=== PATIENT | male | born 1975 | race Caucasian/White ===

== ENCOUNTER 2022-01-03 17:21 | Emergency (ER) | payer OTHER ==
[2022-01-03 17:46] VITALS: BP 120/73; PULSE 96; RESP 20; TEMP 98.5
[2022-01-03 20:53] LABS: Partial Thromboplastin Time 22.1 sec (22.0-30.0); Prothrombin Time 11.3 sec (9.0-12.0)
[2022-01-03 20:56] LABS: Albumin 5.1 g/dL (3.5-5.0); Calcium 10.1 mg/dL (8.4-10.2); Potassium 4.5 mmol/L (3.5-5.1); Total Bilirubin 1.3 mg/dL (0.2-1.3); Total Protein 6.6 g/dL (6.3-8.2)
--- NOTE | 2022-01-03 21:31 | ED ---
General Adult HPI - General Chief complaint: Neuro Symptoms/Deficit Stated complaint: RAYSA,bilateral extremity issues Time Seen by Provider: 01/03/22 19:42 Source: patient Mode of arrival: ambulatory Limitations: no limitations - History of Present Illness Initial comments: Patient is a 46-year-old male presenting with chief complaint of increasing numbness and paralysis of the bilateral lower extremities. Patient states that about a week ago this started with intense bilateral lower back pain. He denies any trauma or injury. Patient states that numbness and paralysis has been progressively worsening throughout the week. On Sunday is when he lost the ability to walk. He has lost control of his bladder. He is still able control his bowels. He also admits to intermittent abdominal pain after eating. No fever or chills. No chest pain or difficulty breathing. No dizziness or syncope. No history of cancer. No palpitations. No nausea, vomiting, diarrhea, hematochezia, melena. - Related Data Allergies Allergy/AdvReac Type Severity Reaction Status Date / Time No Known Allergies Allergy Verified 01/03/22 17:45 Review of Systems ROS Statement: Those systems with pertinent positive or pertinent negative responses have been documented in the HPI. ROS Other: All systems not noted in ROS Statement are negative. Past Medical History Past Medical History: No Reported History History of Any Multi-Drug Resistant Organisms: None Reported Past Surgical History: No Surgical Hx Reported Past Psychological History: No Psychological Hx Reported Smoking Status: Never smoker Past Alcohol Use History: Heavy Past Drug Use History: None Reported General Exam Limitations: no limitations General appearance: alert, in no apparent distress Head exam: Present: atraumatic, normocephalic, normal inspection Eye exam: Present: normal appearance, PERRL, EOMI. Absent: scleral icterus, conjunctival injection, periorbital swelling Neck exam: Present: normal inspection, full ROM Respiratory exam: Present: normal lung sounds bilaterally. Absent: respiratory distress, wheezes, rales, rhonchi, stridor Cardiovascular Exam: Present: regular rate, normal rhythm, normal heart sounds. Absent: systolic murmur, diastolic murmur, rubs, gallop, clicks Rectal exam: Present: decreased rectal tone Extremities exam: Present: pedal edema, other (Minimal sensation to the bilateral lower extremities, patient is unable to move the bilateral lower extremities) Back exam: Present: tenderness Neurological exam: Present: alert, oriented X3, CN II-XII intact Psychiatric exam: Present: normal affect, normal mood Skin exam: Present: warm, dry, intact, normal color. Absent: rash Course Vital Signs 01/03/22 17:41 Temperature 98.5 F Pulse Rate 96 Respiratory 20 Rate Blood Pressure 120/73 O2 Sat by Pulse 99 Oximetry Medical Decision Making - Medical Decision Making Patient is a 38-year-old male presenting with chief complaint of progressive numbness and paralysis of the bilateral lower extremities. Patient states has been ongoing for the last week and began with bilateral lower back pain. No history of injury or trauma. Patient has lost control of his bladder. On physical examination there is diminished sensation bilateral lower extremities, bilateral swelling is noted. Rectal tone is diminished. I'm concerned for cauda equina. Patient needs stat MRI and neurosurgical evaluation. I spoke with [facility] who accepted transfer, accepting physician Dr. Maldonado. Covid test is pending. I discussed this plan with the patient and his parents at bedside, they were agreeable. I discussed this case with my attending Dr. Alvarez. - Lab Data Result diagrams: 01/03/22 20:36 01/03/22 20:36 Lab Results 01/03/22 01/03/22 01/03/22 Range/Units 20:36 20:36 20:36 WBC 7.4 (3.8-10.6) k/uL RBC 3.50 L (4.30-5.90) m/uL Hgb 12.9 L (13.0-17.5) gm/dL Hct 34.1 L (39.0-53.0) % MCV 97.4 (80.0-100.0) fL MCH 36.9 H (25.0-35.0) pg MCHC 37.9 H (31.0-37.0) g/dL RDW 11.9 (11.5-15.5) % Plt Count 154 (150-450) k/uL MPV 8.2 PT 11.3 (9.0-12.0) sec INR 1.0 (<1.2) APTT 22.1 (22.0-30.0) sec Sodium 131 L (137-145) mmol/L Potassium 4.5 (3.5-5.1) mmol/L Chloride 94 L (98-107) mmol/L Carbon Dioxide 21 L (22-30) mmol/L Anion Gap 16 mmol/L BUN 20 (9-20) mg/dL Creatinine 1.24 (0.66-1.25) mg/dL Est GFR (CKD-EPI)AfAm 80 (>60 ml/min/1.73 sqM) Est GFR (CKD-EPI)NonAf 69 (>60 ml/min/1.73 sqM) Glucose 96 (74-99) mg/dL Calcium 10.1 (8.4-10.2) mg/dL Total Bilirubin 1.3 (0.2-1.3) mg/dL AST 25 (17-59) U/L ALT 28 (4-49) U/L Alkaline Phosphatase 38 (38-126) U/L Total Protein 6.6 (6.3-8.2) g/dL Albumin 5.1 H (3.5-5.0) g/dL Disposition Clinical Impression: Progressive neurological deficit, Back pain, Loss of bladder control, Decreased rectal sphincter tone Disposition: OTHER INSTITUTION NOT DEFINED Condition: Serious Referrals: None,Stated [Primary Care Provider] - 1-2 days Time of Disposition: 21:31 - Out of Hospital Transfer - Req. Specs Out of Hospital Transfer - Requested Specifics: Other Emergency Center ([facility])
[2022-01-03 21:54] LABS: HCT 34.1 % (39.0-53.0); HGB 12.9 gm/dL (13.0-17.5); MCH 36.9 pg (25.0-35.0); MCHC 37.9 g/dL (31.0-37.0); MCV 97.4 fL (80.0-100.0); Mean Platelet Volume 8.2; Platelet Count 154 k/uL (150-450); RDW 11.9 % (11.5-15.5); WBC 7.4 k/uL (3.8-10.6)
[2022-01-03 22:16] LABS: Lymphocytes # (M) 0.52 k/uL (1.0-4.8); Monocytes # (M) 0.37 k/uL (0-1.0); Neutrophils # (M) 6.51 k/uL (1.3-7.7); Neutrophils % (M) 88 %; Nucleated Red Blood Cells 0 /100 WBC (0-0); Total Cells Counted 100
[2022-01-03 22:17] LABS: Ovalocytes Present; Poikilocytosis (M) Present
== END 2022-01-03 23:44 | disposition other institution (70) ==
LOC: EC 17:21
DX: R29.818 Other symptoms and signs involving the nervous system (principal); R39.81 Functional urinary incontinence; K62.89 Other specified diseases of anus and rectum; M54.9 Dorsalgia, unspecified; Z20.822 Contact with and (suspected) exposure to COVID-19
CPT/HCPCS: 36415; 80053; 85025; 85610; 85730; 87635; 93005; 99285

== ENCOUNTER → 2022-03-31 | Outpatient (CLI) | payer OTHER ==
--- NOTE | 2022-04-03 15:34 | MR ---
EXAMINATION TYPE: MR thoracic spine wo con DATE OF EXAM: 03/31/2022 10:26 AM COMPARISON: No priors. INDICATION: Patient age:Male; 46 years old; Reason for study: C79.51 SECONDARY MALIGNANT NEOPLASM OF BONE; TECHNIQUE: Limited exam secondary to patient early termination with Sagittal T1-weighted, T2-weighted and STIR of the thoracic spine. The patient was not given Gadolinium. No axial imaging was performed . IV Contrast: no gadolinium was given secondary to patient's claustrophobia. FINDINGS: Thoracic alignment is within normal limits. There is a T5 vertebral body high T1/high T2 signal verte bral body probable hemangioma. No evidence for bony edema on inversion recovery sequences. Soft tissue intermediate T1 signal lesions are felt to be present along the anterior sympathetic yasmeen ns bilaterally. This appreciated on coronal imaging. Motion limited evaluation sagittal demonstrates multiple soft tissue masses scattered throughout the spinal canal. Example includes at the level of T 12 measuring up to 3.2 cm in caudocranial dimension. IMPRESSION: 1. Limited/early termination limited exam secondary to patient's claustrophobia. 2. Soft tissue densities along the sympathetic chains bilaterally and soft tissue masses felt to be within the spinal canal are suboptimally evaluated without a complete exam. Consider repeat exam with sedation. Findings could relate to neurogenic tumors versus others etiologies.
== END | disposition home or self-care (01) ==
LOC: RADMRIMAIN 09:26
PROVIDERS: ATTEND Radiology Radiation Oncology
DX: C79.51 Secondary malignant neoplasm of bone (principal); J98.4 Other disorders of lung
CPT/HCPCS: 72146

== ENCOUNTER 2022-05-25 23:37 | Inpatient (IN) | payer OTHER ==
[2022-05-26] MEDS ORDERED: SODIUM CHLORIDE 0.9% 500 ML 500 ML IV STA (00:19)
[2022-05-26] MEDS ORDERED: fentaNYL (PF) 50 MCG/ML 2 ML AMP IVP STA (00:19)
[2022-05-26] MEDS ORDERED: LIDOCAINE 5% PATCH TOPICAL ONE (00:19)
[2022-05-26] MEDS ORDERED: NALOXONE 0.4 MG/ML 1 ML VIAL IV PRN (00:29)
[2022-05-26] MEDS ORDERED: ONDANSETRON ODT 4 MG TAB PO PRN (00:32)
--- NOTE | 2022-05-26 00:32 | ED ---
Back Pain HPI - General Chief Complaint: Back Pain/Injury Stated Complaint: Back pain, leg pain Time Seen by Provider: 05/25/22 23:43 Source: patient, RN notes reviewed, old records reviewed Limitations: no limitations - History of Present Illness Initial Comments: This is a nontoxic-appearing 46-year-old male that presents to the emergency room with complaints of bilateral lower extremity numbness. Was discharged from hospital with similar symptoms and back pain on 05/20 and is scheduled to see Dr. Judd on Sunday. States that symptoms have worsened over the past 3 days. He is also seeing Dr. Douglas with oncology and had a bone marrow biopsy 2 weeks ago. States has not been able to get up out of bed due to pain and leg numbness and has been urinating into a bucket at his bedside. Denies any fevers, nausea or vomiting. MD Complaint: back pain -: days(s) (3) Similar Symptoms Previously: Yes Place: home Severity scale (1-10): 7 Consistency: constant Improves With: none Associated Symptoms: numbness (BLLE), difficulty walking, other (urinary hesitation, b/l lower extremity paresthesia) - Related Data Home Medications Medication Instructions Recorded Confirmed traMADol HCL 100 mg PO TID PRN 05/12/22 05/12/22 Previous Rx's Medication Instructions Recorded Docusate [Colace] 100 mg PO DAILY #30 cap 05/18/22 Pantoprazole [Protonix] 40 mg PO DAILY #30 tab 05/18/22 Ondansetron Odt [Zofran Odt] 4 mg PO Q8HR PRN #10 tab 05/20/22 Allergies Allergy/AdvReac Type Severity Reaction Status Date / Time No Known Allergies Allergy Verified 05/12/22 11:12 Review of Systems ROS Statement: Those systems with pertinent positive or pertinent negative responses have been documented in the HPI. ROS Other: All systems not noted in ROS Statement are negative. Past Medical History Past Medical History: No Reported History, Cancer Additional Past Medical History / Comment(s): Back issues History of Any Multi-Drug Resistant Organisms: None Reported Past Surgical History: No Surgical Hx Reported Additional Past Surgical History / Comment(s): back surgery to remove tumor december of 2021. Bone biospy of right hip Past Anesthesia/Blood Transfusion Reactions: No Reported Reaction Past Psychological History: No Psychological Hx Reported Smoking Status: Never smoker Past Alcohol Use History: Heavy Past Drug Use History: None Reported General Exam Limitations: no limitations General appearance: alert, in no apparent distress Head exam: Present: atraumatic, normocephalic Eye exam: Present: normal appearance. Absent: scleral icterus, conjunctival injection, periorbital swelling Neck exam: Absent: meningismus Respiratory exam: Absent: respiratory distress, accessory muscle use Cardiovascular Exam: Present: regular rate Extremities exam: Present: normal capillary refill. Absent: pedal edema Back exam: Present: tenderness (left thoracic). Absent: CVA tenderness (R), CVA tenderness (L), muscle spasm, vertebral tenderness, rash noted Neurological exam: Present: alert, oriented X3 Psychiatric exam: Present: normal affect, normal mood Skin exam: Present: warm, dry, normal color. 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 Multiple myeloma with metastatic disease. Patient has been seen multiple times this month for this same pain states worsening over past few days. States unable to ambulate due to pain and numbness of lower extremities worsening since discharge. His last CT showed no evidence of cord compression. Patient was seen by Dr. Judd on May 14 recommended multimodal pain control to include the use of anti-inflammatories, Tylenol, narcotics and steroids. CT without contrast of the thoracic spine ordered for further evaluation. CT performed May 14 of this year shows multiple soft tissue masses along with sympathetic chain bilaterally which could represent extra medullary hematopoiesis versus neurogenic tumors or cysts other. No evidence for acute fracture or CT evidence for spinal canal or neural foraminal stenosis. Posttreatment procedural changes at T9-T10 and T11 posterior elements. Discharged May 20. He is currently taking tramadol 100 mg 3 times a day and morphine xr with no relief. Scheduled to see Dr. Judd next week but could not tolerate the pain. Patient requesting Dilaudid states normally he receives 1.5 mg for pain relief. Offered fentanyl and declined. Labs show no evidence of leukocytosis. Hemoglobin and hematocrit are stable. Patient was given multiple doses of pain medication in the emergency room. I did speak with Suzi with [facility] who was agreeable to admission with Dr. Judd and oncology on consult. Patient was agreeable to this plan of care. Case discussed with Dr. Alvarez. Was pt. sent in by a medical professional or institution (, PA, [employer], urgent care, hospital, or senior living...) When possible be specific @ -No Did you speak to anyone other than the patient for history (EMS, parent, family, police, friend...)? What history was obtained from this source @ -No Did you review nursing and triage notes (agree or disagree)? Why? @ -I reviewed and agree with nursing and triage notes Were old charts reviewed (outside hosp., previous admission, EMS record, old EKG, old radiological studies, urgent care reports/EKG's, senior living records)? Report findings @ -Yes as above Differential Diagnosis (chest pain, altered mental status, abdominal pain women, abdominal pain men, vaginal bleeding, weakness, fever, dyspnea, syncope, headache, dizziness, GI bleed, back pain, seizure, CVA, palpatations, mental health, musculoskeletal)? @ -Differential Back Pain: Strain, zoster, cauda equina syndrome, epidural abscess, vertebral osteomyelitis, discitis, fracture, subluxation, disc herniation, DJD, spinal stenosis, dissection, AAA, pancreatitis, peptic ulcer disease, pyelonephritis, kidney stone, this is not meant to be an all-inclusive list. EKG interpreted by me (3pts min.). @ -n/a X-rays interpreted by me (1pt min.). @ -None done CT interpreted by me (1pt min.). @ -None done U/S interpreted by me (1pt. min.). @ -None done What testing was considered but not performed or refused? (CT, X-rays, U/S, labs)? Why? @ -CT was considered however was performed on last admission What meds were considered but not given or refused? Why? @ -Patient was offered fentanyl and declined. Did you discuss the management of the patient with other professionals (professionals i.e. , PA, [employer]IVER, lab, RT, psych nurse, manager social services, general worker, teacher, vice squad police officer, manager research)? Give summary @ -Suzi with [facility], familiar with patient, consult to oncology and Dr Judd requested Was smoking cessation discussed for >3mins.? @ -No Was critical care preformed (if so, how long)? @ -No Were there social determinants of health that impacted care today? How? (Homelessness, low income, unemployed, alcoholism, drug addiction, transportation, low edu. Level, literacy, decrease access to med. care, [facility], rehab)? @ -No Was there de-escalation of care discussed even if they declined (Discuss DNR or withdrawal of care, Hospice)? DNR status @ -No What co-morbidities impacted this encounter? (DM, HTN, Smoking, COPD, CAD, Cancer, CVA, ARF, Chemo, Hep., AIDS, mental health diagnosis, sleep apnea, morbid obesity)? @ -Multiple myeloma. Was patient admitted / discharged? Hospital course, mention meds given and [place], prescriptions, significant lab abnormalities, going to OR and other pertinent info. @ -Admitted Undiagnosed new problem with uncertain prognosis? @ -No Drug Therapy requiring intensive monitoring for toxicity (Heparin, Nitro, Insulin, Cardizem)? @ -No Were any procedures done? @ -No Diagnosis/symptom? @ - intractable back pain, multiple myeloma Acute, or Chronic, or Acute on Chronic? @ -Acute on chronic Uncomplicated (without systemic symptoms) or Complicated (systemic symptoms)? @ -Complicated Side effects of treatment? @ -No Exacerbation, Progression, or Severe Exacerbation? @ -No Poses a threat to life or bodily function? How? (Chest pain, [place], [place], pneumonia, PE, COPD, DKA, ARF, appy, cholecystitis, CVA, Diverticulitis, Homicidal, Suicidal, threat to staff... and all critical care pts) @ -No - Lab Data Result diagrams: 05/26/22 00:44 05/26/22 00:44 Disposition Clinical Impression: Chronic back pain greater than 3 months duration, Intractable back pain, Paresthesia of bilateral legs Disposition: ADMITTED IP TO THIS HOSP Decision Date: 05/26/22 Decision Time: 00:29
[2022-05-26] MEDS: HYDROmorphone 1 MG/ML 1 ML SYRINGE IVP PRN ×7 (00:47→22:08)
[2022-05-26 01:15] LABS: Potassium 3.7 mmol/L (3.5-5.1)
[2022-05-26 01:16] LABS: ALT 20 U/L (4-49); AST 17 U/L (17-59); African American GFR (CKD) >90 (>60 ml/min/1.73 sqM); Albumin 3.6 g/dL (3.5-5.0); Alkaline Phosphatase 51 U/L (38-126); Anion Gap 7 mmol/L; Blood Urea Nitrogen 15 mg/dL (9-20); Calcium 8.6 mg/dL (8.4-10.2); Carbon Dioxide 24 mmol/L (22-30); Chloride 101 mmol/L (98-107); Glucose 106 mg/dL (74-99); Non-African American GFR(CKD) 81 (>60 ml/min/1.73 sqM); Sodium 132 mmol/L (137-145); Total Bilirubin 0.7 mg/dL (0.2-1.3); Total Protein 5.3 g/dL (6.3-8.2)
[2022-05-26 01:51] LABS: HGB 10.6 gm/dL (13.0-17.5); Hyperchromasia Moderate; MCH 36.4 pg (25.0-35.0); MCHC 36.6 g/dL (31.0-37.0); MCV 99.4 fL (80.0-100.0); Platelet Count 112 k/uL (150-450); RBC 2.91 m/uL (4.30-5.90); RDW 13.3 % (11.5-15.5); WBC 3.9 k/uL (3.8-10.6)
[2022-05-26] MEDS ORDERED: HYDROmorphone 0.5 MG/0.5 ML SYRINGE IVP STA (01:54)
[2022-05-26 02:37] LABS: Lymphocytes # (M) 0.62 k/uL (1.0-4.8); Monocytes # (M) 0.27 k/uL (0-1.0); Neutrophils % (M) 77 %; Nucleated Red Blood Cells 0 /100 WBC (0-0); Total Cells Counted 100
[2022-05-26] MEDS: traMADol 50 MG TAB PO PRN (03:30)
[2022-05-26] MEDS: DOCUSATE 100 MG CAP PO SCH (09:20)
[2022-05-26] MEDS: PANTOPRAZOLE 40 MG TABLET PO SCH (09:20)
--- NOTE | 2022-05-26 14:21 | P.CONS ---
History of Present Illness - Reason for Consult Consult date: 05/26/22 intractable back pain Requesting physician: Siva Rhodes - Chief Complaint back pain, BLE numbness - History of Present Illness Mr. 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 He was discharged 1 week ago with similar complaints. He was discharged home with oral pain medications that was controlling pain prior to his discharge. He presented to the ER for persisting mid/low back pain with with BLE numbness and tingling. Pt reports numbness and tingling has been getting worse but has been ongoing since diagnosis 5 months ago. He denies loss of bowel and bladder control, but reports he has urinary hesitancy and difficulty initiating urinary stream. He denies dysuria, and hematuria. Pt reports since discharge he hasn't been taking pain medications as prescribed, as they make him anxious. He also reports difficulties with ambulating. Oncology history: He initially presented at [facility] in December 2021 with increasing back pain and weakness of the lower extremities. MRI of the thoracic spine on 01/04/2022 noted soft epidural mass at T1-T3 with cord compression and central spinal stenosis at T2. Epidural mass from T9-T11 with compression at T10-T11. MRI of the lumbar spine revealed epidural masses at multiple levels from L5-S1. He underwent decompressive laminectomy on 01/06/2022 which revealed plasma cell neoplasm positive for CD138 and kappa light chains. Flow cytometry was positive for CD38 and kappa light chains and was negative for CD45 and CD56. He subsequently followed up with radiation oncology outpatient, but had noted refusal of postoperative radiation therapy to the spine and refused to meet with medical oncology. He was briefly lost to follow-up, but then reestablish care with radiation oncology. They had noted multiple times that they strongly recommended he follow-up with medical oncology, but insisted on trying "natural methods". He ultimately agreed to palliative radiation therapy to the lumbar spine, but was subsequently hospitalized for increased back and leg pain in April 2021. He was noted to have compression of the thecal sac at L5-S1. He was evaluated by ortho spine, who did not recommend operative management. He initially agreed to palliative radiation while he was inpatient, and only received 3/5 radiation treatments. We were consulted while he was first hospitalized to discuss systemic treatment. At that time, we had a prolonged discussion about what treatment could entail. In particular we discussed that treatment would consist of 2 oral medications and injection as an induction regimen with VRD followed by potential autoLog a stem cell transplant. While he acknowledged that he did have back pain, he insisted that he had periods where he had no pain at all and that he could ultimately feel better. SPEP obtained inpatient on 04/19/2021 revealed no M protein or immunofixation. He was noted to have a free kappa light chain of 210 with a lambda light chain of 0.16. Urine kappa light chain was 1475 with urine lambda light chain 0.66. IgG was 344, IgA 5.6, IgM 3.2. He did agree to have outpatient follow-up. On outpatient follow-up on 05/04/2022 he agreed to pursue PET/CT scan, but initially was unsure about bone marrow biopsy. PET scan has yet to be obtained due to insurance declining coverage. Awaiting prior auth. Bone survey on 05/13/22 showed no lytic lesion. He later agreed to bone marrow biopsy, which was scheduled for 05/18/2022. 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 Patient has f/u with Dr. Corie Douglas on 05/29 to discuss results and plans for treatment. Review of Systems 10 point ROS is negative except as stated in HPI Past Medical History Past Medical History: No Reported History, Cancer Additional Past Medical History / Comment(s): Back issues History of Any Multi-Drug Resistant Organisms: None Reported Past Surgical History: No Surgical Hx Reported Additional Past Surgical History / Comment(s): back surgery to remove tumor december of 2021. Bone biospy of right hip Past Anesthesia/Blood Transfusion Reactions: No Reported Reaction Past Psychological History: No Psychological Hx Reported Smoking Status: Never smoker Past Alcohol Use History: Heavy Past Drug Use History: None Reported Medications and Allergies Home Medications Medication Instructions Recorded Confirmed Type Docusate [Colace] 100 mg PO DAILY #30 cap 05/18/22 05/26/22 Rx Pantoprazole [Protonix] 40 mg PO DAILY #30 tab 05/18/22 05/26/22 Rx Ondansetron Odt [Zofran Odt] 4 mg PO Q8HR PRN #10 tab 05/20/22 05/26/22 Rx MORPHINE ORAL ROXANN 2mg/mL [Morphine 5 mg PO Q4H PRN 05/26/22 05/26/22 History Oral Soln 2 MG/ML] Morphine Sulfate ER [Ms Contin] 15 mg PO Q12H 05/26/22 05/26/22 History Allergies Allergy/AdvReac Type Severity Reaction Status Date / Time No Known Allergies Allergy Verified 05/12/22 11:12 Physical Exam Vitals: Vital Signs Temp Pulse Pulse Resp BP BP Pulse Ox 05/26/22 08:00 98.8 F 79 20 116/74 96 05/26/22 03:26 98.2 F 84 16 124/79 98 05/26/22 02:56 84 18 115/66 98 05/25/22 23:43 98.0 F 80 14 136/88 99 Intake and Output 05/25/22 05/26/22 05/26/22 22:59 06:59 14:59 Intake Total 360 Balance 360 Intake: Oral 360 Other: Voiding Method Urinal Urinal # Voids 1 Weight 79.379 kg - Constitutional General appearance: average body habitus, no acute distress - EENT Eyes: anicteric sclerae, EOMI ENT: hearing grossly normal - Respiratory breathing is even and unlabored - Cardiovascular skin warm and dry leg Peripheral Edema: bilateral: None - Integumentary Integumentary: normal - Neurologic strength 3/5 in BLE, decreased sensation to bilateral feet - Musculoskeletal pain in lower thoracic spine,midline Musculoskeletal: generalized weakness - Psychiatric Psychiatric: A&O x's 3, appropriate affect, intact judgment & insight Results CBC & Chem 7: 05/26/22 00:44 05/26/22 00:44 Labs: Abnormal Lab Results - Last 24 Hours (Table) 05/26/22 05/26/22 Range/Units 00:44 00:44 RBC 2.91 L (4.30-5.90) m/uL Hgb 10.6 L (13.0-17.5) gm/dL Hct 29.0 L (39.0-53.0) % MCH 36.4 H (25.0-35.0) pg Plt Count 112 L (150-450) k/uL Lymphocytes # (Manual) 0.62 L (1.0-4.8) k/uL Sodium 132 L (137-145) mmol/L Glucose 106 H (74-99) mg/dL Total Protein 5.3 L (6.3-8.2) g/dL Assessment and Plan (1) Intractable back pain Current Visit: Yes Status: Acute Priority: High Code(s): M54.9 - DORSALGIA, UNSPECIFIED SNOMED Code(s): 400380061 (2) Paresthesia of bilateral legs Current Visit: Yes Status: Acute Priority: High Code(s): R20.2 - PARESTHESIA OF SKIN SNOMED Code(s): 761258444 (3) Multiple myeloma Current Visit: Yes Status: Acute Priority: High Code(s): C90.00 - MULTIPLE MYELOMA NOT HAVING ACHIEVED REMISSION SNOMED Code(s): 934396202 Plan: Back pain/paresthesias: -Pt has not been taking home pain medications as prescribed, as he reports this is due to anxiety the medication causes him -He has been on norco and oxycodone prior to MS Contin and morphine, and reports similar side effects. Currently receiving IV dilaudid with adequate pain control. -Colace for prevention of opiate induced constipation -Decadron ordered -Explained to patient, that pain medications are only a temporary fix to help with the pain, and that leaving his cancer untreated will only cause progression and worsening of his symptoms. He verbalized understanding -Spoke with Dr. Bridges, who stated that patient is still a candidate for further palliative XRT. Will speak with patient to see if he wants to pursue further radiation treatment Plasma cell myeloma: -Discussed bone marrow results with patient, which confirmed plasma cell myeloma -Patient has been non-compliant with care, recommendations and with follow up. However, after speaking with him today he is agreeable with pursuing induction treatment. He has f/u in clinic on 05/29 to further discuss results and treatment plan. If he is still inpatient by Sunday, will reschedule appt. -Will obtain PET once cleared by insurance -Pt updated on plan of care and is agreeable
[2022-05-26] MEDS: DEXAMETHASONE SOD PHOSPHATE 10 MG/ML 1 ML VIAL IVP SCH ×2 (14:36→23:47)
--- NOTE | 2022-05-26 19:25 | P.CNOR ---
History of Present Illness - [facility] Consult date: 05/26/22 Consult reason: other (Back pain, difficulty with urination, lower extremity weakness) History of present illness: Patient is a 46-year-old male who is well known to our orthopedic servicedue to his previous hospital visits over the last few months. patient reported to Hospital with regards to worsening back pain, difficulty with ambulation and difficulty with urination. Patient was recently hospitalized for similar symptoms. At that time our orthopedic service was recommending no surgical intervention. We recommended follow-up with his oncologist to determine the best options for treatment. Patient did end up undergoing the bone marrow biopsy to help confirm current diagnosis. At his last hospital stay medications that were being utilized included pain medication and IV steroids which should help improve his symptoms. Currently the patient feels that his symptoms are worsening mainly with regards to the weakness in the extremities and difficulty with urination. According to other medical staff services coordinator notes, the patient has been noncompliant with regards to certain medications and following up with the oncology team. Patient continues to demonstrate and explain most the pain coming from his previous surgical site near the lower thoracic spine. He denies discomfort to the lower lumbar spine. Patient has undergone multiple imaging test, this to include a recent thoracic CT on 05/14/2022, a lumbar CT on 05/05/2022, MRI of the sacrum/coccyx and lumbar spine 04/20/2022, an MRI of the thoracic spine in 03/31/2022 and cervical, thoracic and lumbar MRI 01/04/2022. These images have demonstrated multiple areas in the spine of soft tissue masses. He underwent a laminectomy/decompression surgery at [facility] in January 2022 which helped alleviate his initial symptoms which were pain, difficulty urinating and weakness in the extremities. Discussion of surgical intervention has been discussed with Dr. Judd. Taking into consideration the patient's symptoms and how they have improved on occasion with current medical treatments. Also taking into consideration the patient's noncompliance with the oncology team for fdc treatment we have felt that surgery has not been best option for treatment. Review of Systems Constitutional: Reports as per [facility] Past Medical History Past Medical History: No Reported History, Cancer Additional Past Medical History / Comment(s): Back issues History of Any Multi-Drug Resistant Organisms: None Reported Past Surgical History: No Surgical Hx Reported Additional Past Surgical History / Comment(s): back surgery to remove tumor december of 2021. Bone biospy of right hip Past Anesthesia/Blood Transfusion Reactions: No Reported Reaction Past Psychological History: No Psychological Hx Reported Smoking Status: Never smoker Past Alcohol Use History: Heavy Past Drug Use History: None Reported Medications and Allergies Home Medications Medication Instructions Recorded Confirmed Type Docusate [Colace] 100 mg PO DAILY #30 cap 05/18/22 05/26/22 Rx Pantoprazole [Protonix] 40 mg PO DAILY #30 tab 05/18/22 05/26/22 Rx Ondansetron Odt [Zofran Odt] 4 mg PO Q8HR PRN #10 tab 05/20/22 05/26/22 Rx MORPHINE ORAL ROXANN 2mg/mL [Morphine 5 mg PO Q4H PRN 05/26/22 05/26/22 History Oral Soln 2 MG/ML] Morphine Sulfate ER [Ms Contin] 15 mg PO Q12H 05/26/22 05/26/22 History Allergies Allergy/AdvReac Type Severity Reaction Status Date / Time No Known Allergies Allergy Verified 05/12/22 11:12 Physical Examination Gen: AOx3, NAD VSS stable at this time Palpation: Mild tenderness with palpation noted near the lower thoracic and lumbar paraspinal region ROM: Logroll maneuver reproduces no discomfort in the bilateral lower extremities, there is no groin pain appreciated Full range of motion in all major muscle groups to bilateral upper and lower extremities, no focal deficits appreciated Sensory Exam: Senory exam to light touch is intact C5-T1 Senosry exam to light touch is intact L2-S1 Motor: 55 strength appreciated in bilateral upper extremities with shoulder elevation, shoulder abduction, elbow extension, elbow flexion, wrist extension, wrist flexion, clinical liaison 45 strength appreciated in the bilateral lower extremities with knee extension, knee flexion, plantar flexion, dorsiflexion, EHL, FHL 3+/5 strength in bilateral lower extremities with hip flexion Reflexes: 2/4 in all UE and LE Negative Emilio's bilaterally Negative Babinski bilaterally Positive clonus right lower extremity Results - Labs Labs: Abnormal Lab Results - Last 24 Hours (Table) 05/26/22 05/26/22 Range/Units 00:44 00:44 RBC 2.91 L (4.30-5.90) m/uL Hgb 10.6 L (13.0-17.5) gm/dL Hct 29.0 L (39.0-53.0) % MCH 36.4 H (25.0-35.0) pg Plt Count 112 L (150-450) k/uL Lymphocytes # (Manual) 0.62 L (1.0-4.8) k/uL Sodium 132 L (137-145) mmol/L Glucose 106 H (74-99) mg/dL Total Protein 5.3 L (6.3-8.2) g/dL H & H 05/26/22 Range/Units 00:44 Hgb 10.6 L (13.0-17.5) gm/dL Hct 29.0 L (39.0-53.0) % Result Diagrams: 05/26/22 00:44 05/26/22 00:44 Assessment and Plan Assessment: Acute on chronic low back pain Multiple myeloma with metastatic disease Difficulty with urination Bilateral lower extremity weakness Other medical comorbidities Plan: I had a long discussion again today with the patient on the need to follow-up with oncology recommendations for long-term treatment I explained to the patient that I will discuss possible surgical options with Dr. Judd Recommending continuation of the pain medication along with IV steroids Recommend weight-bear as tolerated with walker DVT prophylaxis per primary medical service Further recommendations to follow Time with Patient: Less than 30
[2022-05-27] MEDS ORDERED: ACETAMINOPHEN TAB 325 MG TAB PO PRN (01:54)
--- NOTE | 2022-05-27 01:54 | P.HPIM ---
History of Present Illness H&P Date: 05/26/22 Chief Complaint: Back pain Patient is a 46-year-old male with a known history of chronic back pain, history of back surgery tumor removal in December 2021 and recent bone marrow biopsy, plasma cell neoplasm presented to ER with the complaints of bilateral lower extremity weakness, numbness and also pain at the previous back surgical site. Patient was recently admitted to hospital due to complaints of back pain. Patient also states that he has been having urinary incontinence and bowel incontinence Which has worsened recently. Also complains of difficulty initiating urinary stream. Patient states that he is unable to get out of bed due to pain and Leg numbness. No cough or sputum production. No chest pain or shortness of breath. Denies any complaints of fever or chills. No dysuria or hematuria. Patient was recently discharged from the hospital on 05/19/2021. Patient had aspiration bone biopsy done on 05/18/2022. Patient recently had CT of the thoracic spine and bone survey which showed no lytic lesion identified. On admission laboratory data showed WBC 3.9 hemoglobin 10.6 and platelets 112 Sodium 132 potassium 3.7 chloride 101 bicarb is 24 BUN 15 and creatinine 1.08, total protein 5.3 and albumin 3.6. Liver enzymes are not elevated. Review of Systems Constitutional: Patient denies any fever or chills . Generalized weakness. Abdomen: Patient denied any nausea or vomiting or abd. pain Cardiovascular: Patient denies any chest pain or short of breath no palpitations. Respiratory: patient denied any cough . no sputum production. No shortness of breath Neurologic: Patient patient is complaining of numbness of the lower extremities and weakness.. Musculoskeletal: Patient denies any complaints of joint swelling or deformity. Back pain. Skin: Negative Psychiatric: Anxious. Endocrine: No heat or cold intolerance. No recent weight gain. Genitourinary: No dysuria or hematuria. All other 14 point ROS negative except the above Past Medical History Past Medical History: No Reported History, Cancer Additional Past Medical History / Comment(s): Back issues History of Any Multi-Drug Resistant Organisms: None Reported Past Surgical History: No Surgical Hx Reported Additional Past Surgical History / Comment(s): back surgery to remove tumor december of 2021. Bone biospy of right hip Past Anesthesia/Blood Transfusion Reactions: No Reported Reaction Past Psychological History: No Psychological Hx Reported Smoking Status: Never smoker Past Alcohol Use History: Heavy Past Drug Use History: None Reported Medications and Allergies Home Medications Medication Instructions Recorded Confirmed Type Docusate [Colace] 100 mg PO DAILY #30 cap 05/18/22 05/26/22 Rx Pantoprazole [Protonix] 40 mg PO DAILY #30 tab 05/18/22 05/26/22 Rx Ondansetron Odt [Zofran Odt] 4 mg PO Q8HR PRN #10 tab 05/20/22 05/26/22 Rx MORPHINE ORAL ROXANN 2mg/mL [Morphine 5 mg PO Q4H PRN 05/26/22 05/26/22 History Oral Soln 2 MG/ML] Morphine Sulfate ER [Ms Contin] 15 mg PO Q12H 05/26/22 05/26/22 History Allergies Allergy/AdvReac Type Severity Reaction Status Date / Time No Known Allergies Allergy Verified 05/12/22 11:12 Physical Exam Vitals: Vital Signs Temp Pulse Pulse Resp BP BP Pulse Ox 05/26/22 12:03 98.3 F 75 18 102/62 98 05/26/22 08:00 98.8 F 79 20 116/74 96 05/26/22 03:26 98.2 F 84 16 124/79 98 05/26/22 02:56 84 18 115/66 98 05/25/22 23:43 98.0 F 80 14 136/88 99 Intake and Output 05/25/22 05/26/22 05/26/22 22:59 06:59 14:59 Intake Total 360 Balance 360 Intake: Oral 360 Other: Voiding Method Urinal Urinal # Voids 1 Weight 79.379 kg PHYSICAL EXAMINATION: Patient is lying in the bed comfortably, no acute distress, awake alert and oriented.. HEENT: Normocephalic. Neck is supple. Pupils reactive. Nostrils clear. Oral cavity is moist. Neck reveals no JVD, carotid bruits, or thyromegaly. CHEST EXAMINATION: Trachea is central. Symmetrical expansion. Lung viramontes clear to auscultation and percussion. CARDIAC: Normal S1, S2 with no gallops. No murmurs ABDOMEN: Soft. Bowel sounds present. Nontender. No organomegaly. No abdominal bruits. Extremities: reveal no edema. No clubbing or cyanosis Neurologically awake, alert, oriented x3. Able to move extremities while in bed. Muscle strength 4 out of 5. Skin: No rash or skin lesions. Psychiatric: Coperative. Nonsuicidal, anxious. Musculoskeletal: No joint swelling or deformity. Results CBC & Chem 7: 05/26/22 00:44 05/27/22 05:34 Labs: Abnormal Lab Results - Last 24 Hours (Table) 05/26/22 05/26/22 Range/Units 00:44 00:44 RBC 2.91 L (4.30-5.90) m/uL Hgb 10.6 L (13.0-17.5) gm/dL Hct 29.0 L (39.0-53.0) % MCH 36.4 H (25.0-35.0) pg Plt Count 112 L (150-450) k/uL Lymphocytes # (Manual) 0.62 L (1.0-4.8) k/uL Sodium 132 L (137-145) mmol/L Glucose 106 H (74-99) mg/dL Total Protein 5.3 L (6.3-8.2) g/dL Thrombosis Risk Factor Assmnt - DVT/VTE Prophylaxis DVT/VTE Prophylaxis: Pharmacologic Prophylaxis ordered - Choose All That Apply Any of the Below Risk Factors Present?: Yes Each Factor Represents 1 point: Age 41-60 years Other Risk Factors: Yes Each Risk Factor Represents 2 Points: Malignancy Other congenital or acquired thrombophilia - If yes, enter type in comment: No Thrombosis Risk Factor Assessment Total Risk Factor Score: 3 Thrombosis Risk Factor Assessment Level: Moderate Risk Assessment and Plan Assessment: Acute on chronic intractable back pain With numbness and weakness of the bilateral lower extremities. Recent CT thoracic spine showed no acute fracture CT evidence of spinal canal or neural foraminal stenosis. Posttreatment procedural changes at T9-T10 and T11 posterior elements. Multiple myeloma. With recent bone marrow aspiration biopsy on 05/18/2022. Anxiety DVT prophylaxis heparin subcu Plan: Patient will be continued on IV Dilaudid. Patient states that he has been working better for him and requesting oral Dilaudid pills at discharge. Patient is also on [place] and oxycodone. Continue with Tylenol as needed also. Bowel regimen. Patient was started on dexamethasone. Oncology and orthopedic surgery was consulted. Radiation oncology was consulted for evaluation. Patient is agreeable to follow-up in the clinic on 05/29/2022 to further discuss about treatment plan. Outpatient PET scan. Time with Patient: Greater than 30
[2022-05-27] MEDS: HYDROmorphone 1 MG/ML 1 ML SYRINGE IVP PRN ×5 (03:24→20:40)
[2022-05-27] MEDS: DEXAMETHASONE SOD PHOSPHATE 10 MG/ML 1 ML VIAL IVP SCH ×3 (08:23→23:22)
[2022-05-27] MEDS: PANTOPRAZOLE 40 MG TABLET PO SCH (08:24)
[2022-05-27] MEDS: DOCUSATE 100 MG CAP PO SCH (08:24)
[2022-05-27 09:46] LABS: African American GFR (CKD) 81.6 (60.0-200.0); Anion Gap 10.9 mmol/L (10.00-18.00); BUN/Creat Ratio 13.47 Ratio (12.00-20.00); Blood Urea Nitrogen 16.3 mg/dL (9.0-27.0); Calcium 8.8 mg/dL (8.7-10.3); Carbon Dioxide 23.2 mmol/L (20.0-27.5); Non-African American GFR(CKD) 70.4 (60.0-200.0); Potassium 3.9 mmol/L (3.5-5.5)
--- NOTE | 2022-05-27 12:24 | P.PN ---
Progress Note - Text Progress Note Date: 05/27/22 Pt s/e this AM. Had a long discussion about his symptoms as well as current course and previous visits. He states that most of his issues at this time seem to be pain radiating from the previous surgical site into his b/l mid to low back and ribs. He states he has done 4x radiation to this area with some relief initially but that his has gone away. He states that his bowel and bladder issues initially resolved after surgery but seem to be some what returning although not as bad. He states some weakness in his LE but not progressive and not as bad as before first surgery. He denies any perineal numbness/tingling. He states he has trouble taking care of himself at home and his parents are older and so it is hard for them as well. He feels that he is also having trouble because of the pain it seems to be making him depressed and he stated a few times during our conversation that he would "rather not be around at all" than be in this pain. Although he states the pain is not constant but when it is there is severe. His story is somewhat conflicting. He has tried [place], Percocet, Dilauid, and is not on Morphine ER and IR for his sx. Of which he states does not help completely however he does not seem to be uncomfortable while we speak today or during the exam. On exam he has good senstaion in LE b/l. 4+/5 strengths in all major muscle groups w/o forcal deficits. No clonus, No pathological reflexes. He has perineal sensation intact and scrotal sensation. He has palpable distal pules. He does c/o of some TTP around previous incision site but other than that no pain can be illicit on exam. He seems to be speaking well and judgement is normal. Affect is somewhat depressed but overall he understands his situation. He has requested due to some increase in his Leg and bladder sx for a new MRI, if he can tolerate, as he has had claustrphobia the last few times he has tried to have MRI. This is reasonable given his sx and continued issues. I also think he would benefit from psyc eval and medical optimization as well as a chronic pain management consult. At this time, there is no emergent or urgent spine surgical needs that I can recommend. If new MRI shows any recurrence of disease in previous area of surgery then we can address. He has large tumor burden around L5-=S1 which has not changed based on current condition. We will continue to follow as necessary.
[2022-05-27] MEDS: traMADol 50 MG TAB PO PRN (18:41)
[2022-05-27] MEDS: HEPARIN SODIUM,PORCINE/PF 5,000 UNIT/0.5 ML SYRINGE SQ SCH (23:29)
[2022-05-28] MEDS: traMADol 50 MG TAB PO PRN (01:17)
[2022-05-28] MEDS: HYDROmorphone 1 MG/ML 1 ML SYRINGE IVP PRN ×5 (01:25→20:20)
[2022-05-28] MEDS: HEPARIN SODIUM,PORCINE/PF 5,000 UNIT/0.5 ML SYRINGE SQ SCH ×3 (08:04→23:04)
[2022-05-28] MEDS: DOCUSATE 100 MG CAP PO SCH (08:04)
[2022-05-28] MEDS: PANTOPRAZOLE 40 MG TABLET PO SCH (08:04)
[2022-05-28] MEDS: DEXAMETHASONE SOD PHOSPHATE 10 MG/ML 1 ML VIAL IVP SCH ×3 (08:04→23:32)
[2022-05-28 09:56] LABS: HCT 28.6 % (39.0-53.0); HGB 10.5 gm/dL (13.0-17.5); Hyperchromasia Slight; MCH 36.7 pg (25.0-35.0); MCHC 36.9 g/dL (31.0-37.0); MCV 99.7 fL (80.0-100.0); Mean Platelet Volume 7.6; Platelet Count 129 k/uL (150-450); RBC 2.87 m/uL (4.30-5.90); RDW 12.4 % (11.5-15.5); WBC 5.4 k/uL (3.8-10.6)
[2022-05-28 12:21] LABS: Lymphocytes # (M) 0.81 k/uL (1.0-4.8); Monocytes # (M) 0.32 k/uL (0-1.0); Neutrophils # (M) 4.27 k/uL (1.3-7.7); Neutrophils % (M) 79 %; Nucleated Red Blood Cells 0 /100 WBC (0-0); Total Cells Counted 100
--- NOTE | 2022-05-28 12:40 | P.PN ---
Subjective Progress Note Date: 05/28/22 Principal diagnosis: Multiple myeloma with spine metastasis, back pain, bilateral lower extremity weakness, difficulty with urination Patient was evaluated today at bedside today resting in his hospital bed. She states the pain is manageable at this time. Consent was yesterday to discuss patient's current condition and options for treatment. We are waiting MRI of both the thoracic and lumbar spine with and without contrast. Psych consult has been placed. Objective - Vital Signs Vital signs: Vital Signs Temp 97.8 F 05/28/22 06:39 Pulse 64 05/28/22 06:39 Resp 16 05/28/22 06:39 BP 114/72 05/28/22 06:39 Pulse Ox 99 05/28/22 06:39 FiO2 Intake & Output 05/27/22 05/28/22 05/28/22 18:59 06:59 18:59 Intake Total 400 Output Total 1750 Balance 400 -1750 Intake: Oral 400 Output: Urine 1750 Other: Voiding Method External Catheter External Catheter External Catheter # Bowel Movements 1 - Exam Gen: AOx3, NAD VSS stable at this time Palpation: Mild tenderness with palpation noted near the lower thoracic and lumbar paraspinal region ROM: Logroll maneuver reproduces no discomfort in the bilateral lower extremities, there is no groin pain appreciated Full range of motion in all major muscle groups to bilateral upper and lower extremities, no focal deficits appreciated Sensory Exam: Senory exam to light touch is intact C5-T1 Senosry exam to light touch is intact L2-S1 Motor: 55 strength appreciated in bilateral upper extremities with shoulder elevation, shoulder abduction, elbow extension, elbow flexion, wrist extension, wrist flexion, undercover operator 45 strength appreciated in the bilateral lower extremities with knee extension, knee flexion, plantar flexion, dorsiflexion, EHL, FHL 3+/5 strength in bilateral lower extremities with hip flexion Reflexes: 2/4 in all UE and LE Negative Emilio's bilaterally Negative Babinski bilaterally Negative clonus bilaterally - Labs CBC & Chem 7: 05/28/22 08:56 05/27/22 05:34 Labs: Abnormal Lab Results - Last 24 Hours (Table) 05/28/22 Range/Units 08:56 RBC 2.87 L (4.30-5.90) m/uL Hgb 10.5 L (13.0-17.5) gm/dL Hct 28.6 L (39.0-53.0) % MCH 36.7 H (25.0-35.0) pg Plt Count 129 L (150-450) k/uL Lymphocytes # (Manual) 0.81 L (1.0-4.8) k/uL Assessment and Plan Assessment: Acute on chronic low back pain Multiple myeloma with metastatic disease Difficulty with urination Bilateral lower extremity weakness Other medical comorbidities Plan: Await results of thoracic/lumbar MRI with and without contrast. Discussed with nursing I would be ok with utilizing valium or ativan prior to procedure to help with claustrophobia Recommending continuation of the pain medication along with IV steroids Recommend weight-bear as tolerated with walker DVT prophylaxis per primary medical service Further recommendations to follow Time with Patient: Less than 30
--- NOTE | 2022-05-28 16:20 | P.CN ---
Psychiatric Consult - . Consult date: 05/28/22 Consult:: 05/28/22 15:53 IDENTIFYING DATA: This patient is a 46-year-old single male REASON FOR REFERRAL: Psychiatry was consulted for depression HISTORY OF PRESENT ILLNESS: The patient presented to the hospital for multiple myeloma with metastasis and acute low back pain. Of note, patient was reported to be feeling depressed at times and saying he would "rather not be around at all " than be in pain per chart review. Patient was seen bedside this afternoon. Patient appeared to have understand the medical diagnosis and current treatment. He admits to having trouble with keeping up with doctor appointments because "it's a control thing and I like my freedom." He describes he is trying to improve with this. However, he is fixated on pain management because he reports having overwhelming pain at times. He reports having been an independent person who has been leading a carefree life. He states that recent medical issues have "been a lot "in terms of mood. He endorses being overwhelmed at times due to his medical condition. However, he states that he is a very optimistic person and is hopeful for his future. He denies feeling depressed for many days in a row but admits to intermittent thou ghts of concern over his current health. He reports generally sleeping well at baseline, having good appetite, and having good energy. He says he really enjoys outdoor activities in [place] including spending time on the beach. Patient denies anhedonia. At this time patient denies any suicidal or homicidal ideations, intent or plan. He is future oriented. He says his pain can be so bad at times that he experiences occasional fleeting passive suicidal ideation, but denies active suicidal ideation, intent, or plan. Patient denies any auditory, visual hallucinations and denies any paranoia or delusions. Patients denies a history of manic symptoms. PAST PSYCHIATRIC HISTORY: Patient has a a history of depression in high school. He states that he was on medication at the time but cannot recall the name. He states that since then, he had been doing very well and has not had any depression. He denies having been to psychiatric hospital. PAST MEDICAL HISTORY: Past Medical History: No Reported History, Cancer Additional Past Medical History / Comment(s): Back issues History of Any Multi-Drug Resistant Organisms: None Reported Past Surgical History: No Surgical Hx Reported Additional Past Surgical History / Comment(s): back surgery to remove tumor december of 2021. Bone biospy of right hip Past Anesthesia/Blood Transfusion Reactions: No Reported Reaction Past Psychological History: No Psychological Hx Reported Smoking Status: Never smoker Past Alcohol Use History: Heavy Past Drug Use History: None Reported ALLERGIES: as per EMR. CHEMICAL DEPENDENCY HISTORY: Patient reports drinking heavily but not often. He states that "I can have 10 beers and have a conversation". However he states that over the past 6 months, he has not been drinking much at all. He denies smoking except occasional cigar use. FAMILY PSYCHIATRIC/SUBSTANCE USE HISTORY: He says his mother might have had a history of depression and he believes his aunt might of been diagnosed with bipolar. SOCIAL HISTORY: Patient reports being born and raised in [place] but moving to [place] for the past 11 years. He states that he currently lives in a motor home. He denies having been or having any children. 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 He says he has many friends whom he hangs out with in [place]. MENTAL STATUS EXAM: General Appearance: Patient appears to be stated age is alert, pleasant, and cooperative. Patient appears to have fair hygiene and grooming wearing hospital gown with good eye contact. Behavior: Patient is calmly lying in bed without any agitated behavior. Speech: Patient's speech is fluent and nonpressured. Mood/Affect: Patient reports their mood is "fine even though it's been a lot", affect is congruent, smiling appropriately Suicidality/Homicidality: Patient denies having any suicidal or homicidal ideation intent or plan. Perceptions: Patient denies any visual hallucinations and denies any auditory hallucinations Though content/process: There is no evidence of any delusional thought content and thought process is linear and goal-directed. Memory and concentration: AOX3, grossly intact for the purposes of this session. Judgment and insight: Fair but poor regarding alcohol use IMPRESSIONS: Mood disorder due to general medical condition Alcohol use disorder, abuse, in early remission PLAN: -At this time patient DOES NOT meet criteria for inpatient psychiatric admission. -Patient DOES have decision making capacity at this time and is able to reason through and communicate/appreciate the risks, benefits and alternatives to treatment. -Would recommend the following medication changes/additions: - Start Cymbalta 30 mg BID for mood. May increase as tolerated, with higher doses being more therapeutic for neuropathic pain -Continue pain management per primary team/ pain consult -Patient educated on substance use via motivational interviewing -Communicated plan to patient's nurse -Psychiatry will sign off at this time. Please call with any questions. -Please contact with any questions. 05/28/22 16:06 05/28/22 16:16
[2022-05-28] MEDS: DULoxetine HCL 30 MG CAPSULE.DR PO SCH (20:22)
--- NOTE | 2022-05-29 02:18 | P.PN ---
Subjective Progress Note Date: 05/27/22 Patient is a 46-year-old male with a known history of chronic back pain, history of back surgery tumor removal in December 2021 and recent bone marrow biopsy, plasma cell neoplasm presented to ER with the complaints of bilateral lower extremity weakness, numbness and also pain at the previous back surgical site. Patient was recently admitted to hospital due to complaints of back pain. Patient also states that he has been having urinary incontinence and bowel incontinence Which has worsened recently. Also complains of difficulty initiating urinary stream. Patient states that he is unable to get out of bed due to pain and Leg numbness. No cough or sputum production. No chest pain or shortness of breath. Denies any complaints of fever or chills. No dysuria or hematuria. Patient was recently discharged from the hospital on 05/19/2021. Patient had aspiration bone biopsy done on 05/18/2022. Patient recently had CT of the thoracic spine and bone survey which showed no lytic lesion identified. On admission laboratory data showed WBC 3.9 hemoglobin 10.6 and platelets 112 Sodium 132 potassium 3.7 chloride 101 bicarb is 24 BUN 15 and creatinine 1.08, total protein 5.3 and albumin 3.6. Liver enzymes are not elevated. 05/27/2022 Patient is resting in the bed. Still complains of back pain and lower extremity numbness and weakness. Denies any perianal anesthesia. Muscle strength 4 out of 5 in all 4 extremities. Patient has been afebrile. He is also very anxious and states that he is difficult to take care of himself at home. No other complaints of abdominal pain. No nausea vomiting or diarrhea. No cough or sputum production. No chest pain or shortness of breath. Laboratory data showed sodium 138 potassium 3.9 chloride 104 bicarb is 23.2 BUN 16.3 and creatinine 1.2. Blood sugar is 191 and calcium 8.8. Orthopedic surgery and oncology is on board. Objective - Vital Signs Vital signs: Vital Signs Temp 98.6 F 05/27/22 13:47 Pulse 81 05/27/22 13:47 Resp 18 05/27/22 13:47 BP 110/71 05/27/22 13:47 Pulse Ox 99 05/27/22 13:47 FiO2 Intake & Output 05/26/22 05/27/22 05/27/22 18:59 06:59 18:59 Output Total 1000 1400 Balance -1000 -1400 Output: Urine 1000 1400 Other: Voiding Method Urinal External Catheter External Catheter - Exam PHYSICAL EXAMINATION: Patient is lying in the bed comfortably, no acute distress, awake alert and oriented.. HEENT: Normocephalic. Neck is supple. Pupils reactive. Nostrils clear. Oral cavity is moist. Neck reveals no JVD, carotid bruits, or thyromegaly. CHEST EXAMINATION: Trachea is central. Symmetrical expansion. Lung viramontes clear to auscultation and percussion. CARDIAC: Normal S1, S2 with no gallops. No murmurs ABDOMEN: Soft. Bowel sounds present. Nontender. No organomegaly. No abdominal bruits. Extremities: reveal no edema. No clubbing or cyanosis Neurologically awake, alert, oriented x3. Able to move extremities while in bed. Muscle strength 4 out of 5. Skin: No rash or skin lesions. Psychiatric: Coperative. Nonsuicidal, anxious. Musculoskeletal: No joint swelling or deformity. - Labs CBC & Chem 7: 05/28/22 08:56 05/27/22 05:34 Labs: Abnormal Lab Results - Last 24 Hours (Table) 05/27/22 Range/Units 05:34 Glucose 191 H (70-110) mg/dL Assessment and Plan Assessment: Acute on chronic intractable back pain With numbness and weakness of the bilateral lower extremities. Recent CT thoracic spine showed no acute fracture CT evidence of spinal canal or neural foraminal stenosis. Posttreatment procedural changes at T9-T10 and T11 posterior elements. Multiple myeloma. With recent bone marrow aspiration biopsy on 05/18/2022. Anxiety DVT prophylaxis heparin subcu Plan: Patient will be continued on IV Dilaudid. Patient states that he has been working better for him and requesting oral Dilaudid pills at discharge. Patient is also on [place] and oxycodone. Continue with Tylenol as needed also. Bowel regimen. Patient was started on dexamethasone. Oncology and orthopedic surgery was consulted. Radiation oncology was consulted for evaluation. Patient is agreeable to follow-up in the clinic on 05/29/2022 to further discuss about treatment plan. Outpatient PET scan. Time with Patient: Greater than 30
--- NOTE | 2022-05-29 02:21 | P.PN ---
Subjective Progress Note Date: 05/28/22 Patient is a 46-year-old male with a known history of chronic back pain, history of back surgery tumor removal in December 2021 and recent bone marrow biopsy, plasma cell neoplasm presented to ER with the complaints of bilateral lower extremity weakness, numbness and also pain at the previous back surgical site. Patient was recently admitted to hospital due to complaints of back pain. Patient also states that he has been having urinary incontinence and bowel incontinence Which has worsened recently. Also complains of difficulty initiating urinary stream. Patient states that he is unable to get out of bed due to pain and Leg numbness. No cough or sputum production. No chest pain or shortness of breath. Denies any complaints of fever or chills. No dysuria or hematuria. Patient was recently discharged from the hospital on 05/19/2021. Patient had aspiration bone biopsy done on 05/18/2022. Patient recently had CT of the thoracic spine and bone survey which showed no lytic lesion identified. On admission laboratory data showed WBC 3.9 hemoglobin 10.6 and platelets 112 Sodium 132 potassium 3.7 chloride 101 bicarb is 24 BUN 15 and creatinine 1.08, total protein 5.3 and albumin 3.6. Liver enzymes are not elevated. 05/27/2022 Patient is resting in the bed. Still complains of back pain and lower extremity numbness and weakness. Denies any perianal anesthesia. Muscle strength 4 out of 5 in all 4 extremities. Patient has been afebrile. He is also very anxious and states that he is difficult to take care of himself at home. No other complaints of abdominal pain. No nausea vomiting or diarrhea. No cough or sputum production. No chest pain or shortness of breath. Laboratory data showed sodium 138 potassium 3.9 chloride 104 bicarb is 23.2 BUN 16.3 and creatinine 1.2. Blood sugar is 191 and calcium 8.8. Orthopedic surgery and oncology is on board. 05/28/2022 Patient is currently lying in the bed. Awake alert and oriented x3. Pain is fairly controlled. Possible surgery is on board. Awaiting MRI of the thoracic and lumbar spine with and without contrast. Patient was seen by psychiatry. Started on Cymbalta 30 mg twice daily. Patient is also on dexamethasone 6 mg IV every 8 hourly. Laboratory data showed WBC 5.4 hemoglobin 10.5 and platelets 129 Current medications reviewed. Objective - Vital Signs Vital signs: Vital Signs Temp 98.3 F 05/28/22 12:47 Pulse 66 05/28/22 12:47 Resp 18 05/28/22 12:47 BP 106/72 05/28/22 12:47 Pulse Ox 99 05/28/22 12:47 FiO2 Intake & Output 05/27/22 05/28/22 05/28/22 18:59 06:59 18:59 Intake Total 400 Output Total 1750 950 Balance 400 -1750 -950 Intake: Oral 400 Output: Urine 1750 950 Other: Voiding Method External Catheter External Catheter External Catheter # Bowel Movements 1 - Exam PHYSICAL EXAMINATION: Patient is lying in the bed comfortably, no acute distress, awake alert and oriented.. HEENT: Normocephalic. Neck is supple. Pupils reactive. Nostrils clear. Oral cavity is moist. Neck reveals no JVD, carotid bruits, or thyromegaly. CHEST EXAMINATION: Trachea is central. Symmetrical expansion. Lung viramontes clear to auscultation and percussion. CARDIAC: Normal S1, S2 with no gallops. No murmurs ABDOMEN: Soft. Bowel sounds present. Nontender. No organomegaly. No abdominal bruits. Extremities: reveal no edema. No clubbing or cyanosis Neurologically awake, alert, oriented x3. Able to move extremities while in bed. Muscle strength 4 out of 5. Skin: No rash or skin lesions. Psychiatric: Coperative. Nonsuicidal, anxious. Musculoskeletal: No joint swelling or deformity. - Labs CBC & Chem 7: 05/28/22 08:56 05/27/22 05:34 Labs: Abnormal Lab Results - Last 24 Hours (Table) 05/28/22 Range/Units 08:56 RBC 2.87 L (4.30-5.90) m/uL Hgb 10.5 L (13.0-17.5) gm/dL Hct 28.6 L (39.0-53.0) % MCH 36.7 H (25.0-35.0) pg Plt Count 129 L (150-450) k/uL Lymphocytes # (Manual) 0.81 L (1.0-4.8) k/uL Assessment and Plan Assessment: Acute on chronic intractable back pain With numbness and weakness of the bilateral lower extremities. Recent CT thoracic spine showed no acute fracture CT evidence of spinal canal or neural foraminal stenosis. Posttreatment procedural changes at T9-T10 and T11 posterior elements. Multiple myeloma. With recent bone marrow aspiration biopsy on 05/18/2022. Anxiety/ depression DVT prophylaxis heparin subcu Plan: Patient will be continued on IV Dilaudid. Patient states that he has been working better for him and requesting oral Dilaudid pills at discharge. Patient is also on [place] and oxycodone. Continue with Tylenol as needed also. Bowel regimen. Patient was started on dexamethasone. Oncology and orthopedic surgery was consulted. MRI of the lumbar and thoracic spine was ordered. Radiation oncology was consulted for evaluation. Patient is agreeable to follow-up in the clinic on 05/29/2022 to further discuss about treatment plan. Outpatient PET scan. Time with Patient: Greater than 30
[2022-05-29] MEDS: HYDROmorphone 1 MG/ML 1 ML SYRINGE IVP PRN ×6 (02:41→22:38)
[2022-05-29] MEDS: HEPARIN SODIUM,PORCINE/PF 5,000 UNIT/0.5 ML SYRINGE SQ SCH ×3 (08:04→23:55)
[2022-05-29] MEDS: DULoxetine HCL 30 MG CAPSULE.DR PO SCH ×3 (08:26→19:48)
[2022-05-29] MEDS: DEXAMETHASONE SOD PHOSPHATE 10 MG/ML 1 ML VIAL IVP SCH ×3 (08:26→23:55)
[2022-05-29] MEDS: PANTOPRAZOLE 40 MG TABLET PO SCH (08:26)
[2022-05-29] MEDS: DOCUSATE 100 MG CAP PO SCH (08:26)
[2022-05-29] MEDS ORDERED: ALPRAZolam 0.25 MG TAB PO PRN (11:24)
[2022-05-29] MEDS ORDERED: LORazepam 2 MG/ML INJ IV PRN (11:24)
--- NOTE | 2022-05-29 11:43 | P.CONS ---
History of Present Illness - Reason for Consult Consult date: 05/29/22 back pain Requesting physician: Zia Schuster - Chief Complaint back pain, unable to ambulate - History of Present Illness The patient is a 46-year-old male with a history of multiple myeloma, initially diagnosed in December 2021 when he presented with spinal cord compression. The after undergoing decompressive surgery, the patient has been medically noncompliant and has not started any systemic therapies. He has had repeated hospitalizations secondary to progression of his disease. The patient was treated with a palliative course of radiotherapy to the lower lumbar/sacrum in April, but he did not complete this treatment course finishing only 3 of 5 treatments. We are consult today secondary to the patient's increasing pain and difficulty with ambulation. The patient presented to the ER on May 25 with increasing lower extremity weakness. He was stating he could not get out of bed, having more difficulty with urination and pain in the mid back. The patient was hospitalized, started on 6 mg of Decadron every 8 hours with Dilaudid added for pain. He states that at this time most of his back pain correlates with the original surgical location in the mid back. He states that he does still have some numbness and heavy sensation in his legs. He is urinating slightly better since his admission. He states that the Dilaudid is helping his pain. He reports that he had paranoid thoughts when taking [place] or morphine as an outpatient. The patient did undergo a bone marrow biopsy on May 18, which confirms significant involvement with plasma cell myeloma. The patient was ordered to undergo an MRI of the spine (thoracic/lumbar) at noon today, but he is unsure if he will be able to tolerate this. Review of Systems Constitutional: Denies chills, Denies fever Eyes: denies blurred vision Ears: deny: decreased hearing Cardiovascular: Denies chest pain, Denies leg edema Respiratory: Denies cough Gastrointestinal: Denies abdominal pain, Denies change in bowel habits Genitourinary: Reports as per HPI Musculoskeletal: Reports as per HPI Neurological: Reports weakness, Denies aphasia, Denies ataxia, Denies change in mentation, Denies confusion Psychiatric: Denies confusion Past Medical History Past Medical History: No Reported History, Cancer Additional Past Medical History / Comment(s): Back issues History of Any Multi-Drug Resistant Organisms: None Reported Past Surgical History: No Surgical Hx Reported Additional Past Surgical History / Comment(s): back surgery to remove tumor december of 2021. Bone biospy of right hip Past Anesthesia/Blood Transfusion Reactions: No Reported Reaction Past Psychological History: No Psychological Hx Reported Smoking Status: Never smoker Past Alcohol Use History: Heavy Past Drug Use History: None Reported Medications and Allergies Home Medications Medication Instructions Recorded Confirmed Type Docusate [Colace] 100 mg PO DAILY #30 cap 05/18/22 05/26/22 Rx Pantoprazole [Protonix] 40 mg PO DAILY #30 tab 05/18/22 05/26/22 Rx Ondansetron Odt [Zofran Odt] 4 mg PO Q8HR PRN #10 tab 05/20/22 05/26/22 Rx Allergies Allergy/AdvReac Type Severity Reaction Status Date / Time No Known Allergies Allergy Verified 05/12/22 11:12 Physical Exam Vitals: Vital Signs Temp Pulse Resp BP Pulse Ox 05/29/22 07:21 97.8 F 64 20 107/66 99 05/29/22 02:23 97.7 F 69 18 110/70 96 05/28/22 19:46 98.6 F 68 18 115/76 98 05/28/22 12:47 98.3 F 66 18 106/72 99 Intake and Output 05/28/22 05/29/22 05/29/22 22:59 06:59 14:59 Intake Total 500 Output Total 1000 Balance -500 Intake: Oral 500 Output: Urine 1000 Other: Voiding Method Urinal Urinal # Voids 1 1 - Constitutional General appearance: no acute distress - EENT Eyes: EOMI, PERRLA ENT: hearing grossly normal - Neck Neck: no lymphadenopathy - Respiratory Respiratory: bilateral: CTA - Cardiovascular Rhythm: regular - Gastrointestinal General gastrointestinal: no distended, no tenderness - Integumentary Integumentary: no pale - Neurologic Neurologic: CNII-XII intact - Musculoskeletal Musculoskeletal: no strength equal bilaterally (4/5 strength bilateral LE, 3/5 left hip flexion vs 4/5 right. 5/5 strength bilateral UE) - Psychiatric Psychiatric: A&O x's 3, appropriate affect Results CBC & Chem 7: 05/28/22 08:56 05/27/22 05:34 Labs: Abnormal Lab Results - Last 24 Hours (Table) 05/28/22 Range/Units 08:56 RBC 2.87 L (4.30-5.90) m/uL Hgb 10.5 L (13.0-17.5) gm/dL Hct 28.6 L (39.0-53.0) % MCH 36.7 H (25.0-35.0) pg Plt Count 129 L (150-450) k/uL Lymphocytes # (Manual) 0.81 L (1.0-4.8) k/uL Assessment and Plan Assessment: The patient is a 46-year-old male with a history of multiple myeloma, initially diagnosed in December 2021 when he presented with spinal cord compression. The after undergoing decompressive surgery, the patient has been medically noncompliant and has not started any systemic therapies. He has had repeated hospitalizations secondary to progression of his disease. The patient was josefina ated with a palliative course of radiotherapy to the lower lumbar/sacrum in April, but he did not complete this treatment course finishing only 3 of 5 treatments. We are consult today secondary to the patient's increasing pain and difficulty with ambulation. Plan: 1. Back pain: This is due to the progression of the patient's myeloma. Despite significant counseling and education on his condition, the patient has still not initiated therapy. The patient states he is now willing to start systemic treatments, but has been unable to secondary to repeated hospitali zations from his back pain and inability to ambulate. The patient has an MRI of the spine pending today, and I strongly encouraged him to try and go forward with this. I explained this would likely help us to see if the patient spinal cord is again being compressed. I explained to the patient that a palliative course of radiotherapy may help with his pain, and potentially even help with his lower extremity weakness. However, I explained that the patient very much needs to start systemic therapy or he will continue to have new areas become symptomatic. I will discuss his case with oncology, and may potentially try to treat the patient during his hospital stay as he previously has become noncompliant following discharge. 2. Myeloma: As noted above, the patient has been untreated for some time. He now does appear more willing to proceed with systemic therapy, but it has been difficult to initiate this secondary to his repeated hospitalizations. Time: I spent 45 minutes with this patient, of which greater than 50% of that time was spent counseling, coordinating care, and reviewing the risks, benefits, and all potential complications of radiation. I appreciate the opportunity to participate in the care of this patient. Time with Patient: Greater than 30
--- NOTE | 2022-05-29 12:38 | CDI ---
Documentation Clarification Form Date: 05/29/2022 11:52:09 AM From: Ivette Ewing RN, CCDS Email: [email or web address] Admit Date: 05/26/2022 12:32:00 AM Patient Name: Jevon Harper Visit Number: [id number] Discharge Date: ATTENTION: The Clinical Documentation Specialists (CDI) and [facility] Coding Staff appreciate your assistance in clarifying documentation. Please respond to the clarification below the line at the bottom and electronically sign. The CDI & [facility] Coding staff will review the response and follow-up if needed. Please note: Queries are made part of the Legal Health Record. If you have any questions, please contact the author of this message via ITS. Dr. Holden Green Your patient had a low sodium level of 132 on 05/26. Please clarify if there is an additional diagnosis and/or clinical significance related to this lab value. History/Risk Factors: Multiple myeloma involving the spine. Difficulty with urination. Admitted with BL lower extremity weakness and numbness. Clinical indicators: 05/26 Na: 132 05/27 Na: 138 Treatment: 0.9 NS 500mL IV bolus x1 on 05/26 Is there an additional diagnosis and/or clinical significance related to the above lab result/information? [ ] Hyponatremia [ x ] Abnormal Lab Value, not clinically significant [ ] Other condition, please specify [ ] Unable to determine MTDD
--- NOTE | 2022-05-29 14:17 | MR ---
EXAMINATION TYPE: MR lumbar spine wo/w con DATE OF EXAM: 05/29/2022 COMPARISON: CT lumbar spine May 05, 2022 HISTORY: MULTIPLE MYELOMA WITH METS, PT IN EXTREME BACK PAIN TECHNIQUE: Multiplanar, multisequence images of the lumbar spine is performed without and with IV contrast, util izing 7.5 mL intravenous Gadavist FINDINGS: Sagittal images of the lumbar spine show vertebral body heights and alignment to appear sat isfactory. Tiny Schmorl node superior L2 endplate sagittal image 8. Disc desiccation L4-L5 level. Mil d to moderate disc space narrowing L5-S1 level is there a sacralized left L5 segment seen better on C T noted. The conus medullaris is normal in position and signal ending inferior T12 levels. The bone marrow signal intensity is within normal limits. No abnormal postcontrast enhancement is seen. Axial images show abnormal curvilinear enhancing tissue extradural location. For reference bilateral involvement at posterior L2-L3 level causes complete obliteration of the left L2 neural foramina on s agittal images and moderate anterior narrowing on the right. There is obliteration on the right at L1 -L2 level axial image 39. There is abnormal soft tissue anteriorly at L3 level corresponding to CT ax ial images 26 measuring approximately 2.1 x 1.9 cm causing anterior IVC displacement. Abnormal soft t issue bilaterally at L3-L4 level causes severe right-sided neural foraminal obliteration and enhancin g tissue surrounding the exiting left L3 nerve. Abnormal enhancing soft tissue bilateral neural foramina at the lumbosacral junction is present surro unding the exiting nerves. Some facet arthropathy lower lumbar spine. IMPRESSION: Abnormal enhancing soft tissue without bony destruction or involvement is causing mass ef fect and multilevel bilateral neural foraminal obliteration could reflect soft tissue myeloma deposit s or other infiltrative etiology. No definitive bony lesions or bony destruction.
--- NOTE | 2022-05-29 16:58 | P.PAINPG ---
Objective - Vital Signs Vital signs: Vital Signs Temp 97.8 F 05/29/22 07:21 Pulse 64 05/29/22 07:21 Resp 20 05/29/22 07:21 BP 107/66 05/29/22 07:21 Pulse Ox 99 05/29/22 07:21 FiO2 Intake & Output 05/28/22 05/29/22 05/29/22 18:59 06:59 18:59 Intake Total 500 Output Total 950 1000 Balance -950 -500 Intake: Oral 500 Output: Urine 950 1000 Other: Voiding Method External Catheter Urinal Urinal # Voids 1 1 - Labs CBC & Chem 7: 05/28/22 08:56 05/27/22 05:34 PQRS Measure Charge Sheet Comment: HISTORY OF PRESENT ILLNESS: 46 yr old inpatient male as a referral from Internal Medicine presents today w severe and chronic LBP secondary to Tumor resectin s/p Multiple Myeloma w Metastasis for evaluation. Pt is resting comfortably on bed in room laying on L side, states pain level is provoked at 8 /10 in intensity, constant, localized in the mid to lower lumbar spine, achy, stabbing in character w shooting pain up and down the spine. Pain is provoked by movement. Pain is alleviated by medications as he states that Ibuprofen & Ultram reduce mild to moderate pain, and IV Dilaudid reduce severe pain. He states Farwell is not effective in reducing moderate pain. I discussed a 3 day supply of Dilaudid PO, though it will be difficult to find in stock at many pharmacies, and following up in the pain clinic post discharge. PMH: Multiple Myeloma w Metastasis PSH: R Hip Biopsy, Lumbar Tumor Resection (Dec 2021) SH: Never smoker, Heavy ETOH use, No illicit drug use FH: Non contributory All: NKDA Meds: See list REVIEW OF ORGAN SYSTEMS: CONSTITUTIONAL: No fevers or chills. No recent weight loss. NEUROLOGICAL: + numbness and tingling along the distal extremities. No seizure disorders or headaches. MUSCULOSKELETAL: + pain PSYCHIATRIC: Denies current depression or suicidal thoughts. Physical Examinations : Constitutional : Cooperative , not in acute distress . Neurologic : Cranial nerve II to XII intact. No focal neurological deficits. Psychiatric : alert & oriented x 3. Matching mood & appropriate affect. Judgment & insight intact. Musculoskeletal : Cervical Spine Motor strength in the deltoid and biceps: Normal right side. Normal Left side Motor strength biceps and the wrist extensors: Normal right side . Normal left side Motor strength in the triceps muscle: N ormal right side. Normal left side Deep tendon reflexes: Normal at the biceps. Normal at Brachioradialis. Normal at triceps Vertebral body tenderness to deep palpation over T8, T9, T10, T11, T12 Cervical facet loading test: positive bilaterally Spurling test: positive bilaterally Neck distraction test: positive bilaterally Emilio sign: positive bilaterally Lumbar spine Motor strength lower extremities ,thigh and legs 5/5 Right side , 5/5 Left side Deep tendon reflexes : Normal Knee Jerk. Normal Ankle Jerk Vertebral body tenderness over L2, L3, L4, L5 Lumbar facet Loading Test: positive Right / positive Left Range of motion of the lumbar spine Flexion 30 degrees, extension 10 degrees Straight Leg Raise test: Left/ Right positive at degree James test: positive right / positive left. Severe tenderness over the Sacroiliac joint on the Right / Left sides Gaenslen test: positive bilaterally Seated flexion test: positive bilaterally. Sacral spine : Severe tenderness over the Sacroiliac joint: right side / left side Range of motion: Flexion of the lumbar spine <60 degrees Range of motion: Extension of the lumbar spine <20 degrees Gaenslen's Test positive Richardson's Test positive James test: positive right side / left side Thigh Thrust Test Sacral Thrust Test Imaging: CT Thoracic spine from 05/14/[address] Lumbar spine from 05/05/2022 reviewed MRI Sacrum/Coccyx and Lumbar spine from 04/20/2022 reviewed MRI Thoracic spine from 03/31/2022 reviewed MRI Cervical, Thoracic and Lumbar spine from 01/04/2022 reviewed Assessment/ Plan : Chronic Pain Syndrome, Multiple Myeloma w Lumbosacral Tumor Resection, Metastasis Recommendation of medication management. Dilaudid 2mg PO #6 NR. Has Morphine Sulfate ordered upon discharge. This should be around 50MME. Upon follow up in Pain Clinic, will manage pain with lower MME, more frequent oral meds. Awaiting updated MRI results. All questions answered. I have spent greater than 30 minutes on patient care today. Dr Barfield was available by phone for the evaluation of this patient. The time was used to review the medical records including relevant urine studies and Prescription history (MAPs), review of the available imaging, evaluation and examination of the patient, coordination of care with the medical staff and if applicable referring physicians, as well as creation of the medical record - Pain Location Back Non-Pharmacological Interventions: Darkened Room, Position/Reposition, Relaxation Technique Pharmacological Interventions: Discuss Pain Med Options, PRN Medication Pain Comment: See LOVE PQRS Narrative: Blood Pressure [Right Arm] 107/66 Blood Pressure 115/66 Pain Intensity [Back] 7 Pain Intensity 6 Pain Scale Used Numeric (1 - 10) Scale Used Numeric (1 - 10) Home Medications: Ambulatory Orders Docusate [Colace] 100 mg PO DAILY #30 cap 05/18/22 Pantoprazole [Protonix] 40 mg PO DAILY #30 tab 05/18/22 Ondansetron Odt [Zofran Odt] 4 mg PO Q8HR PRN #10 tab 05/20/22 HYDROmorphone [Dilaudid] 2 mg PO Q12H PRN 3 Days #6 tab 05/29/22 Controlled Substance Measures - Controlled Substance Measures Is patient prescribed a controlled substance at discharge?: Yes When asked, does pt state using other controlled substances?: Yes If prescribed controlled substance>3 days was MAPS reviewed?: Prescribed <3 Days If opioid is for acute pain is fill amount 7 days or less?: Yes Was information provided regarding opioid addiction?: Yes
[2022-05-30] MEDS: traMADol 50 MG TAB PO PRN (00:21)
--- NOTE | 2022-05-30 01:02 | PN ---
PROGRESS NOTE DATE OF SERVICE: 05/29/2022 SUBJECTIVE: This is a 46-year-old gentleman, who was admitted with acute on chronic back pain and numbness, had a lumbar MRI today, which I reviewed personally, which showed multiple bilateral neuroforaminal lesions. There is no history of any fever, rigors, or chills. OBJECTIVE: VITAL SIGNS: Pulse is 59, blood pressure 130/69, respirations 16. CHEST: Clear to auscultation. CARDIOVASCULAR: S1, S2. ABDOMEN: Soft. NERVOUS SYSTEM: Nonfocal. LABORATORY DATA: Hemoglobin 10.5, platelets are noted. ASSESSMENT: 1. Acute on chronic intractable back pain with abnormal MRI. 2. Bilateral leg numbness. 3. History of spinal stenosis. 4. History of multiple myeloma. 5. Anxiety and depression. RECOMMENDATIONS: Recommend to continue current medications, symptomatic treatment. Otherwise, at this time, I would recommend follow closely with Orthopedic Surgery, Hematology, Oncology. Repeat labs. Symptomatic treatment. Overall prognosis guarded because of multiple complex medical issues. Further recommendations to follow. MMODL / IJN: [id number] /
[2022-05-30] MEDS: HYDROmorphone 1 MG/ML 1 ML SYRINGE IVP PRN ×5 (01:58→16:39)
[2022-05-30] MEDS: DEXAMETHASONE SOD PHOSPHATE 10 MG/ML 1 ML VIAL IVP SCH ×2 (08:23→16:39)
[2022-05-30] MEDS: DOCUSATE 100 MG CAP PO SCH (08:23)
[2022-05-30] MEDS: PANTOPRAZOLE 40 MG TABLET PO SCH (08:23)
[2022-05-30] MEDS: DULoxetine HCL 30 MG CAPSULE.DR PO SCH ×2 (08:27→21:15)
[2022-05-30] MEDS: HEPARIN SODIUM,PORCINE/PF 5,000 UNIT/0.5 ML SYRINGE SQ SCH ×2 (08:27→16:36)
--- NOTE | 2022-05-30 08:42 | P.PN ---
Subjective Progress Note Date: 05/30/22 Principal diagnosis: Multiple myeloma with spine metastasis Back pain Bilateral lower extremity weakness Difficulty with urination Objective - Vital Signs Vital signs: Vital Signs Temp 98.3 F 05/30/22 07:39 Pulse 66 05/30/22 07:39 Resp 18 05/30/22 07:39 BP 104/62 05/30/22 07:39 Pulse Ox 97 05/30/22 07:39 FiO2 Intake & Output 05/29/22 05/30/22 05/30/22 18:59 06:59 18:59 Intake Total 425 Output Total 500 Balance -500 425 Intake: Oral 425 Output: Urine 500 Other: Voiding Method Urinal Urinal # Voids 1 3 # Bowel Movements 1 - Exam Gen: AOx3, NAD VSS stable at this time Palpation: Mild tenderness with palpation noted near the lower thoracic and lumbar para- spinal region ROM: Logroll maneuver reproduces no discomfort in the bilateral lower extremities, there is no groin pain appreciated Full range of motion in all major muscle groups to bilateral upper and lower extremities, no focal deficits appreciated Sensory Exam: Sensory exam to light touch is intact C5-T1 Sensory exam to light touch is intact L2-S1 Motor: 55 strength appreciated in bilateral upper extremities with shoulder elevation, shoulder abduction, elbow extension, elbow flexion, wrist extension, wrist flexion, ems director 45 strength appreciated in the bilateral lower extremities with knee extension, knee flexion, plantar flexion, dorsiflexion, EHL, FHL 3+/5 strength in bilateral lower extremities with hip flexion Reflexes: 2/4 in all UE and LE Negative Emilio's bilaterally Negative Babinski bilaterally Negative clonus bilaterally - Labs CBC & Chem 7: 05/28/22 08:56 05/27/22 05:34 Assessment and Plan Assessment: Acute on chronic low back pain Multiple myeloma with metastatic disease Difficulty with urination Bilateral lower extremity weakness Other medical comorbidities Plan: At this time we are awaiting MRI of the Thoracic spine. We currently do not r ecommend any emergent/urgent orthopedic surgical intervention. 2. Appreciate medical management 3. Pain management - Pain services are on consult 4. GI prophylaxis - Protonix and Colace 5. DVT prophylaxis - Heparin 6. PT/OT - weightbearing as tolerated with a walker as needed. 7. Appreciate consult I reviewed and discussed this case with my attending Dr. Judd, whom has reviewed this chart and films and is in agreement with assessment and plan of care as outlined above. I have personally seen and examined the patient, performed the documentation and the assessment and plan as written. Number of minutes spent on the visit: 15m.
[2022-05-30] MEDS ORDERED: LORazepam 2 MG/ML INJ IV PRN (09:38)
[2022-05-30 10:50] LABS: HCT 28.5 % (39.6-50.0); HGB 10.6 g/dL (13.0-17.0); MCH 36.9 pg (27.0-32.0); MCHC 37.2 g/dL (32.0-37.0); MCV 99.3 fL (80.0-97.0); Mean Platelet Volume 10.3 fL (9.5-12.2); NRBC Per 100 WBC 0 /100 WBCS (0.0-0.0); Platelet Count 174 X 10*3/uL (140-440); RBC 2.87 X 10*6/uL (4.40-5.60); RDW 12.3 % (11.5-14.5); WBC 7.65 X 10*3/uL (4.50-10.00)
--- NOTE | 2022-05-30 11:28 | P.PN ---
Subjective Progress Note Date: 05/30/22 Principal diagnosis: myelopathy, back pain Patient states he had a bad night last night due to pain. Pain is in the typical location (lower thoracic region). Doing better this AM. Still feels the Dilaudid is the best medication for him; pain management following. He was able to complete the Lumbar MRI yesterday, and is scheduled for the thoracic today. Objective - Vital Signs Vital signs: Vital Signs Temp 98.3 F 05/30/22 07:39 Pulse 66 05/30/22 07:39 Resp 18 05/30/22 07:39 BP 104/62 05/30/22 07:39 Pulse Ox 97 05/30/22 07:39 FiO2 Intake & Output 05/29/22 05/30/22 05/30/22 18:59 06:59 18:59 Intake Total 425 Output Total 500 Balance -500 425 Intake: Oral 425 Output: Urine 500 Other: Voiding Method Urinal Urinal Urinal # Voids 1 3 # Bowel Movements 1 - Constitutional General appearance: Present: no acute distress - EENT Eyes: Present: edentulous, PERRLA ENT: Present: hearing grossly normal - Neck Neck: Absent: lymphadenopathy - Respiratory Respiratory: bilateral: CTA - Cardiovascular Rhythm: regular - Gastrointestinal General gastrointestinal: Absent: distended, tenderness - Labs CBC & Chem 7: 05/30/22 05:44 05/27/22 05:34 Labs: Abnormal Lab Results - Last 24 Hours (Table) 05/30/22 Range/Units 05:44 RBC 2.87 L (4.40-5.60) X 10*6/uL Hgb 10.6 L (13.0-17.0) g/dL Hct 28.5 L (39.6-50.0) % MCV 99.3 H (80.0-97.0) fL MCH 36.9 H (27.0-32.0) pg MCHC 37.2 H (32.0-37.0) g/dL Assessment and Plan Assessment: The patient is a 46 year old male with a history of multiple myeloma initially d iagnosed in December. He has had surgical decompression of the thoracic spine and completed a partial course of palliative RT to the lumbar/sacrum in 04/2022. He has been non-complaint and has not started actual systemic therapy. 1. Thoracic spine pain: Awaiting T-spine MRI. I discussed with the patient undergoing a course of palliative RT during his hospital stay (consideration of 1 fraction due to his difficulty coming to appointments previously). The patient wanted to wait until tomorrow for his CT simulation as he is having an MRI of the T-spine in the next couple hours. MRI of the L-spine reviewed - no evidence of cord/cauda compression. 2. Multiple myeloma: As noted above, the patient has had no systemic therapy despite having this diagnosis for months now. He is on board with treatment, but feels that he needs his pain control optimized first so that he does not end up with repeat hospitalization. Time with Patient: Less than 30
--- NOTE | 2022-05-30 11:34 | P.PN ---
Subjective Progress Note Date: 05/30/22 Principal diagnosis: Plasma cell myeloma, back pain upon visit today patient is resting comfortably in bed. He is still reporting mid back pain. but reports pain is in been improved on IV Dilaudid and decadron. Denies loss of bowel or bladder control. Denies any new symptoms. Objective - Vital Signs Vital signs: Vital Signs Temp 98.3 F 05/30/22 07:39 Pulse 66 05/30/22 07:39 Resp 18 05/30/22 07:39 BP 104/62 05/30/22 07:39 Pulse Ox 97 05/30/22 07:39 FiO2 Intake & Output 05/29/22 05/30/22 05/30/22 18:59 06:59 18:59 Intake Total 425 Output Total 500 Balance -500 425 Intake: Oral 425 Output: Urine 500 Other: Voiding Method Urinal Urinal Urinal # Voids 1 3 # Bowel Movements 1 - Constitutional General appearance: Present: average body habitus, no acute distress - EENT Eyes: Present: anicteric sclerae, EOMI ENT: Present: hearing grossly normal - Respiratory Details: breathing even and unlabored - Cardiovascular Details: skin warm and dry - Integumentary Integumentary: Present: normal - Neurologic Neurologic Comment(s): weakness in lower extremities - Psychiatric Psychiatric: Present: A&O x's 3, appropriate affect, intact judgment & insight - Labs CBC & Chem 7: 05/30/22 05:44 05/27/22 05:34 Labs: Abnormal Lab Results - Last 24 Hours (Table) 05/30/22 Range/Units 05:44 RBC 2.87 L (4.40-5.60) X 10*6/uL Hgb 10.6 L (13.0-17.0) g/dL Hct 28.5 L (39.6-50.0) % MCV 99.3 H (80.0-97.0) fL MCH 36.9 H (27.0-32.0) pg MCHC 37.2 H (32.0-37.0) g/dL - Imaging and Cardiology reviewed MRI lumbar spine Assessment and Plan (1) Intractable back pain Current Visit: Yes Status: Acute Priority: High Code(s): M54.9 - DORSALGIA, UNSPECIFIED SNOMED Code(s): 951920331 (2) Paresthesia of bilateral legs Current Visit: Yes Status: Acute Priority: High Code(s): R20.2 - PARESTHESIA OF SKIN SNOMED Code(s): 241194395 (3) Multiple myeloma Current Visit: Yes Status: Acute Priority: High Code(s): C90.00 - MULTIPLE MYELOMA NOT HAVING ACHIEVED REMISSION SNOMED Code(s): 297121106 Plan: Back pain/paresthesias: -Pt has not been taking home pain medications as prescribed, as he reports this is due to anxiety the medication causes him -He has been on norco and oxycodone prior to MS Contin and morphine, and reports similar side effects. Currently receiving IV dilaudid with adequate pain control. Pain management has been consulted -Colace for prevention of opiate induced constipation -Decadron ordered -Explained to patient, that pain medications are only a temporary fix to help w ith the pain, and that leaving his cancer untreated will only cause progression and worsening of his symptoms. He verbalized understanding -MRI lumbar spine revealed obliteration on the right side at L1-L2. Abnormal enhancing soft tissue anteriorly at L3 level, measuring 2.11.9 cm, causing anterior IVC displacement. Abnormal soft tissue bilaterally at L3/L4 causing severe right-sided neural foraminal obliteration and enhancing tissue surrounding the exiting left L3 nerve. MRI thoracic spine scheduled for today Plasma cell myeloma: -Bone marrow results ave been discussed with patient, which confirmed plasma cell myeloma -Patient has been non-compliant with care, recommendations and with follow up. However, after speaking with him today he is agreeable with pursuing induction treatment. Will place f/u in discharge plan -Will obtain PET once cleared by insurance -Spoke with Dr. Bridges today, plan for simulation tomorrow. -Pt updated on plan of care and is agreeable
[2022-05-30 11:55] LABS: African American GFR (CKD) 82.4 (60.0-200.0); Albumin 4.1 g/dL (3.8-4.9); Albumin/Globulin Ratio 3.47 (1.60-3.17); Anion Gap 9.8 mmol/L (10.00-18.00); BUN/Creat Ratio 25.17 Ratio (12.00-20.00); Blood Urea Nitrogen 30.2 mg/dL (9.0-27.0); Calcium 8.8 mg/dL (8.7-10.3); Carbon Dioxide 25.8 mmol/L (20.0-27.5); Globulin 1.2 g/dL (1.6-3.3); Non-African American GFR(CKD) 71.1 (60.0-200.0); Potassium 3.8 mmol/L (3.5-5.5); Total Bilirubin 0.5 mg/dL (0.30-1.20); Total Protein 5.3 g/dL (6.2-8.2)
[2022-05-30 12:21] LABS: Basophils # (A) 0.01 X 10*3/uL (0.00-0.10); Basophils % (A) 0.1 %; Eosinophils # (A) 0 X 10*3/uL (0.04-0.35); Eosinophils % (A) 0 %; Immature Grans, Automated 0.9 %; Lymphocytes # (A) 0.67 X 10*3/uL (0.90-5.00); Lymphocytes % (A) 8.8 %; Monocytes # (A) 1.06 X 10*3/uL (0.20-1.00); Monocytes % (A) 13.9 %; Neutrophils # (A) 5.84 X 10*3/uL (1.80-7.70); Neutrophils % (A) 76.3 %
[2022-05-30 12:22] LABS: RBC Morphology NORMAL
--- NOTE | 2022-05-30 12:23 | PN ---
PROGRESS NOTE DATE OF SERVICE: 05/30/2022 SUBJECTIVE: This is a 46-year-old gentleman admitted with severe back pain, had multiple myeloma as well. The patient was previously refused treatment and further evaluation, but currently the patient seems to be amenable for treatment. Dr. Schuster's team is planning induction and Dr. Bridges is planning possible radiation. Orthopedics is following the patient closely. Lumbar MRA reviewed. OBJECTIVE: VITAL SIGNS: On exam, pulse is 69, blood pressure 106/63, respirations 18. CHEST: Clear to auscultation. CARDIOVASCULAR: S1, S2 muffled. ABDOMEN: Soft. NERVOUS SYSTEM: Minimal weakness in lower limbs. LABORATORY DATA: Labs are reviewed. ASSESSMENT: 1. Acute on chronic intractable back pain with abnormal MRI, possibly secondary to multiple myeloma and compression. 2. Bilateral leg numbness. 3. Multiple myeloma. 4. History of spinal stenosis. 5. Anxiety, depression. RECOMMENDATIONS: Recommend to continue current medications. Continue symptomatic treatment. Otherwise, I would recommend closely follow up with Hematology, Oncology team as well as Radiation Oncology. Prognosis extremely guarded because of multiple complex medical issues. Further recommendations to follow. MMODL / IJN: [id number] /
--- NOTE | 2022-05-30 15:43 | MR ---
EXAMINATION TYPE: MR thoracic spine wo/w con DATE OF EXAM: 05/30/2022 2:29 PM COMPARISON: CT 05/14/2022, MRI T-spine 04/03/2022 INDICATION: Patient age:Male; 46 years old; Reason for study: multiple myeloma with mets. back pain TECHNIQUE: Multi planar, multi sequence imaging was performed utilizing: T1-weighted, short-tau inver ema recovery and T2-weighted of the thoracic spine. The patient was not given Gadolinium. IV Contrast: 7.5 cc Gadavist FINDINGS: Multiple sympathetic chain soft tissue which are relatively confluent on postcontrast imaging. These findings were present on prior limited exam on 03/31/2022. Examples include: * At the level T2 on the left measuring 2.8 x 1.7 cm * Within the neural foramen at multiple levels which completely fills the neural foramen at multiple levels. * Right sympathetic chain at T4 measuring 2.4 x 1.8 cm. * T5 sympathetic chain on the right measuring 3.5 x 1.5 * The spinal canal at T5 measuring 1.8 x 0.8 cm which displaces the spinal cord laterally to the rig ht with moderate spinal canal stenosis. * T6 neural foramen bilaterally with mild effacement of thecal sac. * T7 to T8 vertebral body levels with a width severe spinal canal stenosis measuring 4.8 x 1.0 x 1.5 cm. * T9 vertebral body level with mild spinal canal stenosis which displaces the spinal cord to the lef t. * T11 measuring 3.5 x 1.0 x 1.0 cm with moderate to severe spinal canal stenosis. These masses are all extradural. Postcontrast imaging demonstrates diffuse homogenous enhancement. There is a 1.6 cm sheath for vertebral body height T2 low T1 lesion similar in size from prior given differences in technique/limited nature prior exam. 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 These are along the sympathetic chains and within the extradural spinal canal. Findings are worst at T7-T8 level with severe spinal canal stenosis. No evidence for spinal cord signal changes at this time.
[2022-05-30] MEDS ORDERED: dexAMETHasone 4 MG TAB PO SCH (19:00)
[2022-05-31] MEDS: HEPARIN SODIUM,PORCINE/PF 5,000 UNIT/0.5 ML SYRINGE SQ SCH ×3 (00:07→15:57)
[2022-05-31] MEDS: HYDROmorphone 1 MG/ML 1 ML SYRINGE IVP PRN ×6 (00:10→19:54)
[2022-05-31] MEDS: dexAMETHasone 4 MG TAB PO SCH (08:47)
[2022-05-31] MEDS: DULoxetine HCL 30 MG CAPSULE.DR PO SCH ×2 (08:47→19:53)
[2022-05-31] MEDS: DOCUSATE 100 MG CAP PO SCH (08:47)
[2022-05-31] MEDS: PANTOPRAZOLE 40 MG TABLET PO SCH (08:47)
[2022-05-31 10:56] LABS: African American GFR (CKD) 93.6 (60.0-200.0); Anion Gap 10.7 mmol/L (10.00-18.00); BUN/Creat Ratio 23.52 Ratio (12.00-20.00); Blood Urea Nitrogen 25.4 mg/dL (9.0-27.0); Calcium 9.3 mg/dL (8.7-10.3); Non-African American GFR(CKD) 80.7 (60.0-200.0); Potassium 3.5 mmol/L (3.5-5.5)
--- NOTE | 2022-05-31 11:05 | P.PN ---
Progress Note - Text Progress Note Date: 05/31/22 Patient seen and examined today. I also spoke directly with radiation oncology as well as oncology surrounding at the time. I discussed with the patient his MRI findings. Thoracic MRI demonstrates a large lesion posterior to T7 through T9 which is likely myeloma tumor which has regrown in this area. His previous laminectomy was done at T10-T11 which remains open. He also has a large lesion on the anterior surface of the dura and posterior aspect of the vertebral bodies of T5 through T6 which is causing compression well of the thoracic cord that is severe. This was relayed to the patient as well as a picture of his tumor and thoracic cord MRI was used to illustrate this to the patient. On exam he has sustained clonus in his right lower extremity as well as left lower extremity he has weakness in hip flexion 3 out of 5 as well as dorsiflexion plantar flexion knee flexion and extension of bilateral lower extremities. He has sensation in his perineal region and good tone however his sensation is decreased across the scrotal perineal region. He finds it difficult to ambulate and get around which would be expected given the degree of compression and his thoracic cord. 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 I discussed with the patient at length with radiation oncology at bedside as well the severity of his compression the need for decompression of the nerves in order to preserve them and their function in a more urgent manner. This would require us decompressing and likely stabilizing from T4 down to T10. I explained the nature of the surgery as well as risks benefits and potential outcomes to the patient thoroughly. He understood this. At this point however he is electing to forego surgery and get radiation treatment to this area as well as multiple other areas where he has myelomatous disease. I reiterated to him the gravity of the situation as well as the severity of his compression and the potential for neurologic compromise that is permanent in the form of paraplegia at the level of T6. I discussed with him what this would entail including bowel bladder dysfunction lower extremity paraplegia decreased or absent sensation below this level as well as the comorbid conditions that come with being paraplegic. He understands this and still is electing for nonsurgical treatment at this time. This was discussed again at length with the tumor team and oncology team with radiation oncology and oncology. We will respect the patient's wishes. We will treat him aggressively with medications and radiation. We will continue to follow this patient's case.
--- NOTE | 2022-05-31 13:02 | PN ---
PROGRESS NOTE SUBJECTIVE: This is a 46-year-old gentleman admitted with severe back pain and multiple myeloma, is planned to have induction therapy by Hematology/Oncology in the near future and local radiation by Radiation Oncology. 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 OBJECTIVE: VITAL SIGNS: Pulse is 63, blood pressure 119/70, respirations 18. HEENT: Conjunctivae normal. CARDIOVASCULAR: S1, S2. CHEST: Clear to auscultation. ABDOMEN: Soft. NERVOUS SYSTEM: No focal deficits. LABORATORY DATA: Hemoglobin 10.6. Rest of the labs are noted. ASSESSMENT: 1. Acute on chronic intractable back pain with abnormal MRI, possibly secondary to multiple myeloma and compression. 2. Bilateral leg numbness. 3. Multiple myeloma. 4. History of spinal stenosis. 5. Anxiety, depression. 6. History of noncompliance. RECOMMENDATIONS: Recommend to continue current medications. Continue symptomatic treatment. Otherwise, follow closely with Hematology/Oncology and Radiation Oncology. Prognosis guarded. Further recommendations to follow. MMODL / IJN: [id number] /
--- NOTE | 2022-05-31 13:34 | P.PN ---
Subjective Progress Note Date: 05/31/22 Principal diagnosis: Plasma cell myeloma, back pain Upon visit today patient is resting comfortably in bed. He is still reporting mid back pain, but states pain is better controlled with Dilaudid and decadron. Denies loss of bowel or bladder control. Pt has been seen today by rad/onc and orthopedic surgery. He is scheduled for simulation today with Dr. Bridges. Pt is declining surgical intervention at this time with orthopedic surgery. Denies any new symptoms. Objective - Vital Signs Vital signs: Vital Signs Temp 97.9 F 05/31/22 07:58 Pulse 100 05/31/22 11:48 Resp 17 05/31/22 11:48 BP 119/75 05/31/22 07:58 Pulse Ox 100 05/31/22 07:58 FiO2 Intake & Output 05/30/22 05/31/22 05/31/22 18:59 06:59 18:59 Output Total 350 400 Balance -350 -400 Output: Urine 350 Post Void Residual 400 Other: Voiding Method Urinal Urinal Bedside Commode # Voids 1 - Constitutional General appearance: Present: average body habitus, no acute distress - EENT Eyes: Present: anicteric sclerae, EOMI ENT: Present: hearing grossly normal - Respiratory Details: breathing is even and unlabored - Cardiovascular Details: skin warm and dry - Integumentary Integumentary: Present: normal - Neurologic Neurologic Comment(s): lower extremity weakness - Psychiatric Psychiatric: Present: A&O x's 3 - Labs CBC & Chem 7: 05/30/22 05:44 05/31/22 08:18 Labs: Abnormal Lab Results - Last 24 Hours (Table) 05/31/22 Range/Units 08:18 BUN/Creatinine Ratio 23.52 H (12.00-20.00) Ratio - Imaging and Cardiology MRI thoracic spine reviewed Assessment and Plan (1) Intractable back pain Current Visit: Yes Status: Acute Priority: High Code(s): M54.9 - DORSALGIA, UNSPECIFIED SNOMED Code(s): 759960877 (2) Paresthesia of bilateral legs Current Visit: Yes Status: Acute Priority: High Code(s): R20.2 - PARESTHESIA OF SKIN SNOMED Code(s): 747611504 (3) Multiple myeloma Current Visit: Yes Status: Acute Priority: High Code(s): C90.00 - MULTIPLE MYELOMA NOT HAVING ACHIEVED REMISSION SNOMED Code(s): 411309579 Plan: Back pain/paresthesias: -Pt has not been taking home pain medications as prescribed, as he reports this is due to anxiety the medication causes him -He has been on norco and oxycodone prior to MS Contin and morphine, and reports similar side effects. Currently receiving IV dilaudid with adequate pain control. Pain management has been consulted with plans for PO dilaudid upon discharge. Will defer further pain medication management to pain management team -Erick for prevention of opiate induced constipation -Pulse dose dexamethasone started today. -Explained to patient, that pain medications are only a temporary fix to help with the pain, and that leaving his cancer untreated will only cause progression and worsening of his symptoms. He verbalized understanding -MRI lumbar spine revealed obliteration on the right side at L1-L2. Abnormal enhancing soft tissue anteriorly at L3 level, measuring 2.11.9 cm, causing anterior IVC displacement. Abnormal soft tissue bilaterally at L3/L4 causing severe right-sided neural foraminal obliteration and enhancing tissue surrounding the exiting left L3 nerve. MRI thoracic spine revealed multiple masses seen throughout field of view most compatible with extra medullary plasmacytoma. These are along the sympathetic chains and within the extradural spinal canal. Findings are worst at T7-T8 level with severe spinal canal stenosis. He was seen by rad/onc and orthopedic surgery today. Pt has declined surgical intervention at this time, but wants to proceed with XRT and pulse dose dexamethasone treatment, and to begin induction treatment in the outpatient setting. Plasma cell myeloma: -Bone marrow results have been discussed with patient, which confirmed plasma cell myeloma. -Patient has been non-compliant with care, recommendations and with follow up. However, patient is now agreeable with pursuing induction treatment and for further XRT. F/u with Dr. Corie Douglas scheduled for next week -Spoke with Dr. Bridges today, plan for simulation today -PET scan scheduled for 06/16/22, office staff has called pt with appt time -Pt updated on plan of care and is agreeable
[2022-06-01] MEDS: HEPARIN SODIUM,PORCINE/PF 5,000 UNIT/0.5 ML SYRINGE SQ SCH ×4 (00:17→22:26)
[2022-06-01] MEDS: HYDROmorphone 1 MG/ML 1 ML SYRINGE IVP PRN ×7 (00:18→23:17)
--- NOTE | 2022-06-01 07:25 | P.PN ---
Subjective Progress Note Date: 05/31/22 Principal diagnosis: back pain, myeloma I met with the patient on the morning of 05/31. We discussed the results of his thoracic spine MRI, which showed progression of his disease with cord compression at the level of T7/8. The patient states that he has continued to have significant pain in the middle of his back. He states that Dilaudid is helpful, but he is still having breakthrough pain at times. The patient was seen alongside orthopedic surgery as well as medical oncology. Objective - Vital Signs Vital signs: Vital Signs Temp 97.7 F 06/01/22 02:00 Pulse 66 06/01/22 02:00 Resp 16 06/01/22 02:00 BP 116/73 06/01/22 02:00 Pulse Ox 98 06/01/22 02:00 FiO2 Intake & Output 05/31/22 06/01/22 06/01/22 18:59 06:59 18:59 Intake Total 1000 Output Total 400 Balance -400 1000 Intake: Oral 1000 Output: Post Void Residual 400 Other: Voiding Method Urinal Urinal # Voids 2 4 - Constitutional General appearance: Present: no acute distress - EENT Eyes: Present: EOMI, PERRLA ENT: Present: hearing grossly normal - Neck Neck: Absent: lymphadenopathy - Respiratory Respiratory: bilateral: CTA - Cardiovascular Rhythm: regular - Integumentary Integumentary: Absent: calor, cellulitis - Neurologic Neurologic: Present: CNII-XII intact - Musculoskeletal Musculoskeletal: Absent: strength equal bilaterally (As noted previously - weakness in bilateral similar to prior exam) - Psychiatric Psychiatric: Present: A&O x's 3 - Labs CBC & Chem 7: 05/30/22 05:44 05/31/22 08:18 Labs: Abnormal Lab Results - Last 24 Hours (Table) 05/31/22 Range/Units 08:18 BUN/Creatinine Ratio 23.52 H (12.00-20.00) Ratio Assessment and Plan Assessment: The patient is a 46-year-old male who was previously diagnosed with myeloma secondary to spinal cord impingement nearly 6 months ago. The patient initially declined any therapy after undergoing surgical decompression. He has pursued alternative treatments, and unfortunately has had continued progression of his disease. He has not initiated any systemic therapy to date. He completed a partial course of palliative radiotherapy to the lumbar spine in early April, but again discontinued early secondary to noncompliance. He now presents with progressive disease with spinal cord compression in the thoracic spine. Plan: 1. Thoracic spinal cord compression: As detailed previously, the patient is symptomatic and unable to ambulate. He is still able to move the bilateral lower extremities. The patient was offered surgical decompression, and he was warned that without this he may experience further neurologic decline. The patient expressed understanding of this, and requested to move forward with radiotherapy. I explained to the patient that myeloma is typically radiosensitive, and that we would initiate urgent treatment today. I discussed that I would recommend approximately 6 fractions of radiation. I explained that we would be targeting the areas with significant spinal canal invasion. I stressed to the patient that radiation would only take care of the areas we specifically targeted, and that he would need to move forward with systemic therapy or else this would continue to happen in different locations in the spine or other areas of the skeleton. He expressed understanding that starting radiotherapy was not a guarantee he would have improvement in his neurologic status or ability to ambulate. The patient does seem to express some understanding of the myeloma condition at this time, which is an improvement from previous encounters. He still does seem motivated for naturopathic therapies, despite that these therapies have completely failed him and are the reason for is present condition. He has expressed to the medical oncology team he will be willing to initiate systemic therapy, which he has been unwilling to do in the past. We will continue to follow with this patient during his hospital stay. Time with Patient: Greater than 30
[2022-06-01] MEDS: dexAMETHasone 4 MG TAB PO SCH (08:18)
[2022-06-01] MEDS: PANTOPRAZOLE 40 MG TABLET PO SCH (08:19)
[2022-06-01] MEDS: DOCUSATE 100 MG CAP PO SCH (08:19)
[2022-06-01] MEDS: DULoxetine HCL 30 MG CAPSULE.DR PO SCH ×2 (08:19→21:01)
[2022-06-01 08:22] VITALS: BMI 23.7
[2022-06-01] MEDS ORDERED: HYDROcodone/APAP 5-325MG 1 EACH TAB PO PRN (13:39)
--- NOTE | 2022-06-01 13:47 | P.PN ---
Subjective Progress Note Date: 06/01/22 This is a 46-year-old male who was recently admitted with severe back pain and known to have multiple myeloma and awaiting to initiate induction therapy with hematology/oncology and being followed by oncology along with radiation oncology and pain management. Patient underwent radiation therapy yesterday and plans for today and will follow-up with Dr. Bridges about duration of treatment. Orthopedics evaluated the patient with no plans of surgical intervention at this time and working towards radiation therapy initially. Patient is currently afebrile denies chest pain or shortness of breath. Would recommend and encourage PT/OT therapy daily and increased activity as tolerated. No reports of nausea vomiting noted and patient is tolerating diet. Patient is continued on oral steroids along with pain medications and will continue current regimen. Review of systems: Constitutional: No reports of fatigue, fever, or chills Cardiovascular: No reports of chest pain or palpitations Respiratory: No reports of shortness of breath or cough GI: reports of nausea, no reports of of vomiting, : No reports of dysuria or retention Neurovascular: reports of generalized weakness, with continued back pain All medications have been reviewed Active Medications Acetaminophen (Acetaminophen Tab 325 Mg Tab) 650 mg PO Q6HR PRN PRN Reason: Fever and/ or Pain Alprazolam (Alprazolam 0.25 Mg Tab) 0.25 mg PO TID PRN PRN Reason: Anxiety Last Admin: 06/01/22 02:00 Dose: 0.25 mg Dexamethasone (Dexamethasone 4 Mg Tab) 40 mg PO DAILY [facility] Stop: 06/03/22 09:01 Last Admin: 06/01/22 08:18 Dose: 40 mg Docusate Sodium (Docusate 100 Mg Cap) 100 mg PO DAILY [facility] Last Admin: 06/01/22 08:19 Dose: 100 mg Duloxetine HCl (Duloxetine Hcl 30 Mg Capsule.Dr) 30 mg PO BID [facility] Last Admin: 06/01/22 08:19 Dose: Not Given Heparin Sodium (Porcine) (Heparin Sodium,Porcine/Pf 5,000 Unit/0.5 Ml Syringe) 5,000 unit SQ Q8HR [facility] Last Admin: 06/01/22 08:19 Dose: Not Given Hydromorphone HCl (Hydromorphone 1 Mg/Ml 1 Ml Syringe) 1 mg IVP Q3HR PRN PRN Reason: Severe Pain (Scale 7 to 10) Last Admin: 06/01/22 12:42 Dose: 1 mg Lorazepam (Lorazepam 2 Mg/Ml Inj) 1 mg IV ONCE PRN PRN Reason: Anxiety Last Admin: 05/30/22 12:56 Dose: 1 mg Naloxone HCl (Naloxone 0.4 Mg/Ml 1 Ml Vial) 0.2 mg IV Q2M PRN PRN Reason: Opioid Reversal Ondansetron HCl (Ondansetron Odt 4 Mg Tab) 4 mg PO Q8HR PRN PRN Reason: Nausea Pantoprazole Sodium (Pantoprazole 40 Mg Tablet) 40 mg PO DAILY [facility] Last Admin: 06/01/22 08:19 Dose: 40 mg Tramadol HCl (Tramadol 50 Mg Tab) 50 mg PO Q6H PRN PRN Reason: Moderate Pain (Scale 4 to 6) Last Admin: 05/30/22 00:21 Dose: 50 mg PHYSICAL EXAMINATION: GENERAL: The patient is alert and oriented x4, Well developed, well nourished. HEENT: Pupils are round and equally reacting to light. EOMI. no scleral icterus. No conjunctival pallor. Normocephalic, atraumatic. No pharyngeal erythema. No thyromegaly. CARDIOVASCULAR: S1 and S2 muffled PULMONARY: diminished breath sounds bilaterally with no wheezing or rhonchi noted. ABDOMEN: soft. Nontender on exam. non-distended, normoactive bowel sounds. No palpable organomegaly. MUSCULOSKELETAL: No joint swelling or deformity. EXTREMITIES: No cyanosis, clubbing, or pedal edema. NEUROLOGICAL: Gross neurological examination did not reveal any focal deficits. Diffuse weakness SKIN: No rashes. Assessment: Acute on chronic intractable back pain with abnormal MRI, possibly secondary to multiple myeloma and compression Bilateral leg numbness Multiple myeloma history History of spinal stenosis Anxiety/depression history of noncompliance GI prophylaxis DVT prophylaxis Full code Plan: Recommend to continue with current medications and management with multiple medical consultations following including oncology, radiation oncology, and pain management Patient is receiving radiation therapy with Dr. Bridges and will discuss further with him as he will receiving 6 sessions and will need to arrange for outpatient follow-up as well as oncology follow-up in the outpatient setting Pain managed to follow and will continue current regimen and would also add [place] as patient is only receiving IV Dilaudid and continues to report pain. Patient does have Ultram ordered as well and not using. Patient does have Cymbalta but has been refusing and this is twice daily. Will follow-up with pain management in the outpatient setting Patient is on oral Decadron as well Due to multiple complex medical issues, prognosis is guarded Will discuss possible discharge in 24 hours The impression and plan of care has been dictated by Tia Lopez, nurse practitioner as directed. Dr. Corky MD I have performed a history and examination and MDM of this patient, discussed the same with the dictator, and agree with the dictator's assessment and plan as written ,documented as a scribe. Based on total visit time, I have performed more than 50% of the visit. Any additional findings or plans will be noted. Objective - Vital Signs Vital signs: Vital Signs Temp 97.8 F 06/01/22 11:46 Pulse 75 06/01/22 11:46 Resp 16 06/01/22 11:46 BP 143/89 06/01/22 11:46 Pulse Ox 100 06/01/22 11:46 FiO2 Intake & Output 05/31/22 06/01/22 06/01/22 18:59 06:59 18:59 Intake Total 1000 Output Total 400 Balance -400 1000 Weight 79.379 kg Intake: Oral 1000 Output: Post Void Residual 400 Other: Voiding Method Urinal Urinal Urinal # Voids 2 4 - Labs CBC & Chem 7: 05/30/22 05:44 05/31/22 08:18
[2022-06-01 15:23] LABS: Protein, Total 5.7 g/dL (6.2-8.2)
--- NOTE | 2022-06-01 17:03 | P.PN ---
Subjective Progress Note Date: 06/01/22 Principal diagnosis: Plasma cell myeloma, back pain Upon visit today patient is resting comfortably in bed. He is still reporting mid back pain, but states pain is better controlled with Dilaudid and decadron. Denies loss of bowel or bladder control. He is scheduled for XRT today with Dr. Bridges. Denies any new symptoms. Objective - Vital Signs Vital signs: Vital Signs Temp 97.8 F 06/01/22 11:46 Pulse 75 06/01/22 11:46 Resp 16 06/01/22 11:46 BP 143/89 06/01/22 11:46 Pulse Ox 100 06/01/22 11:46 FiO2 Intake & Output 05/31/22 06/01/22 06/01/22 18:59 06:59 18:59 Intake Total 1000 Output Total 400 Balance -400 1000 Weight 79.379 kg Intake: Oral 1000 Output: Post Void Residual 400 Other: Voiding Method Urinal Urinal Urinal # Voids 2 4 - Constitutional General appearance: Present: average body habitus, no acute distress - EENT Eyes: Present: anicteric sclerae, EOMI ENT: Present: hearing grossly normal - Respiratory Details: breathing is even and unlabored - Cardiovascular Details: skin warm and dry - Integumentary Integumentary: Present: normal - Psychiatric Psychiatric: Present: A&O x's 3, appropriate affect, intact judgment & insight - Labs CBC & Chem 7: 05/30/22 05:44 05/31/22 08:18 Labs: Abnormal Lab Results - Last 24 Hours (Table) 05/31/22 Range/Units 08:18 Total Protein (PEP) 5.7 L (6.2-8.2) g/dL Assessment and Plan (1) Intractable back pain Current Visit: Yes Status: Acute Priority: High Code(s): M54.9 - DORSALGIA, UNSPECIFIED SNOMED Code(s): 245549807 (2) Paresthesia of bilateral legs Current Visit: Yes Status: Acute Priority: High Code(s): R20.2 - PARESTHESIA OF SKIN SNOMED Code(s): 347703481 (3) Multiple myeloma Current Visit: Yes Status: Acute Priority: High Code(s): C90.00 - MULTIPLE MYELOMA NOT HAVING ACHIEVED REMISSION SNOMED Code(s): 109629581 Plan: Back pain/paresthesias: -Pt has not been taking home pain medications as prescribed, as he reports this is due to anxiety the medication causes him -He has been on norco and oxycodone prior to MS Contin and morphine, and reports similar side effects. Currently receiving IV dilaudid with adequate pain control. Pain management has been consulted with plans for PO dilaudid upon discharge. Will defer further pain medication management to pain management team -Colace for prevention of opiate induced constipation -Pulse dose dexamethasone started. -Explained to patient, that pain medications are only a temporary fix to help with the pain, and that leaving his cancer untreated will only cause progression and worsening of his symptoms. He verbalized understanding -MRI lumbar spine revealed obliteration on the right side at L1-L2. Abnormal enhancing soft tissue anteriorly at L3 level, measuring 2.11.9 cm, causing anterior IVC displacement. Abnormal soft tissue bilaterally at L3/L4 causing severe right-sided neural foraminal obliteration and enhancing tissue surroun ding the exiting left L3 nerve. MRI thoracic spine revealed multiple masses seen throughout field of view most compatible with extra medullary plasmacytoma. These are along the sympathetic chains and within the extradural spinal canal. Findings are worst at T7-T8 level with severe spinal canal stenosis. He was seen by rad/onc and orthopedic surgery today. Pt has declined surgical intervention at this time, but wants to proceed with XRT and pulse dose dexamethasone treatment, and to begin induction treatment in the outpatient setting. Plasma cell myeloma: -Bone marrow results have been discussed with patient, which confirmed plasma cell myeloma. -Patient has been non-compliant with care, recommendations and with follow up. However, patient is now agreeable with pursuing induction treatment and for further XRT. F/u with Dr. Corie Douglas scheduled for 06/09 -XRT is planned for today -PET scan scheduled for 06/16/22, office staff has called pt with appt time -Pt updated on plan of care and is agreeable
[2022-06-01 18:04] VITALS: RESP 18
[2022-06-02] MEDS: traMADol 50 MG TAB PO PRN (00:47)
[2022-06-02] MEDS: HYDROmorphone 1 MG/ML 1 ML SYRINGE IVP PRN ×4 (02:17→11:50)
[2022-06-02] MEDS: HEPARIN SODIUM,PORCINE/PF 5,000 UNIT/0.5 ML SYRINGE SQ SCH (07:27)
[2022-06-02] MEDS: dexAMETHasone 4 MG TAB PO SCH (09:30)
[2022-06-02] MEDS: PANTOPRAZOLE 40 MG TABLET PO SCH (09:30)
[2022-06-02] MEDS: DOCUSATE 100 MG CAP PO SCH (09:31)
[2022-06-02] MEDS: DULoxetine HCL 30 MG CAPSULE.DR PO SCH (09:31)
[2022-06-02 12:15] VITALS: BP 110/64; PULSE 75; TEMP 97.5
[2022-06-02 12:48] LABS: Albumin 4.09 g/dL (3.80-4.90); Gamma Globulin 0.29 g/dL (0.70-1.50)
--- NOTE | 2022-06-02 16:13 | P.PN ---
Subjective Progress Note Date: 06/02/22 Principal diagnosis: back pain, spinal cord compression Patient doing a bit better today - feels his back pain may be slightly improved. He is moving his legs better. Still seems to think his pain flares up when he "eats more sugar which causes inflammation." He said he had trouble sleeping last night. He is anxious to go home. Has finished 3/6 planned RT fractions. Objective - Vital Signs Vital signs: Vital Signs Temp 97.5 F L 06/02/22 11:09 Pulse 75 06/02/22 11:09 Resp 18 06/02/22 11:09 BP 110/64 06/02/22 11:09 Pulse Ox 99 06/02/22 11:09 FiO2 Intake & Output 06/01/22 06/02/22 06/02/22 18:59 06:59 18:59 Intake Total 600 600 250 Output Total 400 Balance 600 600 -150 Weight 79.379 kg Intake: Oral 600 600 250 Output: Urine 400 Other: Voiding Method Urinal Toilet Urinal Urinal # Voids 3 - Constitutional General appearance: Present: no acute distress - EENT Eyes: Present: EOMI, PERRLA ENT: Present: hearing grossly normal - Neck Neck: Absent: lymphadenopathy - Integumentary Integumentary: Absent: pale - Neurologic Neurologic: Present: CNII-XII intact - Musculoskeletal Musculoskeletal: Absent: strength equal bilaterally (Improving LE strength - 4/5 bilaterally, a bit slow on left hip flexion but improved) - Psychiatric Psychiatric: Present: A&O x's 3, appropriate affect - Labs CBC & Chem 7: 05/30/22 05:44 05/31/22 08:18 Labs: Abnormal Lab Results - Last 24 Hours (Table) 05/31/22 Range/Units 08:18 Zyjjd-4-Yoorrrfry 0.52 L (0.60-1.00) g/dL Beta Globulins 0.52 L (0.60-1.30) g/dL Gamma Globulins 0.29 L (0.70-1.50) g/dL Assessment and Plan Assessment: 46 year old male with history of myeloma diagnosed several months prior, but has not started systemic therapy due to non-compliance. Presented with worsening back pain and was found to have a spinal cord compression in the thoracic spine. Initiated palliative RT / high dose Dex. Plan: 1. Back pain: Somewhat improved today per patient - has finished 3/6 RT treatments. Patient given schedule for Sunday - reinforced importance of finishing radiation course. Patient previously had difficulty with follow-up and compliance during prior RT course. He is also scheduled to follow-up with Dr. Corie Douglas in medical oncology on Sunday the . Time with Patient: Less than 30
[2022-06-05 13:49] LABS: Free Kappa Lt Chain Qnt, Serum 103.75 mg/dL (0.33-1.94); Free Lambda Lt Chain Qnt, Seru 0.18 mg/dL (0.57-2.63)
--- NOTE | 2022-06-07 06:11 | P.DS ---
Providers Date of admission: 05/26/22 00:32 Expected date of discharge: 06/02/22 Attending physician: Arleth Fried Consults: 05/26/22 00:29 Consult Physician Routine Consulting Provider: Corie Douglas Consult Reason/Comments: intractable back pain with paresthesia BLLE Do you want consulting provider notified?: Yes, Notify in am Consult Physician Routine Consulting Provider: Jose Manuel Judd Consult Reason/Comments: Intractable back pain, bilateral lower extremity paresthesia Do you want consulting provider notified?: Yes, Notify in am 05/27/22 09:20 Consult Physician Routine Consulting Provider: Cirilo Bridges Consult Reason/Comments: palliative XRT Do you want consulting provider notified?: Already Contacted 05/27/22 16:53 Consult Physician Routine Consulting Provider: Oneil Shine Consult Reason/Comments: Depression Do you want consulting provider notified?: Yes 05/29/22 13:03 Consult Physician Urgent Consulting Provider: Christian Barfield Consult Reason/Comments: pain management Do you want consulting provider notified?: Yes Primary care physician: Vikas Bell DO Hospital Course: Final diagnosis Acute on chronic intractable back pain with abnormal MRI, possibly secondary to multiple myeloma and compression Bilateral leg numbness Multiple myeloma history History of spinal stenosis Anxiety/depression history of noncompliance GI prophylaxis DVT prophylaxis Full code Discharge disposition Patient is being discharged in a stable condition with guarded prognosis to home . Patient will follow-up with Dr. Bell in the outpatient setting upon discharge. Patient is to continue with radiation oncology on Sunday as scheduled. Patient to follow-up with oncology along with pain management in the outpatient setting as well. Total time taken is greater than 35 minutes. Hospital course This is a 46-year-old male who was recently admitted with intractable back pain with multiple medical consultations following. Patient was evaluated by radiation oncology underwent radiation therapy and will be following up with oncology in the outpatient setting. Patient was evaluated by orthopedics recommending conservative management at this time. Highly recommend pain management in the outpatient setting with follow-up as patient has uncontrolled pain. Patient has been cleared by consultations for discharge today. Please refer to consultation notes for further HPI. Currently no reports of chest pain, shortness of breath, or palpitations. Patient is afebrile. No reports of nausea or vomiting and patient is tolerating diet. Patient will be discharged home today. Guarded prognosis. Physical exam: Gen: This is a 46-year-old male who is awake, alert and oriented 3, thin built, well-developed, well-nourished HEENT: Head is atraumatic, normocephalic. Pupils equal, round. Sclerae is anicteric. NECK: Supple. No JVD. No lymphadenopathy. No thyromegaly. LUNGS: Clear to auscultation. No wheezes or rhonchi. No intercostal retractions. HEART: Regular rate and rhythm. No murmur. ABDOMEN: Soft. Bowel sounds are present. No masses. No tenderness. EXTREMITIES: No pedal edema. No calf tenderness. NEUROLOGICAL: Patient is awake, alert and oriented x3. Cranial nerves 2 through 12 are grossly intact. Please refer to medication reconciliation sheet for a list of medications. The impression and plan of care has been dictated by Tia Lopez, Nurse Practitioner as directed. Dr. Corky MD I have performed a history and examination and MDM of this patient, discussed the same with the dictator, and agree with the dictator's assessment and plan as written ,documented as a scribe. Based on total visit time, I have performed more than 50% of the visit. Patient Condition at Discharge: Fair Plan - Discharge Summary Discharge Rx Participant: No New Discharge Prescriptions: New HYDROmorphone [Dilaudid] 2 mg PO Q12H PRN 3 Days #6 tab PRN Reason: Pain dexAMETHasone [Decadron] 4 mg PO Q8HR #42 tablet traMADol HCl [Ultram] 50 mg PO Q6H PRN #6 tab PRN Reason: Moderate Pain (Scale 4 To 6) Continue Docusate [Colace] 100 mg PO DAILY #30 cap Pantoprazole [Protonix] 40 mg PO DAILY #30 tab Ondansetron Odt [Zofran ODT] 4 mg PO Q8HR PRN #10 tab PRN Reason: Nausea Discontinued Morphine Sulfate ER [Ms Contin] 15 mg PO Q12H MORPHINE ORAL ROXANN 2mg/mL [Morphine Oral Soln 2 MG/ML] 5 mg PO Q4H PRN PRN Reason: Pain Discharge Medication List Docusate [Colace] 100 mg PO DAILY #30 cap 05/18/22 [Rx] Pantoprazole [Protonix] 40 mg PO DAILY #30 tab 05/18/22 [Rx] Ondansetron Odt [Zofran ODT] 4 mg PO Q8HR PRN #10 tab 05/20/22 [Rx] HYDROmorphone [Dilaudid] 2 mg PO Q12H PRN 3 Days #6 tab 05/29/22 [Rx] dexAMETHasone [Decadron] 4 mg PO Q8HR #42 tablet 05/30/22 [Rx] traMADol HCl [Ultram] 50 mg PO Q6H PRN #6 tab 06/02/22 [Rx] Follow up Appointment(s)/Referral(s): Corie Douglas MD [STAFF PHYSICIAN] - 06/09/22 9:15 am Christian Barfield MD [STAFF PHYSICIAN] - 1 Week (call for appt) [facility], [NON-STAFF] - 1 Week Vikas Bell DO [Primary Care Provider] - 1-2 days Patient Instructions/Handouts: Hydromorphone (By mouth), Tramadol (By mouth), Dexamethasone (By mouth) Activity/Diet/Wound Care/Special Instructions: Activity Limited until follow-up follow-up with primary care provider on discharge Follow-up with oncology and radiation oncology Keep your scheduled radiation therapy appointment on Sunday at 1245 Follow-up with pain management outpatient Discharge Disposition: HOME WITH HOME HEALTH SERVICES
== END 2022-06-02 16:32 | disposition home health service (06) | DRG 841 ==
LOC: EC 23:37 → 5NMEDONC 05-26 00:32
PROVIDERS: ADMIT Hospitalist; ATTEND Hospitalist
PROC: DP0C1ZZ Beam Radiation of Other Bone using Photons 1 - 10 MeV (ICD-10-PCS; principal; 2022-05-31)
DX: C90.00 Multiple myeloma not having achieved remission (principal); G99.2 Myelopathy in diseases classified elsewhere; G89.3 Neoplasm related pain (acute) (chronic); M79.606 Pain in leg, unspecified; M54.89 Other dorsalgia; F32.A Depression, unspecified; F41.9 Anxiety disorder, unspecified; Z51.5 Encounter for palliative care; F10.11 Alcohol abuse, in remission; M48.04 Spinal stenosis, thoracic region; R15.9 Full incontinence of feces; N39.498 Other specified urinary incontinence; Z92.3 Personal history of irradiation; R26.2 Difficulty in walking, not elsewhere classified; Z79.891 Long term (current) use of opiate analgesic; Z79.899 Other long term (current) drug therapy; F39 Unspecified mood [affective] disorder; Z91.199 Patient's noncompliance with other medical treatment and regimen due to unspecified reason
CPT/HCPCS: 36415; 72157; 72158; 77280; 77290; 77307; 77334; 77387; 77412; 80048; 80053; 83735; 83883; 84165; 85025; 96361; 96374; 96376; 99285

== ENCOUNTER 2022-06-17 09:06 | Emergency (ER) | payer OTHER ==
[2022-06-17 09:11] VITALS: RESP 18
[2022-06-17] MEDS ORDERED: SODIUM CHLORIDE 0.9% 1,000 ML IV ONE (09:43)
[2022-06-17] MEDS ORDERED: HYDROmorphone 0.5 MG/0.5 ML SYRINGE IVP STA (09:43)
--- NOTE | 2022-06-17 09:59 | ED ---
Back Pain HPI - General Chief Complaint: Back Pain/Injury Stated Complaint: back pain Time Seen by Provider: 06/17/22 09:19 Source: patient, RN notes reviewed, old records reviewed Limitations: physical limitation - History of Present Illness Initial Comments: 38-year-old male presents emergency Department chief complaint of back pain. Patient has underlying multiple myeloma with masses in his thoracic spine region. Patient has had recent admissions for this complaint he is under chemotherapy orally, radiation therapy. Patient states the pain does wax and wane he is on current pain contract but states that this pain is not alleviated today. Patient has had some issues with paresthesias of his lower extremity which shows are improving but states he still has some so she weakness this is closely being followed. He denies any bowel, bladder incontinence or retention. - Related Data Previous Rx's Medication Instructions Recorded Docusate [Colace] 100 mg PO DAILY #30 cap 05/18/22 Pantoprazole [Protonix] 40 mg PO DAILY #30 tab 05/18/22 Ondansetron Odt [Zofran ODT] 4 mg PO Q8HR PRN #10 tab 05/20/22 HYDROmorphone [Dilaudid] 2 mg PO Q12H PRN 3 Days #6 tab 05/29/22 dexAMETHasone [Decadron] 4 mg PO Q8HR #42 tablet 05/30/22 traMADol HCl [Ultram] 50 mg PO Q6H PRN #6 tab 06/02/22 Allergies Allergy/AdvReac Type Severity Reaction Status Date / Time No Known Allergies Allergy Verified 06/17/22 09:10 Review of Systems ROS Statement: Those systems with pertinent positive or pertinent negative responses have been documented in the HPI. ROS Other: All systems not noted in ROS Statement are negative. Past Medical History Past Medical History: No Reported History, Cancer Additional Past Medical History / Comment(s): Back issues History of Any Multi-Drug Resistant Organisms: None Reported Past Surgical History: No Surgical Hx Reported Additional Past Surgical History / Comment(s): back surgery to remove tumor december of 2021. Bone biospy of right hip Past Anesthesia/Blood Transfusion Reactions: No Reported Reaction Past Psychological History: No Psychological Hx Reported Smoking Status: Never smoker Past Alcohol Use History: Heavy Past Drug Use History: None Reported General Exam Limitations: physical limitation General appearance: alert, in no apparent distress Head exam: Present: atraumatic, normocephalic, normal inspection Eye exam: Present: normal appearance, PERRL, EOMI. Absent: scleral icterus, conjunctival injection, periorbital swelling ENT exam: Present: normal exam, normal oropharynx, mucous membranes moist Neck exam: Present: normal inspection, full ROM. Absent: tenderness, meningismus, lymphadenopathy Respiratory exam: Present: normal lung sounds bilaterally. Absent: respiratory distress, wheezes, rales, rhonchi, stridor Cardiovascular Exam: Present: regular rate, normal rhythm, normal heart sounds. Absent: systolic murmur, diastolic murmur, rubs, gallop, clicks GI/Abdominal exam: Present: soft, normal bowel sounds. Absent: distended, tenderness, guarding, rebound, rigid Extremities exam: Present: normal inspection, full ROM, normal capillary refill. Absent: tenderness, pedal edema, joint swelling, calf tenderness Back exam: Present: tenderness, paraspinal tenderness, vertebral tenderness. Absent: full ROM Neurological exam: Present: reflexes normal. Absent: motor sensory deficit Course Vital Signs 06/17/22 06/17/22 06/17/22 09:06 09:59 11:47 Temperature 97.7 F Pulse Rate 79 75 76 Respiratory 18 18 18 Rate Blood Pressure 99/63 107/61 99/50 O2 Sat by Pulse 100 99 100 Oximetry 06/17/22 06/17/22 12:20 12:52 Temperature 98.1 F Pulse Rate 72 78 Respiratory 18 18 Rate Blood Pressure 102/61 102/63 O2 Sat by Pulse 97 97 Oximetry Medical Decision Making - Medical Decision Making Was pt. sent in by a medical professional or institution (, PA, SAL[employer]ERSON [employer], urgent care, hospital, or shelter...) When possible be specific @ -No Did you speak to anyone other than the patient for history (EMS, parent, family, police, friend...)? What history was obtained from this source @ -No Did you review nursing and triage notes (agree or disagree)? Why? @ -I reviewed and agree with nursing and triage notes Were old charts reviewed (outside hosp., previous admission, EMS record, old EKG, old radiological studies, urgent care reports/EKG's, shelter records)? Report findings @ -Review prior laboratory studies, oncology and orthopedic consults including MRIs Differential Diagnosis (chest pain, altered mental status, abdominal pain women, abdominal pain men, vaginal bleeding, weakness, fever, dyspnea, syncope, headache, dizziness, GI bleed, back pain, seizure, CVA, palpatations, mental health, musculoskeletal)? @ -[Differential Back Pain: Strain, zoster, cauda equina syndrome, epidural abscess, vertebral osteomyelitis, discitis, fracture, subluxation, disc herniation, DJD, spinal stenosis, dissection, AAA, pancreatitis, peptic ulcer disease, pyelonephritis, kidney stone, this is not meant to be an all-inclusive list. EKG interpreted by me (3pts min.). @ -None X-rays interpreted by me (1pt min.). @ -None done CT interpreted by me (1pt min.). @ -None done U/S interpreted by me (1pt. min.). @ -None done What testing was considered but not performed or refused? (CT, X-rays, U/S, labs)? Why? @ -None What meds were considered but not given or refused? Why? @ -None Did you discuss the management of the patient with other professionals (professionals i.e. , PA, [employer], lab, RT, psych nurse, family welfare social work professor, cable tool operator, teacher, airfield services officer, case preparer and liner)? Give summary @ -No Was smoking cessation discussed for >3mins.? @ -No Was critical care preformed (if so, how long)? @ -No Were there social determinants of health that impacted care today? How? (Homelessness, low income, unemployed, alcoholism, drug addiction, transportation, low edu. Level, literacy, decrease access to med. care, half-way, rehab)? @ -No Was there de-escalation of care discussed even if they declined (Discuss DNR or withdrawal of care, Hospice)? DNR status @ -No What co-morbidities impacted this encounter? (DM, HTN, Smoking, COPD, CAD, Cancer, CVA, ARF, Chemo, Hep., AIDS, mental health diagnosis, sleep apnea, morbid obesity)? @ -None Was patient admitted / discharged? Hospital course, mention meds given and route, prescriptions, significant lab abnormalities, going to OR and other pe rtinent info. @ -Discharge patient's pain is improved after pain control emergency from laboratory studies returned remarkable. Patient discharged as he has pain meds at home and agrees this plan. Undiagnosed new problem with uncertain prognosis? @ -No Drug Therapy requiring intensive monitoring for toxicity (Heparin, Nitro, Insulin, Cardizem)? @ -No Were any procedures done? @ -No Diagnosis/symptom? @ -Back pain, multiple myeloma Acute, or Chronic, or Acute on Chronic? @ -Acute on chronic Uncomplicated (without systemic symptoms) or Complicated (systemic symptoms)? @ -Uncomplicated Side effects of treatment? @ -No Exacerbation, Progression, or Severe Exacerbation? @ -No Poses a threat to life or bodily function? How? (Chest pain, [place], [place], pneumonia, PE, COPD, DKA, ARF, appy, cholecystitis, CVA, Diverticulitis, Homicidal, Suicidal, threat to staff... and all critical care pts) @ -No - Lab Data Result diagrams: 06/17/22 09:51 06/17/22 09:51 Lab Results 06/17/22 06/17/22 Range/Units 09:51 09:51 WBC 1.7 L (3.8-10.6) k/uL RBC 3.13 L (4.30-5.90) m/uL Hgb 11.6 L (13.0-17.5) gm/dL Hct 31.6 L (39.0-53.0) % MCV 100.9 H (80.0-100.0) fL MCH 37.0 H (25.0-35.0) pg MCHC 36.6 (31.0-37.0) g/dL RDW 12.7 (11.5-15.5) % Plt Count 77 L (150-450) k/uL MPV 7.7 Neutrophils % (Manual) 78 % Band Neuts % (Manual) 2 % Lymphocytes % (Manual) 15 % Monocytes % (Manual) 3 % Eosinophils % (Manual) 2 % Neutrophils # (Manual) 1.30 (1.3-7.7) k/uL Lymphocytes # (Manual) 0.26 L (1.0-4.8) k/uL Monocytes # (Manual) 0.05 (0-1.0) k/uL Eosinophils # (Manual) 0.03 (0-0.7) k/uL Nucleated RBCs 0 (0-0) /100 WBC Manual Slide Review Performed RBC Morphology Normal Hyperchromasia Slight Sodium 133 L (137-145) mmol/L Potassium 3.8 (3.5-5.1) mmol/L Chloride 103 (98-107) mmol/L Carbon Dioxide 26 (22-30) mmol/L Anion Gap 4 mmol/L BUN 16 (9-20) mg/dL Creatinine 0.74 (0.66-1.25) mg/dL Est GFR (CKD-EPI)AfAm >90 (>60 ml/min/1.73 sqM) Est GFR (CKD-EPI)NonAf >90 (>60 ml/min/1.73 sqM) Glucose 86 (74-99) mg/dL Calcium 8.5 (8.4-10.2) mg/dL Total Bilirubin 1.0 (0.2-1.3) mg/dL AST 18 (17-59) U/L ALT 21 (4-49) U/L Alkaline Phosphatase 40 (38-126) U/L Total Protein 5.2 L (6.3-8.2) g/dL Albumin 3.4 L (3.5-5.0) g/dL Disposition Clinical Impression: Back pain, Multiple myeloma Disposition: HOME SELF-CARE Condition: Stable Instructions (If sedation given, give patient instructions): Back Pain (ED) Additional Instructions: Please return to the Emergency Department if symptoms worsen or any other concerns. Is patient prescribed a controlled substance at d/c from ED?: No Referrals: Vikas Bell DO [Primary Care Provider] - 1-2 days Time of Disposition: 12:48
[2022-06-17 10:35] LABS: ALT 21 U/L (4-49); AST 18 U/L (17-59); African American GFR (CKD) >90 (>60 ml/min/1.73 sqM); Albumin 3.4 g/dL (3.5-5.0); Alkaline Phosphatase 40 U/L (38-126); Anion Gap 4 mmol/L; Blood Urea Nitrogen 16 mg/dL (9-20); Calcium 8.5 mg/dL (8.4-10.2); Carbon Dioxide 26 mmol/L (22-30); Chloride 103 mmol/L (98-107); Glucose 86 mg/dL (74-99); Non-African American GFR(CKD) >90 (>60 ml/min/1.73 sqM); Potassium 3.8 mmol/L (3.5-5.1); Sodium 133 mmol/L (137-145); Total Protein 5.2 g/dL (6.3-8.2)
[2022-06-17 10:56] LABS: HCT 31.6 % (39.0-53.0); HGB 11.6 gm/dL (13.0-17.5); Hyperchromasia Slight; MCHC 36.6 g/dL (31.0-37.0); MCV 100.9 fL (80.0-100.0); Mean Platelet Volume 7.7; RBC 3.13 m/uL (4.30-5.90); RDW 12.7 % (11.5-15.5); WBC 1.7 k/uL (3.8-10.6)
[2022-06-17 11:53] LABS: Band Neutrophils % 2 %; Eosinophils # (M) 0.03 k/uL (0-0.7); Lymphocytes # (M) 0.26 k/uL (1.0-4.8); Monocytes # (M) 0.05 k/uL (0-1.0); Neutrophils % (M) 78 %; Nucleated Red Blood Cells 0 /100 WBC (0-0); Total Cells Counted 100
[2022-06-17 11:56] LABS: RBC Morphology Normal
[2022-06-17 11:57] LABS: Platelet Count 77 k/uL (150-450)
[2022-06-17] MEDS ORDERED: HYDROmorphone 1 MG/ML 1 ML SYRINGE IVP STA (12:10)
[2022-06-17 12:58] VITALS: BP 102/63; PULSE 78; TEMP 98.1
== END 2022-06-17 14:56 | disposition home or self-care (01) ==
LOC: EC 09:06 → SUPCPDRO 09:06 → EC 14:56
DX: C90.00 Multiple myeloma not having achieved remission (principal); M54.9 Dorsalgia, unspecified
CPT/HCPCS: 36415; 80053; 85025; 99284; 96374; 96376; 96361; J1170 ×2

== ENCOUNTER → 2022-07-01 | Outpatient (CLI) | payer OTHER ==
--- NOTE | 2022-07-02 10:55 | PE ---
EXAMINATION TYPE: PET CT fusion whole body DATE OF EXAM: 07/01/2022 CLINICAL INDICATION:Male, 46 years old with history of C90.00; TECHNIQUE: Following the intravenous administration of 12.7 mCi of F-18 FDG, whole body images are performed from the skull base to the midthigh and legs. Images are reviewed on the computer in the c oronal, axial, and sagittal planes. Reconstructed rotating images are created on independent worksta tion and reviewed on the computer. A non-contrast CT is performed in conjunction with the PET scan. Glucose level 98 mg/dL COMPARISON: CT 05/14/2022, 05/05/2022, MRI 05/30/2022, 05/29/2022 04/20/2022, PET/CT None, FINDINGS: Mediastinal SUV mean is 1.2. Hepatic parenchyma SUV mean is 1.9. SKULL BASE AND NECK: No suspicious radiotracer activity. * Left neck uptake near the base of the neck max SUV 3.9. No definitive finding on CT. CHEST, MEDIASTINUM, AND HILAR REGION: No suspicious radiotracer activity. ABDOMEN AND PELVIS: No suspicious radiotracer activity. OSSEOUS STRUCTURES: Somewhat diffuse mild uptake of the osseous structures. More focal areas of uptake include: * Right posterior rib 4 max SUV 4.4 with more lucent area of the cortex comparisons other side. * Right posterior iliac bone max SUV 4.2. This is near the sacroiliac joint. No corresponding CT fin ding definitively visualized. * L3 more anteriorly max SUV 4.6. No corresponding CT finding definitively visualized. * Proximal right humeral head max SUV 4.2 with corresponding lucent area on CT. Legs: No abnormal FDG activity in the visualized legs. OTHER CT: Multiple soft tissue masses along the sympathetic chain as seen on multiple prior studies. These extend to the retroperitoneum and down into the pelvis. Soft tissue masses are seen along the c hest wall that indents upon the lung. IMPRESSION: 1. Somewhat diffuse osseous low levels FDG activity with scattered areas of more focal activity some of which correspond with lucency on CT including the right humerus and right posterior rib 4 lesions . 2. Scattered soft tissue masses predominantly along the spine along the sympathetic chain and the re troperitoneum. Findings most compatible with extramedullary hematopoiesis which can be seen in settin g of multiple myeloma. 3. Left neck focal FDG activity could be contamination spell. Correlate with screening examination.
== END | disposition home or self-care (01) ==
LOC: RADPETMAIN 12:05
PROVIDERS: ATTEND Internal Medicine
DX: C90.00 Multiple myeloma not having achieved remission (principal)
CPT/HCPCS: 78816; A9552

== ENCOUNTER 2023-09-04 00:36 | Inpatient (IN) | payer OTHER ==
--- NOTE | 2023-09-04 01:10 | ED ---
Back Pain HPI - General Source: EMS, RN notes reviewed Limitations: no limitations <Chavo Lopez - Last Filed: 09/04/23 01:10> - General Source: EMS, RN notes reviewed, old records reviewed Limitations: no limitations - History of Present Illness MD Complaint: back pain -: hour(s) Similar Symptoms Previously: Yes Place: home Radiation: buttocks, left leg, right leg Severity: severe Quality: sharp, stabbing, tingling Consistency: constant Improves With: none Worsens With: none Associated Symptoms: denies other symptoms Treatments Prior to Arrival: other (0) <Sedrick Swann - Last Filed: 09/14/23 22:39> - General Chief Complaint: Back Pain/Injury Stated Complaint: Pain Time Seen by Provider: 09/04/23 00:57 - History of Present Illness Initial Comments: Quick note 48-year-old male presents to the ED with a chief complaint of back pain. Reports history of multiple myeloma. States receives chemo for this. Received chemo here earlier today. States following had a reaction were muscles of his lower legs kind up and became shaky for about 20 minutes. Since then has had pain of his lower back upper legs. Patient notes that he has history of this however is normally able to take pain medications at home to help with this. States tonight seems worse than usual. States he took tramadol and Dilaudid at home which did not provide him relief. Denies saddle anesthesia. Denies incontinence. (Chavo Lopez) This is a 48-year-old male with severe back pain history of multiple myeloma recent chemotherapy. (Sedrick Swann) - Related Data Home Medications Medication Instructions Recorded Confirmed HYDROmorphone [Dilaudid] 4 mg PO Q4H PRN 09/04/23 09/04/23 Lenalidomide [Revlimid] 20 mg PO DIRECTED 09/04/23 09/04/23 Previous Rx's Medication Instructions Recorded traMADol HCl [Ultram] 50 mg PO Q6H PRN #6 tab 06/02/22 DULoxetine HCL [Cymbalta] 30 mg PO DAILY #30 cap 09/07/23 polyethylene glycoL 3350 [Miralax] 17 gm PO DAILY PRN packet 09/07/23 Allergies Allergy/AdvReac Type Severity Reaction Status Date / Time No Known Allergies Allergy Verified 09/04/23 07:33 Review of Systems ROS Other: All systems not noted in ROS Statement are negative. <Chavo Lopez - Last Filed: 09/04/23 01:10> ROS Other: All systems not noted in ROS Statement are negative. <Sedrick Swann - Last Filed: 09/14/23 22:39> ROS Statement: Those systems with pertinent positive or pertinent negative responses have been documented in the HPI. Past Medical History Past Medical History: No Reported History, Cancer Additional Past Medical History / Comment(s): Back issues History of Any Multi-Drug Resistant Organisms: None Reported Past Surgical History: No Surgical Hx Reported Additional Past Surgical History / Comment(s): back surgery to remove tumor december of 2021. Bone biospy of right hip Past Anesthesia/Blood Transfusion Reactions: No Reported Reaction Past Psychological History: No Psychological Hx Reported Smoking Status: Never smoker Past Alcohol Use History: None Reported Past Drug Use History: None Reported <ElainacharissaKeesha bullockChavo - Last Filed: 09/04/23 01:10> General Exam Limitations: no limitations <Chavo Lopez - Last Filed: 09/04/23 01:10> General appearance: alert, in no apparent distress Head exam: Present: atraumatic, normocephalic, normal inspection Eye exam: Present: normal appearance, PERRL, EOMI. Absent: scleral icterus, conjunctival injection, periorbital swelling ENT exam: Present: normal exam, mucous membranes moist Neck exam: Present: normal inspection. Absent: tenderness, meningismus, lymphadenopathy Respiratory exam: Present: normal lung sounds bilaterally. Absent: respiratory distress, wheezes, rales, rhonchi, stridor Cardiovascular Exam: Present: regular rate, normal rhythm, normal heart sounds. Absent: systolic murmur, diastolic murmur, rubs, gallop, clicks GI/Abdominal exam: Present: soft, normal bowel sounds. Absent: distended, tenderness, guarding, rebound, rigid Extremities exam: Present: normal inspection, full ROM, normal capillary refill. Absent: tenderness, pedal edema, joint swelling, calf tenderness Back exam: Present: normal inspection Neurological exam: Present: alert, oriented X3, CN II-XII intact Psychiatric exam: Present: normal affect, normal mood Skin exam: Present: warm, dry, intact, normal color. Absent: rash <Sedrick Swann - Last Filed: 09/14/23 22:39> - General Exam Comments Initial Comments: Visual Physical Exam Vital signs reviewed General: Well-appearing, nontoxic, no acute distress. Head: Normocephalic, atraumatic Eyes: PERRLA, EOMI ENT: Airway patent Chest: Nonlabored breathing Skin: No visual rash, normal skin tone Neuro: Alert and oriented 3 Musculoskeletal: No gross abnormalities (Chavo Lopez) Course <Sedrick Swann - Last Filed: 09/14/23 22:39> Vital Signs 09/04/23 09/04/23 00:37 04:42 Temperature 98.9 F 98.1 F Pulse Rate 116 H 98 Respiratory 20 16 Rate Blood Pressure 122/69 106/69 O2 Sat by Pulse 98 96 Oximetry - Reevaluation(s) Reevaluation #1: 09/04/23 05:05 Medical records reviewed (Sedrick Swann) Reevaluation #2: 09/04/23 05:05 Patient's pain is improved (Sedrick Swann) Reevaluation #3: 09/04/23 05:05 Patient informed of results and questions answered (Sedrick Swann) Reevaluation #4: Was pt. sent in by a medical professional or institution (, PA, MARKET SPECIALIST, urgent care, hospital, or snf...) When possible be specific @ -no Did you speak to anyone other than the patient for history (EMS, parent, family, police, friend...)? What history was obtained from this source @ -no Did you review nursing and triage notes (agree or disagree)? Why? @ -agree Are old charts reviewed (outside hosp., previous admission, EMS record, old EKG, old radiological studies, urgent care reports/EKG's, snf records)? Report findings @ -yes Differential Diagnosis (chest pain, altered mental status, abdominal pain women, abdominal pain men, vaginal bleeding, weakness, fever, dyspnea, syncope, headache, dizziness, GI bleed, back pain, seizure, CVA, palpatations, mental health, musculoskeletal)? @ -prior EKG interpreted by me (3pts min.). @ -no X-rays interpreted by me (1pt min.). @ -yes negative for acute disease CT interpreted by me (1pt min.). @ -no U/S interpreted by me (1pt. min.). @ -no What testing was considered but not performed or refused? (CT, X-rays, U/S, labs)? Why? @ -none What meds were considered but not given or refused? Why? @ -none Did you discuss the management of the patient with other professionals (professionals i.e. , PA, MARKET SPECIALIST, lab, RT, psych nurse, delinquency prevention social worker, records manager, teacher, founder chairman and chief creative officer, case worker)? Give summary @ -no Was smoking cessation discussed for >3mins.? @ -no Was critical care preformed (if so, how long)? @ -no Were there social determinants of health that impacted care today? How? (Homelessness, low income, unemployed, alcoholism, drug addiction, transportation, low edu. Level, literacy, decrease access to med. care, long term, rehab)? @ -none Was there de-escalation of care discussed even if they declined (Discuss DNR or withdrawal of care, Hospice)? DNR status @ -no What co-morbidities impacted this encounter? (DM, HTN, Smoking, COPD, CAD, Cancer, CVA, ARF, Chemo, Hep., AIDS, mental health diagnosis, sleep apnea, morbid obesity)? @ -none Was patient admitted / discharged? Hospital course, mention meds given and route, prescriptions, significant lab abnormalities, going to OR and other pertinent info. @ - 53 male will be admitted for IV antibiotics reevaluation by both infectious disease and vascular surgery for failure of outpatient treatment of right lower extremity significant cellulitis and osteomyelitis Admitted Undiagnosed new problem with uncertain prognosis? @ -no Drug Therapy requiring intensive monitoring for toxicity (Heparin, Nitro, Insulin, Cardizem)? @ -no Were any procedures done? @ -no Diagnosis/symptom? @ -L3 back fracture Acute, or Chronic, or Acute on Chronic? @ -Acute Uncomplicated (without systemic symptoms) or Complicated (systemic symptoms)? @ -Complicated Side effects of treatment? @ -no Exacerbation, Progression, or Severe Exacerbation? @ -exacerbation Poses a threat to life or bodily function? How? (Chest pain, [place], [place], pneumonia, PE, COPD, DKA, ARF, appy, cholecystitis, CVA, Diverticulitis, Homicidal, Suicidal, threat to staff... and all critical care pts) @ -yes with significant back pain (Sedrick Swann) Reevaluation #5: Differential Back Pain: Strain, zoster, cauda equina syndrome, epidural abscess, vertebral osteomyelitis, discitis, fracture, subluxation, disc herniation, DJD, spinal s tenosis, dissection, AAA, pancreatitis, peptic ulcer disease, pyelonephritis, kidney stone, this is not meant to be an all-inclusive list. (Sedrick Swann) - Consultations Consultation #1: Spoke with [facility] to admit this patient (Sedrick Swann) Medical Decision Making <Chavo Lopez - Last Filed: 09/04/23 01:10> - Lab Data Result diagrams: 09/07/23 05:00 09/07/23 05:00 - Radiology Data Radiology results: report reviewed (Spine positive for L3 fracture), image reviewed <Sedrick Swann - Last Filed: 09/14/23 22:39> - Medical Decision Making Quicknote portion performed. Signed Chavo Lopez PA-C (Chavo Lopez) 48 male to ER for severe back pain with L3 fracture, patient went for MRI of ba ck in regards to severe back pain and fracture pain. Pain down both legs (Sedrick Swann) - Lab Data Lab Results 09/04/23 09/04/23 Range/Units 01:37 01:37 WBC 15.0 H (3.8-10.6) k/uL RBC 3.90 L (4.30-5.90) m/uL Hgb 13.4 (13.0-17.5) gm/dL Hct 38.1 L (39.0-53.0) % MCV 97.7 (80.0-100.0) fL MCH 34.3 (25.0-35.0) pg MCHC 35.1 (31.0-37.0) g/dL RDW 14.4 (11.5-15.5) % Plt Count 48 L (150-450) k/uL MPV 10.2 Neutrophils % (Manual) 93 % Band Neuts % (Manual) 2 % Lymphocytes % (Manual) 4 % Monocytes % (Manual) 2 % Neutrophils # (Manual) 14.20 H (1.3-7.7) k/uL Lymphocytes # (Manual) 0.60 L (1.0-4.8) k/uL Monocytes # (Manual) 0.30 (0-1.0) k/uL Nucleated RBCs 1 H (0-0) /100 WBC Manual Slide Review Performed Polychromasia Present Hyperchromasia Slight Poikilocytosis Slight Sodium 136 L (137-145) mmol/L Potassium 4.7 (3.5-5.1) mmol/L Chloride 105 (98-107) mmol/L Carbon Dioxide 19 L (22-30) mmol/L Anion Gap 12 mmol/L BUN 21 H (9-20) mg/dL Creatinine 1.00 (0.66-1.25) mg/dL Est GFR (CKD-EPI)AfAm >90 (>60 ml/min/1.73 sqM) Est GFR (CKD-EPI)NonAf 87 (>60 ml/min/1.73 sqM) Glucose 127 H (74-99) mg/dL Calcium 9.6 (8.4-10.2) mg/dL Total Bilirubin 0.8 (0.2-1.3) mg/dL AST 113 H (17-59) U/L ALT 52 H (4-49) U/L Alkaline Phosphatase 64 (38-126) U/L Total Protein 5.8 L (6.3-8.2) g/dL Albumin 4.5 (3.5-5.0) g/dL Disposition <Chavo Lopez - Last Filed: 09/04/23 01:10> Is patient prescribed a controlled substance at d/c from ED?: No Time of Disposition: 05:00 <Sedrick Swann - Last Filed: 09/14/23 22:39> Clinical Impression: Intractable back pain, Multiple myeloma, Mid back pain, Lumbar radiculopathy, L3 vertebral fracture, Low back pain potentially associated with radiculopathy, Paresthesia of bilateral legs, Difficulty in walking Disposition: ADMITTED IP TO THIS [facility] Condition: Fair
[2023-09-04 02:08] LABS: ALT 52 U/L (4-49); AST 113 U/L (17-59); African American GFR (CKD) >90 (>60 ml/min/1.73 sqM); Albumin 4.5 g/dL (3.5-5.0); Alkaline Phosphatase 64 U/L (38-126); Blood Urea Nitrogen 21 mg/dL (9-20); Calcium 9.6 mg/dL (8.4-10.2); Carbon Dioxide 19 mmol/L (22-30); Chloride 105 mmol/L (98-107); Glucose 127 mg/dL (74-99); Non-African American GFR(CKD) 87 (>60 ml/min/1.73 sqM); Total Bilirubin 0.8 mg/dL (0.2-1.3); Total Protein 5.8 g/dL (6.3-8.2)
[2023-09-04 02:30] LABS: Anion Gap 12 mmol/L; Potassium 4.7 mmol/L (3.5-5.1); Sodium 136 mmol/L (137-145)
[2023-09-04 02:46] LABS: HCT 38.1 % (39.0-53.0); HGB 13.4 gm/dL (13.0-17.5); Hyperchromasia Slight; MCH 34.3 pg (25.0-35.0); MCHC 35.1 g/dL (31.0-37.0); MCV 97.7 fL (80.0-100.0); Mean Platelet Volume 10.2; Poikilocytosis Slight; RDW 14.4 % (11.5-15.5)
[2023-09-04] MEDS: KETOROLAC 15 MG/ML 1 ML VIAL IVP STA (03:27)
[2023-09-04] MEDS: SODIUM CHLORIDE 0.9% 1,000 ML IV STA (03:29)
[2023-09-04] MEDS: HYDROmorphone 1 MG/ML 1 ML SYRINGE IVP STA ×2 (03:29→08:22)
--- NOTE | 2023-09-04 03:49 | XR ---
EXAM: XR Lumbosacral Spine, 2 or 3 Views CLINICAL HISTORY: ITS.REASON XR Reason: hx MM, possible mass. back pain TECHNIQUE: Frontal and lateral views of the lumbar spine and sacrum. COMPARISON: Comparison made to prior MRI of the lumbar spine from May 29, 2022. FINDINGS: Vertebrae: There is a new fracture deformity at the superior endplate of L3. Normal alignment. Sacrum/coccyx: Unremarkable as visualized. No acute fracture. Disc spaces: No acute findings. No significant narrowing. Soft tissues: Unremarkable. IMPRESSION: There is a new fracture deformity at the superior endplate of L3. Recommend MRI of the lumbar spine with and without contrast for further evaluation. <MYCVCSECTION> Communications: 09/04/23 04:02 Verify Receipt Verified receipt with [employer] frame [employer] on 09/03 04:02 (-04:00)
[2023-09-04 04:15] LABS: Band Neutrophils % 2 %; Neutrophils % (M) 93 %; Nucleated Red Blood Cells 1 /100 WBC (0-0); Total Cells Counted 200
[2023-09-04 04:16] LABS: Polychromasia Present
[2023-09-04] MEDS: HYDROmorphone 0.5 MG/0.5 ML SYRINGE IVP STA (04:18)
[2023-09-04 04:19] LABS: Platelet Count 48 k/uL (150-450)
[2023-09-04] MEDS ORDERED: ONDANSETRON 4 MG/2 ML VIAL IVP PRN (05:00)
[2023-09-04] MEDS ORDERED: NALOXONE 0.4 MG/ML 1 ML VIAL IV PRN (05:00)
[2023-09-04] MEDS: SODIUM CHLORIDE 0.9% 1,000 ML IV SCH (07:28)
[2023-09-04] MEDS: HYDROmorphone 1 MG/ML 1 ML SYRINGE IVP PRN ×2 (09:58→18:18)
[2023-09-04] MEDS: PANTOPRAZOLE 40 MG/10 ML VIAL IV SCH (09:59)
[2023-09-04] MEDS ORDERED: traMADol 50 MG TAB PO PRN (12:41)
[2023-09-04] MEDS ORDERED: TEMAZEPAM 15 MG CAP PO PRN (12:52)
--- NOTE | 2023-09-04 13:24 | HP ---
HISTORY AND PHYSICAL HISTORY OF PRESENT ILLNESS: This is a 48-year-old gentleman with a past medical history of multiple myeloma, on chemotherapy, had some reaction. The patient is shaky for some time and then the patient had severe low back pain in the lower part and the patient is on multiple pain medications at home. The patient apparently gets relief from a combination of Dilaudid and Ultram according to him, but because of the non relief, the patient came to [facility] and admitted for further evaluation and treatment. The lumbosacral spine x-ray showed evidence of a new fracture deformity in the superior endplate of L3 with possible radiculopathy. MRI has been recommended. The patient was admitted for further evaluation and treatment. Orthopedic and Hematology/Oncology evaluation is in progress. There is no history of any fever, rigors, of chills. PAST MEDICAL HISTORY: Reviewed including multiple myeloma, rest of the history is also reviewed. HOME MEDICATIONS: Reviewed include Ultram, doses and rest of medications reviewed. ALLERGIES: None. FAMILY HISTORY: No history of heart disease or strokes in the family. SOCIAL HISTORY: No history of smoking or alcohol. REVIEW OF SYSTEMS: Fourteen-point review is negative except as mentioned earlier. PHYSICAL EXAMINATION: VITAL SIGNS: Pulse is 98, blood pressure 106/69, respirations 16. HEENT: Conjunctivae normal. NECK: No JVD. CARDIOVASCULAR: S1, S2. RESPIRATIONS: Breath sounds diminished at the bases. No rhonchi. No crackles. ABDOMEN: Soft, nontender. LEGS: No edema. NERVOUS SYSTEM: No focal deficits. LABORATORY DATA: WBC 15, rest of the labs are noted. ASSESSMENT: 1. Multiple myeloma with intractable back pain and failure of outpatient treatment with a new fracture deformity of the superior endplate of L3. 2. Elevated WBC. 3. Thrombocytopenia. 4. Hyponatremia. 5. Elevated AST, ALT. RECOMMENDATIONS AND DISCUSSION: This is a 48-year-old gentleman, who presented with multiple complex medical issues, we will monitor the patient closely. We will increase the Dilaudid to 1.5 mg and I would recommend DVT prophylaxis and Orthopedic and as well as Hematology/Oncology consultations. Prognosis guarded because of multiple complex medical issues. Further recommendations to follow. See orders for further details. MMODL / IJN: [id number] /
--- NOTE | 2023-09-04 13:39 | XR ---
EXAMINATION TYPE: XR chest 1V portable DATE OF EXAM: 09/04/2023 Comparison: PET CT 07/01/2022 Clinical History: 48-year-old male shortness of breath, CHF Findings: Heart upper limits of normal in size. Pulmonary vasculature within normal limits. Lobulated mild pleu ral thickening along the periphery of both lungs. Possible trace left pleural effusion. No zak air space opacity. Impression: Lobulated mild pleural thickening on both sides as noted on patient's 07/01/2022 PET/CT. Extra medulla ry hematopoiesis or multiple myeloma involvement are considerations. No pulmonary edema or zak pulm onary vascular congestion appreciated. A trace left effusion is difficult to exclude.
[2023-09-04] MEDS: polyethylene glycoL 3350 17 GM POWD.PACK PO SCH (14:55)
[2023-09-04] MEDS: LACTULOSE 20 GM/30 ML CUP PO SCH (14:55)
--- NOTE | 2023-09-04 18:14 | P.CONS ---
History of Present Illness - Reason for Consult Consult date: 09/04/23 Multiple myeloma Requesting physician: Sedrick Swann - Chief Complaint back pain - History of Present Illness Mr. 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 He is a patient of Dr. Corie Douglas. He initially presented at [facility] in December 2021 with increasing back pain and weakness of the lower extremities. MRI of the thoracic spine on 01/04/2022 noted soft epidural mass at T1-T3 with cord compression and central spinal stenosis at T2. Epidural mass from T9-T11 with compression at T10-T11. MRI of the lumbar spine revealed epidural masses at multiple levels from L5-S1. He underwent decompressive laminectomy on 01/06/2022 which revealed plasma cell neoplasm positive for CD138 and kappa light chains. Flow cytometry was positive for CD38 and kappa light chains and was negative for CD45 and CD56. He subsequently followed up with radiation oncology outpatient, but had noted refusal of postoperative radiation therapy to the spine and refused to meet with medical oncology. He was briefly lost to follow-up, but then reestablish care with radiation oncology. They had noted multiple times that they strongly recommended he follow-up with medical oncology, but insisted on trying "natural methods". He ultimately agreed to palliative radiation therapy to the lumbar spine, but was subsequently hospitalized for increased back and leg pain in April 2021. He was noted to have compression of the thecal sac at L5-S1. He was evaluated by ortho spine, who did not recommend operative management. He initially agreed to palliative radiation while he was inpatient, and only received 3/5 radiation treatments. We were consulted while he was first hospitalized to discuss systemic treatment. At that time, we had a prolonged discussion about what treatment could entail. In particular we discussed that treatment would consist of 2 oral medications and injection as an induction regimen with VRD followed by potential autoLog a stem cell transplant. While he acknowledged that he did have back pain, he insisted that he had periods where he had no pain at all and that he could ultimately feel better. SPEP obtained inpatient on 04/19/2021 revealed no M protein or immunofixation. He was noted to have a free kappa light chain of 210 with a lambda light chain of 0.16. Urine kappa light chain was 1475 with urine lambda light chain 0.66. IgG was 344, IgA 5.6, IgM 3.2. On outpatient follow-up on 05/04/2022 he agreed to pursue PET/CT scan, but initially was unsure about bone marrow biopsy. Bone survey on 05/13/22 showed no lytic lesion. He later agreed to bone marrow biopsy, which was scheduled for 05/18/2022. 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 FISH confirmed presence of deletion 13q.14, t(14;16), and gain 1 q.21/CKS1B gain consistent with high risk disease. There was concern for cord compression at the end of May 2022. He was found not to be an ideal candidate for additional surgery given his prior surgery in December 2021 and received 6 fractions of rad iation therapy. He initiated cycle 1 of RVD on 06/13/2022 and completed cycle 1 on 07/04/2022. PET/CT noting areas of FDG avid lytic bone disease. He had reduction in his kappa to lambda light chain ratio from 509 to 261, consistent with partial response following cycle 1. He proceeded with daratumumab added to cycle 2 given his high risk disease. Day 1, cycle 4 of treatment was initiated on 09/05/2022 before moving to [place]. He was lost to follow-up initially at [facility] and was hospitalized in April 2023 with spinal cord compression, where he received XRT. He was rehospitalized in May 2023 and received 1 cycle of CyBorD inpatient. He then received 1 cycle of D-KRd outpatient at [facility] with day 1, cycle 1 on 07/03/2023. Subsequently, he moved to [place] due to lack of social support. Labs following last visit revealed kappa light chain of 80.85 with suppressed lambda light chain of less than 0.2 with kappa/lambda ratio of at least 400. He was recommend restarting treatment with Kyprolis, Revlimid, dexamethasone that was initiated at [facility]. He received his first treatment since reestablishing care on 09/03/23. After receiving chemo yesterday patient reports approximately 4 hours after his treatment he began to experience significant lower back and BLE muscle spasms. His mother called the on-call service at our clinic and stated patient's symptoms were severe and was also experiencing significant shortness of breath and he was directed to go to the ER for further evaluation. We then spoke to patient again after initial call, and he had not went to the ER as directed becuase he had resoltuion of reported pain. Patient states his pain then returned and took 8 mg of p.o. Dilaudid and dexamethasone, but pain persisted at a 8 out of 10, at which time he presented to the emergency room for further evaluation. On admission x-ray of lumbar spine revealed fracture deformity at the superior endplate of L3. CBC showed WBC 15.0, hemoglobin 13.4, platelets 48,000. Creatinine 1.0, GFR > 90. Patient is reporting improvement in symptoms since admission. Denies loss of bowel and bladder control. He is able to urinate without difficulties. Upon further discussion of symptoms prior to arrival, patient states he wasn't having any significant SOB as reported, and his mother, "was exaggerating my symptoms." Discussed lumbar x-ray results with patient. He states he had a lumbar MRI approximately 3 months ago while he still lived in [place] but is not aware of any fractures at that time. He denies any recent injury. MRI lumbar spine ordered and orthopedics have been consulted. Review of Systems 10 point ROS is negative except as stated in the HPI Past Medical History Past Medical History: No Reported History, Cancer Additional Past Medical History / Comment(s): Back issues History of Any Multi-Drug Resistant Organisms: None Reported Past Surgical History: No Surgical Hx Reported Additional Past Surgical History / Comment(s): back surgery to remove tumor december of 2021. Bone biospy of right hip Past Anesthesia/Blood Transfusion Reactions: No Reported Reaction Past Psychological History: No Psychological Hx Reported Smoking Status: Never smoker Past Alcohol Use History: None Reported Past Drug Use History: None Reported Medications and Allergies Home Medications Medication Instructions Recorded Confirmed Type traMADol HCl [Ultram] 50 mg PO Q6H PRN #6 tab 06/02/22 09/04/23 Rx HYDROmorphone [Dilaudid] 4 mg PO Q4H PRN 09/04/23 09/04/23 History Lenalidomide [Revlimid] 20 mg PO DIRECTED 09/04/23 09/04/23 History Allergies Allergy/AdvReac Type Severity Reaction Status Date / Time No Known Allergies Allergy Verified 09/04/23 07:33 Physical Exam Vitals: Vital Signs Temp Pulse Resp BP Pulse Ox 09/04/23 04:42 98.1 F 98 16 106/69 96 09/04/23 00:37 98.9 F 116 H 20 122/69 98 Intake and Output 09/03/23 09/04/23 09/04/23 22:59 06:59 14:59 Other: Weight 81.647 kg - Constitutional General appearance: average body habitus, no acute distress - EENT Eyes: anicteric sclerae, EOMI ENT: hearing grossly normal - Respiratory Respiratory: bilateral: CTA - Cardiovascular Rhythm: regular Heart sounds: normal: S1, S2 - Gastrointestinal General gastrointestinal: soft, no tenderness - Integumentary Integumentary: no cyanotic, no jaundiced - Neurologic sensation intact, no unilateral weakness noted - Psychiatric Psychiatric: A&O x's 3 Results CBC & Chem 7: 09/04/23 01:37 09/04/23 01:37 Labs: Abnormal Lab Results - Last 24 Hours (Table) 09/04/23 09/04/23 Range/Units 01:37 01:37 WBC 15.0 H (3.8-10.6) k/uL RBC 3.90 L (4.30-5.90) m/uL Hct 38.1 L (39.0-53.0) % Plt Count 48 L (150-450) k/uL Neutrophils # (Manual) 14.20 H (1.3-7.7) k/uL Lymphocytes # (Manual) 0.60 L (1.0-4.8) k/uL Nucleated RBCs 1 H (0-0) /100 WBC Sodium 136 L (137-145) mmol/L Carbon Dioxide 19 L (22-30) mmol/L BUN 21 H (9-20) mg/dL Glucose 127 H (74-99) mg/dL AST 113 H (17-59) U/L ALT 52 H (4-49) U/L Total Protein 5.8 L (6.3-8.2) g/dL Comments: Lumbar xray reviewed Assessment and Plan (1) Intractable back pain Current Visit: Yes Status: Acute Priority: High Code(s): M54.9 - DORSALGIA, UNSPECIFIED SNOMED Code(s): 514274976 (2) L3 vertebral fracture Current Visit: Yes Status: Acute Priority: High Code(s): S32.039A - UNSP FRACTURE OF THIRD LUMBAR VERTEBRA, INIT FOR CLOS FX SNOMED Code(s): 935205354 (3) Multiple myeloma Current Visit: Yes Status: Acute Priority: High Code(s): C90.00 - MULTIPLE MYELOMA NOT HAVING ACHIEVED REMISSION SNOMED Code(s): 826902450 Plan: Intractable back pain: -Known metastatic disease to thoracic and lumbar spine, with hx of cord compression having received XRT with rad onc locally and in [place] -Reporting significant muscle spasms of lower back and BLE after receiving chemo yesterday. No loss of bowel or bladder control -On admission x-ray of lumbar spine revealed fracture deformity at the superior endplate of L3 -MRI lumbar spine ordered -Patient reports having a lumbar MRI approximately 3 months ago while he still lived in [place] but is not aware of any acute fractures at that time. Will request imaging records -Orthopedic surgery consulted -Continue on pain and bowel regimen Plasma cell myeloma: -Full oncological history in [facility] -Most recently completed cycle 1 of Kyprolis, Revlimid, dexamethasone on 09/03/23 -Unsure if symptoms are a reaction from treatment vs exacerbation of back pain from lumbar metastasis and noted L3 fracture -Will request MRI imaging from oncologist in [place] -Spoke with primary oncologist, Dr. Corie Douglas, will add dexamethasone in pre-meds for subsequent cycles, as pt states he received decadron with his treatment while in [place] and did not experience these symptoms -Next treatment scheduled for 09/09, with clinic f/u on 09/16 Dr Attests: I have performed H&P and developed impression and plan of care for patient, discussed with dictator. I agree with dictated note, documented as a scribe
[2023-09-04] MEDS: SENNOSIDES 8.6 MG TAB PO SCH (21:23)
[2023-09-04 23:59] LABS: Appearance,Urine Clear (Clear); Bilirubin,Urine Negative (Negative); Blood,Urine Negative (Negative); Color,Urine Colorless; Glucose,Urine (UA) Negative (Negative); Ketones,Urine Negative (Negative); Leukocyte Esterase,Urine Negative (Negative); Nitrite,Urine Negative (Negative); Protein,Urine 1+ (Negative); RBC,Urine <1 /hpf (0-5); Specific Gravity,Urine 1.007 (1.001-1.035); Urobilinogen,Urine <2.0 mg/dL (<2.0); WBC,Urine <1 /hpf (0-5)
[2023-09-05 07:38] LABS: Basophils % (A) 0 %; Eosinophils # (A) 0.1 k/uL (0-0.7); Eosinophils % (A) 3 %; HGB 10.7 gm/dL (13.0-17.5); Lymphocytes # (A) 0.2 k/uL (1.0-4.8); Lymphocytes % (A) 5 %; MCH 33.8 pg (25.0-35.0); MCHC 33.4 g/dL (31.0-37.0); MCV 101.1 fL (80.0-100.0); Macrocytosis Slight; Mean Platelet Volume 11.8; Monocytes # (A) 0.1 k/uL (0-1.0); Monocytes % (A) 3 %; Neutrophils # (A) 3.1 k/uL (1.3-7.7); Neutrophils % (A) 88 %; RBC 3.17 m/uL (4.30-5.90); RDW 13.8 % (11.5-15.5); WBC 3.6 k/uL (3.8-10.6)
[2023-09-05 07:54] LABS: African American GFR (CKD) 73 (>60 ml/min/1.73 sqM); Anion Gap 6 mmol/L; Carbon Dioxide 24 mmol/L (22-30); Chloride 107 mmol/L (98-107); Glucose 97 mg/dL (74-99); Non-African American GFR(CKD) 63 (>60 ml/min/1.73 sqM); Potassium 3.6 mmol/L (3.5-5.1); Sodium 137 mmol/L (137-145)
[2023-09-05 08:26] LABS: Platelet Count 22 k/uL (150-450)
[2023-09-05] MEDS: ALPRAZolam 0.25 MG TAB PO PRN (10:24)
[2023-09-05 12:07] LABS: Blood Urea Nitrogen 22 mg/dL (9-20); Calcium 9.1 mg/dL (8.4-10.2)
--- NOTE | 2023-09-05 14:07 | PN ---
PROGRESS NOTE DATE OF SERVICE: 09/05/2023 SUBJECTIVE: This is a 48-year-old gentleman with a past medical history of multiple myeloma, is admitted with significant back pain and also some . The patient does: Bilateral leg pain also. Pain management is being adjusted at this time. The patient also had new fracture deformity of superior endplate and felt multiple consultants are following the patient closely. PAST MEDICAL HISTORY: Reviewed. REVIEW OF SYSTEMS: A 14-point review is negative except as mentioned earlier. CURRENT MEDICATIONS: Reviewed include lactulose and Dilaudid, rest of medications noted, doses reviewed. OBJECTIVE: VITAL SIGNS: Pulse 88, blood pressure 115/72, respirations 17. HEENT: Conjunctivae normal. CARDIOVASCULAR: S1, S2. RESPIRATIONS: Diminished at the bases. ABDOMEN: Soft. LEGS: Some movements are painful. SLR is slightly positive some pain in extended legs noted. LABORATORY DATA: WBC 3.2, hemoglobin 10.7, and creatinine is 1.32. ASSESSMENT: 1. Multiple myeloma with intractable back pain and failure of outpatient treatment with new fracture deformity of the superior endplate of L3. 2. Possible lumbar radiculopathy, bilateral. 3. Elevated creatinine. 4. Elevated WBC. 5. Thrombocytopenia. 6. Hyponatremia. 7. Elevated AST ALT. RECOMMENDATIONS: Recommended to continue current medications, continue symptomatic treatment. Continue the repeat labs as mentioned earlier. Continue with IV hydration. Avoid NSAIDs. I would recommend MRI of the lumbar spine with and without contrast. Guarded prognosis. Further recommendations to follow. See orders for details. MMODL / IJN: [id number] / MTDKenan
--- NOTE | 2023-09-05 16:46 | P.CNOR ---
History of Present Illness - [facility] Consult date: 09/05/23 Consult reason: low back pain History of present illness: Patient is a pleasant 48-year-old male with known history of multiple myeloma. He presented to the emergency room yesterday after having significant increase in his low back pain. He did not have any injury or trauma but had significant pain in his lower back. We are asked to see him in this regard. The patient says that he had prior diagnosis of multiple myeloma and underwent surgical laminectomy decompression with Dr. Dowd at [facility]. This was in January 2022. He says at that point he was having weakness in his lower extremities and has continued have weakness at his lower extremity since then. He says the surgery did seem to help for short period of time but his compliance with follow-up was not reliable. He started having increased symptoms again in the beginning of 2022. He had further workup and evaluation at that point. He was found to have multiple areas of soft tissue tumor around his spine and his thoracic and lumbar and sacral spine. He was seen with Dr. Judd service at that point. He was also seen with oncology. He was instructed to continue further treatment and workup with oncology. He restarted a number of different treatments with radiation and chemotherapy. He was having improvement in his symptoms and was feeling more comfortable with less pain. He continued treatment for a few months but then apparently was somewhat unreliable with his follow-up and he decided to move back to [place] where he had been living. He says that he did not continue active treatment in [place] until earlier this year around April. He started to have symptoms at his back and his lower extremities again with weakness and pain. He sought treatment and was eventually able to have chemotherapy for 1 visit at the cancer center in [place]. However he says that he had significant troubles with insurance and management and self-care without any significant support and decided moved back to [place] a couple of months ago. He has continued to have significant symptoms and 2 days ago his pain became very severe at his lower back. He continues to have weakness his bilateral lower extremities particularly at his proximal thighs. He denies any specific trauma or falls. He has not had specific treatment for his myeloma here in [place] recently. He is able to ambulate with a walker but is shaky with a walker. He denies any change in bowel bladder function. He has not had any loss of control of bowel bladder function. Review of Systems As stated per HPI. Denies any change in bowel bladder function. He ambulates but has weakness of bilateral lower extremities. He says that he has had weakness over the past 2 years and this does not feel different for him but he also says that he was able to ambulate better several months ago before 2023. Past Medical History Past Medical History: No Reported History, Cancer Additional Past Medical History / Comment(s): multiple myloma on chemo. History of prior laminectomy decompression at lower thoracic with Dr. Dominguez in January 2022. History of multiple soft tissue masses throughout his thoracic lumbar and sacral spine. history lower extremity weakness History of Any Multi-Drug Resistant Organisms: None Reported Past Surgical History: No Surgical Hx Reported Additional Past Surgical History / Comment(s): back surgery to remove tumor december of 2021. Bone biospy of right hip Past Anesthesia/Blood Transfusion Reactions: No Reported Reaction Past Psychological History: No Psychological Hx Reported Smoking Status: Never smoker Past Alcohol Use History: None Reported Past Drug Use History: None Reported Medications and Allergies Home Medications Medication Instructions Recorded Confirmed Type traMADol HCl [Ultram] 50 mg PO Q6H PRN #6 tab 06/02/22 09/04/23 Rx HYDROmorphone [Dilaudid] 4 mg PO Q4H PRN 09/04/23 09/04/23 History Lenalidomide [Revlimid] 20 mg PO DIRECTED 09/04/23 09/04/23 History Allergies Allergy/AdvReac Type Severity Reaction Status Date / Time No Known Allergies Allergy Verified 09/04/23 07:33 Physical Examination Osteopathic Statement: *. No significant issues noted on an osteopathic structural exam other than those noted in the History and Physical/Consult. - L Spine: dermatomal strength & reflexes bilateral Strength: hip flexion: 3/5 (Right-sided hip flexion has 3+ strength, left-sided hip flexion is 3 out of 5. Dorsiflexion 5-5 bilaterally plantarflexion 5 of 5 bilaterally abdomen is soft nontender no saddle paresthesia) Results - Labs Labs: Abnormal Lab Results - Last 24 Hours (Table) 09/04/23 09/05/23 09/05/23 Range/Units 23:44 07:02 07:02 WBC 3.6 L (3.8-10.6) k/uL RBC 3.17 L (4.30-5.90) m/uL Hgb 10.7 L (13.0-17.5) gm/dL Hct 32.0 L (39.0-53.0) % MCV 101.1 H (80.0-100.0) fL Plt Count 22 L D (150-450) k/uL Lymphocytes # 0.2 L (1.0-4.8) k/uL BUN 22 H (9-20) mg/dL Creatinine 1.32 H (0.66-1.25) mg/dL Urine Protein 1+ H (Negative) H & H 09/04/23 09/05/23 Range/Units 01:37 07:02 Hgb 13.4 10.7 L (13.0-17.5) gm/dL Hct 38.1 L 32.0 L (39.0-53.0) % Result Diagrams: 09/05/23 07:02 09/05/23 07:02 - Diagnostic results Lumbar AP/lateral x-ray: report reviewed, image reviewed (X-ray lumbar spine does not show any obvious compression. It is read as possible superior endplate compression fracture at L3) Lumbar MRI with contrast: report reviewed (Prior imaging of his thoracic lumbar spine reviewed from May 2022 which showed multiple areas of soft tissue tumor throughout his thoracic and lumbar spine), image reviewed Assessment and Plan Assessment: History of multiple myeloma with multiple soft tissue masses in thoracic lumbar and sacral spine Lower extremity weakness, chronic History of thoracic decompression in January 2022 for soft tissue mass done by Dr. Dominguez in [place] Low back pain Superior endplate irregularity at L3 Depression with chronic disease Plan: History of multiple myeloma with multiple soft tissue masses in thoracic lumbar and sacral spine Lower extremity weakness, chronic History of thoracic decompression in January 2022 for soft tissue mass done by Dr. Dominguez in [place] Low back pain Superior endplate irregularity at L3 Depression with chronic disease The patient has a extended history with his myeloma and his spine. Currently he has a flareup of his low back pain which seems to be slightly improving. He does not have any specific trauma but his x-ray was read as possible compression fracture at L3. Will order him an LSO brace for this to help stabilize the spine and likely to give him some support as he ambulates with his low back pain. An MRI has been ordered for his lumbar spine which will help delineate if there is a new fracture at L3 would also help delineate if there is any recurrence or worsening of the multiple soft tissue tumor enhancement areas throughout his lumbar spine. The patient has had long history with his myeloma over the past year and a half however his compliance has been unreliable. It seems that when he starts to do well he somewhat discontinues his active treatment and this has backfired on him. Currently he is having significant worsening and does seem to have significant weakness in his bilateral lower extremities. It is difficult to tell how old this is but he feels that it has been chronic for him. The patient needs to have further evaluation and continued workup with oncology and will Possibly need further radiation and chemotherapy. If he does have significant compression with tumor involvement I would recommend evaluation with neurosurgery possibly the alternate facility or close follow-up as an outpatient. I tried to discuss the severity of these issues with the patient and his parents in the patient's room. His compliance is absolutely necessary to help manage this and this has been unreliable over the past year and a half. Will place him in a LSO brace. He should continue with his oncology management. He should have some access to counseling as he has significant issues with dealing with his chronic illness at a young age. Will order some counseling for him. Will have further recommendations to follow once we see imaging on the MRI. Time with Patient: Greater than 30
[2023-09-05] MEDS: HYDROmorphone 1 MG/ML 1 ML SYRINGE IVP PRN (17:33)
--- NOTE | 2023-09-05 18:32 | P.PN ---
Subjective Progress Note Date: 09/05/23 No acute events. Patient reporting persisting bilateral lower extremity pain and weakness. Patient is scheduled for MRI lumbar spine tomorrow. CBC showed WBC 3.6, hemoglobin 10.7, platelets 22,000. Patient denies any episodes of acute bleeding. Objective - Vital Signs Vital signs: Vital Signs Temp 98.5 F 09/05/23 08:00 Pulse 88 09/05/23 08:00 Resp 17 09/05/23 08:00 BP 115/72 09/05/23 08:00 Pulse Ox 97 09/05/23 08:00 FiO2 Intake & Output 09/04/23 09/05/23 09/05/23 18:59 06:59 18:59 Output Total 600 400 Balance -600 -400 Weight 81.647 kg Output: Urine 600 400 Other: Voiding Method Toilet Urinal - Constitutional General appearance: Present: average body habitus, no acute distress - EENT Eyes: Present: anicteric sclerae, EOMI ENT: Present: hearing grossly normal - Respiratory Details: breathing is even and unlabored - Cardiovascular Details: skin warm and dry - Integumentary Integumentary: Absent: cyanotic - Musculoskeletal Musculoskeletal Comment(s): BLE weakness - Psychiatric Psychiatric: Present: A&O x's 3 - Labs CBC & Chem 7: 09/05/23 07:02 09/05/23 07:02 Labs: Abnormal Lab Results - Last 24 Hours (Table) 09/04/23 09/05/23 09/05/23 Range/Units 23:44 07:02 07:02 WBC 3.6 L (3.8-10.6) k/uL RBC 3.17 L (4.30-5.90) m/uL Hgb 10.7 L (13.0-17.5) gm/dL Hct 32.0 L (39.0-53.0) % MCV 101.1 H (80.0-100.0) fL Plt Count 22 L D (150-450) k/uL Lymphocytes # 0.2 L (1.0-4.8) k/uL Creatinine 1.32 H (0.66-1.25) mg/dL Urine Protein 1+ H (Negative) Assessment and Plan (1) Intractable back pain Current Visit: Yes Status: Acute Priority: High Code(s): M54.9 - DORSA LGIA, UNSPECIFIED SNOMED Code(s): 046033728 (2) L3 vertebral fracture Current Visit: Yes Status: Acute Priority: High Code(s): S32.039A - UNSP FRACTURE OF THIRD LUMBAR VERTEBRA, INIT FOR CLOS FX SNOMED Code(s): 101107200 (3) Multiple myeloma Current Visit: Yes Status: Acute Priority: High Code(s): C90.00 - MULTIPLE MYELOMA NOT HAVING ACHIEVED REMISSION SNOMED Code(s): 724961361 Plan: Intractable back pain: -Known metastatic disease to thoracic and lumbar spine, with hx of cord compression having received XRT with rad onc locally and in [place] -Reporting significant muscle spasms of lower back and BLE after receiving chemo yesterday. No loss of bowel or bladder control -On admission x-ray of lumbar spine revealed fracture deformity at the superior endplate of L3 -MRI lumbar spine ordered -Patient reports having MRIs of spine 3 months ago while he still lived in [place] but is not aware of any acute fractures at that time. Will request imaging records -Orthopedic surgery consulted, will await their recommendations -MRIs obtained at [facility] on 05/26/2023 were reviewed. Thoracic spine MRI revealed extensive marrow replacement process consistent with diagnosis of multiple myeloma. No complexion compression fractures identified. Extensive epidural soft tissue in the upper and lower thoracic spine. There is mostly T1-T4 severe narrowing of the thecal sac. At the T1 level there does appear to be mild increased T2 signal within the thoracic cord similar to previous examination. T12-L1 level also demonstrated extensive soft tissue material in the epidural space with severe thecal sac narrowing in the region of the conus. With multiple paravertebral enhancing soft tissue nodules. Overall the findings are similar to previous MRI on 04/09/2023. Lumbar spine MRI showed overall findings are similar to previous MRI on 04/09/2023 with mild improvement in the epidural tumor burden. With significant amount of enhancing soft tissue material in the epidural space at the T12 and L1 level with severe narrowing of the thecal sac, mostly on the right side. Poor visualization of the conus. Mild compression deformity of L3 appears similar. Will have MRI reports scanned into chart -Continue on pain and bowel regimen Plasma cell myeloma: -Full oncological history in consult HPI -Most recently completed cycle 1 of Kyprolis, Revlimid, dexamethasone on 09/03/23 -Unsure if symptoms are a reaction from treatment vs exacerbation of back pain from thoracic/lumbar metastases and L3 fracture -Thoracic and lumbar MRI obtained on 05/26/23 as discussed above. A mild compression deformity of L3 was noted at that time, and on previous MRI in 2023, which appeared stable. Will await repeat lumbar MRI -Spoke with primary oncologist, Dr. Corie Douglas, will add dexamethasone in pre-meds for subsequent cycles, as pt states he received decadron with his treatment while in [place] and did not experience these symptoms -Next treatment tentatively scheduled for 09/09, with clinic f/u on 09/16 Dr. Jesus Manuel dowling. -Today, patient states he is apprehensive about his next cycle of treatment, stating he would like to meet with Dr. Douglas prior to receiving additional treatment. Will further discuss with Dr. Douglas Chemo induced pancytopenia: -WBC 3.6, hgb 10.7, plts 22,000 -Continue to monitor CBC daily -No NSAIDs or anticoagulants -Please transfuse for plt < 10,000 or if symptomatic
[2023-09-06] MEDS: LORazepam 2 MG/ML INJ IV STA (09:22)
[2023-09-06 10:44] LABS: ALT 29 U/L (10-49); AST 30 U/L (14-35); Albumin 4.1 g/dL (3.8-4.9); Albumin/Globulin Ratio 3.73 Ratio (1.60-3.17); Alkaline Phosphatase 50 U/L (41-126); Blood Urea Nitrogen 14.4 mg/dL (9.0-27.0); Calcium 9.2 mg/dL (8.7-10.3); Carbon Dioxide 23.9 mmol/L (21.6-31.8); Chloride 104 mmol/L (96-109); Globulin 1.1 g/dL (1.6-3.3); Glucose 88 mg/dL (70-110); Potassium 3.8 mmol/L (3.5-5.5); Sodium 141 mmol/L (135-145); Total Bilirubin 0.7 mg/dL (0.3-1.2); Total Protein 5.2 g/dL (6.2-8.2)
[2023-09-06 11:09] LABS: Basophils # (A) 0.01 X 10*3/uL (0.00-0.10); Basophils % (A) 0.4 %; Eosinophils # (A) 0.06 X 10*3/uL (0.04-0.35); Eosinophils % (A) 2.2 %; HCT 31.5 % (39.6-50.0); HGB 10.9 g/dL (13.0-17.0); Immature Platelet Fraction 14.9 % (1.1-6.1); Lymphocytes # (A) 0.24 X 10*3/uL (0.90-5.00); Lymphocytes % (A) 8.8 %; MCH 34.3 pg (27.0-32.0); MCHC 34.6 g/dL (32.0-37.0); MCV 99.1 FL (80.0-97.0); Monocytes # (A) 0.16 X 10*3/uL (0.20-1.00); Monocytes % (A) 5.9 %; NRBC Per 100 WBC 0 X 10*3/uL (0.00-0.01); Neutrophils # (A) 2.23 X 10*3/uL (1.80-7.70); Platelet Count 21 X 10*3/uL (140-440); RBC 3.18 X 10*6/uL (4.40-5.60); RBC Morphology Normal (Normal); RDW 13.1 % (11.5-14.5); WBC 2.72 X 10*3/uL (4.50-10.00)
--- NOTE | 2023-09-06 11:12 | MR ---
EXAMINATION TYPE: MR lumbar spine wo/w con DATE OF EXAM: 09/06/2023 10:31 AM CLINICAL INDICATION:Male, 48 years old with history of backFx; COMPARISON: 05/30/2023, PET/CT 07/01/2022. TECHNIQUE: Multi planar, multi sequence imaging was performed utilizing: T1-weighted, T2-weighted, a nd turbo inversion recovery imaging of the lumbar spine. IV Contrast: 8 cc Gadavist. (None if empty) FINDINGS: Alignment: The lumbar vertebral bodies have preserved alignment. Mild 25% height loss of the L3 vert ebra on the left. No retropulsion. Cord: The conus medullaris and the distal spinal cord appear unremarkable with regards to their signa l intensity and morphology. Bones/Discs: There is mild endplate deformity of the L3 vertebrae which is new from prior with 25% he ight loss. No abnormal bony edema within this vertebrae. Mild increased signal within the L4 and L5 v ertebral bodies without focal mass identified or fracture. Irregular appearance of the S1-S2 vertebra e with peripherally enhancing central nonenhancement/low signal areas possibly posttreatment change a nd/or bone infarct. T12-L1: No evidence of significant spinal canal stenosis or neural foraminal stenosis. L1-L2: No evidence of significant spinal canal stenosis or neural foraminal stenosis. L2-L3: No evidence of significant spinal canal stenosis or neural foraminal stenosis. L3-L4: No evidence of significant spinal canal stenosis or neural foraminal stenosis. L4-L5: Disc bulge and facet joint arthropathy result in mild spinal canal and mild bilateral neural f oraminal stenosis. L5-S1: The disc has a rounded posterior morphology without significant spinal canal stenosis. Facet j oint arthropathy with mild bilateral neural foraminal stenosis. No significant spinal canal or neural foraminal stenosis in the remainder of the visualized levels. Other findings: Soft tissue mass anterior to the L3 vertebrae is smaller in size and some irregular tissue in place now measuring 21 x 8 mm previously 43 x 22 mm. Soft tissue posterior to the S1 verteb rahat has decreased in size.. Now measures approximately 6 mm previously 27 x 6 mm. There is increased soft tissue mass partially visualized and anterior aspect of S3 vertebral body measuring up to 15 x 9 mm and in the thecal sac spinal canal of the sacrum extending from S2 to S3 measuring 37 x 5 mm. IMPRESSION: 1. Compression deformity of the L3 vertebrae new from prior MRI without bony edema suggesting more r emote fracture. 2. Soft tissue masses around the spine are redemonstrated with most of them are smaller. There may b e an increase size of a anterior S3/posterior S2-S3 soft tissue mass. Decreased in size from prior MR I 05/29/2022. 3. Irregular appearance to the sacrum on postcontrast imaging with central areas of nonenhancement. Involving S1 and S3 underlying bone infarct or posttreatment change. Consider CT imaging of the pelvi s. 4. No definitive evidence of disc herniation or significant spinal canal stenosis. 5. Mild disc degeneration with associated osteoarthritic changes.
--- NOTE | 2023-09-06 12:42 | P.PN ---
Progress Note - Text Progress Note Date: 09/06/23 Patient is seen and examined today at bedside. He is quite tired this morning as he has had both Ativan and Dilaudid. He was able to manage through his MRI with the Ativan. Pain is being controlled with medication. Physical Exam Afebrile with stable vital signs Abdomen is soft nontender. Chest has good excursion deep and space expiration His back has some soreness with mobilization but he is able to get in and out of bed Extremities have not had neurologic change Calves and thighs were soft nontender without evidence of DVT. MRI imaging is completed today. The L3 vertebrae does show some signal change. This was mentioned on prior MRIs from 3 months ago as well. There is no collapse of the vertebrae and appears to be in further stages of healing and appears to be healing appropriately. The soft tissue burden with mass at the paraspinals and the neuroforamina seem to be decreased in size as per the report. There does not seem to be significant stenosis at his lumbar spine. He does not have any new disc herniation or stenosis at his lumbar spine. Assessment/Plan Acute on chronic low back pain with L3 healing pathologic fracture, healing appropriately Multiple myeloma with significant spinal history and history of thoracic decompression with Dr. Birch Bilateral lower extremity weakness, chronic No new apparent neurologic deficit Patient is making some progress in terms of his pain and mobility. We have ordered an LSO brace for him that he should use whenever he gets out of bed to try to help with his mobility and pain symptoms. We do not have any plans for surgical intervention at this point. We will continue to increase the patient's mobilization with therapy. It seems that the soft tissue pathologic burden around his spinal canal and his lumbar spine may have improved or somewhat stable at this point. He does not have any new stenosis of his lumbar spine. He has a long history of thoracic issues with myeloma pathology. I think he needs continued workup management and treatment for this as per oncology and radiation oncology to continue his management and likely chemotherapy. He has had surgery in the past for his thoracic spine for decompression of his neurologic structures and I think he should continue his follow-up with Dr. Birch in this regard for further intervention as needed. I discussed this with him. From an orthopedic spine standpoint is okay for him to be his discharge when he is stable with medicine service and able to be mobile. He should arrange for follow-up with neurosurgery on outpatient basis after discharge. We will continue pain control with oral or IV medications.
--- NOTE | 2023-09-06 13:47 | P.CN ---
Psychiatric Consult - . Consult date: 09/06/23 Consult:: 09/06/23 13:22 IDENTIFYING DATA: This patient is a 48-year-old male, currently single, has no kids, he currently lives with his parents in a house. 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 Patient apparently has a history of multiple myeloma for the past couple of years. Patient was coming in for chemotherapy earlier the day of admission. Apparently patient was having problems with the chemotherapy therapy was brought to the ER for evaluation, was claiming to have intractable pain admitted medically. Patient also has been having a decrease in his mobility, has been receiving Ativan and Dilaudid. Patient had an MRI, recently received Ativan was somewhat lethargic. He was agreeable to speak to typewriter ribbon winder today at the bedside. He appeared to be fairly directable and appropriate, answered all questions. States that he was starting chemotherapy again, has been dealing with multiple myeloma for about 2 years now. States that his pain has been "up-and-down" and states that he had a "reaction" to the chemotherapy. States that his mood is "a bit frustrated" and does endorse mild depression chronically. Claims that he does also have times where he has anxiety. States that he is not having any significant stressors at home. Denies any problems with sleep or appetite. At this time patient denies any suicidal or homical ideations, intent or plan. Patient denies any auditory, visual hallucinations and denies any paranoia or delusions. Patients admits to using no recreational drugs or cigarettes PAST PSYCHIATRIC HISTORY: Patient has a a history of mild depression and anxiety. Patient denies being on any psychiatric medications. Patient denies any previous psychiatric hospitalizations. Patient denies any psychiatric outpatient follow-up. Patient denies any history of suicide attempts in the p ast. He states that he previously had a therapist when he was younger however not seeing them any longer. PAST MEDICAL HISTORY:Past Medical History: No Reported History, Cancer Additional Past Medical History / Comment(s): Back issues History of Any Multi-Drug Resistant Organisms: None Reported Past Surgical History: No Surgical Hx Reported Additional Past Surgical History / Comment(s): back surgery to remove tumor december of 2021. Bone biospy of right hip Past Anesthesia/Blood Transfusion Reactions: No Reported Reaction Past Psychological History: No Psychological Hx Reported Smoking Status: Never smoker Past Alcohol Use History: None Reported Past Drug Use History: None Reported ALLERGIES: as per EMR. CHEMICAL DEPENDENCY HISTORY: as per HPI. FAMILY PSYCHIATRIC/SUBSTANCE USE HISTORY: Claims that there is some form of mental illness in his family however does not know what SOCIAL HISTORY: Patient was born and raised in [facility]. Claims that he completed high school and did some college classes. 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 He denies any legal history. MENTAL STATUS EXAM: General Appearance: Patient appears to be in moderate to severe pain at times, laying in bed, stated age is alert, pleasant, and times to be cooperative. Patient appears to have fair hygiene and grooming wearing hospital gown with poor eye contact. Behavior: Patient is calmly lying in bed without any agitated behavior. Attempts to cooperate Speech: Patient's speech is fluent and nonpressured. [place] Mood/Affect: Patient reports their mood is "depressed sometimes and anxious", affect is congruent Suicidality/Homicidality: Patient denies having any suicidal or homicidal ideation intent or plan. Perceptions: Patient denies any visual hallucinations and denies any auditory hallucinations Though content/process: There is no evidence of any delusional thought content and thought process is linear and goal-directed. [place] Memory and concentration: AOX3, grossly intact for the purposes of this session. Can spell "WORLD" backwards Judgment and insight: Fair IMPRESSIONS: Depressive disorder unspecified Pain disorder with related psychological factors PLAN: -At this time patient DOES NOT meet criteria for inpatient psychiatric admission. -Would recommend the following medication changes/additions: Patient was agreeable to try Cymbalta 30 mg daily for pain/mood/anxiety. -deli worker to provide patient with outpatient mental health/psychiatry resources for appropriate follow up upon discharge -Communicated plan to patient's nurse aids as typewriter ribbon winder was not able to locate or get in contact with nurse -Psychiatry will sign off at this time -Please contact with any questions. 09/06/23 13:40
[2023-09-06] MEDS: DULoxetine HCL 30 MG CAPSULE.DR PO SCH (14:56)
[2023-09-06] MEDS: HEPARIN SODIUM,PORCINE 5,000 UNIT/ML 1 ML VIAL SQ SCH (14:56)
[2023-09-06] MEDS ORDERED: polyethylene glycoL 3350 17 GM POWD.PACK PO PRN (15:00)
--- NOTE | 2023-09-06 15:16 | PN ---
PROGRESS NOTE DATE OF SERVICE: 09/06/2023 SUBJECTIVE: This 48-year-old gentleman was admitted with history of multiple myeloma, history of back pain, had MRI done. Dr. Dudley is following the patient closely. The MRI showed compression deformity of the L3 and soft tissue mass on the spine, irregular appearance of the sacrum. No chest pain, no palpitations, no fever. OBJECTIVE: VITAL SIGNS: Pulse is 78, blood pressure 94/59, respirations 17. CHEST: Few scattered rhonchi and crackles. ABDOMEN: Soft. LEGS: No swelling. NERVOUS SYSTEM: Diffusely weak. Straight leg raising test was painful. LABORATORY DATA: WBC 2.272, platelets are 21, rest of the labs are noted. ASSESSMENT: 1. Multiple myeloma with intractable back pain and failure of outpatient treatment with new fracture deformity of L3 with superior endplate. 2. Possible lumbar radiculopathy, bilateral. 3. Elevated creatinine. 4. Elevated WBC. 5. Thrombocytopenia. 6. Hyponatremia. 7. Gait dysfunction. 8. Elevated AST, ALT. 9. Pancytopenia secondary to chemotherapy. RECOMMENDATIONS: Recommended to continue current management, continue symptomatic treatment, repeat labs. Closely follow with Orthopedic Surgery. Guarded prognosis. Further recommendations to follow. MMODL / IJN: [id number] /
[2023-09-07 08:40] LABS: BUN/Creat Ratio 10.14 Ratio (12.00-20.00); Blood Urea Nitrogen 14.2 mg/dL (9.0-27.0); Carbon Dioxide 22.9 mmol/L (21.6-31.8); Chloride 101 mmol/L (96-109); Glucose 91 mg/dL (70-110); Potassium 3.8 mmol/L (3.5-5.5); Sodium 138 mmol/L (135-145)
[2023-09-07 08:41] LABS: Calcium 8.6 mg/dL (8.7-10.3)
[2023-09-07 09:04] LABS: Basophils # (A) 0.01 X 10*3/uL (0.00-0.10); Basophils % (A) 0.5 %; Eosinophils # (A) 0.07 X 10*3/uL (0.04-0.35); Eosinophils % (A) 3.6 %; HCT 30.1 % (39.6-50.0); HGB 10.2 g/dL (13.0-17.0); Immature Platelet Fraction 15.4 % (1.1-6.1); Lymphocytes # (A) 0.24 X 10*3/uL (0.90-5.00); Lymphocytes % (A) 12.2 %; MCH 33.3 pg (27.0-32.0); MCHC 33.9 g/dL (32.0-37.0); MCV 98.4 FL (80.0-97.0); Monocytes # (A) 0.14 X 10*3/uL (0.20-1.00); Monocytes % (A) 7.1 %; NRBC Per 100 WBC 0 X 10*3/uL (0.00-0.01); Neutrophils # (A) 1.48 X 10*3/uL (1.80-7.70); Neutrophils % (A) 75.1 %; Platelet Count 28 X 10*3/uL (140-440); RBC 3.06 X 10*6/uL (4.40-5.60); RDW 12.9 % (11.5-14.5); WBC 1.97 X 10*3/uL (4.50-10.00)
[2023-09-07 13:49] VITALS: BP 118/75; PULSE 73; RESP 17; TEMP 97.8
--- NOTE | 2023-09-08 02:01 | PN ---
PROGRESS NOTE DATE OF SERVICE: 09/07/2023 SUBJECTIVE: This is a 48-year-old gentleman, who was admitted with multiple myeloma and severe back pain. He is being closely monitored. No chest pain, no palpitations, no fever. Pain management consultation has been sought. The patient is on IV Dilaudid as well. OBJECTIVE: VITAL SIGNS: Pulse is 73, blood pressure 118/72, respirations 17. CHEST: Clear to auscultation. CARDIOVASCULAR: S1, S2. ABDOMEN: Soft. NERVOUS SYSTEM: Nonfocal. LABORATORY DATA: WBC 1.97, rest of the labs are noted. Platelets are 28. ASSESSMENT: 1. Multiple myeloma with intractable back pain with failure of outpatient treatment with new fracture deformity of L3 with superior endplate. 2. Possible lumbar radiculopathy, bilateral. 3. Elevated creatinine. 4. Elevated WBC. 5. Thrombocytopenia. 6. Hyponatremia. 7. Gait dysfunction. 8. Elevated AST, ALT. 9. Pancytopenia secondary to chemotherapy. RECOMMENDATIONS: Recommended to continue current management, continue symptomatic treatment, otherwise repeat labs. Pain management consultation continue with pain management. Increase ambulation. Brace per Orthopedic surgery. Further recommendations to follow. MMODL / IJN: [id number] /
--- NOTE | 2023-09-08 18:58 | P.DS ---
Providers Date of admission: 09/04/23 05:04 Expected date of discharge: 09/07/23 Attending physician: Arleth Fried Consults: 09/04/23 05:00 Consult Physician Routine Consulting Provider: Corie Douglas Consult Reason/Comments: known Do you want consulting provider notified?: Yes Consult Physician Routine Consulting Provider: Narcisa Crawford Consult Reason/Comments: back pain Do you want consulting provider notified?: Yes 09/05/23 16:46 Consult Physician Routine Consulting Provider: Oneil Shine Consult Reason/Comments: Depression with chronic disease Do you want consulting provider notified?: Yes 09/06/23 15:16 Consult Physician Urgent Consulting Provider: Christian Barfield Consult Reason/Comments: chronic pain, hx of mult myeloma Do you want consulting provider notified?: Yes Primary care physician: Stated None Hospital Course: Final diagnosis Multiple myeloma with intractable back pain with failure of outpatient treatment New fracture deformity of L3 with superior endplate Probable lumbar radiculopathy, bilateral Elevated creatinine Elevated white blood count Thrombocytopenia Hyponatremia Gait dysfunction Elevated AST, ALT Pancytopenia secondary to chemotherapy Noncompliance with medications GI prophylaxis DVT prophylaxis Full code Discharge disposition\ Patient is being discharged in a stable condition with guarded prognosis to home. Patient will follow-up with Dr. Douglas in the outpatient setting upon discharge. Patient is to continue with current medications and outpatient follow-up with orthopedics as well as pain management as scheduled. Total time taken is greater than 35 minutes. Hospital course This is a 48-year-old male who was recently admitted with increasing intractable back pain with concerns of new fracture deformity of the L3. Patient with significant history of multiple myeloma follows with oncology outpatient. Patient having progressive lower extremity weakness continued activity being evaluated by orthopedics as well as oncology. Recommend pain management and close outpatient follow-up with oncology. Patient has been cleared for discharge. Oncology discussed medication regimen as patient has been noncompliant and will follow-up with his primary oncologist. Currently no reports of chest pain, shortness of breath, or palpitations. Patient is afebrile. No reports of nausea or vomiting and patient is tolerating diet. Patient will be discharged home today. High risk for readmissions Physical exam: Gen: This is a 48-year-old male who is awake, alert and oriented x 3, well- developed HEENT: Head is atraumatic, normocephalic. Pupils equal, round. Sclerae is anicteric. NECK: Supple. No JVD. No lymphadenopathy. No thyromegaly. LUNGS: Clear to auscultation. No wheezes or rhonchi. No intercostal retractions. HEART: Regular rate and rhythm. No murmur. ABDOMEN: Soft. Bowel sounds are present. No masses. No tenderness. EXTREMITIES: No pedal edema. No calf tenderness. Bilateral lower extremity weakness and frequent cramping with movement NEUROLOGICAL: Patient is awake, alert and oriented x3. Cranial nerves 2 through 12 are grossly intact. Diffusely weak Please refer to medication reconciliation sheet for a list of medications. The impression and plan of care has been dictated by Tia Lopez, Nurse Practitioner as directed. Dr. Corky MD I have performed a history and examination and MDM of this patient, discussed the same with the dictator, and agree with the dictator's assessment and plan as written ,documented as a scribe. Based on total visit time, I have performed more than 50% of the visit. Patient Condition at Discharge: Fair Plan - Discharge Summary New Discharge Prescriptions: New DULoxetine HCL [Cymbalta] 30 mg PO DAILY #30 cap polyethylene glycoL 3350 [Miralax] 17 gm PO DAILY PRN packet PRN Reason: Constipation Continue HYDROmorphone [Dilaudid] 4 mg PO Q4H PRN PRN Reason: Pain Lenalidomide [Revlimid] 20 mg PO DIRECTED traMADol HCl [Ultram] 50 mg PO Q6H PRN #6 tab PRN Reason: Moderate Pain (Scale 4 To 6) Discharge Medication List traMADol HCl [Ultram] 50 mg PO Q6H PRN #6 tab 06/02/22 [Rx] HYDROmorphone [Dilaudid] 4 mg PO Q4H PRN 09/04/23 [History] Lenalidomide [Revlimid] 20 mg PO DIRECTED 09/04/23 [History] DULoxetine HCL [Cymbalta] 30 mg PO DAILY #30 cap 09/07/23 [Rx] polyethylene glycoL 3350 [Miralax] 17 gm PO DAILY PRN packet 09/07/23 [Rx] Follow up Appointment(s)/Referral(s): Corie Douglas MD [STAFF PHYSICIAN] - 09/17/23 2:45 pm Christian Barfield MD [STAFF PHYSICIAN] - 1 Week (please have your primary care physician send a referral to pain clinic at [facility] Lew Birch MD [REFERRING] - 11/19/23 9:30 am (if earlier appointment opens up the office will call you. appointment at the [place] ([address] [place] [facility] the [facility].)) Damon Ventura [NON-STAFF] - As Needed (LSO BRACE) Patient Instructions/Handouts: Duloxetine (By mouth) Activity/Diet/Wound Care/Special Instructions: LSO brace to be worn during activities. May remove brace when seated with support behind his back, while bathing, and when in bed. Avoid heavy or rigorous activity. No repetitive bending twisting or lifting. May ambulate to tolerance with LSO brace intact for the next 4 weeks and then may discontinue the brace Discharge/Stand Alone Forms: Who Do I Call?, Outpatient Counseling, Area PCPs Discharge Disposition: HOME WITH HOME HEALTH SERVICES
== END 2023-09-07 17:50 | disposition home or self-care (01) | DRG 542 ==
LOC: EC 00:36 → 5NMEDONC 05:04 → 1SOBS 12:47 → 5NMEDONC 09-05 15:10
PROVIDERS: ADMIT Hospitalist; ATTEND Hospitalist
DX: M84.58XA Pathological fracture in neoplastic disease, other specified site, initial encounter for fracture (principal); D61.810 Antineoplastic chemotherapy induced pancytopenia; C90.00 Multiple myeloma not having achieved remission; E87.1 Hypo-osmolality and hyponatremia; G95.29 Other cord compression; M48.04 Spinal stenosis, thoracic region; F32.A Depression, unspecified; Z28.310 Unvaccinated for COVID-19; M54.16 Radiculopathy, lumbar region; G89.3 Neoplasm related pain (acute) (chronic); T45.1X5A Adverse effect of antineoplastic and immunosuppressive drugs, initial encounter; F45.42 Pain disorder with related psychological factors; F41.9 Anxiety disorder, unspecified; R26.9 Unspecified abnormalities of gait and mobility; R74.01 Elevation of levels of liver transaminase levels; Z91.148 Patient's other noncompliance with medication regimen for other reason; Z91.199 Patient's noncompliance with other medical treatment and regimen due to unspecified reason; Z79.61 Long term (current) use of immunomodulator
CPT/HCPCS: 36415; 71045; 72100; 72158; 80048; 80053; 81001; 85025; 96361; 96374; 96375; 96376; 99285

== ENCOUNTER 2023-10-09 15:06 | Inpatient (IN) | payer OTHER ==
--- NOTE | 2023-10-09 16:10 | ED ---
General Adult HPI - General Chief complaint: Neuro Symptoms/Deficit Stated complaint: Back Stiffness and leg weakness-Sent by Time Seen by Provider: 10/09/23 16:08 Source: patient Mode of arrival: wheelchair Limitations: no limitations - History of Present Illness Initial comments: Patient presents to the ED (patient states that he was sent by his oncologist) for evaluation of bilateral lower extremity weakness. Patient states for the past 5 days or so, he has been having difficulty ambulating and has been more reliant on his wheelchair. Patient states that he has a history of multiple myeloma, for which he received chemotherapy treatment earlier today. Patient states that he reported these symptoms to his oncologist, and he was advised to come to the ED for further evaluation. Patient admits to having mild lumbar back pain, which she states is chronic and unchanged. Patient denies leg numbness or tingling. Patient denies incontinence or urinary retention. Patient denies known trauma or injury, fall, fever or chills, chest pain, d yspnea, dizziness, abdominal pain, nausea or vomiting, or any other symptoms or complaints. Patient states that he did have spinal decompression surgery secondary to his multiple myeloma about a year and a half ago. - Related Data Home Medications Medication Instructions Recorded Confirmed HYDROmorphone [Dilaudid] 4 mg PO Q4H PRN 09/04/23 10/09/23 Lenalidomide [Revlimid] 20 mg PO DIRECTED 09/04/23 10/09/23 Baclofen 5 mg PO BID PRN 10/09/23 10/09/23 dexAMETHasone [Decadron] 20 mg PO TU 10/09/23 10/09/23 Previous Rx's Medication Instructions Recorded traMADol HCl [Ultram] 50 mg PO Q6H PRN #6 tab 06/02/22 Allergies Allergy/AdvReac Type Severity Reaction Status Date / Time No Known Allergies Allergy Verified 10/09/23 17:55 Review of Systems ROS Statement: Those systems with pertinent positive or pertinent negative responses have been documented in the HPI. ROS Other: All systems not noted in ROS Statement are negative. 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 History of prior laminectomy decompression at lower thoracic with Dr. Dominguez in January 2022. History of multiple soft tissue masses throughout his thoracic lumbar and sacral spine. history lower extremity weakness History of Any Multi-Drug Resistant Organisms: None Reported Past Surgical History: No Surgical Hx Reported Additional Past Surgical History / Comment(s): back surgery to remove tumor december of 2021. Bone biospy of right hip, spinal decompression Past Anesthesia/Blood Transfusion Reactions: No Reported Reaction Past Psychological History: No Psychological Hx Reported Smoking Status: Never smoker Past Alcohol Use History: None Reported Past Drug Use History: None Reported General Exam Limitations: no limitations General appearance: alert, in no apparent distress Head exam: Present: atraumatic, normocephalic Eye exam: Present: normal appearance ENT exam: Present: mucous membranes moist Respiratory exam: Present: normal lung sounds bilaterally. Absent: respiratory distress, wheezes, rales, rhonchi, stridor Cardiovascular Exam: Present: regular rate, normal rhythm, normal heart sounds, other (Normal radial and dorsalis pedis pulses bilaterally) GI/Abdominal exam: Present: soft. Absent: distended, tenderness, guarding Extremities exam: Present: full ROM. Absent: tenderness, pedal edema, calf tenderness Back exam: Absent: tenderness Neurological exam: Present: alert, oriented X3, CN II-XII intact, other (4/5 strength in bilateral lower extremities; patient is noted to having difficulty ambulating on gait evaluation; no lower extremity neurological deficit or saddle anesthesia is noted on exam) Psychiatric exam: Present: normal affect Skin exam: Present: warm, dry, normal color Course Vital Signs 10/09/23 15:28 Temperature 99.1 F Pulse Rate 81 Respiratory 16 Rate Blood Pressure 104/65 O2 Sat by Pulse 97 Oximetry - Reevaluation(s) Reevaluation #1: 10/09/23 16:45 Case and H&P were discussed with Dr. Douglas (the patient's oncologist). He states that he knows the patient well, and the patient has had issues with cord compression in the past. He agrees with plan to admit the patient to the hospital for MRI tomorrow and further evaluation/management as necessary. He has no further recommendations at this time. 10/09/23 16:49 Case, H&P and my discussion with Dr. Douglas as above were discussed with Dr. Schultz. He asks to consult the on-call spinal orthopedic surgeon to confirm that he is willing to see the patient in consultation. He states that unless the on-call spinal orthopedic surgeon refuses and recommends transferring the patient, he will accept the patient. He has no further recommendations at this time. 10/09/23 17:25 Case, H&P and my discussions as above were discussed with Dr. Judd (spinal orthopedic surgery). He agrees with plan to admit the patient to the hospital under care of his medical service and to obtain an MRI tomorrow. He agrees to see the patient in consultation. He has no further recommendations at this time. 10/09/23 17:31 Patient denies development of any new symptoms while in the ED. Patient is aware of his test results and my discussions as above. Patient agrees with hospital admission at this time. Medical Decision Making - Medical Decision Making Was pt. sent in by a medical professional or institution (, PA, DIVE SUPERVISOR, urgent care, hospital, or retirement...) When possible be specific @ -No Did you speak to anyone other than the patient for history (EMS, parent, family, police, friend...)? What history was obtained from this source @ -No Did you review nursing and triage notes (agree or disagree)? Why? @ -I reviewed and agree with nursing and triage notes Were old charts reviewed (outside hosp., previous admission, EMS record, old EKG, old radiological studies, urgent care reports/EKG's, retirement records)? Report findings @ -No old charts were reviewed Differential Diagnosis (chest pain, altered mental status, abdominal pain women, abdominal pain men, vaginal bleeding, weakness, fever, dyspnea, syncope, headache, dizziness, GI bleed, back pain, seizure, CVA, palpatations, mental health, musculoskeletal)? @ -Lower extremity weakness, cord compression, herniated disc disease, spinal canal stenosis, cauda equina syndrome, spinal neoplasm, multiple myeloma, transverse myelitis, neuropathy, radiculopathy EKG interpreted by me (3pts min.). @ -None done X-rays interpreted by me (1pt min.). @ -None done CT interpreted by me (1pt min.). @ -None done U/S interpreted by me (1pt. min.). @ -None done What testing was considered but not performed or refused? (CT, X-rays, U/S, labs)? Why? @ -None What meds were considered but not given or refused? Why? @ -None Did you discuss the management of the patient with other professionals (professionals i.e. DrArielle, PA, DIVE SUPERVISOR, lab, RT, psych nurse, social media director, medical and health services manager, teacher, jail officer, pillowcase turner)? Give summary @ -As above Was smoking cessation discussed for >3mins.? @ -No Was critical care preformed (if so, how long)? @ -No Were there social determinants of health that impacted care today? How? (Homelessness, low income, unemployed, alcoholism, drug addiction, transportation, low edu. Level, literacy, decrease access to med. care, fpc, rehab)? @ -No Was there de-escalation of care discussed even if they declined (Discuss DNR or withdrawal of care, Hospice)? DNR status @ -No What co-morbidities impacted this encounter? (DM, HTN, Smoking, COPD, CAD, Cancer, CVA, ARF, Chemo, Hep., AIDS, mental health diagnosis, sleep apnea, morbid obesity)? @ -None Was patient admitted / discharged? Hospital course, mention meds given and route, prescriptions, significant lab abnormalities, going to OR and other pertinent info. @ -Given the patient's symptoms and history of cord compression, will admit the patient to the hospital for MRI tomorrow (there is no MRI availability today). Case has been discussed with the on-call orthopedic spine surgeon, as well as the patient's oncologist. Dr. Schultz has accepted hospital admission. Patient agrees with this plan. Undiagnosed new problem with uncertain prognosis? @ -No Drug Therapy requiring intensive monitoring for toxicity (Heparin, Nitro, Insulin, Cardizem)? @ -No Were any procedures done? @ -No Diagnosis/symptom? @ -Bilateral lower extremity weakness Acute, or Chronic, or Acute on Chronic? @ -Acute Uncomplicated (without systemic symptoms) or Complicated (systemic symptoms)? @ -Uncomplicated Side effects of treatment? @ -No Exacerbation, Progression, or Severe Exacerbation? @ -No Poses a threat to life or bodily function? How? (Chest pain, [place], [place], pneumonia, PE, COPD, DKA, ARF, appy, cholecystitis, CVA, Diverticulitis, Homicidal, Suicidal, threat to staff... and all critical care pts) @ -No - Lab Data Result diagrams: 10/09/23 17:01 10/09/23 17:01 Lab Results 10/09/23 10/09/23 Range/Units 17:01 17:01 WBC 2.3 L (3.8-10.6) k/uL RBC 3.51 L (4.30-5.90) m/uL Hgb 11.7 L (13.0-17.5) gm/dL Hct 33.8 L (39.0-53.0) % MCV 96.2 (80.0-100.0) fL MCH 33.2 (25.0-35.0) pg MCHC 34.5 (31.0-37.0) g/dL RDW 13.7 (11.5-15.5) % Plt Count 102 L D (150-450) k/uL MPV 10.5 Neutrophils % 90 % Lymphocytes % 6 % Monocytes % 2 % Eosinophils % 0 % Basophils % 0 % Neutrophils # 2.0 (1.3-7.7) k/uL Lymphocytes # 0.1 L (1.0-4.8) k/uL Monocytes # 0.1 (0-1.0) k/uL Eosinophils # 0.0 (0-0.7) k/uL Basophils # 0.0 (0-0.2) k/uL Poikilocytosis Slight Sodium 133 L (137-145) mmol/L Potassium 4.4 (3.5-5.1) mmol/L Chloride 104 (98-107) mmol/L Carbon Dioxide 21 L (22-30) mmol/L Anion Gap 8 mmol/L BUN 14 (9-20) mg/dL Creatinine 0.96 (0.66-1.25) mg/dL Est GFR (CKD-EPI)AfAm >90 (>60 ml/min/1.73 sqM) Est GFR (CKD-EPI)NonAf >90 (>60 ml/min/1.73 sqM) Glucose 102 H (74-99) mg/dL Calcium 8.4 (8.4-10.2) mg/dL Disposition Clinical Impression: Bilateral leg weakness Disposition: ADMITTED IP TO THIS [facility] Condition: Stable Is patient prescribed a controlled substance at d/c from ED?: No Time of Disposition: 17:26
[2023-10-09] MEDS ORDERED: NALOXONE 0.4 MG/ML 1 ML VIAL IV PRN (17:26)
[2023-10-09 17:33] LABS: Basophils % (A) 0 %; Eosinophils % (A) 0 %; HCT 33.8 % (39.0-53.0); HGB 11.7 gm/dL (13.0-17.5); Lymphocytes # (A) 0.1 k/uL (1.0-4.8); Lymphocytes % (A) 6 %; MCH 33.2 pg (25.0-35.0); MCHC 34.5 g/dL (31.0-37.0); MCV 96.2 fL (80.0-100.0); Mean Platelet Volume 10.5; Monocytes # (A) 0.1 k/uL (0-1.0); Monocytes % (A) 2 %; Neutrophils % (A) 90 %; Poikilocytosis Slight; RBC 3.51 m/uL (4.30-5.90); RDW 13.7 % (11.5-15.5); WBC 2.3 k/uL (3.8-10.6)
[2023-10-09 17:38] LABS: African American GFR (CKD) >90 (>60 ml/min/1.73 sqM); Anion Gap 8 mmol/L; Blood Urea Nitrogen 14 mg/dL (9-20); Calcium 8.4 mg/dL (8.4-10.2); Carbon Dioxide 21 mmol/L (22-30); Chloride 104 mmol/L (98-107); Glucose 102 mg/dL (74-99); Non-African American GFR(CKD) >90 (>60 ml/min/1.73 sqM); Potassium 4.4 mmol/L (3.5-5.1); Sodium 133 mmol/L (137-145)
[2023-10-09 17:39] LABS: Platelet Count 102 k/uL (150-450)
[2023-10-09] MEDS: MORPHINE SULFATE 4 MG/ML SYRINGE IVP STA (18:50)
[2023-10-09] MEDS: HYDROmorphone 0.5 MG/0.5 ML SYRINGE IVP STA (18:55)
[2023-10-09] MEDS ORDERED: traMADol 50 MG TAB PO PRN (22:05)
[2023-10-09] MEDS ORDERED: BACLOFEN 10 MG TAB PO PRN (22:05)
[2023-10-09] MEDS ORDERED: HYDROmorphone 2 MG TAB PO PRN (22:05)
[2023-10-09] MEDS: ENOXAPARIN 40 MG/0.4 ML SYRINGE SQ SCH (22:48)
--- NOTE | 2023-10-09 23:01 | P.HPIM ---
History of Present Illness H&P Date: 10/09/23 Chief Complaint: Weakness in the legs This is a 48-year-old patient, follows with Dr. José Miguel Douglas. Diagnosis of multiple myeloma. Patient on Revlimid. Dexamethasone. Patient back in 2021 underwent laminectomy decompression of the lower thoracic spine with Dr Breen. Patient at the baseline has some trouble walking. And some back pain. Last 5 days has been increasing weakness stiffness lower extremity. Normally has a bowel movement every 5 to 6 days. Presented to the ER with trouble walking. Patient got 20 mg of scheduled dexamethasone today. By today evening some improvement in lower extremity weakness. No change in bowel pattern. Patient has some chronic hesitancy with urination. Review of systems: GEN.: Tired EYES: None HEENT: None NECK: None RESPIRATORY: None CARDIOVASCULAR: None GASTROINTESTINAL: As above of GENITOURINARY: As above MUSCULOSKELETAL: [As above LYMPHATICS: None HEMATOLOGICAL: None PSYCHIATRY: None NEUROLOGICAL: As above Social history: Lives with his parents. Used to previously working construction. Alcohol occasionally. No smoking. Physical examination: VITAL SIGNS: 98, 78, 16, 112/70, 98% room air GENERAL: [BMI 23.1, reclining bed awake, comfortable. EYES: Pupils equal. Conjunctiva robbie l. HEENT: External appearance of nose and ears normal, oral cavity grossly normal. NECK: JVD not raised; masses not palpable. HEART: First and second heart sounds are normal; no edema. LUNGS: Respiratory rate normal; clear to auscultation. ABDOMEN: Soft, nontender, liver spleen not palpable, no masses palpable. PSYCH: Alert and oriented x3; mood and affect robbie l. MUSCULOSKELETAL:No Clubbing/cyanosis;muscles-grossly intact NEUROLOGICAL: [Cranial nerves grossly intact; no facial asymmetry, able to raise his right leg about 50 degrees left leg about 30 degrees. Some hyperreflexia both knees LYMPHATICS: No lymph nodes palpable in the axilla and neck INVESTIGATIONS, reviewed in the clinical context: October 08: White count 2.3 hemoglobin 9.7 platelets 102 sodium 133 potassium 4.4 creatinine 0.96 Assessment plan: -Bilateral increasing lower extremity paraparesis with some pain. Likely secondary to involvement of multiple myeloma. With a prior history of laminectomy with Dr. Dominguez in January 2022. Patient did get his scheduled dose of dexamethasone 20 mg. This evening some improvement in lower extremity power. MRI of the thoracolumbar spine. Dr. Judd was contacted from the ER. -Chronic gait dysfunction at her baseline -Multiple myeloma Patient on Revlimid and dexamethasone. Consult Dr. José Miguel Douglas -Pancytopenia secondary to multiple myeloma -Chronic back pain for which patient is on oral Dilaudid Care was discussed with the patient. Questions answered. 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 History of prior laminectomy decompression at lower thoracic with Dr. Dominguez in January 2022. History of multiple soft tissue masses throughout his thoracic lumbar and sacral spine. history lower extremity weakness History of Any Multi-Drug Resistant Organisms: None Reported Past Surgical History: No Surgical Hx Reported Additional Past Surgical History / Comment(s): back surgery to remove tumor december of 2021. Bone biospy of right hip, spinal decompression Past Anesthesia/Blood Transfusion Reactions: No Reported Reaction Past Psychological History: No Psychological Hx Reported Smoking Status: Never smoker Past Alcohol Use History: None Reported Past Drug Use History: None Reported Medications and Allergies Home Medications Medication Instructions Recorded Confirmed Type traMADol HCl [Ultram] 50 mg PO Q6H PRN #6 tab 06/02/22 10/09/23 Rx HYDROmorphone [Dilaudid] 4 mg PO Q4H PRN 09/04/23 10/09/23 History Lenalidomide [Revlimid] 20 mg PO DIRECTED 09/04/23 10/09/23 History Baclofen 5 mg PO BID PRN 10/09/23 10/09/23 History dexAMETHasone [Decadron] 20 mg PO TU 10/09/23 10/09/23 History Allergies Allergy/AdvReac Type Severity Reaction Status Date / Time No Known Allergies Allergy Verified 10/09/23 17:55 Physical Exam Vitals: Vital Signs Temp Pulse Pulse Resp BP BP Pulse Ox 10/09/23 20:49 98.0 F 78 16 112/70 98 10/09/23 20:43 98.0 F 77 16 99/68 98 10/09/23 19:33 98.7 F 83 16 110/77 96 10/09/23 18:45 80 18 102/72 98 10/09/23 18:09 98.9 F 72 16 114/72 98 10/09/23 15:28 99.1 F 81 16 104/65 97 Intake and Output 10/09/23 10/09/23 10/09/23 06:59 14:59 22:59 Output Total 375 Balance -375 Output: Urine 375 Other: Weight 77.111 kg Results CBC & Chem 7: 10/09/23 17:01 10/09/23 17:01 Labs: Abnormal Lab Results - Last 24 Hours (Table) 10/09/23 10/09/23 Range/Units 17:01 17:01 WBC 2.3 L (3.8-10.6) k/uL RBC 3.51 L (4.30-5.90) m/uL Hgb 11.7 L (13.0-17.5) gm/dL Hct 33.8 L (39.0-53.0) % Plt Count 102 L D (150-450) k/uL Lymphocytes # 0.1 L (1.0-4.8) k/uL Sodium 133 L (137-145) mmol/L Carbon Dioxide 21 L (22-30) mmol/L Glucose 102 H (74-99) mg/dL
[2023-10-10] MEDS: HYDROmorphone 1 MG/ML 1 ML SYRINGE IVP PRN (00:54)
--- NOTE | 2023-10-10 07:45 | P.PN ---
Progress Note - Text Progress Note Date: 10/10/23 Pt with extensive onc hx admitted due to LE weakness that is progressive. ED contacted, agreed with MRI T and L spine stat w/wo. Will assess and await imaging.
[2023-10-10] MEDS: PSYLLIUM HUSK 100% 6 GM PACKET PO SCH (10:12)
[2023-10-10 12:33] VITALS: BMI 23.0
[2023-10-10] MEDS: LACTULOSE 20 GM/30 ML CUP PO ONE (17:22)
--- NOTE | 2023-10-10 18:31 | P.PN ---
Progress Note - Text Progress Note Date: 10/10/23 Chief Complaint: Weakness in the legs This is a 48-year-old patient, follows with Dr. José Miguel Douglas. Diagnosis of multiple myeloma. Patient on Revlimid. Dexamethasone. Patient back in 2021 underwent laminectomy decompression of the lower thoracic spine with Dr Karan tubbs. Patient at the baseline has some trouble walking. And some back pain. Last 5 days has been increasing weakness stiffness lower extremity. Normally has a bowel movement every 5 to 6 days. Presented to the ER with trouble walking. Patient got 20 mg of scheduled dexamethasone today. By today evening some improvement in lower extremity weakness. No change in bowel pattern. Patient has some chronic hesitancy with urination. October 09: Saw the patient this morning. Weakness in legs a bit better. Pending MRI of thoracic lumbar spine. Later nurse called. Patient not had a bowel movement for about a week. He wanted GoLytely. Will try mag citrate 1 bottle. Molasses enema. No abdominal pain. No nausea vomiting. Abdomen soft. Active Medications Baclofen (Baclofen 10 Mg Tab) 5 mg PO BID PRN PRN Reason: Muscle Spasm Enoxaparin Sodium (Enoxaparin 40 Mg/0.4 Ml Syringe) 40 mg SQ DAILY [facility] Last Admin: 10/10/23 08:32 Dose: Not Given Hydromorphone HCl (Hydromorphone 0.5 Mg/0.5 Ml Syringe) 0.5 mg IVP Q3HR PRN PRN Reason: Pain Hydromorphone HCl (Hydromorphone 1 Mg/Ml 1 Ml Syringe) 1 mg IVP Q3HR PRN PRN Reason: Pain Last Admin: 10/10/23 17:06 Dose: 1 mg Naloxone HCl (Naloxone 0.4 Mg/Ml 1 Ml Vial) 0.2 mg IV Q2M PRN PRN Reason: Opioid Reversal Psyllium Hydrophilic Mucilloid (Psyllium Husk 100% 6 Gm Packet) 6 gm PO DAILY [facility] Last Admin: 10/10/23 10:12 Dose: 6 gm Tramadol HCl (Tramadol 50 Mg Tab) 50 mg PO Q6H PRN PRN Reason: Moderate Pain (Scale 4 to 6) Social history: Lives with his parents. Used to previously working construction. Alcohol occasionally. No smoking. Physical examination: VITAL SIGNS: 97.9, 68, 18, 112/62, 97% room air GENERAL: Resting in bed comfortable EYES: Pupils equal. Conjunctiva robbie l. HEENT: External appearance of nose and ears normal, oral cavity grossly normal. NECK: JVD not raised; masses not palpable. HEART: First and second heart sounds are normal; no edema. LUNGS: Respiratory rate normal; clear to auscultation. ABDOMEN: Soft, nontender, liver spleen not palpable, no masses palpable. PSYCH: Alert and oriented x3; mood and affect robbie l. MUSCULOSKELETAL:No Clubbing/cyanosis;muscles-grossly intact NEUROLOGICAL: [Cranial nerves grossly intact; no facial asymmetry, able to raise his right leg about 50 degrees left leg about 30 degrees. Some hyperreflexia both knees INVESTIGATIONS, reviewed in the clinical context: October 08: White count 2.3 hemoglobin 9.7 platelets 102 sodium 133 potassium 4.4 creatinine 0.96 Assessment plan: -Bilateral increasing lower extremity paraparesis with some pain. Likely secondary to involvement of multiple myeloma. With a prior history of laminectomy with Dr. Dominguez in January 2022. Patient did get his scheduled dose of dexamethasone 20 mg. This evening some improvement in lower extremity power. MRI of the thoracolumbar spine pending. Dr. Binta maxwell is following -Chronic gait dysfunction at her baseline -Constipation from decreased activity and narcotics Laxatives -Multiple myeloma Patient on Revlimid and dexamethasone. Consult Dr. José Miguel Douglas -Pancytopenia secondary to multiple myeloma -Chronic back pain for which patient is on oral Dilaudid MRI pending. Laxatives. 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 History of prior laminectomy decompression at lower thoracic with Dr. Dominguez in January 2022. History of multiple soft tissue masses throughout his thoracic lumbar and sacral spine. history lower extremity weakness History of Any Multi-Drug Resistant Organisms: None Reported Past Surgical History: No Surgical Hx Reported Additional Past Surgical History / Comment(s): back surgery to remove tumor december of 2021. Bone biospy of right hip, spinal decompression Past Anesthesia/Blood Transfusion Reactions: No Reported Reaction Past Psychological History: No Psychological Hx Reported Smoking Status: Never smoker Past Alcohol Use History: None Reported Past Drug Use History: None Reported
[2023-10-10] MEDS: MAGNESIUM CITRATE 296 ML BOTTLE PO ONE (19:21)
[2023-10-11 09:22] VITALS: PULSE 68
--- NOTE | 2023-10-11 10:19 | P.CNOR ---
History of Present Illness - [facility] Consult date: 10/11/23 Consult reason: other History of present illness: Patient is seen and examined at bedside. He is known to our service as I consult on him last month. Patient has history of metastatic cancer and has history of lower extremity weakness. When he was seen in August he felt he was starting to make progress while on his steroid medications. He had similar issues of weakness at his bilateral lower extremities at that point which was making some progress with medical management. He was found to have some bony abnormality at L3 without any significant stenosis at his lumbar spine. He says that he has continued with his chemotherapy with Dr. Douglas. He says when he gets his steroid and chemotherapy starts to feel good but then he crashes at the end the week and starts to feel weak and painful all over. He says that this issue continues to happen almost each week and at this point he came in due to the weakness in his lower extremities. He says it feels similar to how it did in the past. He is describes the weakness as bilateral lower extremities diffusely throughout. He denies any changes in bowel bladder function. He feels constipated and he is still able to void on his own. He did not have any new injury. Review of Systems As per HPI. History of metastatic cancer. History of low back pain lower extremity weakness bilaterally. 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 History of prior laminectomy decompression at lower thoracic with Dr. Dominguez in January 2022. History of multiple soft tissue masses throughout his thoracic lumbar and sacral spine. history lower extremity weakness History of Any Multi-Drug Resistant Organisms: None Reported Past Surgical History: No Surgical Hx Reported Additional Past Surgical History / Comment(s): back surgery to remove tumor december of 2021. Bone biospy of right hip, spinal decompression Past Anesthesia/Blood Transfusion Reactions: No Reported Reaction Past Psychological History: No Psychological Hx Reported Smoking Status: Never smoker Past Alcohol Use History: None Reported Past Drug Use History: None Reported Medications and Allergies Home Medications Medication Instructions Recorded Confirmed Type traMADol HCl [Ultram] 50 mg PO Q6H PRN #6 tab 06/02/22 10/09/23 Rx HYDROmorphone [Dilaudid] 4 mg PO Q4H PRN 09/04/23 10/09/23 History Lenalidomide [Revlimid] 20 mg PO DIRECTED 09/04/23 10/09/23 History Baclofen 5 mg PO BID PRN 10/09/23 10/09/23 History dexAMETHasone [Decadron] 20 mg PO TU 10/09/23 10/09/23 History Allergies Allergy/AdvReac Type Severity Reaction Status Date / Time No Known Allergies Allergy Verified 10/09/23 17:55 Physical Examination Osteopathic Statement: *. No significant issues noted on an osteopathic structural exam other than those noted in the History and Physical/Consult. - L Spine: dermatomal strength & reflexes bilateral Strength: hip flexion: 5/5 (In his lower extremities he is able lift his legs up off the bed independently. He is able to exhibit 5 out of 5 strength dorsiflexion plantarflexion EHL hip flexion and knee extension bilaterally.) Strength: hip extension: 5/5 (No pain with internal ex rotation of his hips. Calves and thighs soft nontender. Abdomen soft nontender. Back has some diffuse spasm but is no point tenderness) Results - Labs Labs: H & H 10/09/23 Range/Units 17:01 Hgb 11.7 L (13.0-17.5) gm/dL Hct 33.8 L (39.0-53.0) % Result Diagrams: 10/09/23 17:01 10/09/23 17:01 Assessment and Plan Assessment: Recurrent bilateral lower extremity weakness and difficulty ambulating which seems to be slightly resolving History of multiple myeloma on chemotherapy History of lumbar laminectomy with Dr. Birch Plan: Recurrent bilateral lower extremity weakness and difficulty ambulating which seems to be slightly resolving History of multiple myeloma on chemotherapy History of lumbar laminectomy with Dr. Birch The patient's lower extremities seem to be slightly improving on his exam. He exhibits 5 out of 5 strength dorsiflexion plantarflexion EHL hip flexion knee extension but he says it is very difficult for him to mobilize and when he ambulates he does so with difficulty. He already has an MRI of his thoracic and lumbar spine ordered and I think that is okay to pursue given his new issues. His prior image from August had his low back showed some bony change and there may be some changes associated with that on the new MRI. Is also worthwhile to see him prior through his thoracic spine to fully evaluate given his complaints from his abdomen down. The MRI is scheduled for early this afternoon. I think he should continue with conservative management. He is being treated with Dr. Douglas and may do well with more long-term oral steroid on regular basis but I would defer his medical management to medicine or hematology oncology service. I do not have any acute surgical plans at this point but will evaluate further once the MRIs are complete. When he was last seen we also recommended to him to continue his follow-up with his prior neurosurgeon Dr. Birch. He says he has been in contact with them and we will plan further management with Dr. Birch.
[2023-10-11] MEDS: LORazepam 1 MG TAB PO STA ×2 (13:06→13:08)
[2023-10-11] MEDS: HYDROmorphone 0.5 MG/0.5 ML SYRINGE IVP PRN (13:08)
[2023-10-11 13:32] VITALS: BP 104/67; RESP 20; TEMP 98.8
--- NOTE | 2023-10-11 20:32 | P.DS ---
Providers Date of admission: 10/11/23 14:46 Expected date of discharge: 10/11/23 Attending physician: Ghassan Schultz Consults: 10/10/23 08:33 Consult Physician Routine Consulting Provider: Narcisa Crawford Consult Reason/Comments: back pain Do you want consulting provider notified?: Yes 10/11/23 11:01 Consult Physician Routine Consulting Provider: Corie Douglas Consult Reason/Comments: multiple myeloma Do you want consulting provider notified?: Yes Primary care physician: [facility] Course: Chief Complaint: Weakness in the legs This is a 48-year-old patient, follows with Dr. José Miguel Douglas. Diagnosis of multiple myeloma. Patient on Revlimid. Dexamethasone. Patient back in 2021 underwent laminectomy decompression of the lower thoracic spine with Dr Breen. Patient at the baseline has some trouble walking. And some back pain. Last 5 days has been increasing weakness stiffness lower extremity. Normally has a bowel movement every 5 to 6 days. Presented to the ER with trouble walking. Patient got 20 mg of scheduled dexamethasone today. By today evening some improvement in lower extremity weakness. No change in bowel pattern. Patient has some chronic hesitancy with urination. October 09: Saw the patient this morning. Weakness in legs a bit better. Pending MRI of thoracic lumbar spine. Later nurse called. Patient not had a bowel movement for about a week. He wanted GoLytely. Will try mag citrate 1 bottle. Molasses enema. No abdominal pain. No nausea vomiting. Abdomen soft. October 10: Patient unable to complete the MRI of the spine today. Walking better. I had Dr. Eason see the patient. Cleared by him. Also Dr. Crawford was made aware of the MRI not being completed. As patient is walking better he communicated to me via text message, that patient can be discharged and follow- up with his own surgeon Dr. Harry. Earlier spoke at length with the patient. Questions answered also discussed wi th the patient to try to cut back on his Dilaudid pain medications. Discussion and discharge planning more than 35 minutes Social history: Lives with his parents. Used to previously working construction. Alcohol occasionally. No smoking. Physical examination: VITAL SIGNS: 98.8, 68, 20, 104/67, 97% room air GENERAL: Resting in bed comfortable EYES: Pupils equal. Conjunctiva robbie l. HEENT: External appearance of nose and ears normal, oral cavity grossly normal. NECK: JVD not raised; masses not palpable. HEART: First and second heart sounds are normal; no edema. LUNGS: Respiratory rate normal; clear to auscultation. ABDOMEN: Soft, nontender, liver spleen not palpable, no masses palpable. PSYCH: Alert and oriented x3; mood and affect robbie l. MUSCULOSKELETAL:No Clubbing/cyanosis;muscles-grossly intact NEUROLOGICAL: [Cranial nerves grossly intact; no facial asymmetry, patient walking better INVESTIGATIONS, reviewed in the clinical context: Patient unable to complete the MRI because of anxiety October 08: White count 2.3 hemoglobin 9.7 platelets 102 sodium 133 potassium 4.4 creatinine 0.96 Assessment plan: -Bilateral increasing lower extremity paraparesis with some pain.: Better MRI of the thoracolumbar spine unable to be completed because of anxiety. Seen by Dr. Crawford from orthopedic spine. Okay for discharge. Patient to follow-up with Dr. Birch -Chronic gait dysfunction at her baseline -Constipation from decreased activity and narcotics Laxatives -Multiple myeloma Patient on Revlimid and weekly dexamethasone. Seen by Dr. Jesus Manuel Douglas. Cleared for discharge -Pancytopenia secondary to multiple myeloma -Chronic back pain for which patient is on oral Dilaudid Disposition: Home Past Medical History Past Medical History: Cancer Additional Past Medical History / Comment(s): multiple myloma on chemo. History of prior laminectomy decompression at lower thoracic with Dr. Dominguez in January 2022. History of multiple soft tissue masses throughout his thoracic lumbar and sacral spine. history lower extremity weakness History of Any Multi-Drug Resistant Organisms: None Reported Past Surgical History: No Surgical Hx Reported Additional Past Surgical History / Comment(s): back surgery to remove tumor december of 2021. Bone biospy of right hip, spinal decompression Past Anesthesia/Blood Transfusion Reactions: No Reported Reaction Past Psychological History: No Psychological Hx Reported Smoking Status: Never smoker Past Alcohol Use History: None Reported Past Drug Use History: None Reported Plan - Discharge Summary Discharge Rx Participant: Yes New Discharge Prescriptions: New Psyllium Husk 100% [Metamucil Packet] 6 gm PO BID #60 packet Continue HYDROmorphone [Dilaudid] 4 mg PO Q4H PRN PRN Reason: Pain Lenalidomide [Revlimid] 20 mg PO DIRECTED dexAMETHasone [Decadron] 20 mg PO TU traMADol HCl [Ultram] 50 mg PO Q6H PRN #6 tab PRN Reason: Moderate Pain (Scale 4 To 6) Baclofen 5 mg PO BID PRN PRN Reason: Muscle Spasm Discharge Medication List traMADol HCl [Ultram] 50 mg PO Q6H PRN #6 tab 06/02/22 [Rx] HYDROmorphone [Dilaudid] 4 mg PO Q4H PRN 09/04/23 [History] Lenalidomide [Revlimid] 20 mg PO DIRECTED 09/04/23 [History] Baclofen 5 mg PO BID PRN 10/09/23 [History] dexAMETHasone [Decadron] 20 mg PO TU 10/09/23 [History] Psyllium Husk 100% [Metamucil Packet] 6 gm PO BID #60 packet 10/11/23 [Rx] Follow up Appointment(s)/Referral(s): Corie Douglas MD [STAFF PHYSICIAN] - 10/19/23 11:30 am Kehinde Gama DO [Primary Care Provider] - 10/17/23 2:30 pm Lew Birch MD [REFERRING] - 1 Week (Please follow up with Dr. Birch for any further work-up on spine. Patient to make own follow-up appt. ) [facility] Visiting Nurse, [NON-STAFF] - 1 Week Patient Instructions/Handouts: Laxative, Stool Softeners (By mouth), Back Pain (GEN), Fall Prevention (DC) Discharge/Stand Alone Forms: Who Do I Call?, Community Resources Discharge Disposition: HOME SELF-CARE
[2023-10-11] MEDS ORDERED: PSYLLIUM HUSK 100% 6 GM PACKET PO SCH (21:00)
--- NOTE | 2023-10-12 13:51 | P.CONS ---
History of Present Illness - Reason for Consult Consult date: 10/11/23 Multiple myeloma - Chief Complaint Weakness - History of Present Illness Mr. 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 He noted having difficulty moving from wheelchair to the scale to obtain weight. There was no saddle anesthesia or urinary/bowel incontinence. Given his prior history of cord compression, he was sent to the ED for additional evaluation. In the ED, hemodynamically stable and afebrile. Labs revealed stable cell counts for measurements in clinic with WBC 2.3 (ANC 2), hemoglobin 11.7 (MCV 96.2), platelets 102. BMP revealed no acute metabolic abnormalities. He was started on Dilaudid 1 mg IV every 3 hours as needed and admitted for additional medical management. He notes that since he received IV steroids as part of his premedication for treatment, he is noted significant improvement in movement of his lower extremities. He otherwise denies any new signs or symptoms. He feels energetic and is able to move better while on steroids. Review of Systems 14 point review of systems was conducted with pertinent positives and negatives as noted per HPI Past Medical History Past Medical History: Cancer Additional Past Medical History / Comment(s): multiple myloma on chemo. History of prior laminectomy decompression at lower thoracic with Dr. Dominguez in January 2022. History of multiple soft tissue masses throughout his thoracic lumbar and sacral spine. history lower extremity weakness History of Any Multi-Drug Resistant Organisms: None Reported Past Surgical History: No Surgical Hx Reported Additional Past Surgical History / Comment(s): back surgery to remove tumor oc tober 2021. Bone biospy of right hip, spinal decompression Past Anesthesia/Blood Transfusion Reactions: No Reported Reaction Past Psychological History: No Psychological Hx Reported Smoking Status: Never smoker Past Alcohol Use History: None Reported Past Drug Use History: None Reported Medications and Allergies Home Medications Medication Instructions Recorded Confirmed Type traMADol HCl [Ultram] 50 mg PO Q6H PRN #6 tab 06/02/22 10/12/23 Rx HYDROmorphone [Dilaudid] 4 mg PO Q4H PRN 09/04/23 10/12/23 History Lenalidomide [Revlimid] 20 mg PO DIRECTED 09/04/23 10/12/23 History Baclofen 5 mg PO BID PRN 10/09/23 10/12/23 History dexAMETHasone [Decadron] 20 mg PO TU 10/09/23 10/12/23 History Psyllium Husk 100% [Metamucil 6 gm PO BID #60 packet 10/11/23 10/12/23 Rx Packet] Famotidine [Pepcid] 20 mg PO BID #60 tablet 10/12/23 Rx dexAMETHasone [Decadron] 4 mg PO TID #100 tab 10/12/23 Rx Allergies Allergy/AdvReac Type Severity Reaction Status Date / Time No Known Allergies Allergy Verified 10/12/23 09:05 Physical Exam - Constitutional General appearance: cooperative, no acute distress - EENT Eyes: EOMI - Respiratory Nonlabored breathing - Cardiovascular Warm and well-perfused - Gastrointestinal General gastrointestinal: no distended, soft, no tenderness - Neurologic 5 out of 5 strength on flexion and extension of the lower extremities bilaterally Neurologic: CNII-XII intact Results CBC & Chem 7: 10/09/23 17:01 10/09/23 17:01 Assessment and Plan (1) Multiple myeloma not having achieved remission Status: Acute Code(s): C90.00 - MULTIPLE MYELOMA NOT HAVING ACHIEVED REMISSION SNOMED Code(s): 718064477 (2) Lumbar radiculopathy Status: Acute Code(s): M54.16 - RADICULOPATHY, LUMBAR REGION SNOMED Code(s): 629870601 Plan: #Weakness -This is likely multifactorial due to prior episodes of cord compression resulting in nerve damage superimposed on deconditioning -Currently, he feels this is improved on oral steroids -We discussed that high-dose oral steroids on a continuous basis could actually lead to worsening weakness due to steroid induced myopathy -He does take dexamethasone 20 mg weekly as part of his treatment regimen for multiple myeloma -We agreed to take dexamethasone 4 mg daily to see if this helps improve movement as well as energy -He did have MRI of the thoracic and lumbar spine pending -He can be discharged from a hematology/oncology perspective as long as there is no acute evidence of cord compression, which clinically does not appear likely at this time #Multiple myeloma -Noted to have high risk IgG lambda disease complicated by cord compression in December 2021 and did not follow-up -Following bone marrow biopsy in May 2022 confirming the diagnosis, he received 1 cycle of RVD in June 2023 with daratumumab added to cycles 2 and 3 -He then moved to [place] in the summer 2022, where he was lost to follow-up and we presented to [facility] in April 2023 with cord compression -He received palliative radiation there with 1 cycle of CyBorD inpatient -He then received 1 cycle of D-KRd at [facility] before moving back to [place] -Since reestablishing in our clinic, he reinitiated treatment initially with D- KRd on 09/03/2023 that was complicated by possible hypersensitivity reaction to carfilzomib and was switched back to Velcade with steroid premedication on 09/18/2023 and most recently completed day 1 of cycle 2 on 10/09/2023 -We will continue with D-RVd with repeat myeloma labs performed on his next clinic visit Corie Douglas MD
== END 2023-10-11 18:04 | disposition home health service (06) | DRG 52 ==
LOC: EC 15:06 → 5NMEDONC 17:27 → OBSVTOIN 10-11 14:46
PROVIDERS: ADMIT Hospitalist; ATTEND Hospitalist
DX: G82.20 Paraplegia, unspecified (principal); C90.00 Multiple myeloma not having achieved remission; D61.818 Other pancytopenia; K59.00 Constipation, unspecified; M54.50 Low back pain, unspecified; R39.11 Hesitancy of micturition; D49.2 Neoplasm of unspecified behavior of bone, soft tissue, and skin; F41.9 Anxiety disorder, unspecified; Z53.29 Procedure and treatment not carried out because of patient's decision for other reasons; R26.89 Other abnormalities of gait and mobility; Z99.3 Dependence on wheelchair; Z79.60 Long term (current) use of unspecified immunomodulators and immunosuppressants; Z79.899 Other long term (current) drug therapy
CPT/HCPCS: 36415; 80048; 85025; 96374; 99285

== ENCOUNTER 2023-10-11 22:15 | Observation (INO) | payer OTHER ==
[2023-10-11] MEDS: HYDROmorphone 1 MG/ML 1 ML SYRINGE IVP STA (23:20)
[2023-10-12] MEDS: HYDROmorphone 0.5 MG/0.5 ML SYRINGE IVP STA (00:33)
--- NOTE | 2023-10-12 00:53 | XR ---
EXAM: XR Right Hip With Pelvis When Performed, 2 or 3 Views CLINICAL HISTORY: Fall TECHNIQUE: Two or three views of the right hip with pelvis when performed. COMPARISON: Bilateral hips 04/21/2022 FINDINGS: Bones/joints: No acute osseous traumatic injury or abnormal alignment involving the right hip. Heterotopic calcification measuring 6 mm along the superior-lateral margin of the acetabulum is not definitively identified on the previous examination; however, the appearance is well- corticated. The included pelvic bones are intact. Soft tissues: Unremarkable. IMPRESSION: No acute osseous traumatic injury or abnormal alignment involving the right hip. Incidental mild degenerative changes noted.
[2023-10-12] MEDS: HYDROmorphone 1 MG/ML 1 ML SYRINGE IVP STA (02:07)
[2023-10-12 02:43] VITALS: TEMP 98.2
[2023-10-12] MEDS ORDERED: ACETAMINOPHEN TAB 325 MG TAB PO PRN (03:07)
[2023-10-12] MEDS ORDERED: NALOXONE 0.4 MG/ML 1 ML VIAL IV PRN (03:07)
[2023-10-12] MEDS ORDERED: traMADol 50 MG TAB PO PRN ×2 (03:07→11:09)
--- NOTE | 2023-10-12 03:09 | ED ---
Fall HPI - General Chief Complaint: Fall Stated Complaint: Fall, R Hip Pain Time Seen by Provider: 10/11/23 22:32 Source: patient, EMS Mode of arrival: EMS - History of Present Illness Initial Comments: 48-year-old male with history of multiple myeloma presenting for evaluation after fall at home. Patient lost his balance while he was walking and fell hitting his right hip. No head injury, loss of consciousness, or use of blood thinners. He is having extreme pain with weightbearing. He took his at home Dilaudid which did not alleviate his pain. No numbness or discoloration. - Related Data Home Medications Medication Instructions Recorded Confirmed HYDROmorphone [Dilaudid] 4 mg PO Q4H PRN 09/04/23 10/09/23 Lenalidomide [Revlimid] 20 mg PO DIRECTED 09/04/23 10/09/23 Baclofen 5 mg PO BID PRN 10/09/23 10/09/23 dexAMETHasone [Decadron] 20 mg PO TU 10/09/23 10/09/23 Previous Rx's Medication Instructions Recorded traMADol HCl [Ultram] 50 mg PO Q6H PRN #6 tab 06/02/22 Psyllium Husk 100% [Metamucil 6 gm PO BID #60 packet 10/11/23 Packet] Allergies Allergy/AdvReac Type Severity Reaction Status Date / Time No Known Allergies Allergy Verified 10/09/23 17:55 Review of Systems ROS Statement: Those systems with pertinent positive or pertinent negative responses have been documented in the HPI. ROS Other: All systems not noted in ROS Statement are negative. 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 History of prior laminectomy decompression at lower thoracic with Dr. Dominguez in January 2022. History of multiple soft tissue masses throughout his thoracic lumbar and sacral spine. history lower extremity weakness History of Any Multi-Drug Resistant Organisms: None Reported Past Surgical History: No Surgical Hx Reported Additional Past Surgical History / Comment(s): back surgery to remove tumor december of 2021. Bone biospy of right hip, spinal decompression Past Anesthesia/Blood Transfusion Reactions: No Reported Reaction Past Psychological History: No Psychological Hx Reported Smoking Status: Never smoker Past Alcohol Use History: None Reported Past Drug Use History: None Reported General Exam Limitations: no limitations General appearance: alert, in no apparent distress Head exam: Present: atraumatic, normocephalic Eye exam: Present: normal appearance, EOMI Neck exam: Present: normal inspection. Absent: meningismus Respiratory exam: Absent: respiratory distress Cardiovascular Exam: Present: regular rate Right Hip exam: Present: tenderness. Absent: full ROM Neurovascular tendon exam: Present: no vascular compromise Neurological exam: Present: alert, oriented X3 Psychiatric exam: Present: normal affect, normal mood Skin exam: Present: warm, dry Course Vital Signs 10/11/23 10/12/23 10/12/23 22:22 00:38 02:41 Temperature 98.4 F 98.2 F Pulse Rate 83 74 69 Respiratory 18 16 17 Rate Blood Pressure 117/79 114/75 109/73 O2 Sat by Pulse 97 98 97 Oximetry Medical Decision Making - Medical Decision Making Was pt. sent in by a medical professional or institution (, PA, VOCATIONAL REHABILITATION COUNSELOR, urgent care, hospital, or halfway...) When possible be specific @ -No Did you speak to anyone other than the patient for history (EMS, parent, family, police, friend...)? What history was obtained from this source @ -No Did you review nursing and triage notes (agree or disagree)? Why? @ -I reviewed and agree with nursing and triage notes Were old charts reviewed (outside hosp., previous admission, EMS record, old EKG, old radiological studies, urgent care reports/EKG's, halfway records)? Report findings @ -No old charts were reviewed Differential Diagnosis (chest pain, altered mental status, abdominal pain women, abdominal pain men, vaginal bleeding, weakness, fever, dyspnea, syncope, headache, dizziness, GI bleed, back pain, seizure, CVA, palpatations, mental health, musculoskeletal)? @ -Differential Musculoskeletal Muscular strain, contusion, ligament sprain, fracture, arthritis, septic arthritis, bursitis, cellulitis, muscle spasm, nerve compression, DVT, arterial occlusion, herpes zoster, electrolyte abnormality, tumor.... This is not meant to be in all inclusive list EKG interpreted by me (3pts min.). @ -As above X-rays interpreted by me (1pt min.). @ -X-ray shows no acute osseous traumatic injury or abnormal alignment involving the right hip. Incidental mild degenerative changes noted. CT interpreted by me (1pt min.). @ -None done U/S interpreted by me (1pt. min.). @ -None done What testing was considered but not performed or refused? (CT, X-rays, U/S, labs)? Why? @ -None What meds were considered but not given or refused? Why? @ -None Did you discuss the management of the patient with other professionals (professionals i.e. DrArielle, PA, VOCATIONAL REHABILITATION COUNSELOR, lab, RT, psych nurse, public health social worker, financial cost analyst, teacher, resident medical officer, lining caser)? Give summary @ -My attending spoke with Dr. Preston accepted admission Was smoking cessation discussed for >3mins.? @ -No Was critical care preformed (if so, how long)? @ -No Were there social determinants of health that impacted care today? How? (Homelessness, low income, unemployed, alcoholism, drug addiction, transportation, low edu. Level, literacy, decrease access to med. care, shelter, rehab)? @ -No Was there de-escalation of care discussed even if they declined (Discuss DNR or withdrawal of care, Hospice)? DNR status @ -No What co-morbidities impacted this encounter? (DM, HTN, Smoking, COPD, CAD, Cancer, CVA, ARF, Chemo, Hep., AIDS, mental health diagnosis, sleep apnea, morbid obesity)? @ -None Was patient admitted / discharged? Hospital course, mention meds given and route, prescriptions, significant lab abnormalities, going to OR and other pertinent info. @ -48-year-old male presenting with chief complaint of right hip pain after fall. History of multiple myeloma, states that he has difficulty with ambulating at baseline, he lost his balance and fell while trying to walk with his walker. Neurovascularly intact. X-rays negative for fracture or dislocation. Patient is given multiple rounds of pain medication and is still unable to bear weight. He will be admitted for observation for pain management. Consult to physical therapy is placed. He is agreeable with this plan. I discussed this case with my attending Dr. Gordillo Undiagnosed new problem with uncertain prognosis? @ -No Drug Therapy requiring intensive monitoring for toxicity (Heparin, Nitro, Insulin, Cardizem)? @ -No Were any procedures done? @ -No Diagnosis/symptom? @ -Inability to ambulate Acute, or Chronic, or Acute on Chronic? @ -U Uncomplicated (without systemic symptoms) or Complicated (systemic symptoms)? @ -Complicated Side effects of treatment? @ -No Exacerbation, Progression, or Severe Exacerbation? @ -No Poses a threat to life or bodily function? How? (Chest pain, [place], [place], pneumonia, PE, COPD, DKA, ARF, appy, cholecystitis, CVA, Diverticulitis, Homicidal, Suicidal, threat to staff... and all critical care pts) @ -No Disposition Clinical Impression: Inability to ambulate due to hip Disposition: ADMITTED IP TO THIS HOSP Condition: Fair Time of Disposition: 03:09
[2023-10-12 05:12] VITALS: RESP 16
[2023-10-12] MEDS: HYDROmorphone 1 MG/ML 1 ML SYRINGE IVP PRN (05:13)
[2023-10-12] MEDS: KETOROLAC 15 MG/ML 1 ML VIAL IVP PRN (06:12)
[2023-10-12 09:24] VITALS: PULSE 74
[2023-10-12] MEDS ORDERED: BACLOFEN 10 MG TAB PO PRN (11:09)
[2023-10-12] MEDS ORDERED: HYDROmorphone 4 MG TABLET PO PRN (11:09)
[2023-10-12] MEDS ORDERED: NON FORMULARY DRUG (Lenalidomide [Revlimid] 20 MG Capsule) PO SCH (11:15)
--- NOTE | 2023-10-12 11:24 | P.HPIM ---
History of Present Illness Patient is 48-year-old male with diagnosis of multiple myeloma was discharged from the hospital yesterday on Decadron for her lower limb weakness and possible mets to the lumbar spine. Patient declined MRI does not want to take steroids and steroid which made his weakness improved. Patient given yesterday because he had a fall and he also has weakness in the legs. Patient is concerned about hip fracture which was not evident on the x-rays and patient is clinically doing well at this time he is still weak in bilateral lower extremities but still wanted to go home and wanted to change his regimen of steroids to every 8 hours 4 mg daily except on the days when he takes 20 mg as a part of chemo regimen for multiple myeloma. REVIEW OF SYSTEMS: All other systems are negative except those mentioned in the HPI PHYSICAL EXAMINATION: GENERAL: The patient is alert and oriented x3, not in any acute distress. Well developed, well nourished. HEENT: Pupils are round and equally reacting to light. EOMI. No scleral icterus. No conjunctival pallor. Normocephalic, atraumatic. No pharyngeal erythema. No thyromegaly. CARDIOVASCULAR: S1 and S2 present. No murmurs, rubs, or gallops. PULMONARY: Chest is clear to auscultation, no wheezing or crackles. ABDOMEN: Soft, nontender, nondistended, normoactive bowel sounds. No palpable organomegaly. MUSCULOSKELETAL: No joint swelling or deformity. EXTREMITIES: No cyanosis, clubbing, or pedal edema. NEUROLOGICAL: Gross neurological examination did not reveal any focal deficits. SKIN: No rashes. Assessment and plan Bilateral lower extremity weakness: Secondary to metastatic disease to the lumbar spine and patient wanted to go home on steroids does not want to pursue any further testing at this time patient will be discharged on 40 mg every 8 hourly for Decadron every day except on the days of 20 mg of Decadron he takes for multiple myeloma -Multiple myeloma patient is on chemo medication which she will continue -Pancytopenia secondary to multiple myeloma Patient will be given prescription for Decadron 4 mg every 8 hourly along with Pepcid for GI prophylaxis and will be discharged today patient will follow-up with primary care physician and oncology. 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 History of prior laminectomy decompression at lower thoracic with Dr. Dominguez in January 2022. History of multiple soft tissue masses throughout his thoracic lumbar and sacral spine. history lower extremity weakness History of Any Multi-Drug Resistant Organisms: None Reported Past Surgical History: No Surgical Hx Reported Additional Past Surgical History / Comment(s): back surgery to remove tumor december of 2021. Bone biospy of right hip, spinal decompression Past Anesthesia/Blood Transfusion Reactions: No Reported Reaction Past Psychological History: No Psychological Hx Reported Smoking Status: Never smoker Past Alcohol Use History: None Reported Past Drug Use History: None Reported Medications and Allergies Home Medications Medication Instructions Recorded Confirmed Type traMADol HCl [Ultram] 50 mg PO Q6H PRN #6 tab 06/02/22 10/12/23 Rx HYDROmorphone [Dilaudid] 4 mg PO Q4H PRN 09/04/23 10/12/23 History Lenalidomide [Revlimid] 20 mg PO DIRECTED 09/04/23 10/12/23 History Baclofen 5 mg PO BID PRN 10/09/23 10/12/23 History dexAMETHasone [Decadron] 20 mg PO TU 10/09/23 10/12/23 History Psyllium Husk 100% [Metamucil 6 gm PO BID #60 packet 10/11/23 10/12/23 Rx Packet] Famotidine [Pepcid] 20 mg PO BID #60 tablet 10/12/23 Rx dexAMETHasone [Decadron] 4 mg PO TID #100 tab 10/12/23 Rx Allergies Allergy/AdvReac Type Severity Reaction Status Date / Time No Known Allergies Allergy Verified 10/12/23 09:05 Physical Exam Vitals: Vital Signs Temp Pulse Resp BP Pulse Ox 10/12/23 09:00 74 16 116/81 97 10/12/23 05:11 71 16 103/66 98 10/12/23 02:41 98.2 F 69 17 109/73 97 10/12/23 00:38 74 16 114/75 98 10/11/23 22:22 98.4 F 83 18 117/79 97 Intake and Output 10/11/23 10/12/23 10/12/23 22:59 06:59 14:59 Other: Weight 77.111 kg
--- NOTE | 2023-10-12 11:24 | P.DS ---
Providers Date of admission: 10/12/23 03:08 Attending physician: Tomas Preston MD Primary care physician: [facility] Course: Patient is 48-year-old male with diagnosis of multiple myeloma was discharged from the hospital yesterday on Decadron for her lower limb weakness and possible mets to the lumbar spine. Patient declined MRI does not want to take steroids and steroid which made his weakness improved. Patient given yesterday because he had a fall and he also has weakness in the legs. Patient is concerned about hip fracture which was not evident on the x-rays and patient is clinically doing well at this time he is still weak in bilateral lower extremities but still wanted to go home and wanted to change his regimen of steroids to every 8 hours 4 mg daily except on the days when he takes 20 mg as a part of chemo regimen for multiple myeloma. REVIEW OF SYSTEMS: All other systems are negative except those mentioned in the HPI PHYSICAL EXAMINATION: GENERAL: The patient is alert and oriented x3, not in any acute distress. Well developed, well nourished. HEENT: Pupils are round and equally reacting to light. EOMI. No scleral icterus. No conjunctival pallor. Normocephalic, atraumatic. No pharyngeal erythema. No thyromegaly. CARDIOVASCULAR: S1 and S2 present. No murmurs, rubs, or gallops. PULMONARY: Chest is clear to auscultation, no wheezing or crackles. ABDOMEN: Soft, nontender, nondistended, normoactive bowel sounds. No palpable organomegaly. MUSCULOSKELETAL: No joint swelling or deformity. EXTREMITIES: No cyanosis, clubbing, or pedal edema. NEUROLOGICAL: Gross neurological examination did not reveal any focal deficits. SKIN: No rashes. Assessment and plan Bilateral lower extremity weakness: Secondary to metastatic disease to the lumbar spine and patient wanted to go home on steroids does not want to pursue any further testing at this time patient will be discharged on 40 mg every 8 hourly for Decadron every day except on the days of 20 mg of Decadron he takes for multiple myeloma -Multiple myeloma patient is on chemo medication which she will continue -Pancytopenia secondary to multiple myeloma Patient will be given prescription for Decadron 4 mg every 8 hourly along with Pepcid for GI prophylaxis and will be discharged today patient will follow-up with primary care physician and oncology. Patient Condition at Discharge: Fair Plan - Discharge Summary New Discharge Prescriptions: New dexAMETHasone [Decadron] 4 mg PO TID #100 tab Famotidine [Pepcid] 20 mg PO BID #60 tablet No Action HYDROmorphone [Dilaudid] 4 mg PO Q4H PRN PRN Reason: Pain Lenalidomide [Revlimid] 20 mg PO DIRECTED dexAMETHasone [Decadron] 20 mg PO Psyllium Husk 100% [Metamucil Packet] 6 gm PO BID #60 packet traMADol HCl [Ultram] 50 mg PO Q6H PRN #6 tab PRN Reason: Moderate Pain (Scale 4 To 6) Baclofen 5 mg PO BID PRN PRN Reason: Muscle Spasm Discharge Medication List traMADol HCl [Ultram] 50 mg PO Q6H PRN #6 tab 06/02/22 [Rx] HYDROmorphone [Dilaudid] 4 mg PO Q4H PRN 09/04/23 [History] Lenalidomide [Revlimid] 20 mg PO DIRECTED 09/04/23 [History] Baclofen 5 mg PO BID PRN 10/09/23 [History] dexAMETHasone [Decadron] 20 mg PO TU 10/09/23 [History] Psyllium Husk 100% [Metamucil Packet] 6 gm PO BID #60 packet 10/11/23 [Rx] Famotidine [Pepcid] 20 mg PO BID #60 tablet 10/12/23 [Rx] dexAMETHasone [Decadron] 4 mg PO TID #100 tab 10/12/23 [Rx] Follow up Appointment(s)/Referral(s): Kehinde Gama DO [Primary Care Provider] - 3 Days
[2023-10-12 11:37] VITALS: BP 118/70
[2023-10-12] MEDS ORDERED: PSYLLIUM HUSK 100% 6 GM PACKET PO SCH (21:00)
[2023-10-16] MEDS ORDERED: dexAMETHasone 4 MG TAB PO SCH (11:09)
== END 2023-10-12 11:51 | disposition home or self-care (01) ==
LOC: EC 22:15 → 5NMEDONC 10-12 03:08
PROVIDERS: ADMIT Internal Medicine; ATTEND Internal Medicine
DX: C90.00 Multiple myeloma not having achieved remission
CPT/HCPCS: 73502; G0378; J1170 ×3; J1885; 96374; 96375; 96376; 99285

== ENCOUNTER 2023-10-12 12:55 | Inpatient (IN) | payer OTHER ==
--- NOTE | 2023-10-12 13:15 | ED ---
Fall HPI - General Chief Complaint: Extremity Injury, Lower Stated Complaint: R Hip Pain Time Seen by Provider: 10/12/23 13:14 Source: patient, RN notes reviewed Mode of arrival: wheelchair Limitations: no limitations - History of Present Illness Initial Comments: This is a 48-year-old male who presents to the emergency department for right hip pain. Patient was evaluated here yesterday after falling and experiencing pain over his right hip. They could not get his pain under control, and he was subsequently admitted. States that he was discharged shortly after and he continues to have severe pain and is unable to ambulate. Denies hitting his he ad when he fell. Not taking any blood thinners. He does have a history of multiple myeloma and is on chemotherapy. MD Complaint: fall - Related Data Home Medications Medication Instructions Recorded Confirmed HYDROmorphone [Dilaudid] 4 mg PO Q4H PRN 09/04/23 10/12/23 Lenalidomide [Revlimid] 20 mg PO DIRECTED 09/04/23 10/12/23 Baclofen 5 mg PO BID PRN 10/09/23 10/12/23 dexAMETHasone [Decadron] 20 mg PO TU 10/09/23 10/12/23 dexAMETHasone [Decadron] 4 mg PO DIRECTED 10/12/23 10/12/23 Previous Rx's Medication Instructions Recorded traMADol HCl [Ultram] 50 mg PO Q6H PRN #6 tab 06/02/22 Psyllium Husk 100% [Metamucil 6 gm PO BID #60 packet 10/11/23 Packet] Famotidine [Pepcid] 20 mg PO BID #60 tablet 10/12/23 Allergies Allergy/AdvReac Type Severity Reaction Status Date / Time No Known Allergies Allergy Verified 10/12/23 09:05 Review of Systems ROS Statement: Those systems with pertinent positive or pertinent negative responses have been documented in the HPI. ROS Other: All systems not noted in ROS Statement are negative. 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 History of prior laminectomy decompression at lower thoracic with Dr. Dominguez in January 2022. History of multiple soft tissue masses throughout his thoracic lumbar and sacral spine. history lower extremity weakness History of Any Multi-Drug Resistant Organisms: None Reported Past Surgical History: No Surgical Hx Reported Additional Past Surgical History / Comment(s): back surgery to remove tumor december of 2021. Bone biospy of right hip, spinal decompression Past Anesthesia/Blood Transfusion Reactions: No Reported Reaction Past Psychological History: No Psychological Hx Reported Smoking Status: Never smoker Past Alcohol Use History: None Reported Past Drug Use History: None Reported General Exam Limitations: no limitations General appearance: alert, in no apparent distress Head exam: Present: atraumatic, normocephalic, normal inspection Respiratory exam: Present: normal lung sounds bilaterally. Absent: respiratory distress, wheezes, rales, rhonchi, stridor Cardiovascular Exam: Present: regular rate, normal rhythm, normal heart sounds. Absent: systolic murmur, diastolic murmur, rubs, gallop, clicks Extremities exam: Present: other (Shortening and external rotation of the right lower extremity. Range of motion limited by pain. 2+ DP and PT pulses.) Neurological exam: Present: alert, oriented X3, CN II-XII intact Psychiatric exam: Present: normal affect, normal mood Skin exam: Present: warm, dry, intact, normal color. Absent: rash Course Vital Signs 10/12/23 10/12/23 10/12/23 13:45 15:48 17:48 Temperature 98.3 F Pulse Rate 75 71 71 Respiratory 20 18 20 Rate Blood Pressure 121/83 118/83 119/80 O2 Sat by Pulse 99 98 98 Oximetry 10/12/23 20:00 Temperature Pulse Rate 75 Respiratory 18 Rate Blood Pressure 115/74 O2 Sat by Pulse 96 Oximetry Medical Decision Making - Medical Decision Making This is a 48-year-old male who presents to the emergency department for right hip pain. Was pt. sent in by a medical professional or institution? @ -No Did you speak to anyone other than the patient for history? @ -No Did you review nursing and triage notes? @ -Yes, and I agree, it is accurate with regards to the patient's symptoms. Were old charts reviewed? @ -X-ray of the right hip obtained earlier today demonstrating no acute frac tures. Differential Diagnosis? @ -Differential Musculoskeletal: Muscular strain, contusion, ligament sprain, fracture, arthritis, septic arthritis, bursitis, cellulitis, muscle spasm, nerve compression, DVT, arterial occlusion, herpes zoster, electrolyte abnormality, tumor.... This is not meant to be in all inclusive list EKG interpreted by me (3pts min.)? @ -EKG interpreted by me demonstrating the following: Sinus rhythm. Ventricular rate 67 bpm, MD interval 170 ms, QRS duration 105 ms, QTc 444 ms. X-rays interpreted by me (1pt min.)? @ -Not obtained CT interpreted by me (1pt min.)? @ -CT scan of the pelvis obtained. My interpretation identifies a right femoral neck fracture. U/S interpreted by me (1pt. min.)? @ -Not obtained What testing was considered but not performed? (CT, X-rays, U/S, labs)? Why? @ -None What meds were considered but not given? Why? @ -None Did you discuss the management of the patient with other professionals? @ -Yes, Analilia Petty with [facility]. She advised keeping the patient NPO after midnight for surgical intervention. Requested admission to medicine due to medical problems. Dr. Green accepts the patient for admission. Did you reconcile home meds? @ -No Was smoking cessation discussed for >3mins.? @ -No Was critical care preformed (if so, how long)? @ -No Were there social determinants of health that impacted care today? How? (Home lessness, low income, unemployed, alcoholism, drug addiction, transportation, low edu. Level, literacy, decrease access to med. care, [facility], rehab)? @ -No Was there de-escalation of care discussed even if they declined? (Discuss DNR or withdrawal of care, Hospice)? @ -No What co-morbidities impacted this encounter? (DM, HTN, Smoking, COPD, CAD, Ca ncer, CVA, Hep., AIDS, mental health diagnosis, sleep apnea, morbid obesity)? @ -Multiple myeloma Was patient admitted / discharged? @ -Admitted. Patient was discharged earlier today after being admitted for pain control for right hip pain following a fall. Given that he was still unable to ambulate, a CT scan of the pelvis was obtained for further evaluation. This identified an acute fracture of the right femoral neck with displacement and external rotation. There were other changes noted related to the multiple myeloma as well. Case discussed with orthopedics who advised keeping him NPO after midnight for anticipated surgical intervention in the morning. They requested admission to medicine due to patient's medical problems. This was discussed with internal medicine who was agreeable to being the primary admitting team. Preoperative lab work, EKG and chest x-ray ordered. Case discussed with ED attending Dr. Zhang. Undiagnosed new problem with uncertain prognosis? @ -None Drug Therapy requiring intensive monitoring for toxicity (Heparin, Nitro, Insulin, Cardizem)? @ -None Were any procedures done? @ -None Diagnosis/symptom? @ -Right femoral neck fracture, fall Acute, or Chronic, or Acute on Chronic? @ -Acute Uncomplicated (without systemic symptoms) or Complicated (systemic symptoms)? @ -Uncomplicated Side effects of treatment? @ -None Exacerbation, Progression, or Severe Exacerbation] @ -Not applicable Poses a threat to life or bodily function? @ -Yes, will limit patient's ability to ambulate - Lab Data Result diagrams: 10/12/23 15:35 10/12/23 15:35 Lab Results 10/12/23 10/12/23 10/12/23 Range/Units 15:35 15:35 15:35 WBC 4.2 (3.8-10.6) k/uL RBC 3.29 L (4.30-5.90) m/uL Hgb 10.6 L (13.0-17.5) gm/dL Hct 31.4 L (39.0-53.0) % MCV 95.7 (80.0-100.0) fL MCH 32.3 (25.0-35.0) pg MCHC 33.8 (31.0-37.0) g/dL RDW 13.5 (11.5-15.5) % Plt Count 64 L (150-450) k/uL MPV 11.1 Neutrophils % 90 % Lymphocytes % 5 % Monocytes % 5 % Eosinophils % 1 % Basophils % 0 % Neutrophils # 3.7 (1.3-7.7) k/uL Lymphocytes # 0.2 L (1.0-4.8) k/uL Monocytes # 0.2 (0-1.0) k/uL Eosinophils # 0.0 (0-0.7) k/uL Basophils # 0.0 (0-0.2) k/uL Manual Slide Review Performed Poikilocytosis Slight PT 10.9 (10.0-12.5) sec INR 1.0 (<1.2) APTT 19.9 L (22.0-30.0) sec Sodium 133 L (137-145) mmol/L Potassium 4.3 (3.5-5.1) mmol/L Chloride 104 (98-107) mmol/L Carbon Dioxide 22 (22-30) mmol/L Anion Gap 7 mmol/L BUN 20 (9-20) mg/dL Creatinine 0.72 (0.66-1.25) mg/dL Est GFR (CKD-EPI)AfAm >90 (>60 ml/min/1.73 sqM) Est GFR (CKD-EPI)NonAf >90 (>60 ml/min/1.73 sqM) Glucose 117 H (74-99) mg/dL Calcium 8.8 (8.4-10.2) mg/dL Total Bilirubin 0.9 (0.2-1.3) mg/dL AST 18 (17-59) U/L ALT 13 (4-49) U/L Alkaline Phosphatase 63 (38-126) U/L Total Protein 5.1 L (6.3-8.2) g/dL Albumin 3.5 (3.5-5.0) g/dL - Radiology Data Radiology results: report reviewed, image reviewed Disposition Clinical Impression: Fracture of femoral neck, right, Fall Disposition: ADMITTED IP TO THIS HOSP
--- NOTE | 2023-10-12 14:50 | CT ---
EXAMINATION TYPE: CT pelvis wo con CT DLP: 389.1 mGycm, Automated exposure control for dose reduction was used. DATE OF EXAM: 10/12/2023 2:34 PM COMPARISON: CT abdomen pelvis most recent from 07/01/2022, 10/11/2023 plain film. CLINICAL INDICATION:Male, 48 years old with history of Right hip pain; right hip pain TECHNIQUE: Axial CT pelvis wo con;Sagittal and coronal reformats were created on a separate workstat ion. Contrast used: mL of , (none if empty) Oral contrast used: without Oral Contrast (none if empty) FINDINGS: BLADDER: Unremarkable REPRODUCTIVE: Unremarkable. ABDOMEN & PELVIS STOMACH AND BOWEL: No evidence of bowel obstruction. Large amount stool in the colon. PERITONEUM/RETROPERITONEUM: No evidence of pneumoperitoneum or free fluid. VASCULATURE: No evidence of aortic aneurysm. MUSCULOSKELETAL: Fracture of the right femoral neck with external rotation. There are some lucent are as around the fracture site possibly representing underlying lesion. Compression deformity of the sup erior endplate of L3 LYMPH NODES: No gross evidence for lymphadenopathy. SOFT TISSUE/ABDOMINAL WALL: Containing umbilical hernia. IMPRESSION: Acute fracture of the right femoral neck with displacement and external rotation. There is some mild FDG activity in this region on prior PET/CT underlying pathologic fracture not excluded.
[2023-10-12] MEDS ORDERED: HYDROmorphone 4 MG TABLET PO PRN (15:11)
[2023-10-12] MEDS ORDERED: traMADol 50 MG TAB PO PRN (15:11)
[2023-10-12] MEDS ORDERED: BACLOFEN 10 MG TAB PO PRN (15:11)
[2023-10-12] MEDS ORDERED: ACETAMINOPHEN TAB 325 MG TAB PO PRN (15:30)
[2023-10-12] MEDS ORDERED: ONDANSETRON 4 MG/2 ML VIAL IVP PRN (15:30)
[2023-10-12] MEDS ORDERED: NALOXONE 0.4 MG/ML 1 ML VIAL IV PRN (15:30)
[2023-10-12] MEDS: dexAMETHasone 4 MG TAB PO SCH ×2 (15:44→16:07)
[2023-10-12 15:49] LABS: Basophils % (A) 0 %; Eosinophils % (A) 1 %; HCT 31.4 % (39.0-53.0); HGB 10.6 gm/dL (13.0-17.5); Lymphocytes # (A) 0.2 k/uL (1.0-4.8); Lymphocytes % (A) 5 %; MCH 32.3 pg (25.0-35.0); MCHC 33.8 g/dL (31.0-37.0); MCV 95.7 fL (80.0-100.0); Mean Platelet Volume 11.1; Monocytes # (A) 0.2 k/uL (0-1.0); Monocytes % (A) 5 %; Neutrophils # (A) 3.7 k/uL (1.3-7.7); Neutrophils % (A) 90 %; Poikilocytosis Slight; RBC 3.29 m/uL (4.30-5.90); RDW 13.5 % (11.5-15.5); WBC 4.2 k/uL (3.8-10.6)
[2023-10-12] MEDS: HYDROmorphone 1 MG/ML 1 ML SYRINGE IVP STA (16:03)
[2023-10-12 16:04] LABS: ALT 13 U/L (4-49); AST 18 U/L (17-59); African American GFR (CKD) >90 (>60 ml/min/1.73 sqM); Albumin 3.5 g/dL (3.5-5.0); Alkaline Phosphatase 63 U/L (38-126); Anion Gap 7 mmol/L; Blood Urea Nitrogen 20 mg/dL (9-20); Calcium 8.8 mg/dL (8.4-10.2); Carbon Dioxide 22 mmol/L (22-30); Chloride 104 mmol/L (98-107); Glucose 117 mg/dL (74-99); Non-African American GFR(CKD) >90 (>60 ml/min/1.73 sqM); Potassium 4.3 mmol/L (3.5-5.1); Sodium 133 mmol/L (137-145); Total Bilirubin 0.9 mg/dL (0.2-1.3); Total Protein 5.1 g/dL (6.3-8.2)
[2023-10-12 16:17] LABS: Platelet Count 64 k/uL (150-450)
[2023-10-12 16:21] LABS: Prothrombin Time 10.9 sec (10.0-12.5)
[2023-10-12 16:39] LABS: Partial Thromboplastin Time 19.9 sec (22.0-30.0)
[2023-10-12] MEDS: NON FORMULARY DRUG (Lenalidomide [Revlimid] 20 MG Capsule) PO SCH (16:40)
[2023-10-12] MEDS: LENALIDOMIDE 20 MG PO SCH (16:41)
--- NOTE | 2023-10-12 16:42 | P.CNOR ---
History of Present Illness - [facility] Consult date: 10/12/23 Consult reason: other (Right hip fracture) History of present illness: The patient is a 48 y/o male that presented to the Emergency department at [facility] with intractable right hip pain. He was recently discharged from this hospital yesterday when he was admitted with weakness. The patient does have multiple myeloma and is currently receiving treatment. He was seen by our partner, Dr. Crawford, for his back yesterday while in the hospital. He was discharge home and he states he fell. The patient went to the ER early this morning due to right hip pain after the fall. X-rays were negative for fracture and he was discharged at that time. The right hip pain continued and he came back to the ER, a pelvis CT was ordered that revealed a right femoral neck fracture that is likely pathologic. Orthopedics was consulted for further care and surgical treatment. He was admitted to the internal medicine service. Review of Systems Constitutional: Denies chills, Denies fatigue, Denies fever Cardiovascular: Denies chest pain, Denies shortness of breath Respiratory: Denies cough Gastrointestinal: Reports constipation, Denies diarrhea, Denies nausea, Denies vomiting Musculoskeletal: right: hip pain, hip stiffness, hip swelling Past Medical History Past Medical History: Cancer Additional Past Medical History / Comment(s): multiple myloma on chemo. History of prior laminectomy decompression at lower thoracic with Dr. Dominguez in January 2022. History of multiple soft tissue masses throughout his thoracic lumbar and sacral spine. history lower extremity weakness History of Any Multi-Drug Resistant Organisms: None Reported Past Surgical History: No Surgical Hx Reported Additional Past Surgical History / Comment(s): back surgery to remove tumor december of 2021. Bone biospy of right hip, spinal decompression Past Anesthesia/Blood Transfusion Reactions: No Reported Reaction Past Psychological History: No Psychological Hx Reported Smoking Status: Never smoker Past Alcohol Use History: None Reported Past Drug Use History: None Reported Medications and Allergies Home Medications Medication Instructions Recorded Confirmed Type traMADol HCl [Ultram] 50 mg PO Q6H PRN #6 tab 06/02/22 10/12/23 Rx HYDROmorphone [Dilaudid] 4 mg PO Q4H PRN 09/04/23 10/12/23 History Lenalidomide [Revlimid] 20 mg PO DIRECTED 09/04/23 10/12/23 History Baclofen 5 mg PO BID PRN 10/09/23 10/12/23 History dexAMETHasone [Decadron] 20 mg PO TU 10/09/23 10/12/23 History Psyllium Husk 100% [Metamucil 6 gm PO BID #60 packet 10/11/23 10/12/23 Rx Packet] Famotidine [Pepcid] 20 mg PO BID #60 tablet 10/12/23 10/12/23 Rx dexAMETHasone [Decadron] 4 mg PO DIRECTED 10/12/23 10/12/23 History Allergies Allergy/AdvReac Type Severity Reaction Status Date / Time No Known Allergies Allergy Verified 10/12/23 09:05 Physical Examination The patient is an 48 year-old male in no acute distress. He is alert and oriented 3. The patient's head is normocephalic, atraumatic. No pain upon palpation to the cervical spine, no step-offs noted. Exam of the bilateral upper extremities reveal no obvious deformities or wounds. Exam of the left lower extremity reveals no deformity or wounds. No pain upon range of motion of the left leg. Exam of the right lower extremity reveals severe guarding to the right hip. There is pain to palpation to the lateral hip. There is pain to external and internal rotation of the right hip. Calf is soft and nontender. He is able to wiggle his toes. Circulatory status is intact. Results CT of the pelvis dated 10/12/2023 reveals a displaced femoral neck fracture. - Labs Labs: Abnormal Lab Results - Last 24 Hours (Table) 10/12/23 10/12/23 10/12/23 Range/Units 15:35 15:35 15:35 RBC 3.29 L (4.30-5.90) m/uL Hgb 10.6 L (13.0-17.5) gm/dL Hct 31.4 L (39.0-53.0) % Plt Count 64 L (150-450) k/uL Lymphocytes # 0.2 L (1.0-4.8) k/uL APTT 19.9 L (22.0-30.0) sec Sodium 133 L (137-145) mmol/L Glucose 117 H (74-99) mg/dL Total Protein 5.1 L (6.3-8.2) g/dL H & H 10/12/23 Range/Units 15:35 Hgb 10.6 L (13.0-17.5) gm/dL Hct 31.4 L (39.0-53.0) % Coagulation 10/12/23 Range/Units 15:35 INR 1.0 (<1.2) Result Diagrams: 10/12/23 15:35 10/12/23 15:35 Assessment and Plan (1) Fall Current Visit: Yes Status: Acute Code(s): W19.XXXA - UNSPECIFIED FALL, INITIAL ENCOUNTER SNOMED Code(s): 6596698 (2) Fracture of femoral neck, right Current Visit: Yes Status: Acute Code(s): S72.001A - FRACTURE OF UNSP PART OF NECK OF RIGHT FEMUR, INIT SNOMED Code(s): 0903341 (3) Difficulty in walking Current Visit: No Status: Acute Priority: High Code(s): R26.2 - DIFFICULTY IN WALKING, NOT ELSEWHERE CLASSIFIED SNOMED Code(s): 955163867 (4) Multiple myeloma Current Visit: No Status: Acute Priority: High Code(s): C90.00 - MULTIPLE MYELOMA NOT HAVING ACHIEVED REMISSION SNOMED Code(s): 369870034 Plan: The clinical and x-ray findings were discussed with the patient. The case was discussed with Dr. Ken. Treatment options were discussed and surgical intervention is recommended. Due to his age and current status with MM, he would benefit from a total hip arthroplasty. We discussed the surgical plan as well as the expected postoperative course. Risks and benefits were reviewed including (but not limited to) the risks of infection, bleeding, blood clots, delayed or nonunion, anesthesia-related complications and possible need for additional surgery. Questions were invited and answered. The patient expressed understanding and wishes to proceed with surgery. The patient will be kept on bedrest. Continue PRN pain management. NPO at midnight. He is scheduled for a right total hip arthroplasty tomorrow morning. We will await pre-op clearance from internal medicine.
[2023-10-12] MEDS: HYDROmorphone 0.5 MG/0.5 ML SYRINGE IVP STA (17:50)
[2023-10-12] MEDS: PSYLLIUM HUSK 100% 6 GM PACKET PO SCH (20:13)
[2023-10-12] MEDS: HYDROmorphone 1 MG/ML 1 ML SYRINGE IVP PRN (20:18)
[2023-10-12] MEDS: FAMOTIDINE 20 MG TAB PO SCH (20:20)
--- NOTE | 2023-10-12 21:08 | XR ---
EXAMINATION TYPE: XR chest 1V portable DATE OF EXAM: 10/12/2023 Comparison: 09/04/2023 Clinical History: 48-year-old male Preop clearance Findings: Heart normal size. Lobulated peripheral opacities in both lungs persist. No other consolidation or pl eural effusion seen. Impression: Ongoing lobulated pleural/subpleural thickening along both hemithoraces. Further appropriate oncologi c evaluation recommended. Otherwise, no acute process seen.
[2023-10-13] MEDS: PANTOPRAZOLE 40 MG/10 ML VIAL IV SCH (07:54)
[2023-10-13] MEDS ORDERED: SUCCINYLCHOLINE CHLORIDE 200 MG/10 ML VIAL IV ONE (09:58)
[2023-10-13] MEDS ORDERED: ROCURONIUM 10 MG/ML (5 ML VIAL) IV ONE (09:58)
[2023-10-13] MEDS ORDERED: TRANEXAMIC 1,000 MG/100ML-NACL PREMIX BAG ONE (09:58)
[2023-10-13] MEDS ORDERED: GLYCOPYRROLATE 0.2 MG/ML 2 ML VIAL ONE (09:58)
[2023-10-13] MEDS ORDERED: MIDAZOLAM 2 MG/2 ML VIAL ONE (09:58)
[2023-10-13] MEDS ORDERED: LIDOCAINE 1% INJ 10MG/ML (20 ML MDV) ONE (09:58)
[2023-10-13] MEDS ORDERED: PROPOFOL 10 MG/ML 20 ML VIAL IV ONE (09:58)
[2023-10-13] MEDS ORDERED: fentaNYL (PF) 50 MCG/ML 2 ML AMP ONE (09:58)
[2023-10-13] MEDS ORDERED: NEOSTIGMINE 1 MG/ML 10 ML VIAL ONE (09:58)
[2023-10-13] MEDS: LACTATED RINGERS 1,000 ML IV ONE ×2 (10:02→10:30)
[2023-10-13] MEDS: ROPIVACAINE 5 MG/ML 30 ML VIAL MISCELLANE ONE (11:23)
--- NOTE | 2023-10-13 11:43 | P.OP ---
Date of Procedure: 10/13/23 Procedure(s) Performed: PREOPERATIVE DIAGNOSIS: Right hip femoral neck fracture, pathologic (multiple myeloma) POSTOPERATIVE DIAGNOSIS: Right hip femoral neck fracture, pathologic (multiple myeloma) OPERATION: Right hip cemented unipolar hemiarthroplasty. ANESTHESIA: Gen ESTIMATED BLOOD LOSS: 400 ml. WAXING MACHINE OPERATOR: Analilia Petty NP (assistance with: patient positioning, retraction, exposure, hemostasis, leg positioning, implantation, irrigation, closure, dressing) COMPLICATIONS: None apparent. COMPONENTS IMPLANTED: Karissa Heritage cemented femoral stem; unipolar femoral head; neck extension +14 mm. INDICATIONS: Jevon is a 48 year old male with multiple myeloma, who has been having hip pain for the last 2 days, culminating in the inability to walk. A CT scan in the ER showed a displaced right femoral neck fracture with pathologic characteristics consistent with metastatic disease. I have recommended surgical treatment with a cemented hybrid total hip or a cemented unipolar hemiarthroplasty. Considering his current status as having active cancer, as well as a low platelet count for which he is receiving preoperative platelets, I have told him that it is likely that we will just proceed with hemiarthroplasty as a total hip will involve considerably more blood loss. We have discussed revising the operation to a total hip later on after he has overcome his cancer and is healthier. Presumably he can make do with a katherine for at least a few years. I have discussed this procedure in detail and explained the potential risks and complications as being inclusive of, but not limited to: Bleeding, infection, scarring, discomfort, blood vessel and/or nerve damage, limb length inequality, gait disturbance, blood clot, pulmonary embolism, , and other risks. The consent form has been signed. PROCEDURE: After appropriate consent was obtained, the patient was taken to the operating room and placed in supine position. General anesthetic was administered and after confirmation of adequate anesthesia, the patient was placed into the lateral decubitus position with the affected side up. Care was taken to make sure that all pressure points were adequately padded and a Gautam hip positioner was utilized for positioning. The hip was prepped and draped in the usual aseptic fashion using a combination of Chloraprep and alcohol. Ioban drape was used for the case and the patient received intravenous antibiotics prior to the incision. 1 g intravenous tranexamic acid was adm inistered around the time of the prepping and draping, and another 1 g was administered at the time of closure. The incision was created directly over the greater trochanter and carried slightly posteriorly for a posterior approach to the hip. The incision was then deepened down to subcutaneous tissue and fascia tenzin. Fascia tenzin was split in line with the incision and split proximally along the fibers of the gluteus adolfo. The underlying fibers of the muscle were teased apart using finger dissection and bleeding vessels were picked up and coagulated. Retractor was then placed posteriorly consisting of a blunt Richardson. The short external rotators and capsule were exposed and good visualization of the attachment of the external rotators to the femur was established. The short external rotators and capsule were released using electrocautery from their femoral attachments. A hockey stick shaped incision was created in the capsule. Joint fluid and hemarthrosis was evacuated and the patient's hip was internally rotated to expose the fracture site. The femoral neck cut was created approximately 1 cm superior to the lesser trochanter using a reciprocating saw. Blood loss was noted as ongoing throughout the case despite aggressive management with cautery. The Aquamantis was available but was only minimally used. The femoral head and neck fragment was removed and visualization and palpation of the acetabular vault showed intact hyaline cartilage with no bone exposure or significant degeneration. The fragments of bone were sent to pathology in formalin for evaluation for cancer. Attention was then directed back to the proximal femur. Retractors were placed around the proximal femur and box osteotome was used followed by canal finder and trochanteric reamer. Cylindrical reaming was performed. Progressive broaching was then performed starting with a #10 broach and progressing final size, in a position of 10-15 degrees anteversion. [place] anteversion was within 5 degrees of stem position. The final size broach had excellent fit and fill of the patient's metaphysis and diaphysis. Calcar planing was performed. Trial reduction was then performed starting with appropriately sized femoral head and various neck extensions to evaluate stability, limb length equality, and soft tissue tension. Once these parameters were satisfactory, the corresponding final components were then called for. Trial components were removed. Decision at this time was final for not proceeding with a total hip. The femoral canal was sized for the centralizer and cement plug. Once the cement plug had been inserted distal to the planned length of the femoral component, the canal was pulse lavaged and brushed to remove any unstable bone. It was then dried with a lap sponge. Antibiotic- containing cement was mixed under vacuum conditions to decrease porosity and inserted into a cement gun. Distal centralizer was placed onto the femoral component with a bit of cement. The cement was allowed to reach a slightly doughy consistency and then the canal was filled retrograde with the cement gun. Thumb pressurization was performed three times. The femoral component was then inserted with the previously determined degree of anteversion. Excess cement was removed before it hardened completely. The femoral head was then impacted onto the [place]on taper. Blood and debris were removed from the acetabular socket and the hip was then reduced and checked for stability, limb length and soft tissue tension. These parameters were found to be satisfactory; the wound was then thoroughly irrigated with normal saline. Final hemostasis was obtained using electrocautery. Closure of the capsule was performed meticulously using #3 Vicryl suture. Four lyiokh-xa-klvon sutures were placed in the posterior capsule along with repair of the external rotators. The fascia tenzin was then repaired using combination of #3 Vicryl suture in interrupted fashion and Quill in running fashion. 2-0 Vicryl suture was used for the subcutaneous tissues and 3-0 Quill for the skin. Dermabond/cyanoacrylate was then applied. The patient tolerated the procedure well. There were no complications and the w ound bed was dry and there was no need for drain placement. Sterile dressing was then applied and the patient was carefully removed from the operating room table, placed on the stretcher and was taken to the recovery room in stable condition. Sponge and needle counts were correct.
[2023-10-13] MEDS ORDERED: diazePAM 5 MG TAB PO PRN (12:01)
[2023-10-13] MEDS ORDERED: HYDROcodone/APAP 5-325MG 1 EACH TAB PO PRN ×2 (12:01)
[2023-10-13] MEDS ORDERED: MAGNESIUM HYDROXIDE 2,400 MG/30 ML CUP PO PRN (12:01)
--- NOTE | 2023-10-13 12:40 | XR ---
EXAMINATION TYPE: XR Hip Limited RT DATE OF EXAM: 10/13/2023 Comparison: None Clinical History: 48-year-old male s/p right hip katherine postoperative evaluation Findings: Image shows placement of right hip hemiarthroplasty. Femoral stem component appears well seated witho ut periprosthetic fracture. Alignment grossly anatomic. Soft tissue swelling and scattered soft tissu e air related to recent operation. Impression: Uncomplicated postoperative appearance right hip hemiarthroplasty.
[2023-10-13 12:41] VITALS: BMI 23.0
[2023-10-13] MEDS: HYDROmorphone 0.5 MG/0.5 ML SYRINGE IVP PRN (13:28)
--- NOTE | 2023-10-13 16:20 | P.HPIM ---
History of Present Illness H&P Date: 10/13/23 History of present illness: 48-year-old male patient with past medical history significant for multiple myeloma on chemotherapy who presented to ER with a complaint of intractable right hip pain. Patient was recently discharged from the hospital yesterday when he was admitted for weakness. Patient was evaluated by orthopedic during last hospitalization. Patient presented to ER with complaint of fall, then presented to ER for complaint of right hip pain, x-ray was negative for fracture and was discharged home. Patient presented again with worsening right hip pain, CT pelvis was ordered which showed a right femoral neck fracture likely pathologic. Orthopedic on board. Patient underwent total right hip arthroplasty today. Patient complaining of right hip pain. Also complaining of fatigue. Patient denied any fever, chills, sore throat, shortness of breath, chest pain, palpitation, nausea vomiting diarrhea constipation abdominal pain dysuria urgency frequency. REVIEW OF SYSTEMS: CONSTITUTIONAL: No fever, no malaise, no fatigue. HEENT: No recent visual problems or hearing problems. Denied any sore throat. CARDIOVASCULAR: No chest pain, orthopnea, PND, no palpitations, no syncope. PULMONARY: No shortness of breath, no cough, no hemoptysis. GASTROINTESTINAL: No diarrhea, no nausea, no vomiting, no abdominal pain. NEUROLOGICAL: No headaches, no weakness, no numbness. HEMATOLOGICAL: Denies any bleeding or petechiae. GENITOURINARY: Denies any burning micturition, frequency, or urgency. MUSCULOSKELETAL/RHEUMATOLOGICAL: Denies any joint pain, swelling, or any muscle pain. ENDOCRINE: Denies any polyuria or polydipsia. The rest of the 14-point review of systems is negative. PHYSICAL EXAMINATION: GENERAL: A&O x3, NAD HEENT: EOMI, Sclerae anicteric, Moist Mucous membranes Neck: Supple, Non tender, No JVD PULMONARY: Equal breath souds B/L, No wheezing, No crackles. CARDIOVASCULAR: S1, S2 present. No murmurs, rubs, or gallops. ABDOMEN: Soft, nontender, nondistended, normoactive bowel sounds. No guarding or rebound tenderness. MUSCULOSKELETAL: No edema, No cyanosis. No clubbing. Normal ROM. Intact peripheral pulses. EXTREMITIES: No cyanosis, clubbing, or pedal edema. Skin: Warm. No Rash Assessment and plan: Fall: Right femoral neck fracture: Generalized weakness: Presented with fall, worsening right hip pain. CT pelvis showed right femoral neck fracture. Status post right total hip arthroplasty by orthopedic. Symptomatic pain control. Fall precautions. Neurovascular checks. PT/OT consult. Multiple myeloma: DVT prophylaxis Per orthopedic. Monitor vital signs and labs Continue telemetry monitoring Labs and medication were reviewed. Continue same treatment. Resume home medication. Further recommendations as per clinical course of the patient Dictation was produced using [email or web address] dictation software. please excuse any grammatical, word or spelling errors. 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 History of prior laminectomy decompression at lower thoracic with Dr. Dominguez in January 2022. History of multiple soft tissue masses throughout his thoracic lumbar and sacral spine. history lower extremity weakness History of Any Multi-Drug Resistant Organisms: None Reported Past Surgical History: No Surgical Hx Reported Additional Past Surgical History / Comment(s): back surgery to remove tumor december of 2021. Bone biospy of right hip, spinal decompression Past Anesthesia/Blood Transfusion Reactions: No Reported Reaction Past Psychological History: No Psychological Hx Reported Smoking Status: Never smoker Past Alcohol Use History: None Reported Additional Past Alcohol Use History / Comment(s): has not had a drink in about a year Past Drug Use History: None Reported Medications and Allergies Home Medications Medication Instructions Recorded Confirmed Type traMADol HCl [Ultram] 50 mg PO Q6H PRN #6 tab 06/02/22 10/12/23 Rx HYDROmorphone [Dilaudid] 4 mg PO Q4H PRN 09/04/23 10/12/23 History Lenalidomide [Revlimid] 20 mg PO DIRECTED 09/04/23 10/12/23 History Baclofen 5 mg PO BID PRN 10/09/23 10/12/23 History dexAMETHasone [Decadron] 20 mg PO TU 10/09/23 10/12/23 History Psyllium Husk 100% [Metamucil 6 gm PO BID #60 packet 10/11/23 10/12/23 Rx Packet] Famotidine [Pepcid] 20 mg PO BID #60 tablet 10/12/23 10/12/23 Rx dexAMETHasone [Decadron] 4 mg PO DIRECTED 10/12/23 10/12/23 History Allergies Allergy/AdvReac Type Severity Reaction Status Date / Time No Known Allergies Allergy Verified 10/12/23 09:05 Physical Exam Vitals: Vital Signs Temp Pulse Pulse Resp BP BP Pulse Ox 10/13/23 14:21 97.7 F 64 18 134/87 98 10/13/23 12:43 64 20 122/71 98 10/13/23 12:28 59 L 18 129/74 96 10/13/23 12:13 68 16 132/74 100 10/13/23 11:58 97.0 F L 78 16 107/68 99 10/13/23 09:53 96.9 F L 64 20 108/66 98 10/13/23 08:00 98.2 F 63 18 111/73 98 10/13/23 01:22 98.1 F 67 15 106/65 100 10/12/23 21:01 97.5 F L 74 17 121/73 99 10/12/23 20:00 75 18 115/74 96 10/12/23 17:48 71 20 119/80 98 Intake and Output 10/13/23 10/13/23 10/13/23 06:59 14:59 22:59 Intake Total 2007 Output Total 1425 400 Balance -1425 1608 Intake: IV 1750 Blood Product 258 Platelet Pheresis Pas 258 Psoralen Unit [id number] Output: Urine 1425 Estimated Blood Loss 400 Other: Weight 77.111 kg Results CBC & Chem 7: 10/12/23 15:35 10/12/23 15:35 Labs: Abnormal Lab Results - Last 24 Hours (Table) 10/12/23 Range/Units 15:35 APTT 19.9 L (22.0-30.0) sec Thrombosis Risk Factor Assmnt - Choose All That Apply Each Factor Represents 1 point: Age 41-60 years, Medical pt on bed rest Other Risk Factors: Yes Each Risk Factor Represents 2 Points: Patient confined to bed Each Risk Factor Represents 5 Points: Hip, pelvis, or leg fracture (< 1 month) Thrombosis Risk Factor Assessment Total Risk Factor Score: 9 Thrombosis Risk Factor Assessment Level: High Risk
[2023-10-13] MEDS: SENNOSIDES-DOCUSATE SODIUM 1 EACH TAB PO SCH (19:44)
[2023-10-14] MEDS ORDERED: oxyCODONE-APAP 5-325MG 1 EACH TAB PO PRN (07:57)
[2023-10-14 10:04] LABS: Basophils # (A) 0 X 10*3/uL (0.00-0.10); Basophils % (A) 0 %; Eosinophils # (A) 0.01 X 10*3/uL (0.04-0.35); Eosinophils % (A) 0.4 %; Immature Platelet Fraction 9.6 % (1.1-6.1); Lymphocytes % (A) 14.7 %; MCH 32.4 pg (27.0-32.0); MCHC 33.3 g/dL (32.0-37.0); MCV 97.2 FL (80.0-97.0); Mean Platelet Volume 13.8 FL (9.5-12.2); Monocytes # (A) 0.29 X 10*3/uL (0.20-1.00); Monocytes % (A) 10.7 %; NRBC Per 100 WBC 0 X 10*3/uL (0.00-0.01); Neutrophils # (A) 2.01 X 10*3/uL (1.80-7.70); Neutrophils % (A) 73.8 %; Platelet Count 46 X 10*3/uL (140-440); RBC 2.47 X 10*6/uL (4.40-5.60); RDW 12.8 % (11.5-14.5); WBC 2.72 X 10*3/uL (4.50-10.00)
[2023-10-14] MEDS: HYDROmorphone 2 MG TAB PO PRN (10:40)
--- NOTE | 2023-10-14 11:25 | P.PN ---
Subjective Progress Note Date: 10/14/23 Principal diagnosis: Status post right hip katherine This is a 48 year-old male post right hip hemiarthroplasty. This is post-op day 1. The patient was evaluated at the bedside today. The patient denies nausea, vomiting, abdominal pain, shortness of breath, and chest pain this morning. He states his pain is controlled at this time. The patient has not been up with physical therapy. Objective - Vital Signs Vital signs: Vital Signs Temp 98.9 F 10/14/23 07:17 Pulse 70 10/14/23 07:45 Resp 18 10/14/23 07:45 BP 123/82 10/14/23 07:17 Pulse Ox 98 10/14/23 07:17 FiO2 Intake & Output 10/13/23 10/14/23 10/14/23 18:59 06:59 18:59 Intake Total 2007 Output Total 400 1200 Balance 1608 -1200 Weight 77.111 kg Intake: IV 1750 Blood Product 258 Platelet Pheresis Pas 258 Psoralen Unit [id number] Output: Urine 1200 Estimated Blood Loss 400 Other: Voiding Method Urinal Urinal # Voids 0 - Exam The patient does not appear in acute distress. Alert and orientated x3. Dressing is clean dry and intact. Incision appears fine with no erythema or active drainage. Calf is soft and nontender. Good foot and ankle motion without difficulty. Sensation and circulatory status is intact. - Labs CBC & Chem 7: 10/14/23 06:20 10/12/23 15:35 Labs: Abnormal Lab Results - Last 24 Hours (Table) 10/13/23 10/14/23 Range/Units 10:26 06:20 WBC 2.72 L (4.50-10.00) X 10*3/uL RBC 2.47 L (4.40-5.60) X 10*6/uL Hgb 8.0 L (13.0-17.0) g/dL Hct 24.0 L (39.6-50.0) % MCV 97.2 H (80.0-97.0) FL MCH 32.4 H (27.0-32.0) pg Plt Count 46 L (140-440) X 10*3/uL MPV 13.8 H (9.5-12.2) FL Lymphocytes # 0.40 L (0.90-5.00) X 10*3/uL Eosinophils # 0.01 L (0.04-0.35) X 10*3/uL Immature Plt Fraction 9.6 H (1.1-6.1) % Blood Bank Comment Sent to [facility] A Reference Lab Result See [facility] REF Reports A Assessment and Plan (1) Fall Current Visit: Yes Status: Acute Code(s): W19.XXXA - UNSPECIFIED FALL, INITIAL ENCOUNTER SNOMED Code(s): 4436887 (2) Fracture of femoral neck, right Current Visit: Yes Status: Acute Code(s): S72.001A - FRACTURE OF UNSP PART OF NECK OF RIGHT FEMUR, INIT SNOMED Code(s): 0521805 (3) Difficulty in walking Current Visit: No Status: Acute Priority: High Code(s): R26.2 - DIFFICULTY IN WALKING, NOT ELSEWHERE CLASSIFIED SNOMED Code(s): 762982843 (4) Multiple myeloma Current Visit: No Status: Acute Priority: High Code(s): C90.00 - MULTIPLE MYELOMA NOT HAVING ACHIEVED REMISSION SNOMED Code(s): 829179190 Plan: 1. Continue pain control 2. Anticoagulation per internal medicine due to low platelet count 3. Start physical therapy and ambulation 4. Anticipate discharge home with homecare vs. rehab depending on his course.
[2023-10-14] MEDS: HYDROmorphone 0.5 MG/0.5 ML SYRINGE IVP PRN (14:12)
--- NOTE | 2023-10-14 15:12 | P.PN ---
Subjective Progress Note Date: 10/14/23 Interval History: 48-year-old male patient with past medical history significant for multiple myeloma on chemotherapy who presented to ER with a complaint of intractable right hip pain. Patient was recently discharged from the hospital yesterday when he was admitted for weakness. Patient was evaluated by orthopedic during last hospitalization. Patient presented to ER with complaint of fall, then presented to ER for complaint of right hip pain, x-ray was negative for fracture and was discharged home. Patient presented again with worsening right hip pain, CT pelvis was ordered which showed a right femoral neck fracture likely pathologic. Orthopedic on board. Patient underwent total right hip ar throplasty today. Patient complaining of right hip pain. Also complaining of fatigue. Patient denied any fever, chills, sore throat, shortness of breath, chest pain, palpitation, nausea vomiting diarrhea constipation abdominal pain dysuria urgency frequency. 10/14/23- Patient was seen and examined today. Continue complain of right hip pain, pain management per orthopedics. Vital stable, afebrile. On room air. CBC showed WBCs down to 2.72, hemoglobin 8.0, platelet 46. Assessment and plan: Fall: Right femoral neck fracture: Generalized weakness: Presented with fall, worsening right hip pain. CT pelvis showed right femoral neck fracture. Status post right total hip arthroplasty by orthopedic. Symptomatic pain control. Fall precautions. Neurovascular checks. PT/OT consult. Multiple myeloma: Pancytopenia: Monitor CBC Drop in hemoglobin likely postoperative If pancytopenia worsened will consult hematology. DVT prophylaxis Per orthopedic. PHYSICAL EXAMINATION: GENERAL: The patient is A&O x3, NAD HEENT: EOMI, Sclerae anicteric, Moist Mucous membranes Neck: Supple, Non tender, No JVD CARDIOVASCULAR: S1, S2 present. No murmurs, rubs, or gallops. PULMONARY: Equal breath souds B/L, No wheezing, No crackles. ABDOMEN: Soft, nontender, nondistended, normoactive bowel sounds. No guarding or rebound tenderness. MUSCULOSKELETAL: Right hipdressing intact. No edema, No cyanosis. No clubbing. Normal ROM. Intact peripheral pulses. Skin; Warm. No rash. REVIEW OF SYSTEMS: CONSTITUTIONAL: No fever or chills. CARDIOVASCULAR: No chest pain, palpitations or syncope. PULMONARY: No shortness of breath, no cough, sore throat. GASTROINTESTINAL: No nausea, vomiting, diarrhea, abdominal pain. : No Dysuria, urgency, frequency. Extremities: No edema. Right hip pain. NEUROLOGICAL: No headaches, no weakness, or numbness Dictation was produced using [employer] dictation software. please excuse any grammatical, word or spelling errors. Objective - Vital Signs Vital signs: Vital Signs Temp 97.8 F 10/14/23 14:46 Pulse 77 10/14/23 14:46 Resp 18 10/14/23 14:46 BP 125/78 10/14/23 14:46 Pulse Ox 98 10/14/23 14:46 FiO2 Intake & Output 10/13/23 10/14/23 10/14/23 18:59 06:59 18:59 Intake Total 2007 Output Total 400 1200 Balance 1608 -1200 Weight 77.111 kg Intake: IV 1750 Blood Product 258 Platelet Pheresis Pas 258 Psoralen Unit [id number] Output: Urine 1200 Estimated Blood Loss 400 Other: Voiding Method Urinal Urinal # Voids 0 - Labs CBC & Chem 7: 10/14/23 06:20 10/12/23 15:35 Labs: Abnormal Lab Results - Last 24 Hours (Table) 10/13/23 10/14/23 Range/Units 10:26 06:20 WBC 2.72 L (4.50-10.00) X 10*3/uL RBC 2.47 L (4.40-5.60) X 10*6/uL Hgb 8.0 L (13.0-17.0) g/dL Hct 24.0 L (39.6-50.0) % MCV 97.2 H (80.0-97.0) FL MCH 32.4 H (27.0-32.0) pg Plt Count 46 L (140-440) X 10*3/uL MPV 13.8 H (9.5-12.2) FL Lymphocytes # 0.40 L (0.90-5.00) X 10*3/uL Eosinophils # 0.01 L (0.04-0.35) X 10*3/uL Immature Plt Fraction 9.6 H (1.1-6.1) % Blood Bank Comment Sent to [facility] Reference Lab Result See [facility] REF Reports A
[2023-10-14] MEDS: LACTULOSE 20 GM/30 ML CUP PO ONE (15:47)
[2023-10-15] MEDS ORDERED: HYDROmorphone 1 MG/ML 1 ML SYRINGE ONE ×5 (08:29→23:30)
[2023-10-15] MEDS ORDERED: FAMOTIDINE 20 MG TAB ONE ×2 (08:29→20:42)
[2023-10-15] MEDS ORDERED: PANTOPRAZOLE 40 MG/10 ML VIAL ONE (08:29)
[2023-10-15] MEDS ORDERED: PSYLLIUM HUSK 100% 6 GM PACKET PO ONE ×2 (08:29→08:36)
[2023-10-15] MEDS ORDERED: dexAMETHasone 4 MG TAB ONE (08:36)
[2023-10-15] MEDS ORDERED: HYDROmorphone 0.5 MG/0.5 ML SYRINGE ONE (13:47)
[2023-10-15] MEDS ORDERED: SENNOSIDES-DOCUSATE SODIUM 1 EACH TAB PO ONE (20:42)
[2023-10-16] MEDS ORDERED: HYDROmorphone 1 MG/ML 1 ML SYRINGE ONE ×7 (02:25→21:42)
[2023-10-16] MEDS ORDERED: FAMOTIDINE 20 MG TAB ONE ×2 (08:35→21:26)
[2023-10-16] MEDS ORDERED: PSYLLIUM HUSK 100% 6 GM PACKET PO ONE ×2 (08:36→21:26)
[2023-10-16] MEDS ORDERED: PANTOPRAZOLE 40 MG/10 ML VIAL ONE (08:36)
[2023-10-16] MEDS ORDERED: dexAMETHasone 4 MG TAB PO SCH (15:11)
[2023-10-16] MEDS ORDERED: SENNOSIDES-DOCUSATE SODIUM 1 EACH TAB PO ONE (21:26)
[2023-10-17] MEDS ORDERED: HYDROmorphone 1 MG/ML 1 ML SYRINGE ONE ×4 (00:56→14:23)
[2023-10-17] MEDS ORDERED: FAMOTIDINE 20 MG TAB ONE (10:09)
[2023-10-17] MEDS ORDERED: PANTOPRAZOLE 40 MG/10 ML VIAL ONE (10:10)
[2023-10-17] MEDS ORDERED: PSYLLIUM HUSK 100% 6 GM PACKET PO ONE (10:10)
[2023-11-02 20:37] VITALS: BP 113/73; PULSE 78; RESP 20; TEMP 98.7
== END 2023-10-17 16:36 | disposition home or self-care (01) | DRG 522 ==
LOC: EC 12:55 → 4SSUR 16:01 → 5NMEDONC 19:22 → 4SSUR 19:24
PROVIDERS: ADMIT Internal Medicine; ATTEND Internal Medicine
PROC: 0SRR0J9 Replacement of Right Hip Joint, Femoral Surface with Synthetic Substitute, Cemented, Open Approach (ICD-10-PCS; principal; 2023-10-12)
PROC: 3E0T3BZ Introduction of Anesthetic Agent into Peripheral Nerves and Plexi, Percutaneous Approach (ICD-10-PCS; 2023-10-12)
DX: M84.451A Pathological fracture, right femur, initial encounter for fracture (principal); C90.00 Multiple myeloma not having achieved remission; D61.818 Other pancytopenia; R53.1 Weakness; W19.XXXA Unspecified fall, initial encounter
CPT/HCPCS: 36415; 71045; 72192; 73501; 80053; 85025; 85610; 85730; 86850; 86870; 86880; 86900; 86901; 86902; 88305; 88311; 88341; 88342; 93005; 96374; 96375; 96376; 99285

== ENCOUNTER 2023-10-24 15:11 | Emergency (ER) | payer OTHER ==
--- NOTE | 2023-11-27 15:51 | US ---
Patient Jevon Harper ID [id number] Order # EXAMINATION TYPE: US venous doppler duplex LE RT DATE OF EXAM: 10/25/2023 9:31 AM COMPARISON: NONE CLINICAL INDICATION: Pain and edema SIDE PERFORMED: Right TECHNIQUE: The lower extremity deep venous system is examined utilizing real time linear array sonog ed with graded compression, doppler sonography and color-flow sonography. VESSELS IMAGED: Common Femoral Vein Deep Femoral Vein Greater Saphenous Vein * Femoral Vein Popliteal Vein Small Saphenous Vein * Proximal Calf Veins (* superficial vessels) Right Leg: Negative for DVT IMPRESSION: 1. Right lower extremity ultrasound negative for deep venous thrombosis.
== END 2023-10-24 21:36 | disposition home or self-care (01) ==
LOC: EC 15:11
DX: R60.0 Localized edema (principal)
CPT/HCPCS: 99283

== ENCOUNTER 2023-11-07 15:40 | Inpatient (IN) | payer OTHER ==
--- NOTE | 2023-11-07 16:29 | ED ---
General Adult HPI - General Chief complaint: Recheck/Abnormal Lab/Rx Stated complaint: bed sore Time Seen by Provider: 11/07/23 16:29 Source: patient, family Mode of arrival: wheelchair Limitations: no limitations - History of Present Illness Initial comments: 48-year-old male with history of multiple myeloma presenting with chief complaint of generalized weakness. Patient reports that he feels generally weak and is having multiple aches and pains, this has been worse since his recent hip fracture and recovery from surgery. Patient has history of multiple myeloma, he is aware that his platelets are low. States that he had an episode of rectal bleeding earlier today. No abdominal pain. No vomiting, dizziness, chest pain, difficulty breathing, fever, chills. - Related Data Home Medications Medication Instructions Recorded Confirmed HYDROmorphone [Dilaudid] 4 mg PO Q4H PRN 09/04/23 11/08/23 Lenalidomide [Revlimid] 20 mg PO DIRECTED 09/04/23 11/08/23 Previous Rx's Medication Instructions Recorded traMADol HCl [Ultram] 50 mg PO Q6H PRN #6 tab 06/02/22 Allergies Allergy/AdvReac Type Severity Reaction Status Date / Time No Known Allergies Allergy Verified 11/08/23 06:37 Review of Systems ROS Statement: Those systems with pertinent positive or pertinent negative responses have been documented in the HPI. ROS Other: All systems not noted in ROS Statement are negative. 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 History of prior laminectomy decompression at lower thoracic with Dr. Dominguez in January 2022. History of multiple soft tissue masses throughout his thoracic lumbar and sacral spine. history lower extremity weakness History of Any Multi-Drug Resistant Organisms: None Reported Past Surgical History: No Surgical Hx Reported Additional Past Surgical History / Comment(s): back surgery to remove tumor december of 2021. Bone biospy of right hip, spinal decompression Past Anesthesia/Blood Transfusion Reactions: No Reported Reaction Past Psychological History: No Psychological Hx Reported Smoking Status: Never smoker Past Alcohol Use History: None Reported Past Drug Use History: None Reported General Exam - General Exam Comments Initial Comments: Visual Physical Exam Vital signs reviewed General: Well-appearing, nontoxic, no acute distress. Head: Normocephalic, atraumatic Eyes: PERRLA, EOMI ENT: Airway patent Chest: Nonlabored breathing Skin: No visual rash, normal skin tone Neuro: Alert and oriented 3 Musculoskeletal: No gross abnormalities Limitations: no limitations General appearance: alert, in no apparent distress Head exam: Present: atraumatic, normocephalic Eye exam: Present: normal appearance, EOMI Neck exam: Present: normal inspection. Absent: meningismus Respiratory exam: Present: normal lung sounds bilaterally. Absent: respiratory distress, wheezes, rales, rhonchi, stridor Cardiovascular Exam: Present: regular rate, normal rhythm, normal heart sounds. Absent: systolic murmur, diastolic murmur, rubs, gallop, clicks GI/Abdominal exam: Present: soft. Absent: distended, tenderness, guarding, rebound, rigid Rectal exam: Present: normal inspection. Absent: black stool, bloody stool, hemorrhoids Extremities exam: Present: normal inspection Neurological exam: Present: alert, oriented X3 Psychiatric exam: Present: normal affect, normal mood Skin exam: Present: warm, dry Course Vital Signs 11/07/23 11/07/23 11/07/23 15:41 20:32 21:00 Temperature 98.2 F Pulse Rate 71 86 71 Pulse Rate [ Bus System Operator ] Respiratory 16 18 18 Rate Blood Pressure 110/77 112/71 113/78 Blood Pressure [Left Arm] O2 Sat by Pulse 100 98 97 Oximetry 11/08/23 11/08/23 11/08/23 05:00 06:04 08:00 Temperature 98 F Pulse Rate 58 L 62 Pulse Rate [ 78 Bus System Operator ] Respiratory 18 18 16 Rate Blood Pressure 107/69 101/73 Blood Pressure 111/70 [Left Arm] O2 Sat by Pulse 98 97 100 Oximetry 11/08/23 14:00 Temperature 98 F Pulse Rate Pulse Rate [ 73 Bus System Operator ] Respiratory 18 Rate Blood Pressure Blood Pressure 117/80 [Left Arm] O2 Sat by Pulse 100 Oximetry Medical Decision Making - Medical Decision Making Was pt. sent in by a medical professional or institution (, PA, SEPARATOR TENDER, urgent care, hospital, or assisted...) When possible be specific @ -No Did you speak to anyone other than the patient for history (EMS, parent, family, police, friend...)? What history was obtained from this source @ -No Did you review nursing and triage notes (agree or disagree)? Why? @ -I reviewed and agree with nursing and triage notes Were old charts reviewed (outside hosp., previous admission, EMS record, old EKG, old radiological studies, urgent care reports/EKG's, assisted records)? Report findings @ -No old charts were reviewed Differential Diagnosis (chest pain, altered mental status, abdominal pain women, abdominal pain men, vaginal bleeding, weakness, fever, dyspnea, syncope, headache, dizziness, GI bleed, back pain, seizure, CVA, palpatations, mental health, musculoskeletal)? @ -[facility] Differential Weakness: Hypoglycemia, shock, sepsis, hyponatremia, anemia, infection, IL, ETOH, adverse medicine reaction, overdose, stroke. ... This is not meant to be an all- inclusive list EKG interpreted by me (3pts min.). @ -As above X-rays interpreted by me (1pt min.). @ -None done CT interpreted by me (1pt min.). @ -None done U/S interpreted by me (1pt. min.). @ -None done What testing was considered but not performed or refused? (CT, X-rays, U/S, labs)? Why? @ -None What meds were considered but not given or refused? Why? @ -None Did you discuss the management of the patient with other professionals (professionals i.e. , PA, SEPARATOR TENDER, lab, RT, psych nurse, social staff worker, tray checker, teacher, district fire management officer, registered nurse hh case manager)? Give summary @ -Spoke with Rut from [facility] who accepted admission Was smoking cessation discussed for >3mins.? @ -No Was critical care preformed (if so, how long)? @ -No Were there social determinants of health that impacted care today? How? (Homelessness, low income, unemployed, alcoholism, drug addiction, transportation, low edu. Level, literacy, decrease access to med. care, retirement, rehab)? @ -No Was there de-escalation of care discussed even if they declined (Discuss DNR or withdrawal of care, Hospice)? DNR status @ -No What co-morbidities impacted this encounter? (DM, HTN, Smoking, COPD, CAD, Cancer, CVA, ARF, Chemo, Hep., AIDS, mental health diagnosis, sleep apnea, morbid obesity)? @ -Multiple myeloma Was patient admitted / discharged? Hospital course, mention meds given and route, prescriptions, significant lab abnormalities, going to OR and other pertinent info. @ -48-year-old with multiple myeloma presenting with chief complaint of generalized weakness. History of low platelets and he did have an episode of rectal bleeding today. No active rectal bleeding. Hemoglobin 9.3, this is stable for this patient. Platelets are 13. On rectal exam there is no obvious bleeding. Occult blood was positive. This is to be expected given that the patient did have the episode of rectal bleeding today. Patient will be admitted, 1 dose of platelets are ordered. Hemoglobin will be trended and hematology will be consulted. He is agreeable with this plan. I discussed this case with my attending Dr. Mercer Undiagnosed new problem with uncertain prognosis? @ -No Drug Therapy requiring intensive monitoring for toxicity (Heparin, Nitro, Insulin, Cardizem)? @ -No Were any procedures done? @ -No Diagnosis/symptom? @ -Thrombocytopenia, UTI Acute, or Chronic, or Acute on Chronic? @ -Acute Uncomplicated (without systemic symptoms) or Complicated (systemic symptoms)? @ -Complicated Side effects of treatment? @ -No Exacerbation, Progression, or Severe Exacerbation? @ -No Poses a threat to life or bodily function? How? (Chest pain, USA, IL, pneumonia, PE, COPD, DKA, ARF, appy, cholecystitis, CVA, Diverticulitis, Homicidal, Suicidal, threat to staff... and all critical care pts) @ -Yes - Lab Data Result diagrams: 11/10/23 05:08 11/09/23 06:14 Lab Results 11/07/23 11/07/23 11/07/23 Range/Units 17:52 17:52 17:52 WBC 2.7 L (3.8-10.6) k/uL RBC 2.44 L (4.30-5.90) m/uL Hgb 9.3 L (13.0-17.5) gm/dL Hct 27.5 L (39.0-53.0) % MCV 113.0 H D (80.0-100.0) fL MCH 38.4 H (25.0-35.0) pg MCHC 34.0 (31.0-37.0) g/dL RDW 20.1 H (11.5-15.5) % Plt Count 13 L* D (150-450) k/uL MPV 11.5 Neutrophils % 88 % Lymphocytes % 7 % Monocytes % 4 % Eosinophils % 0 % Basophils % 0 % Neutrophils # 2.3 (1.3-7.7) k/uL Lymphocytes # 0.2 L (1.0-4.8) k/uL Monocytes # 0.1 (0-1.0) k/uL Eosinophils # 0.0 (0-0.7) k/uL Basophils # 0.0 (0-0.2) k/uL Manual Slide Review Performed Large Platelets Present Polychromasia Present Hypochromasia Slight Poikilocytosis Slight Anisocytosis Moderate Macrocytosis Marked A Tear Drop Cells Present PT 11.4 (10.0-12.5) sec INR 1.1 (<1.2) APTT 25.0 (22.0-30.0) sec Sodium 133 L (137-145) mmol/L Potassium 4.3 (3.5-5.1) mmol/L Chloride 103 (98-107) mmol/L Carbon Dioxide 25 (22-30) mmol/L Anion Gap 5 mmol/L BUN 23 H (9-20) mg/dL Creatinine 0.76 (0.66-1.25) mg/dL Est GFR (CKD-EPI)AfAm >90 (>60 ml/min/1.73 sqM) Est GFR (CKD-EPI)NonAf >90 (>60 ml/min/1.73 sqM) Glucose 98 (74-99) mg/dL Plasma Lactic Acid Bent[place] (0.7-2.0) mmol/L Calcium 8.4 (8.4-10.2) mg/dL Magnesium 2.0 (1.6-2.3) mg/dL Total Bilirubin 1.4 H (0.2-1.3) mg/dL AST 25 (17-59) U/L ALT 42 (4-49) U/L Alkaline Phosphatase 109 (38-126) U/L Troponin I (0.000-0.034) ng/mL Total Protein 5.3 L (6.3-8.2) g/dL Albumin 3.6 (3.5-5.0) g/dL Urine Color Urine Appearance (Clear) Urine pH (5.0-8.0) Ur Specific [place] (1.001-1.035) Urine Protein (Negative) Urine Glucose (UA) (Negative) Urine Ketones (Negative) Urine Blood (Negative) Urine Nitrite (Negative) Urine Bilirubin (Negative) Urine Urobilinogen (<2.0) mg/dL Ur Leukocyte Esterase (Negative) Urine RBC (0-5) /hpf Urine WBC (0-5) /hpf Ur Squamous Epith Cells (0-4) /hpf Ur Renal Epithelial Cell (0) /hpf Urine Mucus (None) /hpf Stool Occult Blood (Negative) Blood Type Blood Type Recheck Bld Type Recheck Status Antibody Screen Antibody Identification Direct Antiglob Test Transfuse Platelets Spec Expiration Date 11/07/23 11/07/23 11/07/23 Range/Units 17:52 17:52 20:32 WBC (3.8-10.6) k/uL RBC (4.30-5.90) m/uL Hgb (13.0-17.5) gm/dL Hct (39.0-53.0) % MCV (80.0-100.0) fL MCH (25.0-35.0) pg MCHC (31.0-37.0) g/dL RDW (11.5-15.5) % Plt Count (150-450) k/uL MPV Neutrophils % % Lymphocytes % % Monocytes % % Eosinophils % % Basophils % % Neutrophils # (1.3-7.7) k/uL Lymphocytes # (1.0-4.8) k/uL Monocytes # (0-1.0) k/uL Eosinophils # (0-0.7) k/uL Basophils # (0-0.2) k/uL Manual Slide Review Large Platelets Polychromasia Hypochromasia Poikilocytosis Anisocytosis Macrocytosis Tear Drop Cells PT (10.0-12.5) sec INR (<1.2) APTT (22.0-30.0) sec Sodium (137-145) mmol/L Potassium (3.5-5.1) mmol/L Chloride (98-107) mmol/L Carbon Dioxide (22-30) mmol/L Anion Gap mmol/L BUN (9-20) mg/dL Creatinine (0.66-1.25) mg/dL Est GFR (CKD-EPI)AfAm (>60 ml/min/1.73 sqM) Est GFR (CKD-EPI)NonAf (>60 ml/min/1.73 sqM) Glucose (74-99) mg/dL Plasma Lactic Acid Bent[place] 0.9 (0.7-2.0) mmol/L Calcium (8.4-10.2) mg/dL Magnesium (1.6-2.3) mg/dL Total Bilirubin (0.2-1.3) mg/dL AST (17-59) U/L ALT (4-49) U/L Alkaline Phosphatase (38-126) U/L Troponin I <0.012 (0.000-0.034) ng/mL Total Protein (6.3-8.2) g/dL Albumin (3.5-5.0) g/dL Urine Color Yellow Urine Appearance Clear (Clear) Urine pH 7.0 (5.0-8.0) Ur Specific [place] 1.023 (1.001-1.035) Urine Protein 1+ H (Negative) Urine Glucose (UA) Negative (Negative) Urine Ketones Negative (Negative) Urine Blood Negative (Negative) Urine Nitrite Positive (Negative) Urine Bilirubin Negative (Negative) Urine Urobilinogen 4.0 (<2.0) mg/dL Ur Leukocyte Esterase Trace H (Negative) Urine RBC 2 (0-5) /hpf Urine WBC 11 H (0-5) /hpf Ur Squamous Epith Cells <1 (0-4) /hpf Ur Renal Epithelial Cell 15 (0) /hpf Urine Mucus Rare H (None) /hpf Stool Occult Blood (Negative) Blood Type Blood Type Recheck Bld Type Recheck Status Antibody Screen Antibody Identification Direct Antiglob Test Transfuse Platelets Spec Expiration Date 11/07/23 11/07/23 11/07/23 Range/Units 21:14 21:35 21:35 WBC (3.8-10.6) k/uL RBC (4.30-5.90) m/uL Hgb (13.0-17.5) gm/dL Hct (39.0-53.0) % MCV (80.0-100.0) fL MCH (25.0-35.0) pg MCHC (31.0-37.0) g/dL RDW (11.5-15.5) % Plt Count (150-450) k/uL MPV Neutrophils % % Lymphocytes % % Monocytes % % Eosinophils % % Basophils % % Neutrophils # (1.3-7.7) k/uL Lymphocytes # (1.0-4.8) k/uL Monocytes # (0-1.0) k/uL Eosinophils # (0-0.7) k/uL Basophils # (0-0.2) k/uL Manual Slide Review Large Platelets Polychromasia Hypochromasia Poikilocytosis Anisocytosis Macrocytosis Tear Drop Cells PT (10.0-12.5) sec INR (<1.2) APTT (22.0-30.0) sec Sodium (137-145) mmol/L Potassium (3.5-5.1) mmol/L Chloride (98-107) mmol/L Carbon Dioxide (22-30) mmol/L Anion Gap mmol/L BUN (9-20) mg/dL Creatinine (0.66-1.25) mg/dL Est GFR (CKD-EPI)AfAm (>60 ml/min/1.73 sqM) Est GFR (CKD-EPI)NonAf (>60 ml/min/1.73 sqM) Glucose (74-99) mg/dL Plasma Lactic Acid [place] (0.7-2.0) mmol/L Calcium (8.4-10.2) mg/dL Magnesium (1.6-2.3) mg/dL Total Bilirubin (0.2-1.3) mg/dL AST (17-59) U/L ALT (4-49) U/L Alkaline Phosphatase (38-126) U/L Troponin I (0.000-0.034) ng/mL Total Protein (6.3-8.2) g/dL Albumin (3.5-5.0) g/dL Urine Color Urine Appearance (Clear) Urine pH (5.0-8.0) Ur Specific [place] (1.001-1.035) Urine Protein (Negative) Urine Glucose (UA) (Negative) Urine Ketones (Negative) Urine Blood (Negative) Urine Nitrite (Negative) Urine Bilirubin (Negative) Urine Urobilinogen (<2.0) mg/dL Ur Leukocyte Esterase (Negative) Urine RBC (0-5) /hpf Urine WBC (0-5) /hpf Ur Squamous Epith Cells (0-4) /hpf Ur Renal Epithelial Cell (0) /hpf Urine Mucus (None) /hpf Stool Occult Blood Positive (Negative) Blood Type A Positive Blood Type Recheck A Pos Bld Type Recheck Status No Antibody Screen POSITIVE Antibody Identification See Comments Direct Antiglob Test Negative Transfuse Platelets 11/09/23 Spec Expiration Date 11/10/20232334 Disposition Clinical Impression: Thrombocytopenia, UTI (urinary tract infection) Disposition: ADMITTED IP TO THIS HOSP Condition: Fair Time of Disposition: 21:11
[2023-11-07 18:09] LABS: Anisocytosis Moderate; Basophils % (A) 0 %; Eosinophils % (A) 0 %; HCT 27.5 % (39.0-53.0); HGB 9.3 gm/dL (13.0-17.5); Hypochromasia Slight; Lymphocytes # (A) 0.2 k/uL (1.0-4.8); Lymphocytes % (A) 7 %; MCH 38.4 pg (25.0-35.0); Macrocytosis Marked; Mean Platelet Volume 11.5; Monocytes # (A) 0.1 k/uL (0-1.0); Monocytes % (A) 4 %; Neutrophils # (A) 2.3 k/uL (1.3-7.7); Neutrophils % (A) 88 %; Poikilocytosis Slight; RBC 2.44 m/uL (4.30-5.90); RDW 20.1 % (11.5-15.5); WBC 2.7 k/uL (3.8-10.6)
[2023-11-07 18:23] LABS: INR 1.1 (<1.2); Prothrombin Time 11.4 sec (10.0-12.5)
[2023-11-07 18:43] LABS: ALT 42 U/L (4-49); AST 25 U/L (17-59); African American GFR (CKD) >90 (>60 ml/min/1.73 sqM); Albumin 3.6 g/dL (3.5-5.0); Alkaline Phosphatase 109 U/L (38-126); Anion Gap 5 mmol/L; Blood Urea Nitrogen 23 mg/dL (9-20); Calcium 8.4 mg/dL (8.4-10.2); Carbon Dioxide 25 mmol/L (22-30); Chloride 103 mmol/L (98-107); Glucose 98 mg/dL (74-99); Non-African American GFR(CKD) >90 (>60 ml/min/1.73 sqM); Potassium 4.3 mmol/L (3.5-5.1); Sodium 133 mmol/L (137-145); Total Bilirubin 1.4 mg/dL (0.2-1.3); Total Protein 5.3 g/dL (6.3-8.2)
[2023-11-07 18:44] LABS: Platelet Count 13 k/uL (150-450); Polychromasia Present; Tear Drop Cells Present
[2023-11-07 18:45] LABS: Large Platelets Present
[2023-11-07 20:50] LABS: Appearance,Urine Clear (Clear); Bilirubin,Urine Negative (Negative); Blood,Urine Negative (Negative); Color,Urine Yellow; Glucose,Urine (UA) Negative (Negative); Ketones,Urine Negative (Negative); Leukocyte Esterase,Urine Trace (Negative); Mucus,Urine Rare /hpf; Nitrite,Urine Positive (Negative); Protein,Urine 1+ (Negative); RBC,Urine 2 /hpf (0-5); Renal Epithelial Cells,Urine 15 /hpf (0); Specific Gravity,Urine 1.023 (1.001-1.035); Squamous Epithelial Cell,Urine <1 /hpf (0-4); WBC,Urine 11 /hpf (0-5)
[2023-11-07] MEDS: DEXAMETHASONE SOD PHOSPHATE 10 MG/ML 1 ML VIAL IVP STA (21:04)
[2023-11-07] MEDS: HYDROmorphone 1 MG/ML 1 ML SYRINGE IVP STA (21:07)
[2023-11-07] MEDS ORDERED: ACETAMINOPHEN TAB 325 MG TAB PO PRN (21:13)
[2023-11-07] MEDS ORDERED: NALOXONE 0.4 MG/ML 1 ML VIAL IV PRN (21:13)
[2023-11-07] MEDS ORDERED: HYDROcodone/APAP 5-325MG 1 EACH TAB PO PRN (21:13)
[2023-11-07] MEDS: SODIUM CHLORIDE 0.9% 1,000 ML IV SCH (21:22)
[2023-11-07] MEDS: cefTRIAXone IN SWFI 1,000 MG/10 ML SYRINGE IVP STA (21:22)
[2023-11-08] MEDS: HYDROmorphone 1 MG/ML 1 ML SYRINGE IVP PRN (08:06)
[2023-11-08 11:16] LABS: Anisocytosis Slight; HCT 24.6 % (39.0-53.0); HGB 8.2 gm/dL (13.0-17.5); Hypochromasia Slight; MCH 38.2 pg (25.0-35.0); MCHC 33.4 g/dL (31.0-37.0); MCV 114.5 fL (80.0-100.0); Macrocytosis Marked; Mean Platelet Volume 11.7; Poikilocytosis Slight; RBC 2.15 m/uL (4.30-5.90)
[2023-11-08] MEDS ORDERED: traMADol 50 MG TAB PO PRN (11:42)
--- NOTE | 2023-11-08 11:49 | P.HPIM ---
History of Present Illness 48-year-old male with history of multiple myeloma came in with complaints of left hip pain and pain in the back with radiculopathy in both the legs without any significant weakness. Patient does have history of multiple myeloma patient is also concerned that he may be bleeding from his hemorrhoids. Patient platelet count is found to be extremely low at 13,000. Patient's hemoglobin is 9.3 and stable at that level serum sodium 133 REVIEW OF SYSTEMS: All other systems are negative except those mentioned in the HPI PHYSICAL EXAMINATION: GENERAL: The patient is alert and oriented x3, not in any acute distress. Well developed, well nourished. HEENT: Pupils are round and equally reacting to light. EOMI. No scleral icterus. No conjunctival pallor. Normocephalic, atraumatic. No pharyngeal erythema. No thyromegaly. CARDIOVASCULAR: S1 and S2 present. No murmurs, rubs, or gallops. PULMONARY: Chest is clear to auscultation, no wheezing or crackles. ABDOMEN: Soft, nontender, nondistended, normoactive bowel sounds. No palpable organomegaly. MUSCULOSKELETAL: No joint swelling or deformity. EXTREMITIES: No cyanosis, clubbing, or pedal edema. NEUROLOGICAL: Gross neurological examination did not reveal any focal deficits. SKIN: No rashes. Assessment and plan -Back pain with radiculopathy I will obtain a CT of the lumbar spine with contrast, further management depending on the contrast CT. -Left hip pain will rule out any pathological fracture with the x-ray of the hip -Hypovolemic hyponatremia IV fluids -Thrombocytopenia secondary to multiple myeloma, if patient starts bleeding again patient will be transfused with platelets. Oncology will evaluate the patient -Multiple myeloma: Patient is on lenalidomide and Decadron. -Hemorrhoids for which we will order hemorrhoidal cream. DVT prophylaxis: Pharmacological DVT prophylaxis not indicated because of severe thrombocytopenia Past Medical History Past Medical History: Cancer Additional Past Medical History / Comment(s): multiple myloma on chemo. History of prior laminectomy decompression at lower thoracic with Dr. Dominguez in January 2022. History of multiple soft tissue masses throughout his thoracic lumbar and sacral spine. history lower extremity weakness History of Any Multi-Drug Resistant Organisms: None Reported Past Surgical History: No Surgical Hx Reported Additional Past Surgical History / Comment(s): back surgery to remove tumor december of 2021. Bone biospy of right hip, spinal decompression Past Anesthesia/Blood Transfusion Reactions: No Reported Reaction Past Psychological History: No Psychological Hx Reported Smoking Status: Never smoker Past Alcohol Use History: None Reported Past Drug Use History: None Reported Medications and Allergies Home Medications Medication Instructions Recorded Confirmed Type traMADol HCl [Ultram] 50 mg PO Q6H PRN #6 tab 06/02/22 11/08/23 Rx HYDROmorphone [Dilaudid] 4 mg PO Q4H PRN 09/04/23 11/08/23 History Lenalidomide [Revlimid] 20 mg PO DIRECTED 09/04/23 11/08/23 History Allergies Allergy/AdvReac Type Severity Reaction Status Date / Time No Known Allergies Allergy Verified 11/08/23 06:37 Physical Exam Vitals: Vital Signs Temp Pulse Pulse Resp BP BP Pulse Ox 11/08/23 08:00 98 F 78 16 111/70 100 11/08/23 06:04 62 18 101/73 97 11/08/23 05:00 58 L 18 107/69 98 11/07/23 21:00 71 18 113/78 97 11/07/23 20:32 86 18 112/71 98 11/07/23 15:41 98.2 F 71 16 110/77 100 Intake and Output 11/07/23 11/08/23 11/08/23 22:59 06:59 14:59 Other: Weight 79.379 kg Results CBC & Chem 7: 11/07/23 17:52 11/07/23 17:52 Labs: Abnormal Lab Results - Last 24 Hours (Table) 11/07/23 11/07/23 11/07/23 Range/Units 17:52 17:52 20:32 WBC 2.7 L (3.8-10.6) k/uL RBC 2.44 L (4.30-5.90) m/uL Hgb 9.3 L (13.0-17.5) gm/dL Hct 27.5 L (39.0-53.0) % MCV 113.0 H D (80.0-100.0) fL MCH 38.4 H (25.0-35.0) pg RDW 20.1 H (11.5-15.5) % Plt Count 13 L* D (150-450) k/uL Lymphocytes # 0.2 L (1.0-4.8) k/uL Macrocytosis Marked A Sodium 133 L (137-145) mmol/L BUN 23 H (9-20) mg/dL Total Bilirubin 1.4 H (0.2-1.3) mg/dL Total Protein 5.3 L (6.3-8.2) g/dL Urine Protein 1+ H (Negative) Ur Leukocyte Esterase Trace H (Negative) Urine WBC 11 H (0-5) /hpf Urine Mucus Rare H (None) /hpf
[2023-11-08 12:00] LABS: Platelet Count 14 k/uL (150-450)
--- NOTE | 2023-11-08 12:28 | CT ---
EXAMINATION TYPE: CT lumbar spine w con DATE OF EXAM: 11/08/2023 COMPARISON: MRI 09/06/2023, CT 05/05/2022, CT pelvis 10/12/2023 HISTORY: back pain CT DLP: 811.1 mGycm Automated exposure control for dose reduction was used. CONTRAST: CT scan of the lumbar is performed with IV Contrast, patient injected with 100 mL of Isovue 300. Enhanced CT of the lumbar spine was performed. Bone and soft tissue window settings are submitted as well as coronal and sagittal reconstructions. There are bilateral pleural effusions and basilar consolidation. There is mixed sclerotic and lucent foci involving the pelvic bones greater on the right suspicious for myeloma or treated myeloma versus metastatic disease. No destructive lesions within the lumbar spine. Endplate compression deformity o f L3 is stable. Degenerative disc disease L5-S1. There is mixed lucent and sclerotic changes involving T12 vertebral body and to a lesser extent L1, L 2, and L3 which may be related the patient's reported history of myeloma. L1-L2: Normal disc space height. No disc herniation protrusion or central stenosis. No facet joint arthropathy. No evidence for foraminal encroachment. L2-L3: Normal disc space height. No disc herniation protrusion or central stenosis. No facet joint arthropathy. No evidence for foraminal encroachment. L3-L4: Mild circumferential disc bulging with mild hypertrophic change of the facets and ligamentum f lavum. Mild bilateral foraminal encroachment and borderline central stenosis. Chronic deformity of th e right and left transverse process L3 L4-L5: Mild generalized disc bulging slightly greater paracentrally and laterally to left. Mild left foraminal encroachment and mild anterior impression upon the thecal sac. L5-S1: Normal disc space height. No disc herniation protrusion or central stenosis. No facet joint arthropathy. No evidence for foraminal encroachment. IMPRESSION: 1. There are stable areas of sclerosis and osseous changes involving the pelvic bones greater on the right. There is a fixed area of abnormal attenuation within T12. The constellation of findings are atkinson spicious for malignancy\myeloma or treated myeloma\malignancy. Correlate clinically. 2. Multilevel disc bulging with foraminal encroachment as discussed above. 3. Large retroperitoneal masses on prior exam 05/05/2022 are not seen on today's exam. 4. Bilateral pleural effusions.
--- NOTE | 2023-11-08 12:40 | XR ---
EXAMINATION TYPE: XR Hip Complete 2 views LT DATE OF EXAM: 11/08/2023 Comparison: None Clinical History: 48-year-old male with left hip pain, no injury Findings: There is mild marginal spurring at the left hip but with preservation of hip joint space. Osteopenia. No acute fracture, subluxation, or dislocation seen. Impression: Osteopenia. Some minimal marginal spurring at the hip but with preserved joint space. No acute osseou s abnormality seen.
[2023-11-08 12:48] LABS: WBC 2.3 k/uL (3.8-10.6)
[2023-11-08 12:54] LABS: WBC 2.3 k/uL (3.8-10.6)
[2023-11-08 12:55] LABS: HCT 24.6 % (39.0-53.0); HGB 8.2 gm/dL (13.0-17.5); MCH 38.2 pg (25.0-35.0); MCHC 33.4 g/dL (31.0-37.0); MCV 114.5 fL (80.0-100.0); RBC 2.15 m/uL (4.30-5.90)
[2023-11-08 12:56] LABS: Anisocytosis Slight; Hypochromasia Slight; Macrocytosis Marked; Mean Platelet Volume 11.7; Platelet Count 14 k/uL (150-450)
[2023-11-08 12:57] LABS: Poikilocytosis Slight
[2023-11-08 13:08] LABS: Anisocytosis (M) Present; Monocytes # (M) 0.32 k/uL (0-1.0); Neutrophils % (M) 74 %; Nucleated Red Blood Cells 1 /100 WBC (0-0); Total Cells Counted 200
--- NOTE | 2023-11-08 13:57 | P.CONS ---
History of Present Illness - Reason for Consult Consult date: 11/08/23 MM Requesting physician: Mack Martinez - Chief Complaint low plt - History of Present Illness Mr. Harper is a 48-year-old male pt f Dr. James Douglas, on treatment for high risk IgG kappa light chain multiple myeloma, complicated by cord compression in December 2021 with plasmacytoma who received 3 cycles of DRvd treatment from June to August 2022 before moving to [place] where he was lost to follow-up. Subsequently he developed spinal cord compression in April 2023. Treated with radiation therapy with 1 cycle of CyBorD inpatient and 1 cycle of D-Krd at [facility] 07/03/23 before moving back to [place] to resume treatment. Myeloma labs in July 2023 kappa light chain of 80.85 with suppressed lambda light chain of less than 0.2 with kappa/lambda ratio of at least 400. He received day 1 of Kyprolis and daratumumab on 09/03/2023 that was complicated by episode of significant muscle stiffness with shaking of unclear etiology. It was not clear if this was a reaction to carfilzomib or daratumumab. He was hospitalized at [facility] from 09/04/2023 to 09/07/2023. MRI of the lumbar spine performed inpatient revealed no evidence of acute cord compression. Treatment with D-RVd was started back up on 09/18/2023 and received cycle 1 of t reatment with cycle 2 initiated on 10/09/2023. Subsequently, he was admitted for pathologic fracture of the right hip requiring ORIF on 10/13/2023. Treatment has been held since then due to thrombocytopenia, likely due to inflammation from the surgery. Repeat myeloma labs from 10/26/2023 reveals stable disease with IgG of 152. Platelet transfusion to help with thrombocytopenia was discussed, but pt wanted to continue to monitor platelet count at this time to see if they increase following surgery. PET/CT restaging is planned. Pt came to ER because he thinks his decubitus ulcer is infected. He is also concerned about his low platelets. Reports numbness and pain spreading to the bilateral hips, makes walking almost impossible, "my ankles are extremely bad" but the swelling has now resolved. Reports mild constipation, slight hemorrhoidal bleeding. No fever, significant SOB, chest pain, abd pain, N,V. Review of Systems 14 point ROS is neg except as stated in HPI Past Medical History Past Medical History: Cancer Additional Past Medical History / Comment(s): multiple myloma on chemo. History of prior laminectomy decompression at lower thoracic with Dr. Dominguez in January 2022. History of multiple soft tissue masses throughout his thoracic lumbar and sacral spine. history lower extremity weakness History of Any Multi-Drug Resistant Organisms: None Reported Past Surgical History: No Surgical Hx Reported Additional Past Surgical History / Comment(s): back surgery to remove tumor december of 2021. Bone biospy of right hip, spinal decompression Past Anesthesia/Blood Transfusion Reactions: No Reported Reaction Past Psychological History: No Psychological Hx Reported Smoking Status: Never smoker Past Alcohol Use History: None Reported Past Drug Use History: None Reported Medications and Allergies Home Medications Medication Instructions Recorded Confirmed Type traMADol HCl [Ultram] 50 mg PO Q6H PRN #6 tab 06/02/22 11/08/23 Rx HYDROmorphone [Dilaudid] 4 mg PO Q4H PRN 09/04/23 11/08/23 History Lenalidomide [Revlimid] 20 mg PO DIRECTED 09/04/23 11/08/23 History Allergies Allergy/AdvReac Type Severity Reaction Status Date / Time No Known Allergies Allergy Verified 11/08/23 06:37 Physical Exam Vitals: Vital Signs Temp Pulse Pulse Resp BP BP Pulse Ox 11/08/23 08:00 98 F 78 16 111/70 100 11/08/23 06:04 62 18 101/73 97 11/08/23 05:00 58 L 18 107/69 98 11/07/23 21:00 71 18 113/78 97 11/07/23 20:32 86 18 112/71 98 11/07/23 15:41 98.2 F 71 16 110/77 100 Intake and Output 11/07/23 11/08/23 11/08/23 22:59 06:59 14:59 Other: Weight 79.379 kg - Constitutional General appearance: average body habitus, cooperative, no acute distress - EENT Eyes: anicteric sclerae, EOMI ENT: hearing grossly normal, normal oropharynx - Neck Neck: no lymphadenopathy - Respiratory Respiratory: bilateral: CTA - Cardiovascular Rhythm: regular Heart sounds: normal: S1, S2 Abnormal Heart Sounds: no systolic murmur, no diastolic murmur, no rub, no S3 Gallop, no S4 Gallop, no click, no other foot Peripheral Edema: bilateral: Trace - Gastrointestinal General gastrointestinal: no absent bowel sounds, no decreased bowel sounds, no distended, no hepatomegaly, no hyperactive bowel sounds, normal bowel sounds, no organomegaly, no rigid, no scaphoid, soft, no splenomegaly, no tenderness, no umbilical hernia, no ventral hernia - Integumentary Integumentary: normal - Neurologic Tactile sensation maintained in the lower extremities Neurologic: CNII-XII intact - Musculoskeletal Musculoskeletal: strength equal bilaterally (only mild weakness) - Psychiatric Psychiatric: A&O x's 3, appropriate affect, intact judgment & insight Results CBC & Chem 7: 11/08/23 11:19 11/07/23 17:52 Labs: Abnormal Lab Results - Last 24 Hours (Table) 11/07/23 11/07/23 11/07/23 Range/Units 17:52 17:52 20:32 WBC 2.7 L (3.8-10.6) k/uL RBC 2.44 L (4.30-5.90) m/uL Hgb 9.3 L (13.0-17.5) gm/dL Hct 27.5 L (39.0-53.0) % MCV 113.0 H D (80.0-100.0) fL MCH 38.4 H (25.0-35.0) pg RDW 20.1 H (11.5-15.5) % Plt Count 13 L* D (150-450) k/uL Lymphocytes # 0.2 L (1.0-4.8) k/uL Macrocytosis Marked A Sodium 133 L (137-145) mmol/L BUN 23 H (9-20) mg/dL Total Bilirubin 1.4 H (0.2-1.3) mg/dL Total Protein 5.3 L (6.3-8.2) g/dL Urine Protein 1+ H (Negative) Ur Leukocyte Esterase Trace H (Negative) Urine WBC 11 H (0-5) /hpf Urine Mucus Rare H (None) /hpf 11/08/23 Range/Units 10:18 WBC 2.3 L (3.8-10.6) k/uL RBC 2.15 L (4.30-5.90) m/uL Hgb 8.2 L (13.0-17.5) gm/dL Hct 24.6 L (39.0-53.0) % MCV 114.5 H (80.0-100.0) fL MCH 38.2 H (25.0-35.0) pg RDW 20.0 H (11.5-15.5) % Plt Count 14 L* (150-450) k/uL Lymphocytes # (1.0-4.8) k/uL Macrocytosis Marked A Sodium (137-145) mmol/L BUN (9-20) mg/dL Total Bilirubin (0.2-1.3) mg/dL Total Protein (6.3-8.2) g/dL Urine Protein (Negative) Ur Leukocyte Esterase (Negative) Urine WBC (0-5) /hpf Urine Mucus (None) /hpf Assessment and Plan (1) Pancytopenia due to antineoplastic chemotherapy Current Visit: Yes Status: Acute Priority: High Code(s): D61.810 - ANTINEOPLASTIC CHEMOTHERAPY INDUCED PANCYTOPENIA; T45.1X5A - ADVERSE EFFECT OF ANTINEOPLASTIC AND IMMUNOSUP DRUGS, INIT SNOMED Code(s): 495249967601005 (2) Multiple myeloma not having achieved remission Current Visit: Yes Status: Chronic Priority: Medium Code(s): C90.00 - MULT IPLE MYELOMA NOT HAVING ACHIEVED REMISSION SNOMED Code(s): 365068608 Plan: Pancytopenia secondary to chemotherapy and recent surgery -Multiple myeloma treatment has been on hold since pathological fracture of the right hip surgical repair earlier this month. -Patient's counts low but safe range at this time. Transfuse for hemoglobin less than 7, or if symptomatic. Transfuse for platelets less than 10,000 or if symptomatic. No asa, NSAIDs, antociagulation. WBC and ANC adequate. No G-CSF at this time. Decubitus ulcer -Possible source of infection -Immunoglobulin levels ordered. -Wound care consult. Multiple myeloma -Treatment held due to low counts post op. -Restaging scans are ordered and follow-up already scheduled in the office. Doctor attests: I performed a history and physical examination of this patient, developed impression and plan of care. Discussed with dictator. I agree with dictators note, documented as a scribe.
[2023-11-08] MEDS: HYDROCORTISONE SUPPOSITORY 25 MG SUPP RECTAL SCH (14:51)
[2023-11-08] MEDS: ZINC OXIDE PASTE (Z-GUARD) 1 APPLIC TOPICAL PRN (20:39)
[2023-11-09 02:08] LABS: Immunoglobulin G <300.0 mg/dL (700.0-1600.0); Immunoglobulin M <35.0 mg/dL (40.0-280.0)
[2023-11-09 07:18] LABS: Anisocytosis Moderate; HCT 25.5 % (39.0-53.0); HGB 8.4 gm/dL (13.0-17.5); Hypochromasia Moderate; MCH 38.6 pg (25.0-35.0); MCHC 33.2 g/dL (31.0-37.0); MCV 116.4 fL (80.0-100.0); Macrocytosis Marked; Mean Platelet Volume 10.7; Poikilocytosis Slight; RBC 2.19 m/uL (4.30-5.90); RDW 20.1 % (11.5-15.5); WBC 1.8 k/uL (3.8-10.6)
[2023-11-09 07:49] LABS: Platelet Count 10 k/uL (150-450)
[2023-11-09 10:58] LABS: Blood Urea Nitrogen 20.4 mg/dL (9.0-27.0); Calcium 7.6 mg/dL (8.7-10.3); Carbon Dioxide 23.5 mmol/L (21.6-31.8); Chloride 108 mmol/L (96-109); Glucose 90 mg/dL (70-110); Magnesium 1.7 mg/dL (1.5-2.4); Potassium 3.7 mmol/L (3.5-5.5); Sodium 140 mmol/L (135-145)
[2023-11-09] MEDS ORDERED: Magnesium Replacement Protocol 1 EACH MISC MISCELLANE PRN (15:14)
--- NOTE | 2023-11-09 15:14 | P.PN ---
Subjective Progress Note Date: 11/09/23 48-year-old male with history of multiple myeloma came in with complaints of left hip pain and pain in the back with radiculopathy in both the legs without any significant weakness. Patient does have history of multiple myeloma patient is also concerned that he may be bleeding from his hemorrhoids. Patient platelet count is found to be extremely low at 13,000. Patient's hemoglobin is 9.3 and stable at that level serum sodium 133 11/09/2023 Patient is evaluated today in follow up. Patient continues to report significant left hip pain. Had an xray done that reveals osteopenia and some minimal jack nal spurring at the hip but with preserved joint space. No acute osseous abnormality seen. There are stable areas of sclerosis and osseous changes involving the pelvic bones greater on the right. There is a fixed area of abnormal attenuation within T12. The constellation of findings are suspicious f or malignancy/myeloma or treated myeloma/malignancy. Correlate clinically. Multilevel disc bulging with foraminal encroachment as discussed above, Large retroperitoneal masses on prior exam are not seen on todays exam from 05/05/2022. Bilateral pleural effusions noted. He does have sacral decub it does not look infected, actually it appears to be healing. and is small. Urinalysis not overly suspicious for infection and he is not on antibiotics. Oncology planning on starting IVIG. REVIEW OF SYSTEMS: CONSTITUTIONAL: No fever, no malaise, no fatigue. HEENT: No recent visual problems or hearing problems. Denied any sore throat. CARDIOVASCULAR: Reports chest pain, orthopnea, PND, no palpitations, no syncope. PULMONARY: Reports shortness of breath, no cough, no hemoptysis. GASTROINTESTINAL: No diarrhea, no nausea, no vomiting, no abdominal pain. NEUROLOGICAL: No headaches, no weakness, no numbness. PHYSICAL EXAMINATION: GENERAL: The patient is alert and oriented x3, not in any acute distress. Well developed, well nourished. HEENT: Pupils are round and equally reacting to light. EOMI. No scleral icterus. No conjunctival pallor. Normocephalic, atraumatic. No pharyngeal erythema. No thyromegaly. CARDIOVASCULAR: S1 and S2 present. No murmurs, rubs, or gallops. PULMONARY: Chest is clear to auscultation, no wheezing or crackles. ABDOMEN: Soft, nontender, nondistended, normoactive bowel sounds. No palpable organomegaly. MUSCULOSKELETAL: No joint swelling or deformity. EXTREMITIES: No cyanosis, clubbing, or pedal edema. NEUROLOGICAL: Gross neurological examination did not reveal any focal deficits. SKIN: No rashes. Assessment and plan -Back pain with radiculopathy CT reveals osseous changes pelvic bone greater on the right / T12 suspicious for myeloma. He will be started on IVIG. -Left hip pain will rule out any pathological fracture with the x-ray of the hip; xray reviewed and negative for pathological fracture -Recent surgery for the right hip for pathological fracture. -Hypovolemic hyponatremia IV fluids -Thrombocytopenia secondary to multiple myeloma, if patient starts bleeding again patient will be transfused with platelets. Oncology will evaluate the patient -Multiple myeloma: Patient is on lenalidomide and Decadron. -Hemorrhoids for which we will order hemorrhoidal cream. -Abnormal UA not suggestive of infection -Stage II sacral decub right buttock healing and non infected actually scabbed over DVT prophylaxis: Pharmacological DVT prophylaxis not indicated because of severe thrombocytopenia The impression and plan of care has been dictated by Suzi Alves, Nurse Practitioner as directed. Dr. Jose MD I have performed a history and physical examination and medical decision making of this patient, discussed the same with the dictator, and agree with the dictators assessment and plan as written, documented as a scribe. Based on total visit time, I have performed more than 50% of this visit. Objective - Vital Signs Vital signs: Vital Signs Temp 98.2 F 11/09/23 07:10 Pulse 75 11/09/23 07:10 Resp 16 11/09/23 07:10 BP 101/64 11/09/23 07:10 Pulse Ox 99 11/09/23 07:10 FiO2 Intake & Output 11/08/23 11/09/23 11/09/23 18:59 06:59 18:59 Intake Total 1020 Output Total 1000 100 500 Balance 20 -100 -500 Weight 79.379 kg Intake: Oral 1020 Output: Urine 1000 100 500 Other: Voiding Method Urinal Urinal - Labs CBC & Chem 7: 11/09/23 06:14 11/09/23 06:14 Labs: Abnormal Lab Results - Last 24 Hours (Table) 11/08/23 11/08/23 11/08/23 Range/Units 10:18 10:18 11:19 WBC 2.3 L 2.3 L (3.8-10.6) k/uL RBC 2.15 L 2.15 L (4.30-5.90) m/uL Hgb 8.2 L 8.2 L (13.0-17.5) gm/dL Hct 24.6 L 24.6 L (39.0-53.0) % MCV 114.5 H 114.5 H (80.0-100.0) fL MCH 38.2 H 38.2 H (25.0-35.0) pg RDW 20.0 H 20.0 H (11.5-15.5) % Plt Count 14 L* 14 L* (150-450) k/uL Lymphocytes # (Manual) 0.30 L (1.0-4.8) k/uL Nucleated RBCs 1 H (0-0) /100 WBC Macrocytosis Marked A Marked A IgG <300.0 L (700.0-1600.0) mg/dL IgA <65.0 L (60.0-350.0) mg/dL IgM <35.0 L (40.0-280.0) mg/dL 11/08/ Range/Units 06:14 WBC 1.8 L (3.8-10.6) k/uL RBC 2.19 L (4.30-5.90) m/uL Hgb 8.4 L (13.0-17.5) gm/dL Hct 25.5 L (39.0-53.0) % MCV 116.4 H (80.0-100.0) fL MCH 38.6 H (25.0-35.0) pg RDW 20.1 H (11.5-15.5) % Plt Count 10 L* (150-450) k/uL Lymphocytes # (Manual) (1.0-4.8) k/uL Nucleated RBCs (0-0) /100 WBC Macrocytosis Marked A IgG (700.0-1600.0) mg/dL IgA (60.0-350.0) mg/dL IgM (40.0-280.0) mg/dL Assessment and Plan Time with Patient: Less than 30
[2023-11-09] MEDS: MAGNESIUM SULFATE-D5W PMX 1 GM in DEXTROSE/WATER 1 100ML.BAG IVPB ONE (16:11)
--- NOTE | 2023-11-09 18:08 | P.PN ---
Progress Note - Text Progress Note Date: 11/09/23 Today CBC showed, WBC 1.8, hgb stable at 8.4. Plts 10,000 1 dose platelets ordered, however nursing paged our service and patient refused transfusion Pancytopenia appears to be r/t treatment effect. However, pt had reported intermittent rectal bleeding, possibly related to hemorrhoids Will obtain iron studies. IgG <300. Spoke with admitting team, no concern for infection at this time. Pt remains afebrile. Will hold IVIG at this time, unless concern for infection or fever is noted
[2023-11-09 19:45] LABS: % Iron Saturation 28.25 (15.00-50.00)
[2023-11-10] MEDS: PANTOPRAZOLE 40 MG TABLET PO SCH (08:16)
[2023-11-10 10:33] LABS: Basophils # (A) 0.01 X 10*3/uL (0.00-0.10); Basophils % (A) 0.5 %; Eosinophils # (A) 0.05 X 10*3/uL (0.04-0.35); Eosinophils % (A) 2.5 %; HCT 26.3 % (39.6-50.0); HGB 8.7 g/dL (13.0-17.0); Immature Platelet Fraction 10.6 % (1.1-6.1); Lymphocytes # (A) 0.28 X 10*3/uL (0.90-5.00); Lymphocytes % (A) 14.1 %; MCH 38.7 pg (27.0-32.0); MCHC 33.1 g/dL (32.0-37.0); MCV 116.9 FL (80.0-97.0); Monocytes # (A) 0.16 X 10*3/uL (0.20-1.00); Monocytes % (A) 8.1 %; NRBC Per 100 WBC 0 X 10*3/uL (0.00-0.01); Neutrophils # (A) 1.47 X 10*3/uL (1.80-7.70); Neutrophils % (A) 74.3 %; Platelet Count 14 X 10*3/uL (140-440); RBC 2.25 X 10*6/uL (4.40-5.60); RDW 21.4 % (11.5-14.5); Tear Drop Cells 2+; WBC 1.98 X 10*3/uL (4.50-10.00)
[2023-11-11 11:03] LABS: Basophils # (A) 0 X 10*3/uL (0.00-0.10); Basophils % (A) 0 %; Eosinophils # (A) 0.06 X 10*3/uL (0.04-0.35); Eosinophils % (A) 3.2 %; HGB 8.4 g/dL (13.0-17.0); Immature Platelet Fraction 12.3 % (1.1-6.1); Lymphocytes # (A) 0.26 X 10*3/uL (0.90-5.00); Lymphocytes % (A) 13.9 %; MCH 38.9 pg (27.0-32.0); MCHC 33.6 g/dL (32.0-37.0); MCV 115.7 FL (80.0-97.0); Mean Platelet Volume 13.5 FL (9.5-12.2); Monocytes # (A) 0.12 X 10*3/uL (0.20-1.00); Monocytes % (A) 6.4 %; NRBC Per 100 WBC 0 X 10*3/uL (0.00-0.01); Neutrophils # (A) 1.42 X 10*3/uL (1.80-7.70); Platelet Count 15 X 10*3/uL (140-440); RBC 2.16 X 10*6/uL (4.40-5.60); RDW 20.5 % (11.5-14.5); WBC 1.87 X 10*3/uL (4.50-10.00)
[2023-11-11 14:50] VITALS: BMI 23.7
[2023-11-11] MEDS: DOCUSATE 100 MG CAP PO SCH (20:32)
--- NOTE | 2023-11-11 23:22 | P.PN ---
Subjective Progress Note Date: 11/10/23 48-year-old male with history of multiple myeloma came in with complaints of left hip pain and pain in the back with radiculopathy in both the legs without any significant weakness. Patient does have history of multiple myeloma patient is also concerned that he may be bleeding from his hemorrhoids. Patient platelet count is found to be extremely low at 13,000. Patient's hemoglobin is 9.3 and stable at that level serum sodium 133 11/09/2023 Patient is evaluated today in follow up. Patient continues to report significant left hip pain. Had an xray done that reveals osteopenia and some minimal pollo inal spurring at the hip but with preserved joint space. No acute osseous abnormality seen. There are stable areas of sclerosis and osseous changes involving the pelvic bones greater on the right. There is a fixed area of abnormal attenuation within T12. The constellation of findings are suspicious for malignancy/myeloma or treated myeloma/malignancy. Correlate clinically. Multilevel disc bulging with foraminal encroachment as discussed above, Large retroperitoneal masses on prior exam are not seen on todays exam from 05/05/2022. Bilateral pleural effusions noted. He does have sacral decub it does not look infected, actually it appears to be healing. and is small. Urinalysis not overly suspicious for infection and he is not on antibiotics. Oncology was planning on starting IVIG. 11/10/2023 Patient is lying in the bed. Awake alert and oriented x 3. Left foot pain is better. X-ray of the hip showed osteopenia. Some minimal marginal spurring at the left hip but with preserved joint space. No acute osseous abnormality noted. Currently patient is on Dilaudid 1 mg every 3 hourly. On IV hydration with normal saline at 75 cc/h. Patient has been afebrile. No cough or sputum production. Laboratory data showed WBC 1.98 hemoglobin 8.7 and platelets 14. Patient also refused transfusion yesterday. Magnesium 1.8. Other medications reviewed. REVIEW OF SYSTEMS: CONSTITUTIONAL: No fever, no malaise, no fatigue. HEENT: No recent visual problems or hearing problems. Denied any sore throat. CARDIOVASCULAR: Reports chest pain, orthopnea, PND, no palpitations, no syncope. PULMONARY: Reports shortness of breath, no cough, no hemoptysis. GASTROINTESTINAL: No diarrhea, no nausea, no vomiting, no abdominal pain. NEUROLOGICAL: No headaches, no weakness, no numbness. PHYSICAL EXAMINATION: GENERAL: The patient is alert and oriented x3, not in any acute distress. Well developed, well nourished. HEENT: Pupils are round and equally reacting to light. EOMI. No scleral icterus. No conjunctival pallor. Normocephalic, atraumatic. No pharyngeal erythema. No thyromegaly. CARDIOVASCULAR: S1 and S2 present. No murmurs, rubs, or gallops. PULMONARY: Chest is clear to auscultation, no wheezing or crackles. ABDOMEN: Soft, nontender, nondistended, normoactive bowel sounds. No palpable organomegaly. MUSCULOSKELETAL: No joint swelling or deformity. EXTREMITIES: No cyanosis, clubbing, or pedal edema. NEUROLOGICAL: Gross neurological examination did not reveal any focal deficits. SKIN: No rashes. Assessment and plan -Back pain with radiculopathy CT reveals osseous changes pelvic bone greater on the right / T12 suspicious for myeloma. -Left hip pain will rule out any pathological fracture with the x-ray of the hip; xray reviewed and negative for pathological fracture -Recent surgery for the right hip for pathological fracture. -Hypovolemic hyponatremia IV fluids -Thrombocytopenia secondary to multiple myeloma, if patient starts bleeding again patient will be transfused with platelets. Oncology will evaluate the patient -Multiple myeloma: Patient is on lenalidomide and Decadron. -Hemorrhoids for which we will order hemorrhoidal cream. -Abnormal UA not suggestive of infection -Stage II sacral decub right buttock healing and non infected actually scabbed over DVT prophylaxis: Pharmacological DVT prophylaxis not indicated because of severe thrombocytopenia Objective - Vital Signs Vital signs: Vital Signs Temp 98.5 F 11/10/23 12:26 Pulse 76 11/10/23 12:26 Resp 16 11/10/23 12:26 BP 101/57 11/10/23 12:26 Pulse Ox 96 11/10/23 12:26 FiO2 Intake & Output 11/09/23 11/10/23 11/10/23 18:59 06:59 18:59 Intake Total 1620 1260 Output Total 1300 1100 850 Balance 320 160 -850 Intake: Intake, IV Titration 900 Amount Sodium Chloride 0.9% 1, 900 000 ml @ 75 mls/hr IV . [id number] [facility] Rx#:[id number] Oral 1620 360 Output: Urine 1300 1100 850 Other: Voiding Method Urinal Urinal Urinal # Bowel Movements 1 1 - Labs CBC & Chem 7: 11/11/23 04:40 11/09/23 06:14 Labs: Abnormal Lab Results - Last 24 Hours (Table) 11/09/23 11/10/23 Range/Units 12:25 05:08 WBC 1.98 L (4.50-10.00) X 10*3/uL RBC 2.25 L (4.40-5.60) X 10*6/uL Hgb 8.7 L (13.0-17.0) g/dL Hct 26.3 L (39.6-50.0) % MCV 116.9 H (80.0-97.0) FL MCH 38.7 H (27.0-32.0) pg RDW 21.4 H (11.5-14.5) % Plt Count 14 A* (140-440) X 10*3/uL Neutrophils # 1.47 L (1.80-7.70) X 10*3/uL Lymphocytes # 0.28 L (0.90-5.00) X 10*3/uL Monocytes # 0.16 L (0.20-1.00) X 10*3/uL Immature Plt Fraction 10.6 H (1.1-6.1) % Tear Drop Cells 2+ A Ferritin 499.0 H (22.0-322.0) ng/mL Microbiology - Last 24 Hours (Table) 11/07/23 21:00 Blood Culture - Preliminary Blood
[2023-11-12 13:14] LABS: Blood Urea Nitrogen 7.2 mg/dL (9.0-27.0); Glucose 110 mg/dL (70-110)
[2023-11-12 13:15] LABS: Calcium 7.3 mg/dL (8.7-10.3); Carbon Dioxide 23.6 mmol/L (21.6-31.8); Chloride 102 mmol/L (96-109); Potassium 3.7 mmol/L (3.5-5.5); Sodium 135 mmol/L (135-145)
[2023-11-12 13:25] LABS: Basophils # (A) 0 X 10*3/uL (0.00-0.10); Basophils % (A) 0 %; Eosinophils # (A) 0.06 X 10*3/uL (0.04-0.35); Eosinophils % (A) 3.1 %; HCT 24.9 % (39.6-50.0); HGB 8.3 g/dL (13.0-17.0); Immature Platelet Fraction 10.3 % (1.1-6.1); Lymphocytes # (A) 0.27 X 10*3/uL (0.90-5.00); Lymphocytes % (A) 13.8 %; MCH 38.4 pg (27.0-32.0); MCHC 33.3 g/dL (32.0-37.0); MCV 115.3 FL (80.0-97.0); Macrocytosis (M) 2+; Mean Platelet Volume 12.3 FL (9.5-12.2); Monocytes # (A) 0.13 X 10*3/uL (0.20-1.00); Monocytes % (A) 6.7 %; NRBC Per 100 WBC 0 X 10*3/uL (0.00-0.01); Neutrophils # (A) 1.47 X 10*3/uL (1.80-7.70); Neutrophils % (A) 75.4 %; Platelet Count 17 X 10*3/uL (140-440); RBC 2.16 X 10*6/uL (4.40-5.60); RDW 19.7 % (11.5-14.5); Tear Drop Cells 2+; WBC 1.95 X 10*3/uL (4.50-10.00)
[2023-11-12] MEDS: POTASSIUM CHLORIDE ER 10 MEQ TAB.ER.PRT PO STA (15:07)
[2023-11-12] MEDS: polyethylene glycoL 3350 17 GM POWD.PACK PO PRN (15:21)
--- NOTE | 2023-11-13 00:40 | P.PN ---
Subjective Progress Note Date: 11/11/23 48-year-old male with history of multiple myeloma came in with complaints of left hip pain and pain in the back with radiculopathy in both the legs without any significant weakness. Patient does have history of multiple myeloma patient is also concerned that he may be bleeding from his hemorrhoids. Patient platelet count is found to be extremely low at 13,000. Patient's hemoglobin is 9.3 and stable at that level serum sodium 133 11/09/2023 Patient is evaluated today in follow up. Patient continues to report significant left hip pain. Had an xray done that reveals osteopenia and some minimal pollo inal spurring at the hip but with preserved joint space. No acute osseous abnormality seen. There are stable areas of sclerosis and osseous changes involving the pelvic bones greater on the right. There is a fixed area of abnormal attenuation within T12. The constellation of findings are suspicious for malignancy/myeloma or treated myeloma/malignancy. Correlate clinically. Multilevel disc bulging with foraminal encroachment as discussed above, Large retroperitoneal masses on prior exam are not seen on todays exam from 05/05/2022. Bilateral pleural effusions noted. He does have sacral decub it does not look infected, actually it appears to be healing. and is small. Urinalysis not overly suspicious for infection and he is not on antibiotics. Oncology was planning on starting IVIG. 11/10/2023 Patient is lying in the bed. Awake alert and oriented x 3. Left foot pain is better. X-ray of the hip showed osteopenia. Some minimal marginal spurring at the left hip but with preserved joint space. No acute osseous abnormality noted. Currently patient is on Dilaudid 1 mg every 3 hourly. On IV hydration with normal saline at 75 cc/h. Patient has been afebrile. No cough or sputum production. Laboratory data showed WBC 1.98 hemoglobin 8.7 and platelets 14. Patient also refused transfusion yesterday. Magnesium 1.8. Other medications reviewed. 11/11/2023 Patient is resting the bed. Awake alert and oriented x 3. No complaints of chest pain or shortness of the left hip pain is better. Otherwise patient is requesting stool softeners for bowel meds. Laboratory data showed WBC 1.87 hemoglobin 8.4 and platelets 15. MCV 105.7. Patient is on [place] 5 and IV hydration with normal saline at 75 cc/h.. REVIEW OF SYSTEMS: CONSTITUTIONAL: No fever, no malaise, no fatigue. HEENT: No recent visual problems or hearing problems. Denied any sore throat. CARDIOVASCULAR: Reports chest pain, orthopnea, PND, no palpitations, no syncope. PULMONARY: Reports shortness of breath, no cough, no hemoptysis. GASTROINTESTINAL: No diarrhea, no nausea, no vomiting, no abdominal pain. NEUROLOGICAL: No headaches, no weakness, no numbness. PHYSICAL EXAMINATION: GENERAL: The patient is alert and oriented x3, not in any acute distress. Well developed, well nourished. HEENT: Pupils are round and equally reacting to light. EOMI. No scleral icterus. No conjunctival pallor. Normocephalic, atraumatic. No pharyngeal erythema. No thyromegaly. CARDIOVASCULAR: S1 and S2 present. No murmurs, rubs, or gallops. PULMONARY: Chest is clear to auscultation, no wheezing or crackles. ABDOMEN: Soft, nontender, nondistended, normoactive bowel sounds. No palpable organomegaly. MUSCULOSKELETAL: No joint swelling or deformity. EXTREMITIES: No cyanosis, clubbing, or pedal edema. NEUROLOGICAL: Gross neurological examination did not reveal any focal deficits. SKIN: No rashes. Assessment and plan -Back pain with radiculopathy CT reveals osseous changes pelvic bone greater on the right / T12 suspicious for myeloma. -Left hip pain ruled out any pathological fracture with the x-ray of the hip; xray reviewed and negative for pathological fracture -Recent surgery for the right hip for pathological fracture. -Hypovolemic hyponatremia IV fluids -Thrombocytopenia secondary to multiple myeloma, if patient starts bleeding again patient will be transfused with platelets. Oncology will evaluate the patient -Multiple myeloma: Patient is on lenalidomide and Decadron. -Hemorrhoids for which we will order hemorrhoidal cream. -Abnormal UA not suggestive of infection -Stage II sacral decub right buttock healing and non infected actually scabbed over DVT prophylaxis: Pharmacological DVT prophylaxis not indicated because of severe thrombocytopenia Objective - Vital Signs Vital signs: Vital Signs Temp 98.4 F 11/11/23 19:02 Pulse 95 11/11/23 19:02 Resp 18 11/11/23 19:02 BP 100/65 11/11/23 19:02 Pulse Ox 100 09/01/24 19:02 FiO2 Intake & Output 11/11/23 11/11/23 11/12/23 06:59 18:59 06:59 Intake Total 900 Output Total 1300 1025 750 Balance -400 -1025 -750 Weight 79.379 kg Intake: Intake, IV Titration 900 Amount Sodium Chloride 0.9% 1, 900 000 ml @ 75 mls/hr IV . [id number] [facility] Rx#:[id number] Output: Urine 1300 1025 750 Other: Voiding Method Toilet Urinal Urinal - Labs CBC & Chem 7: 11/12/23 02:58 11/12/23 02:58 Labs: Abnormal Lab Results - Last 24 Hours (Table) 11/11/23 Range/Units 04:40 WBC 1.87 L (4.50-10.00) X 10*3/uL RBC 2.16 L (4.40-5.60) X 10*6/uL Hgb 8.4 L (13.0-17.0) g/dL Hct 25.0 L (39.6-50.0) % MCV 115.7 H (80.0-97.0) FL MCH 38.9 H (27.0-32.0) pg RDW 20.5 H (11.5-14.5) % Plt Count 15 A* (140-440) X 10*3/uL MPV 13.5 H (9.5-12.2) FL Neutrophils # 1.42 L (1.80-7.70) X 10*3/uL Lymphocytes # 0.26 L (0.90-5.00) X 10*3/uL Monocytes # 0.12 L (0.20-1.00) X 10*3/uL Immature Plt Fraction 12.3 H (1.1-6.1) % Microbiology - Last 24 Hours (Table) 11/07/23 21:00 Blood Culture - Preliminary Blood
--- NOTE | 2023-11-13 00:41 | P.PN ---
Subjective Progress Note Date: 11/12/23 48-year-old male with history of multiple myeloma came in with complaints of left hip pain and pain in the back with radiculopathy in both the legs without any significant weakness. Patient does have history of multiple myeloma patient is also concerned that he may be bleeding from his hemorrhoids. Patient platelet count is found to be extremely low at 13,000. Patient's hemoglobin is 9.3 and stable at that level serum sodium 133 11/09/2023 Patient is evaluated today in follow up. Patient continues to report significant left hip pain. Had an xray done that reveals osteopenia and some minimal pollo inal spurring at the hip but with preserved joint space. No acute osseous abnormality seen. There are stable areas of sclerosis and osseous changes involving the pelvic bones greater on the right. There is a fixed area of abnormal attenuation within T12. The constellation of findings are suspicious for malignancy/myeloma or treated myeloma/malignancy. Correlate clinically. Multilevel disc bulging with foraminal encroachment as discussed above, Large retroperitoneal masses on prior exam are not seen on todays exam from 05/05/2022. Bilateral pleural effusions noted. He does have sacral decub it does not look infected, actually it appears to be healing. and is small. Urinalysis not overly suspicious for infection and he is not on antibiotics. Oncology was planning on starting IVIG. 11/10/2023 Patient is lying in the bed. Awake alert and oriented x 3. Left foot pain is better. X-ray of the hip showed osteopenia. Some minimal marginal spurring at the left hip but with preserved joint space. No acute osseous abnormality noted. Currently patient is on Dilaudid 1 mg every 3 hourly. On IV hydration with normal saline at 75 cc/h. Patient has been afebrile. No cough or sputum production. Laboratory data showed WBC 1.98 hemoglobin 8.7 and platelets 14. Patient also refused transfusion yesterday. Magnesium 1.8. Other medications reviewed. 11/11/2023 Patient is resting the bed. Awake alert and oriented x 3. No complaints of chest pain or shortness of the left hip pain is better. Otherwise patient is requesting stool softeners for bowel meds. Laboratory data showed WBC 1.87 hemoglobin 8.4 and platelets 15. MCV 105.7. Patient is on [place] 5 and IV hydration with normal saline at 75 cc/h.. 11/12/2023 Patient is resting in the bed. Awake alert and oriented x 3. No bowel meant yet. Otherwise pain is much improved. No nausea vomiting abdominal pain and diarrhea. Patient is tolerating oral diet. Laboratory showed WBC 1.95 hemoglobin 8.3 and platelets 17. BUN 7.2 and creatinine 0.8 and blood sugar 110 and calcium 7.3. PT OT and anticipate discharge to home in the next 24 hours. REVIEW OF SYSTEMS: CONSTITUTIONAL: No fever, no malaise, no fatigue. HEENT: No recent visual problems or hearing problems. Denied any sore throat. CARDIOVASCULAR: Reports chest pain, orthopnea, PND, no palpitations, no syncope. PULMONARY: Reports shortness of breath, no cough, no hemoptysis. GASTROINTESTINAL: No diarrhea, no nausea, no vomiting, no abdominal pain. NEUROLOGICAL: No headaches, no weakness, no numbness. PHYSICAL EXAMINATION: GENERAL: The patient is alert and oriented x3, not in any acute distress. Well developed, well nourished. HEENT: Pupils are round and equally reacting to light. EOMI. No scleral icterus. No conjunctival pallor. Normocephalic, atraumatic. No pharyngeal erythema. No thyromegaly. CARDIOVASCULAR: S1 and S2 present. No murmurs, rubs, or gallops. PULMONARY: Chest is clear to auscultation, no wheezing or crackles. ABDOMEN: Soft, nontender, nondistended, normoactive bowel sounds. No palpable organomegaly. MUSCULOSKELETAL: No joint swelling or deformity. EXTREMITIES: No cyanosis, clubbing, or pedal edema. NEUROLOGICAL: Gross neurological examination did not reveal any focal deficits. SKIN: No rashes. Assessment and plan -Back pain with radiculopathy CT reveals osseous changes pelvic bone greater on the right / T12 suspicious for myeloma. -Left hip pain ruled out any pathological fracture with the x-ray of the hip; xray reviewed and negative for pathological fracture -Recent surgery for the right hip for pathological fracture. -Hypovolemic hyponatremia IV fluids -Thrombocytopenia secondary to multiple myeloma, if patient starts bleeding again patient will be transfused with platelets. Oncology will evaluate the patient -Multiple myeloma: Patient is on lenalidomide and Decadron. -Hemorrhoids for which we will order hemorrhoidal cream. -Abnormal UA not suggestive of infection -Stage II sacral decub right buttock healing and non infected actually scabbed over DVT prophylaxis: Pharmacological DVT prophylaxis not indicated because of severe thrombocytopenia Objective - Vital Signs Vital signs: Vital Signs Temp 99.0 F 11/12/23 19:18 Pulse 86 11/12/23 19:18 Resp 17 11/12/23 19:18 BP 100/60 11/12/23 19:18 Pulse Ox 97 11/12/23 19:18 FiO2 Intake & Output 11/12/23 11/12/23 11/13/23 06:59 18:59 06:59 Intake Total 1620 118 Output Total 1350 950 250 Balance -1350 670 -132 Intake: Oral 1620 118 Output: Urine 1350 950 250 Other: Voiding Method Urinal Urinal Toilet Urinal - Labs CBC & Chem 7: 11/12/23 02:58 11/12/23 02:58 Labs: Abnormal Lab Results - Last 24 Hours (Table) 11/12/23 11/12/23 Range/Units 02:58 02:58 WBC 1.95 L (4.50-10.00) X 10*3/uL RBC 2.16 L (4.40-5.60) X 10*6/uL Hgb 8.3 L (13.0-17.0) g/dL Hct 24.9 L (39.6-50.0) % MCV 115.3 H (80.0-97.0) FL MCH 38.4 H (27.0-32.0) pg RDW 19.7 H (11.5-14.5) % Plt Count 17 A* (140-440) X 10*3/uL MPV 12.3 H (9.5-12.2) FL Neutrophils # 1.47 L (1.80-7.70) X 10*3/uL Lymphocytes # 0.27 L (0.90-5.00) X 10*3/uL Monocytes # 0.13 L (0.20-1.00) X 10*3/uL Immature Plt Fraction 10.3 H (1.1-6.1) % Macrocytosis (manual) 2+ A Tear Drop Cells 2+ A BUN 7.2 L (9.0-27.0) mg/dL BUN/Creatinine Ratio 9.00 L (12.00-20.00) Ratio Calcium 7.3 L (8.7-10.3) mg/dL
[2023-11-13 08:47] VITALS: RESP 16
[2023-11-13 09:38] LABS: WBC 2.33 X 10*3/uL (4.50-10.00)
[2023-11-13 09:39] LABS: Basophils # (A) 0 X 10*3/uL (0.00-0.10); Basophils % (A) 0 %; Eosinophils # (A) 0.08 X 10*3/uL (0.04-0.35); Eosinophils % (A) 3.4 %; HCT 27.4 % (39.6-50.0); HGB 9.2 g/dL (13.0-17.0); Immature Platelet Fraction 8.6 % (1.1-6.1); Lymphocytes # (A) 0.24 X 10*3/uL (0.90-5.00); Lymphocytes % (A) 10.3 %; MCHC 33.6 g/dL (32.0-37.0); MCV 113.2 FL (80.0-97.0); Macrocytosis (M) 2+; Mean Platelet Volume 12.6 FL (9.5-12.2); Monocytes % (A) 8.6 %; NRBC Per 100 WBC 0 X 10*3/uL (0.00-0.01); Neutrophils % (A) 77.3 %; Platelet Count 22 X 10*3/uL (140-440); RBC 2.42 X 10*6/uL (4.40-5.60); RDW 18.9 % (11.5-14.5); Tear Drop Cells 2+
[2023-11-13 10:22] LABS: BUN/Creat Ratio 6.62 Ratio (12.00-20.00); Blood Urea Nitrogen 5.3 mg/dL (9.0-27.0); Calcium 7.5 mg/dL (8.7-10.3); Carbon Dioxide 23.6 mmol/L (21.6-31.8); Chloride 102 mmol/L (96-109); Glucose 126 mg/dL (70-110); Potassium 3.5 mmol/L (3.5-5.5); Sodium 135 mmol/L (135-145)
[2023-11-13 12:55] VITALS: BP 104/68; PULSE 84; TEMP 99
== END 2023-11-13 16:42 | disposition home health service (06) | DRG 840 ==
LOC: EC 15:40 → 5NMEDONC 21:39
PROVIDERS: ADMIT Hospitalist; ATTEND Hospitalist
DX: C90.00 Multiple myeloma not having achieved remission (principal); D61.810 Antineoplastic chemotherapy induced pancytopenia; N39.0 Urinary tract infection, site not specified; E87.1 Hypo-osmolality and hyponatremia; M54.10 Radiculopathy, site unspecified; K64.9 Unspecified hemorrhoids; K59.00 Constipation, unspecified; M85.852 Other specified disorders of bone density and structure, left thigh; E86.1 Hypovolemia; T45.1X5A Adverse effect of antineoplastic and immunosuppressive drugs, initial encounter; L89.152 Pressure ulcer of sacral region, stage 2; Z79.60 Long term (current) use of unspecified immunomodulators and immunosuppressants; Z79.899 Other long term (current) drug therapy; Z92.3 Personal history of irradiation
CPT/HCPCS: 36415; 72132; 73502; 80048; 80053; 81001; 82272; 82728; 82784; 83540; 83550; 83605; 83735; 84484; 85025; 85027; 85610; 85730; 86850; 86870; 86880; 86900; 86901; 87040; 93005; 96361; 96374; 96375; 99285

== ENCOUNTER → 2023-11-15 | Outpatient (CLI) | payer OTHER ==
--- NOTE | 2023-11-21 11:12 | PE ---
EXAMINATION TYPE: PET CT fusion skull to thigh DATE OF EXAM: 11/15/2023 COMPARISON: CT pelvis 10/12/2023 Prior PET/CT: 07/01/2022 HISTORY: Multiple myeloma TECHNIQUE: Following the intravenous administration of 11.43 mCi of F-18 FDG, whole body images are performed from the skull base to the midthigh. Images are reviewed on the computer in the coronal, a xial, and sagittal planes. Reconstructed rotating images are created on independent workstation and reviewed on the computer. A localization and attenuation correction CT is performed in conjunction with the PET scan. Additional PET/CT images performed lower extremities to the toes. DLP: 730.91 mGycm SCAN: Subsequent Blood glucose: 92 mg/dL Average Mediastinum SUV: 1.53 Average Liver SUV: 1.99 FINDINGS: NECK: No suspicious uptake THORAX: No suspicious soft tissue uptake ABDOMEN: No suspicious soft tissue uptake PELVIS: There is a prominent focal uptake within the left obturator canal. Image 265, SUV 7.2. Small lymph node may be present. LOWER EXTREMITIES: OSSEOUS STRUCTURES: Intense uptake is within the left femur, example image 18, SUV 2.2. Similar uptak e is within the right medullary femur. Uptake is also present within the proximal right tibia. Uptake within the pelvic lesions remains mildly elevated, example medial right ilium, image 231, SUV 4.[address]: Small bilateral pleural effusions are present. Right iliac wing sclerotic lesions e vident. These are new from 2022. Note is made of some asymmetry of the gluteal and psoas musculature with fullness on the right compared to the left. COMPARISON: New sclerotic rings within the medial right iliac wing at the sacroiliac joint. There is significant improvement identified on the rotating images. Previous focal areas of uptake wi thin the Clavicles, bilateral ribs, axial spine essentially resolved. There is persistent uptake within the femurs. Note is made of increasing uptake within the right hip soft tissues. Some calcification CT is noted in this region IMPRESSION: 1. Significant improvement of uptake within multiple osseous structures. 2. Persistent uptake remaining through the medullary femurs bilaterally. 3. Some new uptake is in the soft tissue surrounding the right hip region. Some calcification is note d on localization CT in this region. There has been interval placement of a replacement hip prosthesi s.
== END | disposition home or self-care (01) ==
LOC: RADPETMAIN 15:07
PROVIDERS: ATTEND Internal Medicine
DX: C90.00 Multiple myeloma not having achieved remission (principal); M25.851 Other specified joint disorders, right hip; Z96.649 Presence of unspecified artificial hip joint
CPT/HCPCS: 78815; A9552

== ENCOUNTER → 2023-12-05 | Outpatient (CLI) | payer OTHER ==
[2023-12-05 13:01] VITALS: BP 105/72; PULSE 67; RESP 16; TEMP 97.1
--- NOTE | 2023-12-05 15:33 | P.PAINPG ---
PQRS Measure Charge Sheet Comment: HISTORY OF PRESENT ILLNESS: A 48 yr old male w mother & father at side as a referral from Dr Garcia presents today w severe and chronic secondary to radiculopathy, spondylosis and facet arthropathy without myelopathy for evaluation. Pt states pain level is provoked at 10 /10 in intensity, constant, localized in the thoracolumbar spine, predominantly axial, sharp in character w occasional shooting pain towards the flanks and LEs. Pain is provoked by any activity. Pain is alleviated by PT x 1 wks which he is currently in , medications (Tramadol 50mg #90, Dilaudid 2mg #15), heat, use of a wheelchair for ambulatory assistance, repositioning and rest . PMH: OA, Multiple Myeloma PSH: Thoracic Laminectomy & Decompression (Dec 2021), R Hip Bone Biopsy SH: Negative x3 FH: Non contributory All: See list Meds: See list REVIEW OF ORGAN SYSTEMS: CONSTITUTIONAL: No fevers or chills. No recent weight loss. NEUROLOGICAL: + numbness and tingling along the distal extremities. No seizure disorders or headaches. MUSCULOSKELETAL: + pain PSYCHIATRIC: Denies current depression or suicidal thoughts. Physical Examinations : Constitutional : Cooperative , not in acute distress . Neurologic : Cranial nerve II to XII intact. No focal neur ological deficits. Psychiatric : alert & oriented x 3. Matching mood & appropriate affect. Judgment & insight intact. Musculoskeletal : Cervical Spine Motor strength in the deltoid and biceps: Normal right side. Normal Left side Motor strength biceps and the wrist extensors: Normal right side . Normal left side Motor strength in the triceps muscle: Normal right side. Normal left side Deep tendon reflexes: Normal at the biceps. Normal at Brachioradialis. Normal at triceps Vertebral body tenderness to deep palp ation over Cervical facet loading test: positive bilaterally Spurling test: positive bilaterally Neck distraction test: positive bilaterally Emilio sign: positive bilaterally Lumbar spine +Vertical incisional scar intact Motor strength lower extremities ,thigh and legs 5/5 Right side , 5/5 Left side Deep tendon reflexes : Normal Knee Jerk. Normal Ankle Jerk Vertebral body tenderness over Mark Test positive BL L1-S1 Lumbar facet Loading Test: positive Right / positive Left Range of motion of the lumbar spine Flexion 30 degrees, extension 10 degrees Straight Leg Raise test: Left/ Right positive at degrees James test: positive right / positive left. Severe tenderness over the Sacroiliac joint on the Right / Left sides Gaenslen test: positive bilaterally Seated flexion test: positive bilaterally. Sacral spine : Severe tenderness over the Sacroiliac joint: right side / left side Range of motion: Flexion of the lumbar spine <60 degrees Range of motion: Extension of the lumbar spine <20 degrees Gaenslen's Test positive James test: positive right side / left side Thigh Thrust Test Sacral Thrust Test Imaging: CT non contrast of the lumbar spine from 11/08/23 reviewed Assessment/ Plan : Post laminectomy syndrome Recommendation of medication management. Opiate/ narcotic agreements signed 12/05/23. Dilaudid 4mg #60, Tramadol 50mg #60 w 1 RF. Use, side effects, adverse reactions, safe storage discussed. Pt acknowledged understanding. All questions answered. I have spent greater than 30 minutes on patient care today. Dr Barfield was available by phone for the evaluation of this patient. The time was used to review the medical records including relevant urine studies and Prescription history (MAPs), review of the available imaging, evaluation and examination of the patient, coordination of care with the medical staff and if applicable referring physicians, as well as creation of the medical record - Pain Location Bilateral Back Non-Pharmacological Interventions: Heat, Inactivity, Physical Therapy, Position/Reposition, Sitting Pharmacological Interventions: PRN Medication, Scheduled Medication, Topical Medication Home Medications: Ambulatory Orders Lenalidomide [Revlimid] 20 mg PO DIRECTED 09/04/23 Sennosides [Senokot] 8.6 mg PO DAILY PRN #30 tablet 11/13/23 polyethylene glycoL 3350 [Miralax] 17 gm PO DAILY PRN #7 packet 11/13/23 HYDROmorphone [Dilaudid] 4 mg PO BID PRN 30 Days #60 tab 12/05/23 HYDROmorphone [Dilaudid] 4 mg PO BID PRN 30 Days #60 tab 12/05/23 traMADol HCL 50 mg PO BID PRN 30 Days #60 tab 12/05/23 Controlled Substance Measures - Controlled Substance Measures Is patient prescribed a controlled substance at discharge?: Yes When asked, does pt state using other controlled substances?: No If prescribed controlled substance>3 days was MAPS reviewed?: Yes If Rx opioid, was Start Talking consent form obtained?: Yes Was information provided regarding opioid addiction?: Yes
== END ==
LOC: PNWHC3 12:19
PROVIDERS: ATTEND Specialist
DX: M54.16 Radiculopathy, lumbar region
CPT/HCPCS: 99211

== ENCOUNTER 2024-03-04 14:36 | Emergency (ER) | payer OTHER ==
[2024-03-04 14:54] VITALS: RESP 16
--- NOTE | 2024-03-04 15:07 | ED ---
Back Pain HPI - General Source: patient, RN notes reviewed Mode of arrival: EMS Limitations: no limitations - History of Present Illness MD Complaint: back pain <Noreen Zuñiga - Last Filed: 03/04/24 17:34> <Tamiko Tao - Last Filed: 03/04/24 21:40> - General Chief Complaint: Back Pain/Injury Stated Complaint: back pain Time Seen by Provider: 03/04/24 14:39 - History of Present Illness Initial Comments: This is a 48-year-old male who presents to the emergency department for back pain. Patient has a history of chronic back pain related to multiple myeloma and bone mets. He is usually able to manage his pain with Dilaudid, however starting yesterday the pain flared up and became severe. He has taken 12 mg of Dilaudid today without any relief in his pain. Denies any new injuries. He is barely able to move due to the pain. Pain is in the lower back. Unsure if it is worse on any particular side. Denies any loss of bowel/bladder control or saddle anesthesia. (Noreen Zuñiga) - Related Data Home Medications Medication Instructions Recorded Confirmed Lenalidomide [Revlimid] 20 mg PO DIRECTED 09/04/23 12/05/23 Previous Rx's Medication Instructions Recorded Sennosides [Senokot] 8.6 mg PO DAILY PRN #30 tablet 11/13/23 polyethylene glycoL 3350 [Miralax] 17 gm PO DAILY PRN #7 packet 11/13/23 HYDROmorphone [Dilaudid] 4 mg PO BID PRN 30 Days #60 tab 12/05/23 HYDROmorphone [Dilaudid] 4 mg PO BID PRN 30 Days #60 tab 12/05/23 traMADol HCL 50 mg PO BID PRN 30 Days #60 tab 12/05/23 Allergies Allergy/AdvReac Type Severity Reaction Status Date / Time No Known Allergies Allergy Verified 03/04/24 14:51 Review of Systems ROS Other: All systems not noted in ROS Statement are negative. <Noreen Zuñiga - Last Filed: 03/04/24 17:34> ROS Other: All systems not noted in ROS Statement are negative. <Tamiko Tao - Last Filed: 03/04/24 21:40> ROS Statement: Those systems with pertinent positive or pertinent negative responses have been documented in the HPI. 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 History of prior laminectomy decompression at lower thoracic with Dr. Dominguez in January 2022. History of multiple soft tissue masses throughout his thoracic lumbar and sacral spine. history lower extremity weakness History of Any Multi-Drug Resistant Organisms: None Reported Past Surgical History: No Surgical Hx Reported Additional Past Surgical History / Comment(s): back surgery to remove tumor december of 2021. Bone biospy of right hip, spinal decompression Past Anesthesia/Blood Transfusion Reactions: No Reported Reaction Past Psychological History: No Psychological Hx Reported Smoking Status: Never smoker <Noreen Zuñiga - Last Filed: 03/04/24 17:34> General Exam Limitations: no limitations General appearance: alert, in distress Head exam: Present: atraumatic, normocephalic, normal inspection Respiratory exam: Present: normal lung sounds bilaterally. Absent: respiratory distress, wheezes, rales, rhonchi, stridor Cardiovascular Exam: Present: regular rate, normal rhythm, normal heart sounds. Absent: systolic murmur, diastolic murmur, rubs, gallop, clicks Neurological exam: Present: alert, oriented X3, CN II-XII intact Psychiatric exam: Present: normal affect, normal mood Skin exam: Present: warm, dry, intact, normal color. Absent: rash <Noreen Zuñiga - Last Filed: 03/04/24 17:34> Back exam: Present: normal inspection, other (No saddle anesthesia. Full sensation and DP pulses bilaterally) <Tamiko Tao - Last Filed: 03/04/24 21:40> Course Vital Signs 03/04/24 03/04/24 03/04/24 14:45 17:05 18:08 Temperature 101.9 F H 97.9 F Pulse Rate 93 86 Respiratory 16 16 Rate Blood Pressure 127/81 118/82 O2 Sat by Pulse 98 98 Oximetry 03/04/24 20:54 Temperature 98.1 F Pulse Rate 75 Respiratory 16 Rate Blood Pressure 93/68 O2 Sat by Pulse 98 Oximetry Medical Decision Making - Lab Data Result diagrams: 03/04/24 15:11 03/04/24 15:11 - Radiology Data Radiology results: report reviewed, image reviewed <Noreen Zuñiga - Last Filed: 03/04/24 17:34> - Lab Data Result diagrams: 03/04/24 15:11 03/04/24 15:11 <Tamiko Tao - Last Filed: 03/04/24 21:40> - Medical Decision Making This is a 48-year-old male who presents to the emergency department for back pain. Was pt. sent in by a medical professional or institution? @ -No Did you speak to anyone other than the patient for history? @ -No Did you review nursing and triage notes? @ -Yes, and I agree, it is accurate with regards to the patient's symptoms. Were old charts reviewed? @ -No Differential Diagnosis? @ -Differential Back Pain: Strain, zoster, cauda equina syndrome, epidural abscess, vertebral osteomyelitis, discitis, fracture, subluxation, disc herniation, DJD, spinal stenosis, dissection, AAA, pancreatitis, peptic ulcer disease, pyelonephritis, kidney stone, this is not meant to be an all-inclusive list. EKG interpreted by me (3pts min.)? @ -Not obtained X-rays interpreted by me (1pt min.)? @ -Not obtained CT interpreted by me (1pt min.)? @ -Pending U/S interpreted by me (1pt. min.)? @ -Not obtained What testing was considered but not performed? (CT, X-rays, U/S, labs)? Why? @ -None What meds were considered but not given? Why? @ -None Did you discuss the management of the patient with other professionals? @ -No Did you reconcile home meds? @ -No Was smoking cessation discussed for >3mins.? @ -No Was critical care preformed (if so, how long)? @ -No Were there social determinants of health that impacted care today? How? (Homelessness, low income, unemployed, alcoholism, drug addiction, transportation, low edu. Level, literacy, decrease access to med. care, prison, rehab)? @ -No Was there de-escalation of care discussed even if they declined? (Discuss DNR or withdrawal of care, Hospice)? @ -No What co-morbidities impacted this encounter? (DM, HTN, Smoking, COPD, CAD, Cancer, CVA, Hep., AIDS, mental health diagnosis, sleep apnea, morbid obesity)? @ -Multiple myeloma Was patient admitted / discharged? @ -Lab work unremarkable. Urinalysis negative for signs of infection. Patient was febrile on arrival with a temperature of 101.9 F. However, he was refusing antipyretics initially. He was later agreeable to IV Ibuprofen. CT scan of the thoracic and lumbar spine obtained. Case signed out to MARISOL Cardoso, at shift completion pending CT results and disposition. Undiagnosed new problem with uncertain prognosis? @ -None Drug Therapy requiring intensive monitoring for toxicity (Heparin, Nitro, Insulin, Cardizem)? @ -None Were any procedures done? @ -None (Noreen Zuñiga) Was pt. sent in by a medical professional or institution (ANGIE Hobson, EMBROIDERY ASSISTANT, urgent care, hospital, or long term...) When possible be specific @ -No Did you speak to anyone other than the patient for history (EMS, parent, family, police, friend...)? What history was obtained from this source @ -No Did you review nursing and triage notes (agree or disagree)? Why? @ -I reviewed and agree with nursing and triage notes Were old charts reviewed (outside hosp., previous admission, EMS record, old EKG, old radiological studies, urgent care reports/EKG's, long term records)? Report findings @ -No old charts were reviewed Differential Diagnosis (chest pain, altered mental status, abdominal pain women, abdominal pain men, vaginal bleeding, weakness, fever, dyspnea, syncope, headache, dizziness, GI bleed, back pain, seizure, CVA, palpatations, mental health, musculoskeletal)? @ -Differential Back Pain: Strain, zoster, cauda equina syndrome, epidural abscess, vertebral osteomyelitis, discitis, fracture, subluxation, disc herniation, DJD, spinal stenosis, dissection, AAA, pancreatitis, peptic ulcer disease, pyelonephritis, kidney stone, this is not meant to be an all-inclusive list. EKG interpreted by me (3pts min.). @ -None X-rays interpreted by me (1pt min.). @ -None done CT interpreted by me (1pt min.). @ -CT lumbar spine reveals no acute osseous abnormality of thoracic or lumbar spine, scattered lucent/sclerotic lesions throughout pelvic bones, no changes from previous studies U/S interpreted by me (1pt. min.). @ -None done What testing was considered but not performed or refused? (CT, X-rays, U/S, labs)? Why? @ -None What meds were considered but not given or refused? Why? @ -None Did you discuss the management of the patient with other professionals (professionals i.e. , PA, EMBROIDERY ASSISTANT, lab, RT, psych nurse, nursing home social worker, bulk receiver, teacher, press officer, pillowcase folder)? Give summary @ -I spoke with Tia from [facility] who accepts admission for intractable back pain Was smoking cessation discussed for >3mins.? @ -No Was critical care preformed (if so, how long)? @ -No Were there social determinants of health that impacted care today? How? (Homeles sness, low income, unemployed, alcoholism, drug addiction, transportation, low edu. Level, literacy, decrease access to med. care, prison, rehab)? @ -No Was there de-escalation of care discussed even if they declined (Discuss DNR or withdrawal of care, Hospice)? DNR status @ -No What co-morbidities impacted this encounter? (DM, HTN, Smoking, COPD, CAD, Cancer, CVA, ARF, Chemo, Hep., AIDS, mental health diagnosis, sleep apnea, morbid obesity)? @ -None Was patient admitted / discharged? Hospital course, mention meds given and route, prescriptions, significant lab abnormalities, going to OR and other pertinent info. @ -Admitted. This is a 48-year-old male presenting for back pain. Patient has a history of chronic back pain related to multiple myeloma and bone mets. Patient is also found to be febrile, other vital signs within acceptable limits. Neurovascularly intact. No sign of bacterial infection on examination. Patient is provided with analgesics and antipyretics. CT thoracic/lumbar spine negative for acute changes from previous studies. Viral swabs were negative. Patient continues to experience intractable pain. I spoke with Tia from [facility] who accepts admission for intractable back pain with fever. Case was discussed with my ED attending Dr. Freire. Undiagnosed new problem with uncertain prognosis? @ -No Drug Therapy requiring intensive monitoring for toxicity (Heparin, Nitro, Insulin, Cardizem)? @ -No Were any procedures done? @ -No Diagnosis/symptom? @ -Intractable back pain, fever Acute, or Chronic, or Acute on Chronic? @ -Acute Uncomplicated (without systemic symptoms) or Complicated (systemic symptoms)? @ -Complicated Side effects of treatment? @ -No Exacerbation, Progression, or Severe Exacerbation? @ -No Poses a threat to life or bodily function? How? (Chest pain, [place], [place], pneumonia, PE, COPD, DKA, ARF, appy, cholecystitis, CVA, Diverticulitis, Homicidal, Suicidal, threat to staff... and all critical care pts) @ -Possibly (Taimko Tao) - Lab Data Lab Results 03/04/24 03/04/24 03/04/24 Range/Units 15:11 15:11 15:11 WBC 4.1 (3.8-10.6) k/uL RBC 3.82 L (4.30-5.90) m/uL Hgb 12.9 L (13.0-17.5) gm/dL Hct 37.7 L (39.0-53.0) % MCV 98.8 (80.0-100.0) fL MCH 33.8 (25.0-35.0) pg MCHC 34.2 (31.0-37.0) g/dL RDW 15.7 H (11.5-15.5) % Plt Count 92 L (150-450) k/uL MPV 8.3 Neutrophils % 85 % Lymphocytes % 7 % Monocytes % 5 % Eosinophils % 1 % Basophils % 1 % Neutrophils # 3.4 (1.3-7.7) k/uL Lymphocytes # 0.3 L (1.0-4.8) k/uL Monocytes # 0.2 (0-1.0) k/uL Eosinophils # 0.0 (0-0.7) k/uL Basophils # 0.0 (0-0.2) k/uL Manual Slide Review Performed Macrocytosis Slight Sodium 132 L (137-145) mmol/L Potassium 4.4 (3.5-5.1) mmol/L Chloride 103 (98-107) mmol/L Carbon Dioxide 24 (22-30) mmol/L Anion Gap 5 mmol/L BUN 15 (9-20) mg/dL Creatinine 0.88 (0.66-1.25) mg/dL Est GFR (CKD-EPI)AfAm >90 (>60 ml/min/1.73 sqM) Est GFR (CKD-EPI)NonAf >90 (>60 ml/min/1.73 sqM) Glucose 85 (74-99) mg/dL Plasma Lactic Acid Bentley (0.7-2.0) mmol/L Calcium 8.9 (8.4-10.2) mg/dL Magnesium 1.9 (1.6-2.3) mg/dL Total Bilirubin 0.8 (0.2-1.3) mg/dL AST 37 (17-59) U/L ALT 21 (4-49) U/L Alkaline Phosphatase 52 (38-126) U/L C-Reactive Protein 0.7 (<1.0) mg/dL Total Protein 6.1 L (6.3-8.2) g/dL Albumin 4.1 (3.5-5.0) g/dL Urine Color Light Yellow Urine Appearance Clear (Clear) Urine pH 8.0 (5.0-8.0) Ur Specific [place] 1.014 (1.001-1.035) Urine Protein 1+ H (Negative) Urine Glucose (UA) Negative (Negative) Urine Ketones Negative (Negative) Urine Blood Negative (Negative) Urine Nitrite Negative (Negative) Urine Bilirubin Negative (Negative) Urine Urobilinogen <2.0 (<2.0) mg/dL Ur Leukocyte Esterase Negative (Negative) Urine RBC <1 (0-5) /hpf Urine WBC <1 (0-5) /hpf Influenza Type A (PCR) (Not Detectd) Influenza Type B (PCR) (Not Detectd) RSV (PCR) (Not Detectd) SARS-CoV-2 (PCR) (Not Detectd) 03/04/24 03/04/24 Range/Units 15:11 16:13 WBC (3.8-10.6) k/uL RBC (4.30-5.90) m/uL Hgb (13.0-17.5) gm/dL Hct (39.0-53.0) % MCV (80.0-100.0) fL MCH (25.0-35.0) pg MCHC (31.0-37.0) g/dL RDW (11.5-15.5) % Plt Count (150-450) k/uL MPV Neutrophils % % Lymphocytes % % Monocytes % % Eosinophils % % Basophils % % Neutrophils # (1.3-7.7) k/uL Lymphocytes # (1.0-4.8) k/uL Monocytes # (0-1.0) k/uL Eosinophils # (0-0.7) k/uL Basophils # (0-0.2) k/uL Manual Slide Review Macrocytosis Sodium (137-145) mmol/L Potassium (3.5-5.1) mmol/L Chloride (98-107) mmol/L Carbon Dioxide (22-30) mmol/L Anion Gap mmol/L BUN (9-20) mg/dL Creatinine (0.66-1.25) mg/dL Est GFR (CKD-EPI)AfAm (>60 ml/min/1.73 sqM) Est GFR (CKD-EPI)NonAf (>60 ml/min/1.73 sqM) Glucose (74-99) mg/dL Plasma Lactic Acid Bentley 1.6 (0.7-2.0) mmol/L Calcium (8.4-10.2) mg/dL Magnesium (1.6-2.3) mg/dL Total Bilirubin (0.2-1.3) mg/dL AST (17-59) U/L ALT (4-49) U/L Alkaline Phosphatase (38-126) U/L C-Reactive Protein (<1.0) mg/dL Total Protein (6.3-8.2) g/dL Albumin (3.5-5.0) g/dL Urine Color Urine Appearance (Clear) Urine pH (5.0-8.0) Ur Specific [place] (1.001-1.035) Urine Protein (Negative) Urine Glucose (UA) (Negative) Urine Ketones (Negative) Urine Blood (Negative) Urine Nitrite (Negative) Urine Bilirubin (Negative) Urine Urobilinogen (<2.0) mg/dL Ur Leukocyte Esterase (Negative) Urine RBC (0-5) /hpf Urine WBC (0-5) /hpf Influenza Type A (PCR) Not Detected (Not Detectd) Influenza Type B (PCR) Not Detected (Not Detectd) RSV (PCR) Not Detected (Not Detectd) SARS-CoV-2 (PCR) Not Detected (Not Detectd) Disposition <Noreen Zuñiga - Last Filed: 03/04/24 17:34> Time of Disposition: 21:35 <Tamiko Tao - Last Filed: 03/04/24 21:40> Clinical Impression: Intractable back pain Disposition: ADMITTED IP TO THIS HOSP Referrals: Kehinde Gama DO [Primary Care Provider] - 1-2 days
[2024-03-04] MEDS: ACETAMINOPHEN TAB 500 MG TAB PO STA (15:15)
[2024-03-04] MEDS: ORPHENADRINE 30 MG/ML 2 ML VIAL IVP STA (15:17)
[2024-03-04] MEDS: HYDROmorphone 1 MG/ML 1 ML SYRINGE IVP STA ×3 (15:18→20:20)
[2024-03-04] MEDS: SODIUM CHLORIDE 0.9% 1,000 ML IV STA (15:19)
[2024-03-04] MEDS: KETOROLAC 15 MG/ML 1 ML VIAL IVP STA (15:19)
[2024-03-04 16:24] LABS: Basophils % (A) 1 %; Eosinophils % (A) 1 %; HCT 37.7 % (39.0-53.0); HGB 12.9 gm/dL (13.0-17.5); Lymphocytes # (A) 0.3 k/uL (1.0-4.8); Lymphocytes % (A) 7 %; MCH 33.8 pg (25.0-35.0); MCHC 34.2 g/dL (31.0-37.0); MCV 98.8 fL (80.0-100.0); Macrocytosis Slight; Mean Platelet Volume 8.3; Monocytes # (A) 0.2 k/uL (0-1.0); Monocytes % (A) 5 %; Neutrophils # (A) 3.4 k/uL (1.3-7.7); Neutrophils % (A) 85 %; RBC 3.82 m/uL (4.30-5.90); RDW 15.7 % (11.5-15.5); WBC 4.1 k/uL (3.8-10.6)
[2024-03-04 16:30] LABS: Appearance,Urine Clear (Clear); Bilirubin,Urine Negative (Negative); Blood,Urine Negative (Negative); Color,Urine Light Yellow; Glucose,Urine (UA) Negative (Negative); Ketones,Urine Negative (Negative); Leukocyte Esterase,Urine Negative (Negative); Nitrite,Urine Negative (Negative); Protein,Urine 1+ (Negative); RBC,Urine <1 /hpf (0-5); Specific Gravity,Urine 1.014 (1.001-1.035); Urobilinogen,Urine <2.0 mg/dL (<2.0); WBC,Urine <1 /hpf (0-5)
[2024-03-04 16:36] LABS: ALT 21 U/L (4-49); AST 37 U/L (17-59); African American GFR (CKD) >90 (>60 ml/min/1.73 sqM); Albumin 4.1 g/dL (3.5-5.0); Alkaline Phosphatase 52 U/L (38-126); Anion Gap 5 mmol/L; Blood Urea Nitrogen 15 mg/dL (9-20); C Reactive Protein 0.7 mg/dL (<1.0); Calcium 8.9 mg/dL (8.4-10.2); Carbon Dioxide 24 mmol/L (22-30); Chloride 103 mmol/L (98-107); Glucose 85 mg/dL (74-99); Magnesium 1.9 mg/dL (1.6-2.3); Non-African American GFR(CKD) >90 (>60 ml/min/1.73 sqM); Potassium 4.4 mmol/L (3.5-5.1); Sodium 132 mmol/L (137-145); Total Bilirubin 0.8 mg/dL (0.2-1.3); Total Protein 6.1 g/dL (6.3-8.2)
[2024-03-04 17:13] LABS: Platelet Count 92 k/uL (150-450)
[2024-03-04] MEDS: IBUPROFEN IV 400 MG in SODIUM CHLORIDE 0.9% 100 ML IV ONE (17:47)
--- NOTE | 2024-03-04 17:58 | CT ---
EXAMINATION TYPE: CT thor lumbar spine w con DATE OF EXAM: 03/04/2024 5:37 PM COMPARISON: Multiple prior CT thoracic and lumbar spine studies, most recently dated 10/30/1923, PET C T 11/15/2023. CLINICAL INDICATION: Male, 48 years old with history of Back pain, fever, hx of multiple myeloma, Jacqueline k pain, fever, hx of multiple myeloma., TECHNIQUE: CT of the thoracic or lumbar spine was obtained in axial plane without intravenous injecti on of contrast material. Coronal and sagittal reformatted images were obtained from the axial views for evaluation of spinal alignment and spinal canal. CT DLP: 1302.6 mGycm, Automated exposure control for dose reduction was used. FINDINGS: Partially visualized small to moderate bilateral pleural effusions with soft tissue density material scattered throughout the pleural space bilaterally. These findings were present on PET/CT dated 2023. Mixed lucent/sclerotic lesion involving anterior T12 vertebral body, not significantly changed from p rior studies. No pathologic fracture. Multilevel thoracic spine degenerative changes without destruct ginny new lytic or sclerotic lesion identified. No drainable abscess. No high-grade spinal canal stenos is in the thoracic spine. Mixed lucent/sclerotic lesions again noted involving the pelvic bones, most pronounced in the right s maria c. Mixed lucent and sclerotic lesions throughout the lumbosacral spine, similar to prior study. No high-grade spinal canal stenosis. Very degrees of neural foraminal narrowing at multiple levels, geno lar to prior study. No definite destructive lytic or blastic lesion in the lumbar spine. Mild superio r L3 compression deformity, unchanged. Multilevel intervertebral disc space loss and facet arthropath y. IMPRESSION: 1. No acute osseous abnormality in the thoracic or lumbar spine. 2. Scattered lucent/sclerotic lesions throughout the pelvic bones, thoracic and lumbar spine, not si gnificantly changed from prior studies and likely reflective of previously treated multiple myeloma. 3. Small to moderate-sized bilateral pleural effusions in the partially visualized lungs with herman us soft tissue density lesions throughout the bilateral pleural spaces, likely present on prior PET/C T study dated 11/15/2023. Findings are indeterminate for extra-medullary hematopoiesis versus malignanc y. [facility], Workstation: [id number], 03/04/2024 5:56 PM
[2024-03-04 20:55] VITALS: BP 93/68; PULSE 75; TEMP 98.1
[2024-03-04] MEDS ORDERED: KETOROLAC 15 MG/ML 1 ML VIAL IVP PRN (21:36)
[2024-03-04] MEDS ORDERED: ONDANSETRON 4 MG/2 ML VIAL IVP PRN (21:36)
[2024-03-04] MEDS ORDERED: ACETAMINOPHEN TAB 325 MG TAB PO PRN (21:36)
[2024-03-04] MEDS ORDERED: NALOXONE 0.4 MG/ML 1 ML VIAL IV PRN (21:36)
[2024-03-04] MEDS: HYDROmorphone 1 MG/ML 1 ML SYRINGE IVP PRN (22:23)
[2024-03-05 01:51] LABS: Erythrocyte Sedimentation Rate 29 mm/Hr (0-15)
== END 2024-03-04 23:32 | disposition left against medical advice (07) ==
LOC: EC 14:36 → SUPCPDRO 14:36 → EC 23:32
DX: G89.29 Other chronic pain (principal); C90.00 Multiple myeloma not having achieved remission; Z11.52 Encounter for screening for COVID-19; Z53.29 Procedure and treatment not carried out because of patient's decision for other reasons
CPT/HCPCS: 36415; 80053; 85652; 83605; 83735; 85025; 86140; 81001; 87636; 72129; 72132; 99284; 96374; 96375 ×3; 96376 ×3; 96361 ×4; J2360; J1171; J1741; Q9967

== ENCOUNTER 2024-05-04 18:32 | Inpatient (IN) | payer BC, OTHER ==
--- NOTE | 2024-05-04 19:27 | ED ---
Neuro HPI - General Source: patient, RN notes reviewed Mode of arrival: ambulatory Limitations: no limitations <Shawn Kenny - Last Filed: 05/04/24 19:24> - General Source: patient, RN notes reviewed, old records reviewed, Caregiver Mode of arrival: ambulatory Limitations: no limitations, altered mental status, physical limitation (Patient does appear intoxicated) - History of Present Illness Is the patient presenting with stroke symptoms?: No -: days(s) (3) Location: speech Place: home Severity: moderate Improves With: none Worsens With: none On Anticoagulants: No Context: gradual onset Associated Symptoms: confusion Treatments Prior to Arrival: none <Sedrick Swann - Last Filed: 05/06/24 19:22> - General Chief Complaint: Neuro Symptoms/Deficit Stated Complaint: urination confusion Time Seen by Provider: 05/04/24 18:46 - History of Present Illness Initial Comments: Quick note: This is a 48-year-old male with history of multiple myeloma presenting with family for increased confusion x 1 day. Family states patient has also been having chills, fatigue/lethargy, urinary incontinence, c onstipation and burning in back and legs. Family is concerned that patient is having withdrawal symptoms from Dilaudid after attempt for the last 2 and half days. States patient was attending pain management clinic but was declined after discovery of use of THC Gummies. Family is requesting referral or recommendation to different pain management clinic to better treat patient's Dilaudid dependence. (Shawn Kenny) This is a 48-year-old male with about 2 years of multiple myeloma diagnosis on chemotherapy. Brother states at bedside he is concerned the patient has not gotten off the couch in 2 to 3 days this is the same as good sort of the mother who is concern for his Dilaudid usage, patient was attending pain management but he was unable to continue to follow-up at the pain clinic secondary to use of THC recreational, patient comes in for increasing altered mental status weakness and somnolence here in evaluation. Patient does have slurred speech but no focal neurological deficit, unreliable historian (Sedrick Swann) - Related Data Home Medications: Home Medications Medication Instructions Recorded Confirmed Lenalidomide [Revlimid] 20 mg PO DIRECTED 09/04/23 05/05/24 HYDROmorphone HCL [Dilaudid] 8 mg PO TID 05/05/24 05/05/24 dexAMETHasone [Decadron] 4 mg PO DAILY 05/05/24 05/05/24 Allergies/Adverse Reactions: Allergies Allergy/AdvReac Type Severity Reaction Status Date / Time No Known Allergies Allergy Verified 05/05/24 07:03 Review of Systems ROS Other: All systems not noted in ROS Statement are negative. <Shawn Kenny - Last Filed: 05/04/24 19:24> ROS Other: All systems not noted in ROS Statement are negative. <Sedrick Swann - Last Filed: 05/06/24 19:22> ROS Statement: Those systems with pertinent positive or pertinent negative responses have been documented in the HPI. General Exam Limitations: no limitations <Shawn Kenny - Last Filed: 05/04/24 19:24> Limitations: altered mental status, physical limitation General appearance: alert, in no apparent distress Head exam: Present: atraumatic, normocephalic, normal inspection Eye exam: Present: normal appearance, PERRL, EOMI. Absent: scleral icterus, conjunctival injection, periorbital swelling ENT exam: Present: normal exam, mucous membranes moist Neck exam: Present: normal inspection. Absent: tenderness, meningismus, lymphadenopathy Respiratory exam: Present: normal lung sounds bilaterally. Absent: respiratory distress, wheezes, rales, rhonchi, stridor Cardiovascular Exam: Present: regular rate, normal rhythm, normal heart sounds. Absent: systolic murmur, diastolic murmur, rubs, gallop, clicks GI/Abdominal exam: Present: soft, normal bowel sounds. Absent: distended, tenderness, guarding, rebound, rigid Extremities exam: Present: normal inspection, full ROM, normal capillary refill. Absent: tenderness, pedal edema, joint swelling, calf tenderness Back exam: Present: normal inspection Neurological exam: Present: alert, oriented X3, CN II-XII intact Psychiatric exam: Present: normal affect, normal mood Skin exam: Present: warm, dry, intact, normal color. Absent: rash <Sedrick Swann - Last Filed: 05/06/24 19:22> - General Exam Comments Initial Comments: Visual Physical Exam Vital signs reviewed General: Patient appears almost catatonic in wheelchair but answering all questions appropriately. Nontoxic, no acute distress. Head: Normocephalic, atraumatic Eyes: PERRLA, EOMI ENT: Airway patent Chest: Nonlabored breathing Skin: No visual rash, normal skin tone Neuro: Alert and oriented 3 Musculoskeletal: No gross abnormalities (Shawn Kenny) Stroke MDM <Shawn Kenny - Last Filed: 05/04/24 19:24> - Lab Data Result diagrams: 05/06/24 12:09 05/06/24 12:09 - NIH Stroke Scale 1a. Level of Consciousness: (2) not alert, rep stimuli 1b. LOC Questions: (0) answers correctly 1c. LOC Commands: (0) performs tasks correctly 2. Best Gaze: (0) normal 3. Visual: (0) no visual loss 4. Facial Palsy: (0) normal symmetrical movement 5a. Motor Arm Left: (0) no drift 5b. Motor Arm Right: (0) no drift 6a. Motor Leg Left: (0) no drift 6b. Motor Leg Right: (0) no drift 7. Limb Ataxia: (0) absent 8. Sensory: (0) normal 9. Best Language: (0) no aphasia 10. Dysarthria: (0) normal 11. Extinction/Inattention: (0) no abnormality - Thrombolytic Inclusion/Exclusion Thrombolytic Exclusion Criteria: Onset of Symptoms Unknown - Radiology Data Radiology results: report reviewed (CT brain and chest x-ray is negative for acute disease), image reviewed - EKG Data -: EKG Interpreted by Me (EKG is sinus 92 AK 162 QRS 103 QTc 432) <Sedrick Swann - Last Filed: 05/06/24 19:22> - Lab Data Lab Results 05/04/24 05/04/24 05/04/24 Range/Units 19:52 19:52 19:52 WBC 2.1 L (3.8-10.6) k/uL RBC 3.02 L (4.30-5.90) m/uL Hgb 10.7 L (13.0-17.5) gm/dL Hct 30.7 L (39.0-53.0) % MCV 101.6 H (80.0-100.0) fL MCH 35.5 H (25.0-35.0) pg MCHC 34.9 (31.0-37.0) g/dL RDW 16.7 H (11.5-15.5) % Plt Count 86 L (150-450) k/uL MPV 8.7 Neutrophils % (Manual) 69 % Lymphocytes % (Manual) 18 % Monocytes % (Manual) 11 % Eosinophils % (Manual) 1 % Basophils % (Manual) 1 % Neutrophils # (Manual) 1.45 (1.3-7.7) k/uL Lymphocytes # (Manual) 0.38 L (1.0-4.8) k/uL Monocytes # (Manual) 0.23 (0-1.0) k/uL Eosinophils # (Manual) 0.02 (0-0.7) k/uL Basophils # (Manual) 0.02 (0-0.2) k/uL Nucleated RBCs 0 (0-0) /100 WBC Manual Slide Review Performed Poikilocytosis Slight Anisocytosis Slight Macrocytosis Slight Tear Drop Cells Present PT (10.0-12.5) sec INR (<1.2) APTT (22.0-30.0) sec Sodium 139 (137-145) mmol/L Potassium 4.1 (3.5-5.1) mmol/L Chloride 109 H (98-107) mmol/L Carbon Dioxide 19 L (22-30) mmol/L Anion Gap 11 mmol/L BUN 27 H (9-20) mg/dL Creatinine 1.05 (0.66-1.25) mg/dL Est GFR (CKD-EPI)AfAm >90 (>60 ml/min/1.73 sqM) Est GFR (CKD-EPI)NonAf 83 (>60 ml/min/1.73 sqM) Glucose 94 (74-99) mg/dL Calcium 8.4 (8.4-10.2) mg/dL Total Bilirubin 0.8 (0.2-1.3) mg/dL AST 22 (17-59) U/L ALT 15 (4-49) U/L Alkaline Phosphatase 33 L (38-126) U/L Ammonia (<30) umol/L Total Protein 5.8 L (6.3-8.2) g/dL Albumin 3.7 (3.5-5.0) g/dL IgG 671.0 L (700.0-1600.0) mg/dL IgA <65.0 L (60.0-350.0) mg/dL IgM <35.0 L (40.0-280.0) mg/dL 05/04/24 05/04/24 Range/Units 21:20 21:20 WBC (3.8-10.6) k/uL RBC (4.30-5.90) m/uL Hgb (13.0-17.5) gm/dL Hct (39.0-53.0) % MCV (80.0-100.0) fL MCH (25.0-35.0) pg MCHC (31.0-37.0) g/dL RDW (11.5-15.5) % Plt Count (150-450) k/uL MPV Neutrophils % (Manual) % Lymphocytes % (Manual) % Monocytes % (Manual) % Eosinophils % (Manual) % Basophils % (Manual) % Neutrophils # (Manual) (1.3-7.7) k/uL Lymphocytes # (Manual) (1.0-4.8) k/uL Monocytes # (Manual) (0-1.0) k/uL Eosinophils # (Manual) (0-0.7) k/uL Basophils # (Manual) (0-0.2) k/uL Nucleated RBCs (0-0) /100 WBC Manual Slide Review Poikilocytosis Anisocytosis Macrocytosis Tear Drop Cells PT 11.7 (10.0-12.5) sec INR 1.1 (<1.2) APTT 24.4 (22.0-30.0) sec Sodium (137-145) mmol/L Potassium (3.5-5.1) mmol/L Chloride (98-107) mmol/L Carbon Dioxide (22-30) mmol/L Anion Gap mmol/L BUN (9-20) mg/dL Creatinine (0.66-1.25) mg/dL Est GFR (CKD-EPI)AfAm (>60 ml/min/1.73 sqM) Est GFR (CKD-EPI)NonAf (>60 ml/min/1.73 sqM) Glucose (74-99) mg/dL Calcium (8.4-10.2) mg/dL Total Bilirubin (0.2-1.3) mg/dL AST (17-59) U/L ALT (4-49) U/L Alkaline Phosphatase (38-126) U/L Ammonia 118 H (<30) umol/L Total Protein (6.3-8.2) g/dL Albumin (3.5-5.0) g/dL IgG (700.0-1600.0) mg/dL IgA (60.0-350.0) mg/dL IgM (40.0-280.0) mg/dL - Medical Decision Making I completed the quick note portion of this chart signed MARISOL Khan (Shawn Kenny) 48 male to the ER for evaluation of altered mental status multifactorial with severely elevated ammonia level patient has improved significantly with IV hydration improved significantly with time here in the emergency department. He is alert and suspect family setting is not speaking and communicating more clearly patient will admit for pain management observation and then hydration as well as treatment of hyperammonemia (Sedrick Swann) Past Medical History Past Medical History: Cancer Additional Past Medical History / Comment(s): multiple myloma on chemo. History of prior laminectomy decompression at lower thoracic with Dr. Dominguez in January 2022. History of multiple soft tissue masses throughout his thoracic lumbar and sacral spine. history lower extremity weakness History of Any Multi-Drug Resistant Organisms: None Reported Past Surgical History: No Surgical Hx Reported Additional Past Surgical History / Comment(s): back surgery to remove tumor december of 2021. Bone biospy of right hip, spinal decompression Past Anesthesia/Blood Transfusion Reactions: No Reported Reaction Past Psychological History: No Psychological Hx Reported Smoking Status: Never smoker Past Alcohol Use History: None Reported Past Drug Use History: Marijuana <Shawn Kenny - Last Filed: 05/04/24 19:24> Course <Sedrick Swann - Last Filed: 05/06/24 19:22> Vital Signs 05/04/24 05/04/24 05/04/24 18:55 20:05 21:32 Temperature 98.7 F Pulse Rate 97 90 79 Respiratory 19 18 16 Rate Blood Pressure 116/81 104/74 99/66 O2 Sat by Pulse 99 97 97 Oximetry 05/04/24 05/05/24 05/05/24 23:00 00:12 04:44 Temperature Pulse Rate 81 69 89 Respiratory 18 18 18 Rate Blood Pressure 103/69 112/75 90/57 O2 Sat by Pulse 97 97 98 Oximetry 05/05/24 06:16 Temperature Pulse Rate 66 Respiratory 18 Rate Blood Pressure 89/58 O2 Sat by Pulse 97 Oximetry - Reevaluation(s) Reevaluation #1: 05/04/24 22:52 Medical records reviewed Patient does have ER prior ER evaluations in regards to abnormal lab testing weakness (Sedrick Swann) Reevaluation #2: 05/04/24 22:52 Patient symptoms are improving with IV hydration mental status is improving Patient requesting pain medication, after pain medication pain is improved (Sedrick Swann) Reevaluation #3: 05/04/24 22:53 Spoke with family and patient with regarding results, questions answered also spoke with regarding pain medication and medication usage they would like pain management consultation (Sedrick Swann) Reevaluation #4: 05/04/24 22:53 Was pt. sent in by a medical professional or institution (Dr. PA, PARTS CLEANER, urgent care, hospital, or halfway...) When possible be specific @ -no Did you speak to anyone other than the patient for history (EMS, parent, family, police, friend...)? What history was obtained from this source @ -no Did you review nursing and triage notes (agree or disagree)? Why? @ -agree Are old charts reviewed (outside hosp., previous admission, EMS record, old EKG, old radiological studies, urgent care reports/EKG's, halfway records)? Report findings @ -yes Differential Diagnosis (chest pain, altered mental status, abdominal pain women, abdominal pain men, vaginal bleeding, weakness, fever, dyspnea, syncope, headache, dizziness, GI bleed, back pain, seizure, CVA, palpatations, mental health, musculoskeletal)? @ -prior EKG interpreted by me (3pts min.). @ -yes X-rays interpreted by me (1pt min.). @ -yes negative for acute disease CT interpreted by me (1pt min.). @ -Yes negative for acute disease U/S interpreted by me (1pt. min.). @ -no What testing was considered but not performed or refused? (CT, X-rays, U/S, labs)? Why? @ -none What meds were considered but not given or refused? Why? @ -none Did you discuss the management of the patient with other professionals (professionals i.e. , PA, PARTS CLEANER, lab, RT, psych nurse, social media analyst, natural gas trader, teacher, complaint investigations officer, mental health case manager)? Give summary @ -no Was smoking cessation discussed for >3mins.? @ -no Was critical care preformed (if so, how long)? @ -no Were there social determinants of health that impacted care today? How? (Homelessness, low income, unemployed, alcoholism, drug addiction, transportation, low edu. Level, literacy, decrease access to med. care, fpc, rehab)? @ -none Was there de-escalation of care discussed even if they declined (Discuss DNR or withdrawal of care, Hospice)? DNR status @ -no What co-morbidities impacted this encounter? (DM, HTN, Smoking, COPD, CAD, Cancer, CVA, ARF, Chemo, Hep., AIDS, mental health diagnosis, sleep apnea, morbid obesity)? @ -none Was patient admitted / discharged? Hospital course, mention meds given and route, prescriptions, significant lab abnormalities, going to OR and other pertinent info. @ - 48 male to the ER for evaluation of altered mental status multifactorial with severely elevated ammonia level patient has improved significantly with IV hydration improved significantly with time here in the emergency department. He is alert and suspect family setting is not speaking and communicating more clearly patient will admit for pain management observation and then hydration as well as treatment of hyperammonemia Admitted Undiagnosed new problem with uncertain prognosis? @ -no Drug Therapy requiring intensive monitoring for toxicity (Heparin, Nitro, Insulin, Cardizem)? @ -no Were any procedures done? @ -no Diagnosis/symptom? @ - encephalopathy altered mental status, weakness large cancer burden Acute, or Chronic, or Acute on Chronic? @ -Acute Uncomplicated (without systemic symptoms) or Complicated (systemic symptoms)? @ -Complicated Side effects of treatment? @ -no Exacerbation, Progression, or Severe Exacerbation? @ -exacerbation Poses a threat to life or bodily function? How? (Chest pain, USA, NC, pneumonia, PE, COPD, DKA, ARF, appy, cholecystitis, CVA, Diverticulitis, Homicidal, Suicidal, threat to staff... and all critical care pts) @ -yes cancer burden (Sedrick Swann) Reevaluation #5: Differential Altered Mental Status: Hypoglycemia, DKA, hypercapnia, ETOH, overdose, CO poisoning, trauma, myxedema coma, HTN encephalopathy, infection, encephalitis, psychosis, intercranial hemorrhage, hepatic encephalopathy, meningitis, CVA, this is not meant to be an all-inclusive list (Sedrick Swann) - Consultations Consultation #1: Spoke with [facility] who agrees to admit this patient (Sedrick Swann) Critical Care Time Critical Care Time: Yes Total Critical Care Time: 32 <Sedrick Swann - Last Filed: 05/06/24 19:22> Disposition <Shawn Kenny - Last Filed: 05/04/24 19:24> Is patient prescribed a controlled substance at d/c from ED?: No Time of Disposition: 22:50 <Sedrick Swann - Last Filed: 05/06/24 19:22> Clinical Impression: Multiple myeloma, Pancytopenia due to antineoplastic chemotherapy, Mid back pain, Weakness, Altered mental status, Hyperammonemia, Encephalopathy Disposition: ADMITTED IP TO THIS HOSP Condition: Fair
[2024-05-04 20:07] LABS: Anisocytosis Slight; HCT 30.7 % (39.0-53.0); HGB 10.7 gm/dL (13.0-17.5); MCH 35.5 pg (25.0-35.0); MCHC 34.9 g/dL (31.0-37.0); MCV 101.6 fL (80.0-100.0); Macrocytosis Slight; Mean Platelet Volume 8.7; Poikilocytosis Slight; RBC 3.02 m/uL (4.30-5.90); RDW 16.7 % (11.5-15.5); WBC 2.1 k/uL (3.8-10.6)
[2024-05-04 20:19] LABS: ALT 15 U/L (4-49); AST 22 U/L (17-59); African American GFR (CKD) >90 (>60 ml/min/1.73 sqM); Albumin 3.7 g/dL (3.5-5.0); Alkaline Phosphatase 33 U/L (38-126); Anion Gap 11 mmol/L; Blood Urea Nitrogen 27 mg/dL (9-20); Calcium 8.4 mg/dL (8.4-10.2); Carbon Dioxide 19 mmol/L (22-30); Chloride 109 mmol/L (98-107); Glucose 94 mg/dL (74-99); Non-African American GFR(CKD) 83 (>60 ml/min/1.73 sqM); Potassium 4.1 mmol/L (3.5-5.1); Sodium 139 mmol/L (137-145); Total Bilirubin 0.8 mg/dL (0.2-1.3); Total Protein 5.8 g/dL (6.3-8.2)
[2024-05-04 20:40] LABS: Platelet Count 86 k/uL (150-450)
--- NOTE | 2024-05-04 20:40 | XR ---
EXAMINATION TYPE: XR chest 2V DATE OF EXAM: 05/04/2024 8:28 PM COMPARISON: 10/12/2023 CLINICAL INDICATION: Male, 48 years old with history of Confusion, lethargy, TECHNIQUE: XR chest 2V view(s) obtained. FINDINGS: The heart size is normal. The pulmonary vasculature is normal. There is an opacity over the upper outer peripheral left lung. Small right pleural effusion is presen t. Posterior consolidation as on the lateral projection. IMPRESSION: 1. Right lateral lung opacification. Correlate for atelectasis, pneumonia, or mass. 2. Posterior infiltrate on the lateral projection more likely related to an infiltrate. This however could obscure a mass. 3. Right Pleural effusion [facility], , 05/04/2024 8:38 PM
[2024-05-04 21:12] LABS: Basophils # (M) 0.02 k/uL (0-0.2); Eosinophils # (M) 0.02 k/uL (0-0.7); Lymphocytes # (M) 0.38 k/uL (1.0-4.8); Monocytes # (M) 0.23 k/uL (0-1.0); Neutrophils # (M) 1.45 k/uL (1.3-7.7); Neutrophils % (M) 69 %; Nucleated Red Blood Cells 0 /100 WBC (0-0); Total Cells Counted 100
[2024-05-04 21:17] LABS: Tear Drop Cells Present
--- NOTE | 2024-05-04 21:18 | CT ---
EXAMINATION TYPE: CT brain wo con DATE OF EXAM: 05/04/2024 9:13 PM COMPARISON: None. CLINICAL INDICATION: Male, 48 years old with history of Altered mental status, AMS TECHNIQUE: CT of the brain is performed utilizing 3 mm thick sections through the posterior fossa and 3 mm thick sections through the remaining calvarium. Study is performed within 24 hours of arrival to the hospital. Contrast used: mL of , (none if empty) CT DLP: 1108.4 mGycm, Automated exposure control for dose reduction was used. FINDINGS: No abnormal hyperdensity is present to suggest an acute intracranial hemorrhage. No mass lesion is evident. No acute infarcts are evident. There may be very minimal periventricular white matter hypodensity lik luis on the basis of chronic white matter ischemic changes. Ventricles and sulci are appropriate for the patient age. Paranasal sinuses and mastoid air cells within the [id number] are clear. IMPRESSION: 1. No acute intracranial process. Follow up MRI can be performed as clinically indicated. 2. There may be some very minimal chronic appearing. Ventricular white matter ischemic changes [facility], , 05/04/2024 9:16 PM
[2024-05-04] MEDS: SODIUM CHLORIDE 0.9% 1,000 ML IV ONE (21:21)
[2024-05-04 22:00] LABS: INR 1.1 (<1.2); Partial Thromboplastin Time 24.4 sec (22.0-30.0); Prothrombin Time 11.7 sec (10.0-12.5)
[2024-05-04] MEDS ORDERED: PNEUMONIA PROTOCOL UTILIZED 1 EACH MISC PO PRN (22:44)
[2024-05-04] MEDS: HYDROmorphone 1 MG/ML 1 ML SYRINGE IVP STA (22:58)
[2024-05-04] MEDS: LACTULOSE 20 GM/30 ML CUP PO ONE (23:00)
[2024-05-04] MEDS: LACTATED RINGERS 1,000 ML BAG IV STA (23:01)
[2024-05-04] MEDS: SODIUM CHLORIDE 0.9% 1,000 ML IV STA (23:09)
[2024-05-04 23:31] LABS: Magnesium 1.9 mg/dL (1.6-2.3); Phosphorus 2.8 mg/dL (2.5-4.5); Salicylate <1.0 mg/dL
[2024-05-04 23:32] LABS: Acetaminophen <10.0 ug/mL
[2024-05-05] MEDS: HYDROmorphone 1 MG/ML 1 ML SYRINGE IVP PRN (00:50)
[2024-05-05] MEDS: AZITHROMYCIN 500 MG in SODIUM CHLORIDE 0.9% 250 ML IVPB STA (00:52)
[2024-05-05 00:56] LABS: Influenza A Not Detected (Not Detectd); Influenza B Not Detected (Not Detectd); RSV Not Detected (Not Detectd)
[2024-05-05 02:49] LABS: Appearance,Urine Clear (Clear); Bilirubin,Urine Negative (Negative); Blood,Urine Negative (Negative); Color,Urine Yellow; Glucose,Urine (UA) Negative (Negative); Ketones,Urine 1+ (Negative); Leukocyte Esterase,Urine Negative (Negative); Mucus,Urine Occasional /hpf; Nitrite,Urine Negative (Negative); PH, Urine 6.5 (5.0-8.0); Protein,Urine 2+ (Negative); RBC,Urine 1 /hpf (0-5); Specific Gravity,Urine 1.023 (1.001-1.035); Squamous Epithelial Cell,Urine <1 /hpf (0-4); Urobilinogen,Urine <2.0 mg/dL (<2.0); WBC,Urine <1 /hpf (0-5)
[2024-05-05 03:02] LABS: Cocaine Screen,Urine Not Detected (NotDetected); Phencyclidine Screen,Urine Not Detected (NotDetected); Urn Cannabinoid Scrn Detected (NotDetected)
[2024-05-05 03:03] LABS: Amphetamine Screen,Urine Not Detected (NotDetected); Barbiturate Screen,Urine Not Detected (NotDetected); Benzodiazepines Screen,Urine Not Detected (NotDetected); Methadone Screen, Urine Not Detected (NotDetected); Opiate Screen,Urine Detected (NotDetected); Oxycodone Screen, Urine Not Detected (NotDetected); Tricyclic Antidepressant,Urine Not Detected (NotDetected)
--- NOTE | 2024-05-05 08:09 | XR ---
EXAMINATION TYPE: XR chest 1V portable DATE OF EXAM: 05/05/2024 5:33 AM COMPARISON: 05/04/2024 CLINICAL INDICATION: Male, 48 years old with history of pneumonia, TECHNIQUE: XR chest 1V portable view(s) obtained. FINDINGS: The heart size is normal. The pulmonary vasculature is normal. Small to moderate size right pleural effusion is present. Small left pleural effusion is present. Sub segmental atelectasis may be adjacent to the pleural effusions IMPRESSION: 1. Increasing bilateral pleural effusions with adjacent infiltrates. Correlate for atelectasis. [facility], , 05/05/2024 8:07 AM
[2024-05-05] MEDS: LACTULOSE 20 GM/30 ML CUP PO SCH (08:52)
[2024-05-05] MEDS ORDERED: AZITHROMYCIN 500 MG in SODIUM CHLORIDE 0.9% 250 ML IVPB SCH (09:00)
[2024-05-05] MEDS: AZITHROMYCIN 500 MG in SODIUM CHLORIDE 0.9% 250 ML IVPB SCH (09:45)
[2024-05-05] MEDS: FUROSEMIDE 10 MG/ML 2 ML VIAL IV SCH (09:45)
--- NOTE | 2024-05-05 09:51 | P.HPIM ---
History of Present Illness This is a pleasant 48 years old male with past medical history of multiple myeloma and he follow-up with his oncologist as an outpatient. Presents because of confusion, increased urination and there was concerns about detox from Dilaudid. He takes Dilaudid orally 8 mg 3 times a day. As per staff patient has been recently fired from his pain clinic because he was taking marijuana stuff like Gummies. So the contract with his pain clinic was canceled. When I talked to the patient this morning he was awake and alert, he was drowsy go back to sleep in the middle of conversation but wake up right away. We discussed his pain management and the risk of this medication including but not limited to risk of respiratory depression and/or , patient fixated on getting more Dilaudid he requiring it to be given IV and higher dose although he was started on Dilaudid 1 mg every 4 hours. I talked to the patient for trying to taper down his oral dose or switch to morphine but is not ready for that yet. On admission also there was suspicion of pneumonia and patient started on ceftriaxone and Zithromax. Also received 2 L of normal saline and repeat chest x-ray showing more fluid congestion in the lungs. However he denies any tachypnea or dyspnea at rest and he is currently on room air breathing quietly and fine. He denies chest pain, no abdominal pain or vomiting or diarrhea. No dysuria He denies smoking alcohol drugs to me. He said he had 1 bowel movement yesterday. He feels little short of breath Patient states that he was diagnosed with cancer of multiple myeloma about 2 years ago Patient states that he complains from this chronic low back pain radiating to the both legs, he states it was worse for the last 2 to 3 days although he denies any trauma or any specification. He is afebrile, has chronic pancytopenia which looks stable. Blood pressure slightly on the low side 98/59 Urine drug screen was positive for marijuana and opiates Serum alcohol and salicylate were negative Chest x-ray first 1 showing mild right pleural effusion second chest x-ray showing bilateral pulmonary effusion and increased congestion EKG showing sinus rhythm at [address]-T changes CT of the brain is negative for acute process Review of Systems Review of systems CONSTITUTIONAL: No fever, no malaise, no fatigue. HEENT: No recent visual problems or hearing problems. Denied any sore throat. CARDIOVASCULAR: No orthopnea, PND, no palpitations, no syncope. PULMONARY: No shortness of breath, no cough, no hemoptysis. GASTROINTESTINAL: No diarrhea, no nausea, no vomiting, no abdominal pain. Normoactive bowel sounds. NEUROLOGICAL: No headaches, no weakness, no numbness. HEMATOLOGICAL: Denies any bleeding or petechiae. GENITOURINARY: Denies any burning micturition, frequency, or urgency. MUSCULOSKELETAL/RHEUMATOLOGICAL: Denies any joint pain, swelling, or any muscle pain. ENDOCRINE: Denies any polyuria or polydipsia. 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 History of prior laminectomy decompression at lower thoracic with Dr. Dominguez in January 2022. History of multiple soft tissue masses throughout his thoracic lumbar and sacral spine. history lower extremity weakness History of Any Multi-Drug Resistant Organisms: None Reported Past Surgical History: No Surgical Hx Reported Additional Past Surgical History / Comment(s): back surgery to remove tumor december of 2021. Bone biospy of right hip, spinal decompression Past Anesthesia/Blood Transfusion Reactions: No Reported Reaction Past Psychological History: No Psychological Hx Reported Smoking Status: Never smoker Past Alcohol Use History: None Reported Past Drug Use History: Marijuana Medications and Allergies Home Medications Medication Instructions Recorded Confirmed Type Lenalidomide [Revlimid] 20 mg PO DIRECTED 09/04/23 05/05/24 History HYDROmorphone HCL [Dilaudid] 8 mg PO TID 05/05/24 05/05/24 History dexAMETHasone [Decadron] 4 mg PO DAILY 05/05/24 05/05/24 History Allergies Allergy/AdvReac Type Severity Reaction Status Date / Time No Known Allergies Allergy Verified 05/05/24 07:03 Physical Exam Vitals: Vital Signs Temp Pulse Pulse Resp BP BP Pulse Ox 05/05/24 07:41 97.7 F 65 16 98/59 99 05/05/24 06:16 66 18 89/58 97 05/05/24 04:44 89 18 90/57 98 05/05/24 00:12 69 18 112/75 97 05/04/24 23:00 81 18 103/69 97 05/04/24 21:32 79 16 99/66 97 05/04/24 20:05 90 18 104/74 97 05/04/24 18:55 98.7 F 97 19 116/81 99 Intake and Output 05/04/24 05/05/24 05/05/24 22:59 06:59 14:59 Other: Weight 81.647 kg -GENERAL: The patient is alert and oriented x3, patient getting sleepy and in the middle of the conversation, easy to wake up, not in any acute distress. Well developed, well nourished. HEENT: Pupils are round and equally reacting to light. EOMI. No scleral icterus. No conjunctival pallor. Normocephalic, atraumatic. No pharyngeal erythema. No thyromegaly. CARDIOVASCULAR: S1 and S2 present. No murmurs, rubs, or gallops. PULMONARY: Chest is clear to auscultation, no wheezing , no crackles. ABDOMEN: Soft, nontender, nondistended, normoactive bowel sounds. No palpable organomegaly. MUSCULOSKELETAL: No joint swelling or deformity. EXTREMITIES: No cyanosis, clubbing, or pedal edema. NEUROLOGICAL: Gross neurological examination did not reveal any focal deficits. SKIN: No rashes. no petechiae. Results CBC & Chem 7: 05/04/24 19:52 05/04/24 19:52 Labs: Abnormal Lab Results - Last 24 Hours (Table) 05/04/24 05/04/24 05/04/24 Range/Units 19:52 19:52 21:20 WBC 2.1 L (3.8-10.6) k/uL RBC 3.02 L (4.30-5.90) m/uL Hgb 10.7 L (13.0-17.5) gm/dL Hct 30.7 L (39.0-53.0) % MCV 101.6 H (80.0-100.0) fL MCH 35.5 H (25.0-35.0) pg RDW 16.7 H (11.5-15.5) % Plt Count 86 L (150-450) k/uL Lymphocytes # (Manual) 0.38 L (1.0-4.8) k/uL Chloride 109 H (98-107) mmol/L Carbon Dioxide 19 L (22-30) mmol/L BUN 27 H (9-20) mg/dL Alkaline Phosphatase 33 L (38-126) U/L Ammonia 118 H (<30) umol/L Total Protein 5.8 L (6.3-8.2) g/dL Urine Protein (Negative) Urine Ketones (Negative) Urine Mucus (None) /hpf Urine Opiates Screen (NotDetected) U Marijuana (THC) Screen (NotDetected) 05/05/24 05/05/24 Range/Units 02:30 02:30 WBC (3.8-10.6) k/uL RBC (4.30-5.90) m/uL Hgb (13.0-17.5) gm/dL Hct (39.0-53.0) % MCV (80.0-100.0) fL MCH (25.0-35.0) pg RDW (11.5-15.5) % Plt Count (150-450) k/uL Lymphocytes # (Manual) (1.0-4.8) k/uL Chloride (98-107) mmol/L Carbon Dioxide (22-30) mmol/L BUN (9-20) mg/dL Alkaline Phosphatase (38-126) U/L Ammonia (<30) umol/L Total Protein (6.3-8.2) g/dL Urine Protein 2+ H (Negative) Urine Ketones 1+ H (Negative) Urine Mucus Occasional H (None) /hpf Urine Opiates Screen Detected H (NotDetected) U Marijuana (THC) Screen Detected H (NotDetected) Assessment and Plan Assessment: Altered mental status most likely toxic/metabolic encephalopathy could be due to pain medication. With some elements of infection Mild community-acquired pneumonia possible on the right side Acute on chronic back. Related to his multiple myeloma. Multiple myeloma, I follow-up with oncologist as an outpatient Chronic pancytopenia, currently stable Substance abuse withetrahydrocannabinol Plan: Plan: Continue with ceftriaxone and Zithromax Start small dose of IV Lasix for 3 days as patient received 2 L of normal saline Patient was started on high-dose Dilaudid 1 mg every 4 hours, will going to change it to 0.5 mg every 8 to 6 hours and put him back on his oral dose. We recommend to gradually taper down his narcotics. Oncology team were consulted. GI prophylaxis: Pepcid DVT prophylaxis subcu heparin Prognosis guarded
[2024-05-05] MEDS: polyethylene glycoL 3350 17 GM POWD.PACK PO SCH (11:57)
[2024-05-05] MEDS: DOCUSATE 100 MG CAP PO SCH (11:57)
[2024-05-05] MEDS: HYDROmorphone 0.5 MG/0.5 ML SYRINGE IVP PRN (14:07)
[2024-05-05] MEDS: HYDROmorphone 2 MG TAB PO SCH (16:35)
--- NOTE | 2024-05-05 18:55 | P.CONS ---
History of Present Illness - Reason for Consult Consult date: 05/05/24 hx MM Requesting physician: Sedrick Swann - Chief Complaint confusion, pain - History of Present Illness Mr. Harper is a 48-year-old male pt f Dr. 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 Subsequently he developed spinal cord compression in April 2023. Treated with radiation therapy with 1 cycle of CyBorD inpatient and 1 cycle of D-Krd at [facility] 07/03/23 before moving back to [place] to resume treatment . Myeloma labs in July 2023 kappa light chain of 80.85 with suppressed lambda light chain of less than 0.2 with kappa/lambda ratio of at least 400. He received day 1 of Kyprolis and daratumumab on 09/03/2023 that was complicated by episode of significant muscle stiffness with shaking of unclear etiology. It was not clear if this was a reaction to carfilzomib or daratumumab. He was hospitalized at [facility] from 09/04/2023 to 09/07/2023. MRI of the lumbar spine performed inpatient revealed no evidence of acute cord compression. Treatment with D-RVd was started back up on 09/18/2023 and received cycle 1 of treatment with cycle 2 initiated on 10/09/2023. Subsequently, he was admitted for pathologic fracture of the right hip requiring ORIF on 10/13/2023. Treatment has been held since then due to thrombocytopenia, likely due to inflammation from the surgery. Repeat myeloma labs from 10/26/2023 reveals stable disease with IgG of 152. He did resume treatment on 11/21/2023 and most recently received Darzalex and Velcade on 04/17/2024, missing last two treatments. At his last f/u he continued to have low back pain and stiffness with limited ambulation requiring Dilaudid, uncontrolled at his current dosing, and was increased to 8mg TID. It was also discussed concern for potential of disease progression. Different options, including CAR-T and PSMA-CD3 by specific antibodies were also discussed. For now, plan is continue on D-RVd as scheduled Patient presented to the emergency room with complaints of confusion and urinary issues. Upon admit chest x-ray showing right lateral lung opacification and posterior infiltrate on the lateral projection. With right pleural effusion. Patient has subsequently been started empiric antibiotics. CT brain without contrast showing no acute intracranial processes. Labs reviewed, WBC 2.1, hemoglobin 10.7, platelets 86,000. Creatinine 1.05, GFR 83, bun 27. Ammonia elevated at 118. LFTs bilirubin WNL. Lactulose has been started. UA and viral panel negative for infection. At today's visit patient is reporting he has been experiencing increased confusion over the last couple days as well as urinary incontinence and increased frequency. Reports persisting back pain/stiffness. Has been using walker/cane, denies recent falls. Upon speaking to his nurse today, she states she spoke to patient's mother who is concerned he is abusing his prescription narcotics an, "he has been crushing his pills and snorting them and has been out of it and urinating the couch." Review of Systems 10 point ROS is negative except as stated in the HPI Past Medical History Past Medical History: Cancer Additional Past Medical History / Comment(s): multiple myloma on chemo. History of prior laminectomy decompression at lower thoracic with Dr. Dominguez in January 2022. History of multiple soft tissue masses throughout his thoracic lumbar and sacral spine. history lower extremity weakness History of Any Multi-Drug Resistant Organisms: None Reported Past Surgical History: No Surgical Hx Reported Additional Past Surgical History / Comment(s): back surgery to remove tumor december of 2021. Bone biospy of right hip, spinal decompression Past Anesthesia/Blood Transfusion Reactions: No Reported Reaction Past Psychological History: No Psychological Hx Reported Smoking Status: Never smoker Past Alcohol Use History: None Reported Past Drug Use History: Marijuana Medications and Allergies Home Medications Medication Instructions Recorded Confirmed Type Lenalidomide [Revlimid] 20 mg PO DIRECTED 09/04/23 05/05/24 History HYDROmorphone HCL [Dilaudid] 8 mg PO TID 05/05/24 05/05/24 History dexAMETHasone [Decadron] 4 mg PO DAILY 05/05/24 05/05/24 History Allergies Allergy/AdvReac Type Severity Reaction Status Date / Time No Known Allergies Allergy Verified 05/05/24 07:03 Physical Exam Vitals: Vital Signs Temp Pulse Pulse Resp BP BP Pulse Ox 05/05/24 07:41 97.7 F 65 16 98/59 99 05/05/24 06:16 66 18 89/58 97 05/05/24 04:44 89 18 90/57 98 05/05/24 00:12 69 18 112/75 97 05/04/24 23:00 81 18 103/69 97 05/04/24 21:32 79 16 99/66 97 05/04/24 20:05 90 18 104/74 97 05/04/24 18:55 98.7 F 97 19 116/81 99 Intake and Output 05/04/24 05/05/24 05/05/24 22:59 06:59 14:59 Other: Weight 81.647 kg - Constitutional General appearance: average body habitus, no acute distress - EENT Eyes: anicteric sclerae ENT: hearing grossly normal - Respiratory breathing is even and unlabored - Cardiovascular skin warm and dry - Gastrointestinal General gastrointestinal: soft, no tenderness - Integumentary Integumentary: no cyanotic, no jaundiced - Musculoskeletal 2/5 dorsiflexion and plantarflexion in bilateral feet. 2/5 flexion in LLE, 3/5 flexion in RLE. Sensation intact - Psychiatric Psychiatric: A&O x's 3 Results CBC & Chem 7: 05/04/24 19:52 05/04/24 19:52 Labs: Abnormal Lab Results - Last 24 Hours (Table) 05/04/24 05/04/24 05/04/24 Range/Units 19:52 19:52 21:20 WBC 2.1 L (3.8-10.6) k/uL RBC 3.02 L (4.30-5.90) m/uL Hgb 10.7 L (13.0-17.5) gm/dL Hct 30.7 L (39.0-53.0) % MCV 101.6 H (80.0-100.0) fL MCH 35.5 H (25.0-35.0) pg RDW 16.7 H (11.5-15.5) % Plt Count 86 L (150-450) k/uL Lymphocytes # (Manual) 0.38 L (1.0-4.8) k/uL Chloride 109 H (98-107) mmol/L Carbon Dioxide 19 L (22-30) mmol/L BUN 27 H (9-20) mg/dL Alkaline Phosphatase 33 L (38-126) U/L Ammonia 118 H (<30) umol/L Total Protein 5.8 L (6.3-8.2) g/dL Urine Protein (Negative) Urine Ketones (Negative) Urine Mucus (None) /hpf Urine Opiates Screen (NotDetected) U Marijuana (THC) Screen (NotDetected) 05/05/24 05/05/24 Range/Units 02:30 02:30 WBC (3.8-10.6) k/uL RBC (4.30-5.90) m/uL Hgb (13.0-17.5) gm/dL Hct (39.0-53.0) % MCV (80.0-100.0) fL MCH (25.0-35.0) pg RDW (11.5-15.5) % Plt Count (150-450) k/uL Lymphocytes # (Manual) (1.0-4.8) k/uL Chloride (98-107) mmol/L Carbon Dioxide (22-30) mmol/L BUN (9-20) mg/dL Alkaline Phosphatase (38-126) U/L Ammonia (<30) umol/L Total Protein (6.3-8.2) g/dL Urine Protein 2+ H (Negative) Urine Ketones 1+ H (Negative) Urine Mucus Occasional H (None) /hpf Urine Opiates Screen Detected H (NotDetected) U Marijuana (THC) Screen Detected H (NotDetected) Chest x-ray: report reviewed CT Scan - head: report reviewed Assessment and Plan (1) Altered mental status Current Visit: Yes Status: Acute Code(s): R41.82 - ALTERED MENTAL STATUS, UNSPECIFIED SNOMED Code(s): 313073065 (2) Encephalopathy Current Visit: Yes Status: Acute Code(s): G93.40 - ENCEPHALOPATHY, UNSPECIFIED SNOMED Code(s): 70651615 (3) Hyperammonemia Current Visit: Yes Status: Acute Code(s): E72.20 - DISORDER OF UREA CYCLE METABOLISM, UNSPECIFIED SNOMED Code(s): 8616705 (4) Multiple myeloma Current Visit: Yes Status: Acute Priority: High Code(s): C90.00 - MULTIPLE MYELOMA NOT HAVING ACHIEVED REMISSION SNOMED Code(s): 891510039 (5) Pancytopenia due to antineoplastic chemotherapy Current Visit: Yes Status: Acute Priority: High Code(s): D61.810 - ANTINEOPLASTIC CHEMOTHERAPY INDUCED PANCYTOPENIA; T45.1X5A - ADVERSE EFFECT OF ANTINEOPLASTIC AND IMMUNOSUP DRUGS, INIT SNOMED Code(s): 018782075902235 (6) Bilateral leg weakness Current Visit: Yes Status: Acute Priority: High Code(s): R29.898 - OTH SYMPTOMS AND SIGNS INVOLVING THE MUSCULOSKELETAL SYSTEM SNOMED Code(s): 7949416 Plan: Confusion: Presented with confusion. Possible withdrawl from opiates? Per mother pt has been abusing his prescription opiates. PO dilaudid last filled on 04/21, quantity 30 -CT brain without contrast showing no acute intracranial processes. -CXR showing possible pneumonia, empiric abx started -Ammonia elevated at 118, lactulose started. Bilirubin/LFTs WNL -Mentation improving Back pain, BLE weakness, urinary incontinence: Reporting he has been having increased urinary frequency and incontinence -History of cord compression and spinal surgeries -Will obtain MRI thoracic/lumbar spine to further evaluate -Pain meds and bowel regimen in place Multiple myeloma: -History as dictated in the HPI -Currently on treatment with RVD and darzalex. Missed last 2 treatments -Will obtain myeloma labs -Clinic f/u upon discharge attests: I have seen and examined pt, performed H&P, developed impression and plan of care. Discussed with dictator. Agree with documentation, dictated as a scribe.
[2024-05-05 21:01] LABS: Immunoglobulin M <35.0 mg/dL (40.0-280.0)
[2024-05-05] MEDS: FAMOTIDINE 20 MG/2 ML VIAL IV SCH (21:58)
[2024-05-05] MEDS: HEPARIN SODIUM,PORCINE 5,000 UNIT/ML 1 ML VIAL SQ SCH (21:58)
[2024-05-06] MEDS: LORazepam 2 MG/ML INJ IV STA ×4 (10:38→15:14)
--- NOTE | 2024-05-06 12:17 | P.PN ---
Subjective This is a pleasant 48 years old male with past medical history of multiple myeloma and he follow-up with his oncologist as an outpatient. Presents because of confusion, increased urination and there was concerns about detox from Dilaudid. He takes Dilaudid orally 8 mg 3 times a day. As per staff patient has been recently fired from his pain clinic because he was taking marijuana stuff like Gummies. So the contract with his pain clinic was ca nceled. When I talked to the patient this morning he was awake and alert, he was drowsy go back to sleep in the middle of conversation but wake up right away. We discussed his pain management and the risk of this medication including but not limited to risk of respiratory depression and/or , patient fixated on getting more Dilaudid he requiring it to be given IV and higher dose although he was started on Dilaudid 1 mg every 4 hours. I talked to the patient for trying to taper down his oral dose or switch to morphine but is not ready for that yet. On admission also there was suspicion of pneumonia and patient started on ceftriaxone and Zithromax. Also received 2 L of normal saline and repeat chest x-ray showing more fluid congestion in the lungs. However he denies any tachypnea or dyspnea at rest and he is currently on room air breathing quietly and fine. He denies chest pain, no abdominal pain or vomiting or diarrhea. No dysuria He denies smoking alcohol drugs to me. He said he had 1 bowel movement yesterday. He feels little short of breath Patient states that he was diagnosed with cancer of multiple myeloma about 2 years ago Patient states that he complains from this chronic low back pain radiating to the both legs, he states it was worse for the last 2 to 3 days although he denies any trauma or any specification. He is afebrile, has chronic pancytopenia which looks stable. Blood pressure slightly on the low side 98/59 Urine drug screen was positive for marijuana and opiates Serum alcohol and salicylate were negative Chest x-ray first 1 showing mild right pleural effusion second chest x-ray showing bilateral pulmonary effusion and increased congestion EKG showing sinus rhythm at [address]-T changes CT of the brain is negative for acute process 05/06 Patient still complains from pain in his back. Patient requesting a lot of pain medication. Risks and benefits of this medication explained for the patient more than 1 time yesterday and today with his including but not limited to respiratory depression and/or explained for him. He still requesting more IV pain medication. He dose will be provided for him prior to MRI today as well as Ativan. Blood pressure little bit on the low side with systolic around 90s, earlier few months ago it was 100 and then earlier this year it was also in the 90s to 100. We will repeat labs today. Also. Discontinue IV Lasix. Check pro- Calcitonin, lactic acid also will check orthostatic vitals Open patient request also I talked to his mother over the phone she is home she has the same concerns about him using pain medication, even he crushes his Dilaudid pills and try to Sniff them. Review of systems CONSTITUTIONAL: No fever, no malaise, no fatigue. HEENT: No recent visual problems or hearing problems. Denied any sore throat. CARDIOVASCULAR: No orthopnea, PND, no palpitations, no syncope. PULMONARY: No shortness of breath, no cough, no hemoptysis. GASTROINTESTINAL: No diarrhea, no nausea, no vomiting, no abdominal pain. Normoactive bowel sounds. Active Medications Generic Name Dose Route Start Last Admin Trade Name Freq PRN Reason Stop Dose Admin Docusate Sodium 100 mg 05/05/24 11:00 05/06/24 07:51 Docusate 100 Mg Cap PO Not Given BID JIMENA Famotidine 20 mg 05/05/24 21:00 05/06/24 10:10 Famotidine 20 Mg/2 Ml Vial IV 20 mg Q12HR JIMENA Administration Heparin Sodium (Porcine) 5,000 unit 05/05/24 21:00 05/06/24 10:58 Heparin Sodium,Porcine 5,000 Unit/Ml 1 Ml Vial SQ Not Given Q12HR JIMENA Hydromorphone HCl 8 mg 05/05/24 16:00 05/06/24 09:04 Hydromorphone 2 Mg Tab PO 8 mg TID JIMENA Administration Hydromorphone HCl 0.5 mg 05/05/24 09:43 05/05/24 23:58 Hydromorphone 0.5 Mg/0.5 Ml Syringe IVP 0.5 mg Q8HR PRN Administration Breakthrough Pain Ceftriaxone Sodium 2 gm/ 50 mls @ 100 mls/hr 05/05/24 09:00 05/06/24 09:00 Sodium Chloride IVPB 05/08/24 09:29 100 mls/hr Q24HR JIMENA Administration Protocol Lactulose 30 gm 05/05/24 09:00 05/06/24 10:09 Lactulose 20 Gm/30 Ml Cup PO 30 gm BID JIMENA Administration Miscellaneous Information 1 each 05/04/24 22:44 Pneumonia Protocol Utilized 1 Each Misc PO ONCE PRN Per Protocol Polyethylene Glycol 17 gm 05/05/24 11:00 05/06/24 07:51 Polyethylene Glycol 3350 17 Gm Powd.Pack PO Not Given DAILY JIMENA Objective - Vital Signs Vital signs: Vital Signs Temp 97.1 F L 05/06/24 07:42 Pulse 79 05/06/24 09:13 Resp 18 05/06/24 09:13 BP 97/61 05/06/24 07:42 Pulse Ox 98 05/06/24 08:00 FiO2 21 05/06/24 08:00 Intake & Output 05/05/24 05/06/24 05/06/24 18:59 06:59 18:59 Intake Total 580 Output Total 600 200 Balance -20 -200 Weight 81.647 kg Intake: Oral 580 Output: Urine 600 200 Other: Voiding Method Toilet Toilet Toilet Urinal Urinal Urinal Diaper Diaper # Voids 1 2 # Bowel Movements 1 - Exam GENERAL: The patient is alert and oriented x3, not in any acute distress. Well developed, well nourished. HEENT: Pupils are round and equally reacting to light. EOMI. No scleral icterus. No conjunctival pallor. Normocephalic, atraumatic. No pharyngeal erythema. No thyromegaly. CARDIOVASCULAR: S1 and S2 present. No murmurs, rubs, or gallops. -PULMONARY: Chest is clear to auscultation, no wheezing , mild basal crackles. ABDOMEN: Soft, nontender, nondistended, normoactive bowel sounds. No palpable organomegaly. MUSCULOSKELETAL: No joint swelling or deformity. EXTREMITIES: No cyanosis, clubbing, or pedal edema. NEUROLOGICAL: Gross neurological examination did not reveal any focal deficits. SKIN: No rashes. no petechiae. - Labs CBC & Chem 7: 05/04/24 19:52 05/04/24 19:52 Labs: Abnormal Lab Results - Last 24 Hours (Table) 05/04/24 Range/Units 19:52 IgG 671.0 L (700.0-1600.0) mg/dL IgA <65.0 L (60.0-350.0) mg/dL IgM <35.0 L (40.0-280.0) mg/dL Assessment and Plan Assessment: Altered mental status most likely toxic/metabolic encephalopathy could be due to pain medication. Resolved and patient back to baseline Mild community-acquired pneumonia possible on the right side Acute on chronic back. Related to his multiple myeloma. Multiple myeloma, I follow-up with oncologist as an outpatient Chronic pancytopenia, currently stable Substance abuse with trahydrocannabinol Plan: Plan: Continue with ceftriaxone and Zithromax got small dose of IV Lasix for 3 days as patient received 2 L of normal saline, currently on hold he is given for MRI of the spine by orthopedic team Consult pulmonary team for possible pneumonia. Check pro- Calcitonin Patient was started on high-dose Dilaudid 1 mg every 4 hours, will going to change it to 0.5 mg every 8 to 6 hours and put him back on his oral dose. We recommend to gradually taper down his narcotics. Oncology team were consulted. GI prophylaxis: Pepcid DVT prophylaxis subcu heparin Prognosis guarded
[2024-05-06 12:44] LABS: Anisocytosis Slight; Basophils % (A) 1 %; Eosinophils % (A) 2 %; HCT 32.9 % (39.0-53.0); HGB 11.2 gm/dL (13.0-17.5); Lymphocytes # (A) 0.3 k/uL (1.0-4.8); Lymphocytes % (A) 14 %; MCHC 34.1 g/dL (31.0-37.0); MCV 102.6 fL (80.0-100.0); Macrocytosis Moderate; Mean Platelet Volume 9.6; Monocytes # (A) 0.2 k/uL (0-1.0); Monocytes % (A) 7 %; Neutrophils # (A) 1.7 k/uL (1.3-7.7); Neutrophils % (A) 72 %; Poikilocytosis Slight; RDW 16.7 % (11.5-15.5); WBC 2.4 k/uL (3.8-10.6)
[2024-05-06 12:45] LABS: African American GFR (CKD) >90 (>60 ml/min/1.73 sqM); Anion Gap 9 mmol/L; Blood Urea Nitrogen 16 mg/dL (9-20); Calcium 7.9 mg/dL (8.4-10.2); Carbon Dioxide 22 mmol/L (22-30); Chloride 107 mmol/L (98-107); Glucose 125 mg/dL (74-99); Non-African American GFR(CKD) >90 (>60 ml/min/1.73 sqM); Potassium 3.5 mmol/L (3.5-5.1); Sodium 138 mmol/L (137-145)
[2024-05-06 12:59] LABS: Platelet Count 80 k/uL (150-450)
[2024-05-06] MEDS: HYDROmorphone 1 MG/ML 1 ML SYRINGE IVP STA (14:25)
--- NOTE | 2024-05-06 14:30 | P.PN ---
Subjective Progress Note Date: 05/06/24 Pt reporting pain in mid back, states it feels different than before. Denies urinary incontinence during admit. Pt requesting pain meds and anxiety meds prior to scheduled MRI today, will add one time dilaudid and ativan so pt can tolerate exam Objective - Vital Signs Vital signs: Vital Signs Temp 97.1 F L 05/06/24 07:42 Pulse 79 05/06/24 09:13 Resp 18 05/06/24 09:13 BP 97/61 05/06/24 07:42 Pulse Ox 98 05/06/24 08:00 FiO2 21 05/06/24 08:00 Intake & Output 05/05/24 05/06/24 05/06/24 18:59 06:59 18:59 Intake Total 580 Output Total 600 200 Balance -20 -200 Weight 81.647 kg Intake: Oral 580 Output: Urine 600 200 Other: Voiding Method Toilet Toilet Toilet Urinal Urinal Urinal Diaper Diaper # Voids 1 2 # Bowel Movements 1 - Constitutional General appearance: Present: average body habitus, no acute distress - EENT Eyes: Present: anicteric sclerae, EOMI ENT: Present: hearing grossly normal - Respiratory Details: breathing is even and unlabored - Cardiovascular Details: skin warm and dry - Integumentary Integumentary: Absent: cyanotic - Musculoskeletal Musculoskeletal Comment(s): BLE weakness - Psychiatric Psychiatric: Present: A&O x's 3 - Labs CBC & Chem 7: 05/06/24 12:09 05/06/24 12:09 Labs: Abnormal Lab Results - Last 24 Hours (Table) 05/04/24 Range/Units 19:52 IgG 671.0 L (700.0-1600.0) mg/dL IgA <65.0 L (60.0-350.0) mg/dL IgM <35.0 L (40.0-280.0) mg/dL Assessment and Plan (1) Altered mental status Current Visit: Yes Status: Acute Code(s): R41.82 - ALTERED MENTAL STATUS, UNSPECIFIED SNOMED Code(s): 224066111 (2) Encephalopathy Current Visit: Yes Status: Acute Code(s): G93.40 - ENCEPHALOPATHY, UNSPECIFIED SNOMED Code(s): 92978533 (3) Hyperammonemia Current Visit: Yes Status: Acute Code(s): E72.20 - DISORDER OF UREA CYCLE METABOLISM, UNSPECIFIED SNOMED Code(s): 8679998 (4) Multiple myeloma Current Visit: Yes Status: Acute Priority: High Code(s): C90.00 - MULTIPLE MYELOMA NOT HAVING ACHIEVED REMISSION SNOMED Code(s): 405304277 (5) Pancytopenia due to antineoplastic chemotherapy Current Visit: Yes Status: Acute Priority: High Code(s): D61.810 - AN TINEOPLASTIC CHEMOTHERAPY INDUCED PANCYTOPENIA; T45.1X5A - ADVERSE EFFECT OF ANTINEOPLASTIC AND IMMUNOSUP DRUGS, INIT SNOMED Code(s): 368984946740091 (6) Bilateral leg weakness Current Visit: Yes Status: Acute Priority: High Code(s): R29.898 - OTH S YMPTOMS AND SIGNS INVOLVING THE MUSCULOSKELETAL SYSTEM SNOMED Code(s): 3037040 Plan: Confusion: Presented with confusion. Possible withdrawl from opiates? Per mother pt has been abusing his prescription opiates. PO dilaudid last filled on 04/21, quantity 30 -CT brain without contrast showing no acute intracranial processes. -CXR showing possible pneumonia, empiric abx started -Ammonia elevated at 118 on admit, lactulose started. Bilirubin/LFTs WNL -Mentation improved Back pain, BLE weakness, urinary incontinence: Reporting he has been having increased urinary frequency and incontinence -History of cord compression and spinal surgeries -Will obtain MRI thoracic/lumbar spine to further evaluate -Pain meds and bowel regimen in place Multiple myeloma: -History as dictated in the HPI -Currently on treatment with RVD and darzalex. Missed last 2 treatments and has not been compliant with Revlimid -Will obtain myeloma labs -Clinic f/u upon discharge
--- NOTE | 2024-05-06 16:20 | MR ---
EXAMINATION TYPE: MR thoracic spine wo con DATE OF EXAM: 05/06/2024 4:04 PM COMPARISON: None. CLINICAL INDICATION: Male, 48 years old with history of multiple myeloma,spinal mets.Urinary incontin ence, multiple myeloma, spinal mets, urinary incontinence TECHNIQUE: Multiplanar, multiecho imaging on a 3.0 Rosenda magnet is performed through the thoracic spi ne. pt on max meds, very claustro, motion on images due to patient in pain, pt very difficult to scan IV Contrast: 8 mL Gadobutrol (None, if empty) FINDINGS: Previous mass posterior to T11 is not evident on the current exam. Previous mass posterior to the T7-8 level is not evident. A lobular mass measuring 2.2 cm in cranial caudal dimension is posterior to this T7 level.r in the ax ial plane this measures approximately 1.1 x 1.0 cm. This appears to be new from comparison and is dis placing the thecal sac and spinal cord to the posterior lateral right. Stenosis is not identified. Ex ample image series 701 image 18 Spinal cord maintains normal signal through its visualized course. Vertebral body alignment is normal. Vertebral body heights are preserved. Signal abnormality with low signal areas are within the T1 and T12 levels. Some increase hyperintensities within the T4 vertebral body present previously. Very limited areas of the upper thoracic spine are examined in the axial plane. Disc heights are preserved. Disc hydration levels are preserved. No spinal canal stenosis is evident. IMPRESSION: 1. Very limited examination. 2. There may be a new lobular mass measuring 1.1 x 1.0 x 2.2 cm in the right paracentral region poste rior to T7. 3. Previous larger masses within the spinal canal are not identified on the current exam. [facility], , 05/06/2024 4:17 PM
--- NOTE | 2024-05-06 17:14 | P.CNPUL ---
History of Present Illness Consult date: 05/06/24 Requesting physician: Parmjit Tinsley Reason for consult: abnormal CXR/CT Chief complaint: Altered mental status, incontinence History of present illness: This is a 48-year-old male patient with a known history of multiple myeloma, multiple soft tissue masses throughout his thoracic lumbar and sacral spine with previous surgery for decompression. He has been on Revlimid, Decadron and Dilaudid 8 mg 3 times daily as needed at home, he lives with his parents. His mother has stated he had been crushing his Dilaudid and snorting them. He was brought in to the emergency room yesterday with altered mental status and urinary incontinence. CT scan of the brain revealed no acute intracranial pr ocess. MRI of the thoracic spine reveals a new lobular mass measuring 1.1 x 1.0 x 2.2 in the right paracentral region posterior to T7. Previous larger masses within the spinal canal were not identified. White count 2.4. Hemoglobin 11.2. Platelets 80,000. Sodium 138. Potassium 3.5. Bicarb 22. BUN 16. Creatinine 0.87. Procalcitonin negative at 0.11. Urine drug screen was positive for opi ates and marijuana. Viral screen was negative. IgG 671. IgA less than 65. IgM less than 35. Ammonia level was 118. Chest x-ray revealed a right lateral lung opacification. Posterior infiltrate on the lateral projection most likely related to infiltrate. Cannot rule out mass. Right pleural effusion. Follow- up chest x-ray reveals increasing bilateral pleural effusions with adjacent infiltrates and possible atelectasis. We are consulted for the same. On the oncology unit. He is currently resting in bed. He is arousable but his speech is somewhat garbled. He drifts off easily. He is maintaining O2 saturations in the 90s on room air. He is afebrile. Hemodynamically stable. His parents are at the bedside and offers most of the information. Review of Systems ROS unobtainable: due to mental status Past Medical History Past Medical History: Cancer Additional Past Medical History / Comment(s): multiple myloma on chemo. History of prior laminectomy decompression at lower thoracic with Dr. Dominguez in January 2022. History of multiple soft tissue masses throughout his thoracic lumbar and sacral spine. history lower extremity weakness History of Any Multi-Drug Resistant Organisms: None Reported Past Surgical History: No Surgical Hx Reported Additional Past Surgical History / Comment(s): back surgery to remove tumor december of 2021. Bone biospy of right hip, spinal decompression Past Anesthesia/Blood Transfusion Reactions: No Reported Reaction Past Psychological History: No Psychological Hx Reported Smoking Status: Never smoker Past Alcohol Use History: None Reported Past Drug Use History: Marijuana Medications and Allergies Home Medications Medication Instructions Recorded Confirmed Type Lenalidomide [Revlimid] 20 mg PO DIRECTED 09/04/23 05/05/24 History HYDROmorphone HCL [Dilaudid] 8 mg PO TID 05/05/24 05/05/24 History dexAMETHasone [Decadron] 4 mg PO DAILY 05/05/24 05/05/24 History Allergies Allergy/AdvReac Type Severity Reaction Status Date / Time No Known Allergies Allergy Verified 05/05/24 07:03 Physical Exam Vitals: Vital Signs Temp Pulse Resp BP BP Pulse Ox FiO2 05/06/24 12:42 98.0 F 68 18 98/65 97 05/06/24 09:13 79 18 05/06/24 08:00 98 21 05/06/24 07:42 97.1 F L 79 18 97/61 05/06/24 01:33 97.4 F L 66 18 99/64 98 05/05/24 19:30 98.3 F 69 20 101/67 98 Intake and Output 05/06/24 05/06/24 05/06/24 06:59 14:59 22:59 Output Total 200 Balance -200 Output: Urine 200 Other: Voiding Method Toilet Urinal Diaper # Voids 2 GENERAL EXAM: Arousable but drifts off easily, 48-year-old male, on room air, in no apparent distress. HEAD: Normocephalic. EYES: Normal reaction of pupils, equal size. NOSE: Clear with pink turbinates. THROAT: No erythema or exudates. NECK: No masses, no JVD. CHEST: No chest wall deformity. LUNGS: Equal air entry with crackles in the bilateral bases. CVS: S1 and S2 normal with no audible murmur, regular rhythm. ABDOMEN: No hepatosplenomegaly, normal bowel sounds, no guarding or rigidity. SPINE: No scoliosis or deformity SKIN: No rashes CENTRAL NERVOUS SYSTEM: No focal deficits, tone is normal in all 4 extremities. EXTREMITIES: There is trace peripheral edema. No clubbing, no cyanosis. Peripheral pulses are intact. Results - Laboratory Findings CBC and BMP: 05/06/24 12:09 05/06/24 12:09 PT/INR, D-dimer PT 11.7 sec (10.0-12.5) 05/04/24 21:20 INR 1.1 (<1.2) 05/04/24 21:20 Abnormal lab findings: Abnormal Labs 05/04/24 05/04/24 05/04/24 19:52 19:52 19:52 WBC 2.1 L RBC 3.02 L Hgb 10.7 L Hct 30.7 L MCV 101.6 H MCH 35.5 H RDW 16.7 H Plt Count 86 L Lymphocytes # Lymphocytes # (Manual) 0.38 L Chloride 109 H Carbon Dioxide 19 L BUN 27 H Glucose Calcium Alkaline Phosphatase 33 L Ammonia Total Protein 5.8 L Urine Protein Urine Ketones Urine Mucus Urine Opiates Screen U Marijuana (THC) Screen IgG 671.0 L IgA <65.0 L IgM <35.0 L 05/04/24 05/05/24 05/05/24 21:20 02:30 02:30 WBC RBC Hgb Hct MCV MCH RDW Plt Count Lymphocytes # Lymphocytes # (Manual) Chloride Carbon Dioxide BUN Glucose Calcium Alkaline Phosphatase Ammonia 118 H Total Protein Urine Protein 2+ H Urine Ketones 1+ H Urine Mucus Occasional H Urine Opiates Screen Detected H U Marijuana (THC) Screen Detected H IgG IgA IgM 05/06/24 05/06/24 12:09 12:09 WBC 2.4 L RBC 3.20 L Hgb 11.2 L Hct 32.9 L MCV 102.6 H MCH RDW 16.7 H Plt Count 80 L Lymphocytes # 0.3 L Lymphocytes # (Manual) Chloride Carbon Dioxide BUN Glucose 125 H Calcium 7.9 L Alkaline Phosphatase Ammonia Total Protein Urine Protein Urine Ketones Urine Mucus Urine Opiates Screen U Marijuana (THC) Screen IgG IgA IgM - Diagnostic Findings Chest x-ray: image reviewed Assessment and Plan Assessment: Altered mental status secondary to hyperammonemia and possible Dilaudid overdose. His mother stated he has been crushing and snorting the medication. Urine drug screen positive for opiates and marijuana Urinary incontinence secondary to above Constipation Multiple myeloma, on Revlimid in the outpatient setting, originally diagnosed in December 2021 History of multiple spinal tumors with previous decompression surgery. MRI today reveals a new lobular mass measuring 1.1 x 1.0 x 2.2 cm in the right paracentral region posterior to T7. Previous larger masses within the spinal canal were not noted Plan: The patient was seen and evaluated Imaging, labs and medications reviewed Increase lactulose to 30 g 4 times daily Repeat ammonia level in a.m. Will obtain an ultrasound of the right chest May require thoracentesis if significant fluid Procalcitonin negative, antibiotics discontinued Currently stable and on room air Medical oncology following closely We will continue to follow and make further recommendations based on his clinical status I have personally seen and examined the patient, performed the documentation and the assessment and plan as written. Number of minutes spent on the visit: 20 Dictation was produced using [employer] dictation software. Please excuse any grammatical, word or spelling errors.
--- NOTE | 2024-05-06 20:31 | US ---
EXAMINATION TYPE: US chest DATE OF EXAM: 05/06/2024 COMPARISON: XR 05/05/23 CLINICAL INDICATION: Male, 48 years old with history of Pleural effusions; Pleural effusions. Patient is still mildly sedated from MRI during exam TECHNIQUE: Grayscale imaging of the chest. Targeted ultrasound of the posterior lower bilateral katherine thoraces FINDINGS: EXAM MEASUREMENTS: scanned with patient in RLD/LLD due to patient sedated from MRI and unable to sit forward Right Pleural Effusion pocket size: 12.4 cm Right skin surface to fluid distance: 4.1 cm Left Pleural Effusion pocket size: 5.3 cm Left skin surface to fluid distance: 3.6 cm Right side marked for possible thoracentesis outside the dept. Left side marked for possible thoracentesis outside the dept. lung tissue seen within pocket of fluid Pulmonologists are able to review the images in the patient?s EMR. IMPRESSIONS: Small left and [id number] sized right pleural effusions. [facility], , 05/06/2024 8:29 PM
[2024-05-06] MEDS: LACTULOSE 20 GM/30 ML CUP PO SCH (21:46)
--- NOTE | 2024-05-07 10:04 | XR ---
EXAMINATION TYPE: XR chest 1V portable DATE OF EXAM: 05/07/2024 9:47 AM COMPARISON: 05/05/2024 CLINICAL INDICATION: Male, 48 years old with history of Post right thoracentesis, TECHNIQUE: XR chest 1V portable view(s) obtained. FINDINGS: The heart size is normal. The pulmonary vasculature is normal. Multiple bilateral lung nodules are present. Lateral bilateral pleural effusions are present. Small b ilateral basilar pleural effusions are present. IMPRESSION: 1. Small bilateral pleural effusions. 2. No pneumothorax postthoracentesis. 3. Multiple rounded densities bilaterally suspicious for metastatic disease. [facility], , 05/07/2024 10:02 AM
[2024-05-07] MEDS: HYDROmorphone 0.5 MG/0.5 ML SYRINGE IVP STA (12:37)
--- NOTE | 2024-05-07 12:48 | P.PN ---
Subjective This is a pleasant 48 years old male with past medical history of multiple myeloma and he follow-up with his oncologist as an outpatient. Presents because of confusion, increased urination and there was concerns about detox from Dilaudid. He takes Dilaudid orally 8 mg 3 times a day. As per staff patient has been recently fired from his pain clinic because he was taking marijuana stuff like Gummies. So the contract with his pain clinic was ca nceled. When I talked to the patient this morning he was awake and alert, he was drowsy go back to sleep in the middle of conversation but wake up right away. We discussed his pain management and the risk of this medication including but not limited to risk of respiratory depression and/or , patient fixated on getting more Dilaudid he requiring it to be given IV and higher dose although he was started on Dilaudid 1 mg every 4 hours. I talked to the patient for trying to taper down his oral dose or switch to morphine but is not ready for that yet. On admission also there was suspicion of pneumonia and patient started on ceftriaxone and Zithromax. Also received 2 L of normal saline and repeat chest x-ray showing more fluid congestion in the lungs. However he denies any tachypnea or dyspnea at rest and he is currently on room air breathing quietly and fine. He denies chest pain, no abdominal pain or vomiting or diarrhea. No dysuria He denies smoking alcohol drugs to me. He said he had 1 bowel movement yesterday. He feels little short of breath Patient states that he was diagnosed with cancer of multiple myeloma about 2 years ago Patient states that he complains from this chronic low back pain radiating to the both legs, he states it was worse for the last 2 to 3 days although he denies any trauma or any specification. He is afebrile, has chronic pancytopenia which looks stable. Blood pressure slightly on the low side 98/59 Urine drug screen was positive for marijuana and opiates Serum alcohol and salicylate were negative Chest x-ray first 1 showing mild right pleural effusion second chest x-ray showing bilateral pulmonary effusion and increased congestion EKG showing sinus rhythm at [address]-T changes CT of the brain is negative for acute process 05/06 Patient still complains from pain in his back. Patient requesting a lot of pain medication. Risks and benefits of this medication explained for the patient more than 1 time yesterday and today with his including but not limited to respiratory depression and/or explained for him. He still requesting more IV pain medication. He dose will be provided for him prior to MRI today as well as Ativan. Blood pressure little bit on the low side with systolic around 90s, earlier few months ago it was 100 and then earlier this year it was also in the 90s to 100. We will repeat labs today. Also. Discontinue IV Lasix. Check pro- Calcitonin, lactic acid also will check orthostatic vitals Open patient request also I talked to his mother over the phone she is home she has the same concerns about him using pain medication, even he crushes his Dilaudid pills and try to Sniff them. 05/07 Patient awake and alert Still complaining from pain, extra dose of Dilaudid provided for him yesterday and today MRI of the spine reviewed:New lobular mass at T7 measuring 1.1 x 1.0 x 2.2 cm in the right paracentral region, could be related to multiple myeloma Also patient had chest x-ray showing right pleural effusion status paracentesis and cytology is pending Antibiotics was discontinued because pro- Calcitonin was negative. Lasix was held. Active Medications Generic Name Dose Route Start Last Admin Trade Name Freq PRN Reason Stop Dose Admin Docusate Sodium 100 mg 05/05/24 11:00 05/07/24 09:59 Docusate 100 Mg Cap PO Not Given BID JIMENA Famotidine 20 mg 05/05/24 21:00 05/07/24 09:48 Famotidine 20 Mg/2 Ml Vial IV 20 mg Q12HR JIMENA Administration Heparin Sodium (Porcine) 5,000 unit 05/05/24 21:00 05/07/24 07:57 Heparin Sodium,Porcine 5,000 Unit/Ml 1 Ml Vial SQ Not Given Q12HR JIMENA Hydromorphone HCl 8 mg 05/05/24 16:00 05/07/24 09:57 Hydromorphone 2 Mg Tab PO 8 mg TID JIMENA Administration Hydromorphone HCl 0.5 mg 05/05/24 09:43 05/07/24 11:31 Hydromorphone 0.5 Mg/0.5 Ml Syringe IVP 0.5 mg Q8HR PRN Administration Breakthrough Pain Lactulose 30 gm 05/06/24 18:00 05/07/24 10:02 Lactulose 20 Gm/30 Ml Cup PO Not Given QID JIMENA Miscellaneous Information 1 each 05/04/24 22:44 Pneumonia Protocol Utilized 1 Each Misc PO ONCE PRN Per Protocol Polyethylene Glycol 17 gm 05/05/24 11:00 05/07/24 07:57 Polyethylene Glycol 3350 17 Gm Powd.Pack PO Not Given DAILY JIMENA Objective - Vital Signs Vital signs: Vital Signs Temp 96.9 F L 05/07/24 08:00 Pulse 89 05/07/24 09:45 Resp 18 05/07/24 09:45 BP 111/64 05/07/24 09:45 Pulse Ox 94 L 05/07/24 09:45 FiO2 21 05/06/24 08:00 Intake & Output 05/06/24 05/07/24 05/07/24 18:59 06:59 18:59 Intake Total 660 Output Total 009 390 7401 Balance -200 200 940 Intake: Oral 660 Output: Chest Tube Drainage 1600 Right Pleural/Mediastinal 1600 Urine 200 200 Other: Voiding Method Toilet Toilet Urinal Urinal Urinal Diaper Diaper Diaper # Voids 1 2 - Exam GENERAL: The patient is alert and oriented x3, not in any acute distress. Well developed, well nourished. HEENT: Pupils are round and equally reacting to light. EOMI. No scleral icterus. No conjunctival pallor. Normocephalic, atraumatic. No pharyngeal erythema. No thyromegaly. CARDIOVASCULAR: S1 and S2 present. No murmurs, rubs, or gallops. -PULMONARY: Chest is clear to auscultation, no wheezing , mild basal crackles. ABDOMEN: Soft, nontender, nondistended, normoactive bowel sounds. No palpable organomegaly. MUSCULOSKELETAL: No joint swelling or deformity. EXTREMITIES: No cyanosis, clubbing, or pedal edema. NEUROLOGICAL: Gross neurological examination did not reveal any focal deficits. SKIN: No rashes. no petechiae. - Labs CBC & Chem 7: 05/06/24 12:09 05/06/24 12:09 Labs: Abnormal Lab Results - Last 24 Hours (Table) 05/06/24 05/06/24 05/07/24 Range/Units 12:09 12:09 04:44 WBC 2.4 L (3.8-10.6) k/uL RBC 3.20 L (4.30-5.90) m/uL Hgb 11.2 L (13.0-17.5) gm/dL Hct 32.9 L (39.0-53.0) % MCV 102.6 H (80.0-100.0) fL RDW 16.7 H (11.5-15.5) % Plt Count 80 L (150-450) k/uL Lymphocytes # 0.3 L (1.0-4.8) k/uL Glucose 125 H (74-99) mg/dL Calcium 7.9 L (8.4-10.2) mg/dL Ammonia 67 H (<30) umol/L Microbiology - Last 24 Hours (Table) 05/04/24 23:55 Blood Culture - Preliminary Blood Assessment and Plan Assessment: Altered mental status most likely toxic/metabolic encephalopathy could be due to pain medication. Resolved and patient back to baseline Mild community-acquired pneumonia possible on the right side Acute on chronic back. Related to his multiple myeloma. Multiple myeloma, I follow-up with oncologist as an outpatient Chronic pancytopenia, currently stable Substance abuse with trahydrocannabinol Right pleural effusion Plan: Plan: Continu discontinue with ceftriaxone and Zithromax Lasix on hold MRI result of the back was reviewed with the patient and I told him about the new lobular mass Follow-up cytology of the pleural fluid Pulmonary and hematology/oncology consults are following Patient was started on high-dose Dilaudid 1 mg every 4 hours, will going to change it to 0.5 mg every 8 to 6 hours and put him back on his oral dose. We recommend to gradually taper down his narcotics. Oncology team were consulted. GI prophylaxis: Pepcid DVT prophylaxis subcu heparin Prognosis guarded
--- NOTE | 2024-05-07 13:32 | CT ---
EXAMINATION TYPE: CT thor lumbar spine wo con DATE OF EXAM: 05/07/2024 COMPARISON: 03/04/2024 CLINICAL INDICATION: Male, 48 years old with history of BLE weakness, urinary incontinence; PHH, MULT IPLE MYELOMA CT DLP: 1024.5 mGycm Automated exposure control for dose reduction was used. FINDINGS: There are large bilateral pleural effusions and groundglass opacity in the right lung base. The thoracic vertebral segments are normal in height and alignment and there is no fracture or sublux ation There is a stable superior endplate compression fracture of L3. The lumbar vertebral segments are nor mal in alignment. The disc spaces are well preserved and height and minimal degenerative disc disease the lower thorac ic spine as evidenced by mild spondylosis. There is a laminectomy defect from T10 to T11 unchanged compared to the prior study. There are multiple stable mixed sclerotic and lucent lesions including T12, L2-L3 and right iliac bon e and bilateral sacrum. The hips are not included on the current study but a pathological fracture through a sclerotic lesion in the right femoral neck as seen on a CT of the pelvis dated 10/12/2023 IMPRESSION: 1. STABLE MILD PATHOLOGIC SUPERIOR ENDPLATE COMPRESSION FRACTURE OF L3 WITHOUT RETROPULSION. 2. MULTIPLE STABLE MIXED SCLEROTIC/LUCENT LESIONS IN THORACIC AND LUMBAR VERTEBRAL SEGMENTS AND RIGHT ILIAC WING AND SACRUM DESCRIBED ABOVE. NO NEW LESIONS ARE SEEN. 3. STABLE 4. NO MALALIGNMENT OF THE VERTEBRAL SEGMENTS IN THE THORACIC OR LUMBAR REGION AND NO SIGNIFICANT DEGE NERATIVE DISC DISEASE OR SPINAL STENOSIS. LAMINECTOMY DEFECT IN THE LOWER THORACIC SPINE 5. large bilateral pleural effusions and groundglass opacity in the right base. [facility], , 05/07/2024 1:29 PM
--- NOTE | 2024-05-07 13:35 | P.PN ---
Subjective Progress Note Date: 05/07/24 Pt reporting persisting pain, states the oral pain meds help manage his pain, but he prefers IV dilaudid bc it works faster and makes him feel, "more energized and alert." Discussed with pt that we can't change his current pain regimen at this time, as his pain is being controlled currently and IVP pain m edications have higher risk for adverse effects Pt was not able to tolerate MRI exam yesterday despite being premedicated. CT scans were ordered, and pt again was not able to tolerate exam, stating he had a panic attack and again is requesting ativan prior to exam. Discussed with Jevon, that the exam is 2-3 minutes in length and we will not being given additional sedatives. He was agreeable to go back down for CT scan Objective - Vital Signs Vital signs: Vital Signs Temp 96.9 F L 05/07/24 08:00 Pulse 89 05/07/24 09:45 Resp 18 05/07/24 09:45 BP 111/64 05/07/24 09:45 Pulse Ox 94 L 05/07/24 09:45 FiO2 21 05/06/24 08:00 Intake & Output 05/06/24 05/07/24 05/07/24 18:59 06:59 18:59 Intake Total 660 Output Total 495 177 4019 Balance -200 -200 -940 Intake: Oral 660 Output: Chest Tube Drainage 1600 Right Pleural/Mediastinal 1600 Urine 200 200 Other: Voiding Method Toilet Toilet Urinal Urinal Urinal Diaper Diaper Diaper # Voids 1 2 - Constitutional General appearance: Present: no acute distress - EENT Eyes: Present: anicteric sclerae, EOMI ENT: Present: hearing grossly normal - Respiratory Details: breathing is even and unlabored - Cardiovascular Details: skin warm and dry - Gastrointestinal General gastrointestinal: Present: soft. Absent: tenderness - Integumentary Integumentary: Absent: cyanotic, jaundiced - Neurologic Neurologic Comment(s): speech is slow. no slurred speech noted. answering questions appropriately - Musculoskeletal Musculoskeletal Comment(s): BLE weakness - Psychiatric Psychiatric: Present: A&O x's 3 - Labs CBC & Chem 7: 05/06/24 12:09 05/06/24 12:09 Labs: Abnormal Lab Results - Last 24 Hours (Table) 05/06/24 05/06/24 05/07/24 Range/Units 12:09 12:09 04:44 WBC 2.4 L (3.8-10.6) k/uL RBC 3.20 L (4.30-5.90) m/uL Hgb 11.2 L (13.0-17.5) gm/dL Hct 32.9 L (39.0-53.0) % MCV 102.6 H (80.0-100.0) fL RDW 16.7 H (11.5-15.5) % Plt Count 80 L (150-450) k/uL Lymphocytes # 0.3 L (1.0-4.8) k/uL Glucose 125 H (74-99) mg/dL Calcium 7.9 L (8.4-10.2) mg/dL Ammonia 67 H (<30) umol/L Microbiology - Last 24 Hours (Table) 05/04/24 23:55 Blood Culture - Preliminary Blood Assessment and Plan (1) Altered mental status Current Visit: Yes Status: Acute Code(s): R41.82 - ALTERED MENTAL STATUS, UNSPECIFIED SNOMED Code(s): 620635707 (2) Encephalopathy Current Visit: Yes Status: Acute Code(s): G93.40 - ENCEPHALOPATHY, UNSPECIFIED SNOMED Code(s): 94080933 (3) Hyperammonemia Current Visit: Yes Status: Acute Code(s): E72.20 - DISORDER OF UREA CYCLE METABOLISM, UNSPECIFIED SNOMED Code(s): 3648996 (4) Multiple myeloma Current Visit: Yes Status: Acute Priority: High Code(s): C90.00 - MULTIPLE MYELOMA NOT HAVING ACHIEVED REMISSION SNOMED Code(s): 949766754 (5) Pancytopenia due to antineoplastic chemotherapy Current Visit: Yes Status: Acute Priority: High Code(s): D61.810 - ANTINEOPLASTIC CHEMOTHERAPY INDUCED PANCYTOPENIA; T45.1X5A - ADVERSE EFFECT OF ANTINEOPLASTIC AND IMMUNOSUP DRUGS, INIT SNOMED Code(s): 933452849029531 (6) Bilateral leg weakness Current Visit: Yes Status: Acute Priority: High Code(s): R29.898 - OTH SYMPTOMS AND SIGNS INVOLVING THE MUSCULOSKELETAL SYSTEM SNOMED Code(s): 0515365 Plan: Confusion: Presented with confusion. Possible withdrawl from opiates? Per mother pt has been abusing his prescription opiates. -CT brain without contrast showing no acute intracranial processes. -CXR showing possible pneumonia, empiric abx started. -Ammonia elevated at 118 on admit, lactulose started. Bilirubin/LFTs WNL. Repeat ammonia 67. Pt refused last two doses of lactulose -Mentation improved since admit Pleural effusions: -Pulm following -Chest US showing small left and small to moderate right pleural effusions -S/p thoracentesis. Fluid studies and cytology pending Back pain, BLE weakness, urinary incontinence: Reporting he has been having increased urinary frequency and incontinence -History of cord compression and spinal surgeries -MRI thoracic/lumbar spine ordered to further evaluate. Pt was not able to tolerate MRI exam yesterday despite being premedicated. Images of thoracic spine w/o contrast were very limited but states possible new lobular mass measuring 1.1x1.0x2.2cm in right paracentral region posterior to T7. Results were discussed with pt -CT thoracic/lumbar spine ordered. Pt again was not able to tolerate exam, stating he had a panic attack and is requesting ativan prior to exam. Discussed with Jevon, that the exam is 2-3 minutes in length and we will not being given additional sedatives. He was agreeable to go back down for CT scan today, scan currently pending -Pain meds and bowel regimen in place Multiple myeloma: -History as dictated in the HPI -Currently on treatment with RVD and darzalex. Missed last 2 treatments and has not been compliant with Revlimid -Will obtain myeloma labs, still pending -Clinic f/u upon discharge
--- NOTE | 2024-05-07 14:33 | P.PN ---
Subjective Progress Note Date: 05/07/24 This is a 48-year-old male patient with a known history of multiple myeloma, multiple soft tissue masses throughout his thoracic lumbar and sacral spine with previous surgery for decompression. He has been on Revlimid, Decadron and Dilaudid 8 mg 3 times daily as needed at home, he lives with his parents. His mother has stated he had been crushing his Dilaudid and snorting them. He was brought in to the emergency room yesterday with altered mental status and urinary incontinence. CT scan of the brain revealed no acute intracranial process. MRI of the thoracic spine reveals a new lobular mass measuring 1.1 x 1.0 x 2.2 in the right paracentral region posterior to T7. Previous larger masses within the spinal canal were not identified. White count 2.4. Hemoglobin 11.2. Platelets 80,000. Sodium 138. Potassium 3.5. Bicarb 22. BUN 16. Creatinine 0.87. Procalcitonin negative at 0.11. Urine drug screen was positive for opiates and marijuana. Viral screen was negative. IgG 671. IgA less than 65. IgM less than 35. Ammonia level was 118. Chest x-ray revealed a right lateral lung opacification. Posterior infiltrate on the lateral projection most likely related to infiltrate. Cannot rule out mass. Right pleural effusion. Follow-up chest x-ray reveals increasing bilateral ple ural effusions with adjacent infiltrates and possible atelectasis. We are consulted for the same. On the oncology unit. He is currently resting in bed. He is arousable but his speech is somewhat garbled. He drifts off easily. He is maintaining O2 saturations in the 90s on room air. He is afebrile. Hemodynamically stable. His parents are at the bedside and offers most of the information. The patient is seen today May 07, 2024 in follow-up on the regular medical floor. He is much more awake and alert today. Oriented. Maintaining good O2 saturations in the 90s on room air. He has been afebrile. Hemodynamically stable. Ultrasound of the chest did reveal a 12.4 cm pleural effusion pocket on the right and a 5.3 cm pocket on the left. He did not undergo right sided thoracentesis today with 1.6 L of cloudy yellow fluid removed. Fluid analysis, cultures and cytology pending. Ammonia level 67. Procalcitonin negative at 0.11. Continued on lactulose. Heparin for DVT prophylaxis. Dilaudid for pain control. Objective - Vital Signs Vital signs: Vital Signs Temp 96.9 F L 05/07/24 08:00 Pulse 89 05/07/24 09:45 Resp 18 05/07/24 09:45 BP 111/64 05/07/24 09:45 Pulse Ox 94 L 05/07/24 09:45 FiO2 21 05/06/24 08:00 Intake & Output 05/06/24 05/07/24 05/07/24 18:59 06:59 18:59 Intake Total 660 Output Total 219 608 7074 Balance -200 200 -940 Intake: Oral 660 Output: Chest Tube Drainage 1600 Right Pleural/Mediastinal 1600 Urine 200 200 Other: Voiding Method Toilet Toilet Urinal Urinal Urinal Diaper Diaper Diaper # Voids 1 2 - Exam GENERAL EXAM: Alert, active, 1-year-old male, on room air, comfortable in no apparent distress. HEAD: Normocephalic. EYES: Normal reaction of pupils, equal size. NOSE: Clear with pink turbinates. THROAT: No erythema or exudates. NECK: No masses, no JVD. CHEST: No chest wall deformity. LUNGS: Equal air entry with lower crackles right greater than left. CVS: S1 and S2 normal with no audible murmur, regular rhythm. ABDOMEN: No hepatosplenomegaly, normal bowel sounds, no guarding or rigidity. SPINE: No scoliosis or deformity SKIN: No rashes CENTRAL NERVOUS SYSTEM: No focal deficits, tone is normal in all 4 extremities. EXTREMITIES: There is no peripheral edema. No clubbing, no cyanosis. Peripheral pulses are intact. - Labs CBC & Chem 7: 05/06/24 12:09 05/06/24 12:09 Labs: Abnormal Lab Results - Last 24 Hours (Table) 05/07/24 Range/Units 04:44 Ammonia 67 H (<30) umol/L Microbiology - Last 24 Hours (Table) 05/04/24 23:55 Blood Culture - Preliminary Blood Assessment and Plan Assessment: Altered mental status secondary to hyperammonemia and possible Dilaudid overdose. His mother stated he has been crushing and snorting the medication. Urine drug screen positive for opiates and marijuana Hyperammonemia, improving on lactulose Bilateral pleural effusions right greater than left. Status post thoracentesis on the right with 1.6 L of cloudy yellow fluid returned. Fluid analysis, cultures and cytology pending Constipation Multiple myeloma, on Revlimid in the outpatient setting, originally diagnosed in December 2021 History of multiple spinal tumors with previous decompression surgery. MRI today reveals a new lobular mass measuring 1.1 x 1.0 x 2.2 cm in the right paracentral region posterior to T7. Previous larger masses within the spinal canal were not noted Plan: The patient was seen and evaluated Imaging, labs and medications reviewed Right sided thoracentesis today 1.6 L of cloudy yellow fluid returned Fluid analysis, cultures and cytology pending Follow-up chest x-ray reveals no pneumothorax Currently stable and on room air We will continue to follow I have personally seen and examined the patient, performed the documentation and the assessment and plan as written. Number of minutes spent on the visit: 10 Dictation was produced using [employer] dictation software. Please excuse any grammatical, word or spelling errors.
[2024-05-07 16:25] LABS: Appearance,BF Slightly Hazy (Clear)
[2024-05-07 16:25] LABS: Free Kappa Lt Chain Qnt, Serum 182.06 mg/dL (0.33-1.94); Free Lambda Lt Chain Qnt, Seru <0.17 mg/dL (0.57-2.63)
--- NOTE | 2024-05-07 19:14 | OP ---
OPERATIVE REPORT DATE OF SERVICE : PROCEDURE PERFORMED: Right-sided thoracentesis. PREOPERATIVE DIAGNOSIS: Pleural effusion. POSTOPERATIVE DIAGNOSIS: Pleural effusion. ANESTHESIA USED: 2 cc of 1% lidocaine. PROCEDURE: The patient was placed in a sitting upright position, the area below the right scapula was prepared in a sterile fashion and drapes were applied. Prior to this, we used our own ultrasound to localize the fluid, and the fluid was localized at the level of the 8th intercostal space and tip of the scapula. Then, the area was prepared in a sterile fashion, the drapes were applied, the area was locally anesthetized with lidocaine, and a small incision was made in the same site. A standard thoracentesis catheter and needle were used, advanced into the pleural space, fluid was obtained and the catheter was advanced out of the needle, and the needle was pulled out of the pleural space. 1600 cc of slightly serosanguineous fluid was removed from the right pleural space. Procedure was well tolerated, no complications, chest x-ray showed no evidence of any complication. MMODL / IJN: [id number] /
[2024-05-07 19:34] LABS: Glucose, BF Source Pleural Fluid; Glucose, Body Fluid 85 mg/dL; LDH, Body Fluid Source Pleural Fluid; T. Protein, Body Fluid Source Pleural Fluid; Total Protein, Body Fluid 3160 mg/dL
[2024-05-07] MEDS: HYDROmorphone 1 MG/ML 1 ML SYRINGE IVP PRN (20:43)
[2024-05-08] MEDS ORDERED: RX INFO: IV CONTRAST WAS GIVEN 1 EACH MISC MISCELLANE PRN (06:03)
[2024-05-08] MEDS ORDERED: HYDROmorphone 0.5 MG/0.5 ML SYRINGE IVP PRN (07:51)
--- NOTE | 2024-05-08 09:24 | CT ---
EXAMINATION TYPE: CT chest w con DATE OF EXAM: 05/08/2024 COMPARISON: Chest x-ray from one day earlier HISTORY: Multiple myeloma, pulmonary nodules. CT DLP: 336.50 mGycm. Automated Exposure Control for Dose Reduction was Utilized. TECHNIQUE: CT scan of the thorax is performed following with IV Contrast, patient injected with 100 mL of Isovue 300. FINDINGS: LUNGS: There are small bilateral pleural effusions. Corresponding to chest x-ray abnormality there ar e multiple bilateral pleural-based nodules. For reference there is a 3.6 x 2.1 cm nodule axial image 18 in the posterior lateral left lung. There is even larger mass in the lateral lower thorax encasing portion of the ribs only partially imaged. There is left basilar compressive atelectasis. There is m ild right basilar linear scarring and/or atelectasis. No pneumothorax seen bilaterally. MEDIASTINUM: There are no greater than 1 cm hilar or mediastinal lymph nodes. No cardiomegaly or pe ricardial effusion is seen. OTHER: Scoliotic curvature. No suspicious lytic or destructive osseous lesions clearly seen IMPRESSION: Small bilateral pleural effusions. 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 There are n ew and larger lesions from PET CT November 15, 2023 study noted. Consider imaging guided sampling for tissue analysis if felt clinically warranted. [facility], , 05/08/2024 9:21 AM
--- NOTE | 2024-05-08 12:36 | P.PN ---
Subjective Progress Note Date: 05/08/24 This is a 48-year-old male patient with a known history of multiple myeloma, multiple soft tissue masses throughout his thoracic lumbar and sacral spine with previous surgery for decompression. He has been on Revlimid, Decadron and Dilaudid 8 mg 3 times daily as needed at home, he lives with his parents. His mother has stated he had been crushing his Dilaudid and snorting them. He was brought in to the emergency room yesterday with altered mental status and urinary incontinence. CT scan of the brain revealed no acute intracranial process. MRI of the thoracic spine reveals a new lobular mass measuring 1.1 x 1.0 x 2.2 in the right paracentral region posterior to T7. Previous larger masses within the spinal canal were not identified. White count 2.4. Hemoglobin 11.2. Platelets 80,000. Sodium 138. Potassium 3.5. Bicarb 22. BUN 16. Creatinine 0.87. Procalcitonin negative at 0.11. Urine drug screen was positive for opiates and marijuana. Viral screen was negative. IgG 671. IgA less than 65. IgM less than 35. Ammonia level was 118. Chest x-ray revealed a right lateral lung opacification. Posterior infiltrate on the lateral projection most likely related to infiltrate. Cannot rule out mass. Right pleural effusion. Follow-up chest x-ray reveals increasing bilateral ple ural effusions with adjacent infiltrates and possible atelectasis. We are consulted for the same. On the oncology unit. He is currently resting in bed. He is arousable but his speech is somewhat garbled. He drifts off easily. He is maintaining O2 saturations in the 90s on room air. He is afebrile. Hemodynamically stable. His parents are at the bedside and offers most of the information. The patient is seen today May 07, 2024 in follow-up on the regular medical floor. He is much more awake and alert today. Oriented. Maintaining good O2 saturations in the 90s on room air. He has been afebrile. Hemodynamically stable. Ultrasound of the chest did reveal a 12.4 cm pleural effusion pocket on the right and a 5.3 cm pocket on the left. He did not undergo right sided thoracentesis today with 1.6 L of cloudy yellow fluid removed. Fluid analysis, cultures and cytology pending. Ammonia level 67. Procalcitonin negative at 0.11. Continued on lactulose. Heparin for DVT prophylaxis. Dilaudid for pain control. The patient is seen today May 08, 2027 in follow-up on the regular medical floor. He is awake and alert in no acute distress. He is maintaining O2 saturations in the 90s on room air oxygen. He is afebrile. Hemodynamically stable. He denies any worsening shortness of breath, cough or congestion. Blood culture revealed no growth. Pleural fluid cultures revealed no growth. Cytology pending. No new labs today. His pain is well-managed. Objective - Vital Signs Vital signs: Vital Signs Temp 97.4 F L 05/08/24 07:00 Pulse 97 05/08/24 07:00 Resp 18 05/08/24 07:00 BP 97/65 05/08/24 07:00 Pulse Ox 97 05/08/24 07:00 FiO2 21 05/06/24 08:00 Intake & Output 05/07/24 05/08/24 05/08/24 18:59 06:59 18:59 Intake Total 2760 Output Total 1600 400 Balance 1160 -400 Intake: Oral 2760 Output: Chest Tube Drainage 1600 Right Pleural/Mediastinal 1600 Urine 400 Other: Voiding Method Urinal Urinal Urinal Diaper Diaper Diaper # Voids 3 - Exam GENERAL EXAM: Alert, active, 48-year-old male, on room air, in no apparent distress. HEAD: Normocephalic. EYES: Normal reaction of pupils, equal size. NOSE: Clear with pink turbinates. THROAT: No erythema or exudates. NECK: No masses, no JVD. CHEST: No chest wall deformity. LUNGS: Equal air entry with lower crackles right greater than left. CVS: S1 and S2 normal with no audible murmur, regular rhythm. ABDOMEN: No hepatosplenomegaly, normal bowel sounds, no guarding or rigidity. SPINE: No scoliosis or deformity SKIN: No rashes CENTRAL NERVOUS SYSTEM: No focal deficits, tone is normal in all 4 extremities. EXTREMITIES: There is no peripheral edema. No clubbing, no cyanosis. Peripheral pulses are intact. - Labs CBC & Chem 7: 05/06/24 12:09 05/06/24 12:09 Labs: Abnormal Lab Results - Last 24 Hours (Table) 05/04/24 05/07/24 Range/Units 19:52 09:00 Fluid Appearance Slightly Hazy A (Clear) Free [place] LC, Quant 182.06 H (0.33-1.94) mg/dL Free [place] LC, Quant <0.17 L (0.57-2.63) mg/dL Microbiology - Last 24 Hours (Table) 05/07/24 09:00 Acid Fast Bacilli Smear - Preliminary Pleural Fluid 05/07/24 09:00 Gram Stain - Preliminary Pleural Fluid Body Fluid Culture - Preliminary 05/04/24 23:55 Blood Culture - Preliminary Blood Assessment and Plan Assessment: Altered mental status secondary to hyperammonemia and possible Dilaudid overdose. His mother stated he has been crushing and snorting the medication. Urine drug screen positive for opiates and marijuana Hyperammonemia, improving Bilateral pleural effusions right greater than left. Status post thoracentesis on the right with 1.6 L of cloudy yellow fluid returned. Fluid cytology pending Constipation Multiple myeloma, on Revlimid in the outpatient setting, originally diagnosed in December 2021 History of multiple spinal tumors with previous decompression surgery. MRI today reveals a new lobular mass measuring 1.1 x 1.0 x 2.2 cm in the right paracentral region posterior to T7. Previous larger masses within the spinal canal were not noted Plan: The patient was seen and evaluated Medications reviewed Pleural fluid cytology pending Currently stable and on room air Cleared for discharge from the pulmonary standpoint To follow-up closely with oncology I have personally seen and examined the patient, performed the documentation and the assessment and plan as written. Number of minutes spent on the visit: 10 Dictation was produced using [employer] dictation software. Please excuse any grammatical, word or spelling errors.
[2024-05-08] MEDS: LACTULOSE 20 GM/30 ML CUP PO SCH (14:44)
[2024-05-08 15:36] VITALS: BP 100/65; PULSE 71; RESP 20; TEMP 98.4
--- NOTE | 2024-05-08 19:14 | P.PN ---
Subjective Progress Note Date: 05/08/24 Pt mental status improved, in wheelchair wheeling himself up and down hallway at todays visit. Appears to be in no discomfort. Plan is for discharge today, pt agreeable to the same Objective - Vital Signs Vital signs: Vital Signs Temp 97.4 F L 05/08/24 07:00 Pulse 97 05/08/24 07:00 Resp 18 05/08/24 07:00 BP 97/65 05/08/24 07:00 Pulse Ox 97 05/08/24 07:00 FiO2 21 05/06/24 08:00 Intake & Output 05/07/24 05/08/24 05/08/24 18:59 06:59 18:59 Intake Total 2760 Output Total 1600 400 Balance 1160 -400 Intake: Oral 2760 Output: Chest Tube Drainage 1600 Right Pleural/Mediastinal 1600 Urine 400 Other: Voiding Method Urinal Urinal Urinal Diaper Diaper Diaper # Voids 3 - Constitutional General appearance: Present: no acute distress - EENT Eyes: Present: anicteric sclerae, EOMI ENT: Present: hearing grossly normal - Respiratory Details: breathing is even and unlabored - Cardiovascular Details: skin warm and dry - Psychiatric Psychiatric: Present: A&O x's 3 - Labs CBC & Chem 7: 05/06/24 12:09 05/06/24 12:09 Labs: Abnormal Lab Results - Last 24 Hours (Table) 05/04/24 05/07/24 Range/Units 19:52 09:00 Fluid Appearance Slightly Hazy A (Clear) Free [place] LC, Quant 182.06 H (0.33-1.94) mg/dL Free [place] LC, Quant <0.17 L (0.57-2.63) mg/dL Microbiology - Last 24 Hours (Table) 05/07/24 09:00 Acid Fast Bacilli Smear - Preliminary Pleural Fluid 05/07/24 09:00 Gram Stain - Preliminary Pleural Fluid Body Fluid Culture - Preliminary 05/04/24 23:55 Blood Culture - Preliminary Blood - Imaging and Cardiology CT lumbar/thoracic spine reviewed Assessment and Plan (1) Altered mental status Status: Acute Code(s): R41.82 - ALTERED MENTAL STATUS, UNSPECIFIED SNOMED Code(s): 778542231 (2) Encephalopathy Status: Acute Code(s): G93.40 - ENCEPHALOPATHY, UNSPECIFIED SNOMED Code(s): 67158659 (3) Hyperammonemia Status: Acute Code(s): E72.20 - DISORDER OF UREA CYCLE METABOLISM, UNSPECIFIED SNOMED Code(s): 5882679 (4) Multiple myeloma Status: Acute Priority: High Code(s): C90.00 - MULTIPLE MYELOMA NOT HAVING ACHIEVED REMISSION SNOMED Code(s): 654492044 (5) Pancytopenia due to antineoplastic chemotherapy Status: Acute Priority: High Code(s): D61.810 - ANTINEOPLASTIC CHEMOTHERAPY INDUCED PANCYTOPENIA; T45.1X5A - ADVERSE EFFECT OF ANTINEOPLASTIC AND IMMUNOSUP DRUGS, INIT SNOMED Code(s): 421935518849037 (6) Bilateral leg weakness Status: Acute Priority: High Code(s): R29.898 - OTH SYMPTOMS AND SIGNS INVOLVING THE MUSCULOSKELETAL SYSTEM SNOMED Code(s): 4370018 Plan: Confusion: Presented with confusion. Possible withdrawl from opiates? Per mother pt has been abusing his prescription opiates. -CT brain without contrast showing no acute intracranial processes. -CXR showing possible pneumonia, empiric abx started. -Ammonia elevated at 118 on admit, lactulose started. Bilirubin/LFTs WNL. Repeat ammonia 67. Pt refusing lactulose -Mentation improved since admit Pleural effusions: -Pulm following -Chest US showing small left and small to moderate right pleural effusions -S/p right sided thoracentesis, 1.6L removed. Pleural fluid culture negative thus far. Cytology pending Back pain, BLE weakness, urinary incontinence: Reporting he has been having increased urinary frequency and incontinence -History of cord compression and spinal surgeries -MRI thoracic/lumbar spine ordered to further evaluate. Pt was not able to tolerate MRI exam yesterday despite being premedicated. Images of thoracic spine w/o contrast were very limited but states possible new lobular mass measuring 1.1x1.0x2.2cm in right paracentral region posterior to T7. Results were discussed with pt -CT thoracic and lumbar spine showing stable mild pathological superior endplate compression fracture of L3 without retropulsion. Multiple stable mixed sclerotic/lucent lesions in the thoracic and lumbar vertebral segments and right iliac wing and sacrum. No new lesions are seen. No malalignment of the vertebral segments in the thoracic or lumbar region and no significant degenerative disc disease or spinal stenosis noted. Laminectomy defect in the lower thoracic spine. -Pain meds and bowel regimen in place. Pain managed on current regimen Multiple myeloma: -History as dictated in the HPI -Currently on treatment with RVD and darzalex. Missed last 2 treatments and has not been compliant with Revlimid -Will obtain myeloma labs, still pending -Clinic f/u scheduled, tx will be restarted upon discharge attests: I have seen and examined pt, performed H&P, developed impression and plan of care. Discussed with dictator. Agree with documentation, dictated as a scribe
--- NOTE | 2024-05-08 23:45 | P.DS ---
Providers Date of admission: 05/04/24 22:44 Attending physician: Arleth Fried Consults: 05/04/24 22:44 Consult Physician Routine Consulting Provider: Zia Schuster Consult Reason/Comments: known Do you want consulting provider notified?: Yes 05/06/24 12:39 Consult Physician Routine Consulting Provider: Geovanny Mcmanus Consult Reason/Comments: possible pna Do you want consulting provider notified?: Yes [facility] Course: Diagnoses: Altered mental status most likely toxic/metabolic encephalopathy could be due to pain medication. Resolved and patient back to baseline after 1 day on admission, repeat at baseline through hospital stay Mild community-acquired pneumonia possible on the right side was suspected on admission however later on it was rule out and antibiotics were discontinued Mild pulmonary vascular congestion and right pleural effusion status post thoracocentesis most likely secondary to the 2 L of normal saline patient received on admission. However cytology is pending Acute on chronic back. Related to his multiple myeloma. MRI of the spine showing lobular mass at T7 measuring 1.1 x 1.0 x 2.2 cm in the right paracentral region, could be related to multiple myeloma Multiple myeloma, follow-up with oncologist as an outpatient for further treatment Chronic pancytopenia, currently stable Substance abuse with tetrahydrocannabinol Constipation, could be medication induced Hospital course: This is a pleasant 48 years old male with past medical history of multiple myeloma and he follow-up with his oncologist as an outpatient. Presents because of confusion, increased urination and there was concerns about detox from Dilaudid. He takes Dilaudid orally 8 mg 3 times a day. As per staff patient has been recently fired from his pain clinic because he was taking marijuana stuff like Gummies. So the contract with his pain clinic was canceled. There was suspicion of patient also using the Dilaudid in an improper way like by significant. Patient was encouraged against using excessive opioid medication and risk including but not limited to the respiratory depression and/or were explained from details and he verbalized understanding and acceptance. Upon discharge he does not request more pain medication patient was encouraged to follow-up with PCP and panic-like as an outpatient and he agrees. Patient was evaluated by hematology/oncology mild by pulmonary team. Patient was found to have lobulated mass at T7 measuring 1.1 x 1.0 x 2.2 cm in the right paracentral region could be related to his multiple myeloma as per onc ology team. Pulmonary team and did try thoracentesis for his right pleural effusion and cytology is pending and CT of the chest showing multiple malignant nodule could be related to multiple myeloma versus other. However I talked to pulmonary team today with Dr. Antunez who cleared the patient for discharge and outpatient follow-up. Also oncology team cleared the patient for discharge. Patient was sitting in the chair fully awake and oriented looks calm not in distress, pain controlled. He denies any needs. Denies any other new complaint and he agrees to go home and follow-up as outpatient. Actually while talking in the room patient was trying to make appointment with his PCP and oncologist Dr. Stanley while for further follow-up. Patient was informed about the results of his imaging including his T7 lobular mass and also the nodules in his lung which is suspicious for metastatic disease and patient verbalized understanding and acceptance of follow-up as an outpatient. Patient was cleared for discharge by pulmonary service and by hematology/oncology team. Problems and management plan were discussed with the patient and he verbalized understanding and acceptance Patient was found stable and can be discharged home in guarded prognosis however he needs follow-up as an outpatient. Patient was instructed to follow up with PCP within one week and patient agrees Patient was instructed to follow-up with Dr. Antunez and an appointment made for him on 06/04 and with his oncologist Dr. Stanley while appointment for him on 05/[address] Stovall with an appointment made for him to 05/12 and he verbalized understanding acceptance for follow-up Physical exam Gen: patient is a AAOx3, no distress CVS: S1-S2, RRR, no murmur Lungs: B/L CTA, no wheezing Abdomen: soft, no distention, no tenderness, positive bowel sounds Extremity: no leg edema or induration Time spent more than 35 minutes Patient Condition at Discharge: Fair Plan - Discharge Summary Discharge Rx Participant: No New Discharge Prescriptions: New Lactulose [Cephulac] 30 gm PO BID #1500 ml Docusate [Colace] 100 mg PO BID #60 cap Continue Lenalidomide [Revlimid] 20 mg PO DIRECTED HYDROmorphone HCL [Dilaudid] 8 mg PO TID dexAMETHasone [Decadron] 4 mg PO DAILY Discharge Medication List Lenalidomide [Revlimid] 20 mg PO DIRECTED 09/04/23 [History] HYDROmorphone HCL [Dilaudid] 8 mg PO TID 05/05/24 [History] dexAMETHasone [Decadron] 4 mg PO DAILY 05/05/24 [History] Docusate [Colace] 100 mg PO BID #60 cap 05/08/24 [Rx] Lactulose [Cephulac] 30 gm PO BID #1500 ml 05/08/24 [Rx] Follow up Appointment(s)/Referral(s): Geovanny Mcmanus MD [STAFF PHYSICIAN] - 06/04/24 9:00 am Corie Douglas MD [STAFF PHYSICIAN] - 05/19/24 3:00 pm (Appt at the [facility]) Kehinde Gama DO [Primary Care Provider] - 05/12/24 11:30 am Patient Instructions/Handouts: Laxative, Stool Softeners (By mouth), Lactulose (By mouth), Hydromorphone (By mouth), Pain Management (DC), Fall Prevention (DC), Opioid Safety (DC) Discharge/Stand Alone Forms: Who Do I Call?, Community Resources, Outpatient Counseling
[2024-05-09 10:03] LABS: Protein, Total 5.7 g/dL (6.2-8.2)
[2024-05-09 10:42] LABS: Gamma Globulin 0.54 g/dL (0.70-1.50)
== END 2024-05-08 16:35 | disposition home or self-care (01) | DRG 91 ==
LOC: EC 18:32 → 5NMEDONC 22:44
PROVIDERS: ADMIT Hospitalist; ATTEND Hospitalist
PROC: 0W993ZX Drainage of Right Pleural Cavity, Percutaneous Approach, Diagnostic (ICD-10-PCS; principal; 2024-05-07)
DX: G92.8 Other toxic encephalopathy (principal); D61.810 Antineoplastic chemotherapy induced pancytopenia; E72.20 Disorder of urea cycle metabolism, unspecified; C90.00 Multiple myeloma not having achieved remission; F11.20 Opioid dependence, uncomplicated; D69.59 Other secondary thrombocytopenia; F12.10 Cannabis abuse, uncomplicated; G89.29 Other chronic pain; M84.459D Pathological fracture, hip, unspecified, subsequent encounter for fracture with routine healing; F41.0 Panic disorder [episodic paroxysmal anxiety]; K59.00 Constipation, unspecified; T45.1X5A Adverse effect of antineoplastic and immunosuppressive drugs, initial encounter; N39.498 Other specified urinary incontinence; Z91.199 Patient's noncompliance with other medical treatment and regimen due to unspecified reason; Z79.61 Long term (current) use of immunomodulator; Z79.52 Long term (current) use of systemic steroids; Z92.3 Personal history of irradiation
CPT/HCPCS: 36415; 70450; 71045; 71046; 71260; 72128; 72131; 72146; 76604; 80048; 80053; 80143; 80179; 80306; 81001; 82140; 82784; 82945; 83605; 83615; 83735; 83883; 84100; 84145; 84157; 84165; 85025; 85610; 85730; 86334; 87040; 87070; 87102; 87116; 87205; 87206; 87449; 87636; 88108; 88305; 88341; 88342; 89050; 93005; 94760; 96361; 96365; 96367; 96375; 96376; 99291

== ENCOUNTER 2024-05-15 06:33 | Inpatient (IN) | payer BC, OTHER ==
--- NOTE | 2024-05-15 07:27 | ED ---
General Adult HPI - General Chief complaint: Back Pain/Injury Stated complaint: Back pain Time Seen by Provider: 05/15/24 07:04 Source: patient, EMS, RN notes reviewed, old records reviewed Mode of arrival: EMS Limitations: no limitations - History of Present Illness Initial comments: 48-year-old male history of multiple myeloma presenting for evaluation of chronic pain. Patient states that his pain does increase with weather changes. He was recently admitted for pain management. He states that his pain is predominantly in his tailbone which is usual location. He has pain medication at home but states that this has not been working well to control his pain. Denies current fever. States he previously had lower extremity edema but this is resolved. - Related Data Home Medications Medication Instructions Recorded Confirmed Lenalidomide [Revlimid] 20 mg PO DIRECTED 09/04/23 05/05/24 HYDROmorphone HCL [Dilaudid] 8 mg PO TID 05/05/24 05/05/24 dexAMETHasone [Decadron] 4 mg PO DAILY 05/05/24 05/05/24 Previous Rx's Medication Instructions Recorded Docusate [Colace] 100 mg PO BID #60 cap 05/08/24 Lactulose [Cephulac] 30 gm PO BID #1500 ml 05/08/24 Allergies Allergy/AdvReac Type Severity Reaction Status Date / Time No Known Allergies Allergy Verified 05/15/24 06:37 Review of Systems ROS Statement: Those systems with pertinent positive or pertinent negative responses have been documented in the HPI. ROS Other: All systems not noted in ROS Statement are negative. 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 History of prior laminectomy decompression at lower thoracic with Dr. Dominguez in January 2022. History of multiple soft tissue masses throughout his thoracic lumbar and sacral spine. history lower extremity weakness History of Any Multi-Drug Resistant Organisms: None Reported Past Surgical History: No Surgical Hx Reported Additional Past Surgical History / Comment(s): back surgery to remove tumor december of 2021. Bone biospy of right hip, spinal decompression Past Anesthesia/Blood Transfusion Reactions: No Reported Reaction Past Psychological History: No Psychological Hx Reported Smoking Status: Never smoker Past Alcohol Use History: None Reported Past Drug Use History: Marijuana General Exam Limitations: no limitations General appearance: alert, in no apparent distress Head exam: Present: atraumatic, normocephalic Eye exam: Present: normal appearance, PERRL ENT exam: Present: normal exam Neck exam: Present: normal inspection. Absent: tenderness, meningismus Respiratory exam: Present: normal lung sounds bilaterally. Absent: respiratory distress, wheezes Cardiovascular Exam: Present: regular rate, normal rhythm GI/Abdominal exam: Present: soft. Absent: distended, tenderness Back exam: Present: normal inspection Neurological exam: Present: alert, oriented X3, CN II-XII intact. Absent: motor sensory deficit Psychiatric exam: Present: normal affect, normal mood Skin exam: Present: warm, dry, intact Course Vital Signs 05/15/24 05/15/24 06:38 07:40 Temperature 98.8 F 97.8 F Pulse Rate 78 60 Respiratory 18 20 Rate Blood Pressure 104/69 104/69 O2 Sat by Pulse 99 98 Oximetry Medical Decision Making - Medical Decision Making Was pt. sent in by a medical professional or institution (, ANGIE, LOOM INSPECTOR, urgent care, hospital, or alf...) When possible be specific @ -No Did you speak to anyone other than the patient for history (EMS, parent, family, police, friend...)? What history was obtained from this source @ -No Did you review nursing and triage notes (agree or disagree)? Why? @ -I reviewed and agree with nursing and triage notes Were old charts reviewed (outside hosp., previous admission, EMS record, old EKG, old radiological studies, urgent care reports/EKG's, alf records)? Report findings @ -No old charts were reviewed Differential Diagnosis: Multiple myeloma, acute on chronic pain EKG interpreted by me (3pts min.). @ -As above X-rays interpreted by me (1pt min.). @ -None done CT interpreted by me (1pt min.). @ -None done U/S interpreted by me (1pt. min.). @ -None done What testing was considered but not performed or refused? (CT, X-rays, U/S, labs)? Why? @ -None What meds were considered but not given or refused? Why? @ -None Did you discuss the management of the patient with other professionals (professionals i.e. ANGIE Hobson, LOOM INSPECTOR, lab, RT, psych nurse, social services specialist, pediatric oncology nurse, teacher, ordnance officer, employment evaluator/case manager)? Give summary @ -No Was smoking cessation discussed for >3mins.? @ -No Was critical care preformed (if so, how long)? @ -No Were there social determinants of health that impacted care today? How? (Homelessness, low income, unemployed, alcoholism, drug addiction, transportation, low edu. Level, literacy, decrease access to med. care, long term, rehab)? @ -No Was there de-escalation of care discussed even if they declined (Discuss DNR or withdrawal of care, Hospice)? DNR status @ -No What co-morbidities impacted this encounter? (DM, HTN, Smoking, COPD, CAD, Cancer, CVA, ARF, Chemo, Hep., AIDS, mental health diagnosis, sleep apnea, morbid obesity)? @ -Multiple myeloma Was patient admitted / discharged? Hospital course, mention meds given and route, prescriptions, significant lab abnormalities, going to OR and other pertinent info. @48-year-old male with multiple myeloma presenting with acute on chronic pain. No injury. No fever. Pain is predominantly low back and buttock. Vital signs are stable. CBC and CMP are ordered without significant change from prior. Patient will be placed in observation for pain control, consultation with oncology. Undiagnosed new problem with uncertain prognosis? @ -No Drug Therapy requiring intensive monitoring for toxicity (Heparin, Nitro, Insulin, Cardizem)? @ -No Were any procedures done? @ -No Diagnosis/symptom? @ -[Acute on chronic pain, multiple myeloma Acute, or Chronic, or Acute on Chronic? @ -Acute on chronic Uncomplicated (without systemic symptoms) or Complicated (systemic symptoms)? @ -Default Side effects of treatment? @ -No Exacerbation, Progression, or Severe Exacerbation? @ -No Poses a threat to life or bodily function? How? (Chest pain, [place], [place], pneumonia, PE, COPD, DKA, ARF, appy, cholecystitis, CVA, Diverticulitis, Homicidal, Suicidal, threat to staff... and all critical care pts) @Yes, multiple myeloma - Lab Data Result diagrams: 05/15/24 07:20 05/15/24 07:20 Lab Results 05/15/24 05/15/24 05/15/24 Range/Units 07:20 07:20 07:20 WBC 5.9 (3.8-10.6) k/uL RBC 2.98 L (4.30-5.90) m/uL Hgb 10.5 L (13.0-17.5) gm/dL Hct 30.8 L (39.0-53.0) % MCV 103.3 H (80.0-100.0) fL MCH 35.2 H (25.0-35.0) pg MCHC 34.0 (31.0-37.0) g/dL RDW 16.5 H (11.5-15.5) % Plt Count 98 L (150-450) k/uL MPV 8.8 Neutrophils % (Manual) 75 % Lymphocytes % (Manual) 5 % Monocytes % (Manual) 19 % Eosinophils % (Manual) 1 % Neutrophils # (Manual) 4.43 (1.3-7.7) k/uL Lymphocytes # (Manual) 0.30 L (1.0-4.8) k/uL Monocytes # (Manual) 1.12 H (0-1.0) k/uL Eosinophils # (Manual) 0.06 (0-0.7) k/uL Nucleated RBCs 0 (0-0) /100 WBC Manual Slide Review Performed Polychromasia Present Anisocytosis Slight Anisocytosis (manual) Present Macrocytosis Moderate Tear Drop Cells Present Sodium 132 L (137-145) mmol/L Potassium 4.6 (3.5-5.1) mmol/L Chloride 99 (98-107) mmol/L Carbon Dioxide 24 (22-30) mmol/L Anion Gap 9 mmol/L BUN 28 H (9-20) mg/dL Creatinine 0.91 (0.66-1.25) mg/dL Est GFR (CKD-EPI)AfAm >90 (>60 ml/min/1.73 sqM) Est GFR (CKD-EPI)NonAf >90 (>60 ml/min/1.73 sqM) Glucose 98 (74-99) mg/dL Calcium 8.7 (8.4-10.2) mg/dL Magnesium 1.9 (1.6-2.3) mg/dL Total Bilirubin 0.8 (0.2-1.3) mg/dL AST 20 (17-59) U/L ALT 15 (4-49) U/L Alkaline Phosphatase 37 L (38-126) U/L Total Protein 5.9 L (6.3-8.2) g/dL Albumin 4.0 (3.5-5.0) g/dL Influenza Type A (PCR) Not Detected (Not Detectd) Influenza Type B (PCR) Not Detected (Not Detectd) RSV (PCR) Not Detected (Not Detectd) SARS-CoV-2 (PCR) Not Detected (Not Detectd) Disposition Clinical Impression: Multiple myeloma, Chronic back pain greater than 3 months duration Disposition: ADMITTED IP TO THIS [facility] Condition: Stable Is patient prescribed a controlled substance at d/c from ED?: No Referrals: Kehinde Gama DO [Primary Care Provider] - 1-2 days Time of Disposition: 09:27
[2024-05-15] MEDS: HYDROmorphone 1 MG/ML 1 ML SYRINGE IVP STA ×2 (07:33→09:27)
[2024-05-15] MEDS: SODIUM CHLORIDE 0.9% 500 ML 500 ML IV ONE (07:34)
[2024-05-15 08:07] LABS: ALT 15 U/L (4-49); AST 20 U/L (17-59); African American GFR (CKD) >90 (>60 ml/min/1.73 sqM); Alkaline Phosphatase 37 U/L (38-126); Anion Gap 9 mmol/L; Blood Urea Nitrogen 28 mg/dL (9-20); Calcium 8.7 mg/dL (8.4-10.2); Carbon Dioxide 24 mmol/L (22-30); Chloride 99 mmol/L (98-107); Glucose 98 mg/dL (74-99); Magnesium 1.9 mg/dL (1.6-2.3); Non-African American GFR(CKD) >90 (>60 ml/min/1.73 sqM); Potassium 4.6 mmol/L (3.5-5.1); Sodium 132 mmol/L (137-145); Total Bilirubin 0.8 mg/dL (0.2-1.3); Total Protein 5.9 g/dL (6.3-8.2)
[2024-05-15 08:09] LABS: Anisocytosis Slight; HCT 30.8 % (39.0-53.0); HGB 10.5 gm/dL (13.0-17.5); MCH 35.2 pg (25.0-35.0); MCV 103.3 fL (80.0-100.0); Macrocytosis Moderate; Mean Platelet Volume 8.8; RBC 2.98 m/uL (4.30-5.90); RDW 16.5 % (11.5-15.5); WBC 5.9 k/uL (3.8-10.6)
[2024-05-15 08:27] LABS: Influenza A Not Detected (Not Detectd); Influenza B Not Detected (Not Detectd); RSV Not Detected (Not Detectd)
[2024-05-15 08:59] LABS: Anisocytosis (M) Present; Eosinophils # (M) 0.06 k/uL (0-0.7); Monocytes # (M) 1.12 k/uL (0-1.0); Neutrophils # (M) 4.43 k/uL (1.3-7.7); Neutrophils % (M) 75 %; Nucleated Red Blood Cells 0 /100 WBC (0-0); Polychromasia Present; Tear Drop Cells Present; Total Cells Counted 100
[2024-05-15 09:00] LABS: Platelet Count 98 k/uL (150-450)
[2024-05-15] MEDS ORDERED: ACETAMINOPHEN TAB 325 MG TAB PO PRN (09:24)
[2024-05-15] MEDS ORDERED: NALOXONE 0.4 MG/ML 1 ML VIAL IV PRN (09:24)
[2024-05-15] MEDS: SODIUM CHLORIDE 0.9% 1,000 ML IV SCH (09:28)
[2024-05-15] MEDS: HYDROmorphone 1 MG/ML 1 ML SYRINGE IVP PRN (13:46)
--- NOTE | 2024-05-15 15:27 | P.HPIM ---
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 Patient was in April, for pain management, had episode of confusion due to toxic encephalopathy secondary to pain medications, had MRI spine which showed T7 lobular mass in the right paracentral region, was discharged and was advised to follow-up with oncology as outpatient. Patient reported that he was taking pain medication at home, patient reported that he was taking Dilaudid 24 mg daily without much control of the pain. Patient denied any fever, chills, nausea, vomiting, diarrhea, constipation, abdominal pain, dysuria urgency frequency, weakness or numbness extremities, declined saddle anesthesia. Patient denied any sore throat, productive cough, shortness of breath, chest pain, palpitations. Patient is afebrile, heart rate 70, respiratory rate 16, blood pressure 103/67, saturating 98% on room air. WBCs 5.9, hemoglobin 10.5, platelet 98. BMP was unremarkable, mildly low sodium 132. Viral panel negative. Assessment and plan: Multiple myeloma: Acute on chronic low back pain: History of T7 nodular mass in the right paracentral region: History of multiple spinal tumors with previous decompression surgery: Was recently admitted to the hospital for pneumonia, right pleural effusion status postthoracentesis, acute on chronic back pain, was found to have T7 lobular mass on MRI, and history of spinal mass requiring spinal surgery due to compression, history of chronic pancytopenia, substance use with constipation now presented with worsening lower back pain. Pain controlTylenol, Dilaudid. P.o. Ativan for anxiety Oncology consult. DVT prophylaxis SCD Monitor vital signs and labs Labs and medication were reviewed. Continue same treatment. Further recommendations as per clinical course of the patient PHYSICAL EXAMINATION: GENERAL: The patient is A&O x3, NAD HEENT: EOMI, Sclerae anicteric, Moist Mucous membranes Neck: Supple, Non tender, No JVD PULMONARY: Equal breath souds B/L, No wheezing, No crackles. CARDIOVASCULAR: S1, S2 present. No murmurs, rubs, or gallops. ABDOMEN: Soft, nontender, nondistended, normoactive bowel sounds. No guarding or rebound tenderness. MUSCULOSKELETAL: No edema, No cyanosis. No clubbing. Normal ROM. Intact peripheral pulses. NEUROLOGICAL: CN 2-12 grossly intact. No FND REVIEW OF SYSTEMS: CONSTITUTIONAL: No fever, no malaise, no fatigue. HEENT: No recent visual problems or hearing problems. Denied any sore throat. CARDIOVASCULAR: No chest pain, orthopnea, PND, no palpitations, no syncope. PULMONARY: No shortness of breath, no cough, no hemoptysis. GASTROINTESTINAL: No diarrhea, no nausea, no vomiting, no abdominal pain. NEUROLOGICAL: No headaches, no weakness, no numbness. HEMATOLOGICAL: Denies any bleeding or petechiae. GENITOURINARY: Denies any burning micturition, frequency, or urgency. MUSCULOSKELETAL/RHEUMATOLOGICAL: Complains of low back pain. ENDOCRINE: Denies any polyuria or polydipsia. The rest of the 14-point review of systems is negative. Dictation was produced using [employer] dictation software. please excuse any grammatical, word or spelling errors. 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 History of prior laminectomy decompression at lower thoracic with Dr. Dominguez in January 2022. History of multiple soft tissue masses throughout his thoracic lumbar and sacral spine. history lower extremity weakness History of Any Multi-Drug Resistant Organisms: None Reported Past Surgical History: No Surgical Hx Reported Additional Past Surgical History / Comment(s): back surgery to remove tumor december of 2021. Bone biospy of right hip, spinal decompression Past Anesthesia/Blood Transfusion Reactions: No Reported Reaction Past Psychological History: No Psychological Hx Reported Smoking Status: Never smoker Past Alcohol Use History: None Reported Additional Past Alcohol Use History / Comment(s): has not had a drink in about a year Past Drug Use History: Marijuana Medications and Allergies Home Medications Medication Instructions Recorded Confirmed Type Lenalidomide [Revlimid] 20 mg PO DIRECTED 09/04/23 05/15/24 History HYDROmorphone HCL [Dilaudid] 8 mg PO TID 05/05/24 05/15/24 History dexAMETHasone [Decadron] 4 mg PO DAILY 05/05/24 05/15/24 History Allergies Allergy/AdvReac Type Severity Reaction Status Date / Time No Known Allergies Allergy Verified 05/15/24 09:48 Physical Exam Vitals: Vital Signs Temp Pulse Pulse Resp BP BP Pulse Ox 05/15/24 11:12 97.6 F 70 16 103/67 98 05/15/24 10:30 68 16 130/68 98 05/15/24 09:00 70 20 104/69 96 05/15/24 07:40 97.8 F 60 20 104/69 98 05/15/24 06:38 98.8 F 78 18 104/69 99 Intake and Output 05/15/24 05/15/24 05/15/24 06:59 14:59 22:59 Other: Weight 83.915 kg 83.915 kg Results CBC & Chem 7: 05/15/24 07:20 05/15/24 07:20 Labs: Abnormal Lab Results - Last 24 Hours (Table) 05/15/24 05/15/24 Range/Units 07:20 07:20 RBC 2.98 L (4.30-5.90) m/uL Hgb 10.5 L (13.0-17.5) gm/dL Hct 30.8 L (39.0-53.0) % MCV 103.3 H (80.0-100.0) fL MCH 35.2 H (25.0-35.0) pg RDW 16.5 H (11.5-15.5) % Plt Count 98 L (150-450) k/uL Lymphocytes # (Manual) 0.30 L (1.0-4.8) k/uL Monocytes # (Manual) 1.12 H (0-1.0) k/uL Sodium 132 L (137-145) mmol/L BUN 28 H (9-20) mg/dL Alkaline Phosphatase 37 L (38-126) U/L Total Protein 5.9 L (6.3-8.2) g/dL Thrombosis Risk Factor Assmnt - Choose All That Apply Any of the Below Risk Factors Present?: No Other Risk Factors: No Other congenital or acquired thrombophilia - If yes, enter type in comment: No Thrombosis Risk Factor Assessment Level: Very Low Risk
[2024-05-15] MEDS: LORazepam 0.5 MG TAB PO PRN (16:49)
[2024-05-16 08:27] LABS: BUN/Creat Ratio 20.89 Ratio (12.00-20.00); Blood Urea Nitrogen 18.8 mg/dL (9.0-27.0); Calcium 8.3 mg/dL (8.7-10.3); Carbon Dioxide 21.9 mmol/L (21.6-31.8); Chloride 104 mmol/L (96-109); Glucose 85 mg/dL (70-110); Potassium 4.4 mmol/L (3.5-5.5); Sodium 136 mmol/L (135-145)
[2024-05-16 09:08] LABS: Basophils # (A) 0.02 X 10*3/uL (0.00-0.10); Basophils % (A) 0.5 %; Eosinophils # (A) 0.03 X 10*3/uL (0.04-0.35); Eosinophils % (A) 0.7 %; HCT 29.6 % (39.6-50.0); HGB 10.1 g/dL (13.0-17.0); Lymphocytes # (A) 0.72 X 10*3/uL (0.90-5.00); Lymphocytes % (A) 17.8 %; MCH 35.6 pg (27.0-32.0); MCHC 34.1 g/dL (32.0-37.0); MCV 104.2 FL (80.0-97.0); Monocytes # (A) 0.51 X 10*3/uL (0.20-1.00); Monocytes % (A) 12.6 %; NRBC Per 100 WBC 0.02 X 10*3/uL (0.00-0.01); Neutrophils # (A) 2.68 X 10*3/uL (1.80-7.70); Neutrophils % (A) 66.2 %; Platelet Count 82 X 10*3/uL (140-440); RBC 2.84 X 10*6/uL (4.40-5.60); RDW 16.7 % (11.5-14.5); WBC 4.05 X 10*3/uL (4.50-10.00)
[2024-05-16] MEDS: traMADol 50 MG TAB PO SCH (13:57)
--- NOTE | 2024-05-16 14:22 | P.PN ---
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 Patient was in April, for pain management, had episode of confusion due to toxic encephalopathy secondary to pain medications, had MRI spine which showed T7 lobular mass in the right paracentral region, was discharged and was advised to follow-up with oncology as outpatient. Patient reported that he was taking pain medication at home, patient reported that he was taking Dilaudid 24 mg daily without much control of the pain. Patient denied any fever, chills, nausea, vomiting, diarrhea, constipation, abdominal pain, dysuria urgency frequency, weakness or numbness extremities, declined saddle anesthesia. Patient denied any sore throat, productive cough, shortness of breath, chest pain, palpitations. Patient is afebrile, heart rate 70, respiratory rate 16, blood pressure 103/67, saturating 98% on room air. WBCs 5.9, hemoglobin 10.5, platelet 98. BMP was unremarkable, mildly low sodium 132. Viral panel negative. 05/16--patient was seen and examined today. Continue complain of low back pain. Remains afebrile, heart rate 80, respiratory rate 18, blood pressure 106/64, saturating 98% on room air. WBCs 4.05, hemoglobin 10.1, platelet 82. BMP unremarkable. Currently on Tylenol, Dilaudid, tramadol for pain control. On p.o. Ativan for anxiety. Continue IV fluids. Oncology consulted, pain management consulted. Assessment and plan: Multiple myeloma: Acute on chronic low back pain: Pancytopenia: History of T7 nodular mass in the right paracentral region: History of multiple spinal tumors with previous decompression surgery: Was recently admitted to the hospital for pneumonia, right pleural effusion sta tus postthoracentesis, acute on chronic back pain, was found to have T7 lobular mass on MRI, and history of spinal mass requiring spinal surgery due to compression, history of chronic pancytopenia, substance use with constipation now presented with worsening lower back pain. Pain controlTylenol, Dilaudid. P.o. Ativan for anxiety Oncology consult. Pain management consult. DVT prophylaxis SCD Monitor vital signs and labs Labs and medication were reviewed. Continue same treatment. Further recommendations as per clinical course of the patient PHYSICAL EXAMINATION: GENERAL: The patient is A&O x3, NAD HEENT: EOMI, Sclerae anicteric, Moist Mucous membranes Neck: Supple, Non tender, No JVD PULMONARY: Equal breath souds B/L, No wheezing, No crackles. CARDIOVASCULAR: S1, S2 present. No murmurs, rubs, or gallops. ABDOMEN: Soft, nontender, nondistended, normoactive bowel sounds. No guarding or rebound tenderness. MUSCULOSKELETAL: No edema, No cyanosis. No clubbing. Normal ROM. Intact peripheral pulses. NEUROLOGICAL: CN 2-12 grossly intact. No FND REVIEW OF SYSTEMS: CONSTITUTIONAL: No fever or chills. CARDIOVASCULAR: No chest pain, palpitations or syncope. PULMONARY: No shortness of breath, no cough, sore throat. GASTROINTESTINAL: No nausea, vomiting, diarrhea, abdominal pain. : No Dysuria, urgency, frequency. Extremities: No edema. Complains of low back pain. NEUROLOGICAL: No headaches, no weakness, or numbness Dictation was produced using [employer] dictation software. please excuse any grammatical, word or spelling errors. Objective - Vital Signs Vital signs: Vital Signs Temp 97.9 F 05/16/24 14:00 Pulse 80 05/16/24 14:00 Resp 18 05/16/24 14:00 BP 106/64 05/16/24 14:00 Pulse Ox 98 05/16/24 14:00 FiO2 Intake & Output 05/15/24 05/16/24 05/16/24 18:59 06:59 18:59 Output Total 300 Balance -300 Weight 83.915 kg Output: Urine 300 Other: Voiding Method Urinal - Labs CBC & Chem 7: 05/16/24 04:07 05/16/24 04:07 Labs: Abnormal Lab Results - Last 24 Hours (Table) 05/16/24 05/16/24 Range/Units 04:07 04:07 WBC 4.05 L (4.50-10.00) X 10*3/uL RBC 2.84 L (4.40-5.60) X 10*6/uL Hgb 10.1 L (13.0-17.0) g/dL Hct 29.6 L (39.6-50.0) % MCV 104.2 H (80.0-97.0) FL MCH 35.6 H (27.0-32.0) pg RDW 16.7 H (11.5-14.5) % Plt Count 82 L (140-440) X 10*3/uL Immature Gran # 0.09 H (0.00-0.04) X 10*3/uL Lymphocytes # 0.72 L (0.90-5.00) X 10*3/uL Eosinophils # 0.03 L (0.04-0.35) X 10*3/uL NRBC/100 WBC Diff 0.02 H (0.00-0.01) X 10*3/uL BUN/Creatinine Ratio 20.89 H (12.00-20.00) Ratio Calcium 8.3 L (8.7-10.3) mg/dL
--- NOTE | 2024-05-16 14:41 | P.PAINCN ---
History of Present Illness - Reason for Consult Consult date: 05/16/24 - History of Present Illness This 48 years old male with a history of chronic severe low back pain he was admitted to [facility] with worsening of severe lower back pain, and severe anxiety patient was treated as an outpatient with Dilaudid 8 mg 3 times daily, and his also on Ativan 0.5 mg every 8 hours, after the admission patient started on Dilaudid 0.5 to 1 mg every 3 hours as needed, patient reported the current medication is not helping to control his pain, as an outpatient he was treated with Ultram previously and he had a good result with it and he thought that his pain was well-controlled with Ultram 50 mg 3 times daily, had history of multiple myeloma and he had history of spinal plasmacyt jacqueline, and he had c compression and he had lumbar laminectomy surgery, currently patient denies any fever or night sweats he denies any change in the bowel movement or urination he denies any numbness in the extremity, he reported his main problem is aching pain in the low back area with radiation to the hips and lower extremity Past Medical History Past Medical History: Cancer Additional Past Medical History / Comment(s): multiple myloma on chemo. History of prior laminectomy decompression at lower thoracic with Dr. Dominguez in January 2022. History of multiple soft tissue masses throughout his thoracic lumbar and sacral spine. history lower extremity weakness History of Any Multi-Drug Resistant Organisms: None Reported Past Surgical History: No Surgical Hx Reported Additional Past Surgical History / Comment(s): back surgery to remove tumor oc tober 2021. Bone biospy of right hip, spinal decompression Past Anesthesia/Blood Transfusion Reactions: No Reported Reaction Past Psychological History: No Psychological Hx Reported Smoking Status: Never smoker Past Alcohol Use History: None Reported Additional Past Alcohol Use History / Comment(s): has not had a drink in about a year Past Drug Use History: Marijuana Medications and Allergies Home Medications Medication Instructions Recorded Confirmed Type Lenalidomide [Revlimid] 20 mg PO DIRECTED 09/04/23 05/15/24 History HYDROmorphone HCL [Dilaudid] 8 mg PO TID 05/05/24 05/15/24 History dexAMETHasone [Decadron] 4 mg PO DAILY 05/05/24 05/15/24 History Allergies Allergy/AdvReac Type Severity Reaction Status Date / Time No Known Allergies Allergy Verified 05/15/24 09:48 Physical Exam Vitals: Vital Signs Temp Pulse Resp BP Pulse Ox 05/16/24 14:00 97.9 F 80 18 106/64 98 05/16/24 06:45 97.4 F L 70 17 109/64 98 05/16/24 01:16 97.7 F 71 17 110/67 98 05/15/24 19:17 97.5 F L 69 17 93/53 97 Intake and Output 05/15/24 05/16/24 05/16/24 22:59 06:59 14:59 Output Total 300 Balance -300 Output: Urine 300 Other: Voiding Method Urinal PHYSICAL EXAMINATION: GENERAL: The patient is A&O x3, NAD HEENT: EOMI, Sclerae anicteric, Moist Mucous membranes Neck: Supple, Non tender, No JVD ABDOMEN: Soft, nontender, nondistended, normoactive bowel sounds. No guarding or rebound tenderness. MUSCULOSKELETAL: No edema, No cyanosis. No clubbing. Normal ROM. Intact peripheral pulses. NEUROLOGICAL: CN 2-12 grossly intact. No FND Results CBC & Chem 7: 05/16/24 04:07 05/16/24 04:07 Labs: Abnormal Lab Results - Last 24 Hours (Table) 05/16/24 05/16/24 Range/Units 04:07 04:07 WBC 4.05 L (4.50-10.00) X 10*3/uL RBC 2.84 L (4.40-5.60) X 10*6/uL Hgb 10.1 L (13.0-17.0) g/dL Hct 29.6 L (39.6-50.0) % MCV 104.2 H (80.0-97.0) FL MCH 35.6 H (27.0-32.0) pg RDW 16.7 H (11.5-14.5) % Plt Count 82 L (140-440) X 10*3/uL Immature Gran # 0.09 H (0.00-0.04) X 10*3/uL Lymphocytes # 0.72 L (0.90-5.00) X 10*3/uL Eosinophils # 0.03 L (0.04-0.35) X 10*3/uL NRBC/100 WBC Diff 0.02 H (0.00-0.01) X 10*3/uL BUN/Creatinine Ratio 20.89 H (12.00-20.00) Ratio Calcium 8.3 L (8.7-10.3) mg/dL Comments: MRI lumbar spine= compression fracture of L3, laminectomy and lower thoracic spine area Assessment and Plan Plan: Assessment and plan=1-acute on chronic low back pain. 2-pain secondary to malignancy, multiple myeloma. 3-history of spinal decompression and fusion surgery. 4-severe anxiety. Patient currently on Dilaudid 0.5 to 1 mg every 3 hours and he was on Dilaudid 8 mg every 8 hours as needed for pain he reported that he tried previously Ultram which helped him significantly he had good pain relief with Ultram as an outpatient, I discussed with the patient the option of putting him on fentanyl patch patient very concerned about the fentanyl, and he does not want started I discussed with the patient the option of starting him on Contin as a long-acting medication he does not wish to start on this medication, the best option at this time is to start patient on Ultram 50 mg 3 times daily, discontinue Dilaudid 8 mg p.o., continue Dilaudid 0.5 to 1 mg every 3 hours as needed Time with Patient: Less than 30 PQRS Measure Charge Sheet PQRS Narrative: Blood Pressure [Left Arm] 106/64 Blood Pressure 130/68 Pain Intensity 7 Pain Scale Used Numeric (1 - 10) Scale Used Numeric (1 - 10) Hx Alcohol Use (MH) No Home Medications: Ambulatory Orders Lenalidomide [Revlimid] 20 mg PO DIRECTED 09/04/23 HYDROmorphone HCL [Dilaudid] 8 mg PO TID 05/05/24 dexAMETHasone [Decadron] 4 mg PO DAILY 05/05/24
[2024-05-16 18:42] LABS: Appearance,Urine Clear (Clear); Bilirubin,Urine Negative (Negative); Blood,Urine Negative (Negative); Color,Urine Colorless; Glucose,Urine (UA) Negative (Negative); Ketones,Urine Negative (Negative); Leukocyte Esterase,Urine Negative (Negative); Mucus,Urine Rare /hpf; Nitrite,Urine Negative (Negative); PH, Urine 6.5 (5.0-8.0); Protein,Urine 2+ (Negative); RBC,Urine <1 /hpf (0-5); Specific Gravity,Urine 1.016 (1.001-1.035); Squamous Epithelial Cell,Urine <1 /hpf (0-4); Urobilinogen,Urine <2.0 mg/dL (<2.0); WBC,Urine 1 /hpf (0-5)
--- NOTE | 2024-05-16 18:55 | P.CONS ---
History of Present Illness - Reason for Consult Consult date: 05/16/24 MM, acute on chronic pain Requesting physician: Cong Mercer - Chief Complaint back pain - History of Present Illness Note from recent consult on 05/05/24 Mr. Harper is a 48-year-old male pt f Dr. James Douglas, on treatment for high risk IgG kappa light chain multiple myeloma, complicated by cord compression in December 2021 with plasmacytoma who received 3 cycles of DRvd treatment from June to August 2022 before moving to [place] where he was lost to follow-up. Subsequently he developed spinal cord compression in April 2023. Treated with radiation therapy with 1 cycle of CyBorD inpatient and 1 cycle of D-Krd at [facility] 07/03/23 before moving back to [place] to resume treatment. Myeloma labs in July 2023 kappa light chain of 80.85 with suppressed lambda light chain of less than 0.2 with kappa/lambda ratio of at least 400. He received day 1 of Kyprolis and daratumumab on 09/03/2023 that was complicated by episode of significant muscle stiffness with shaking of unclear etiology. It was not clear if this was a reaction to carfilzomib or daratumumab. He was hospitalized at [facility] from 09/04/2023 to 09/07/2023. MRI of the lumbar spine performed inpatient revealed no evidence of acute cord compression. Treatment with D-RVd was started back up on 09/18/2023 and received cycle 1 of treatment with cycle 2 initiated on 10/09/2023. Subsequently, he was admitted for pathologic fracture of the right hip requiring ORIF on 10/13/2023. Treatment has been held since then due to thrombocytopenia, likely due to inflammation from the surgery. Repeat myeloma labs from 10/26/2023 reveals stable disease with IgG of 152. He did resume treatment on 11/21/2023 and most recently received Darzalex and Velcade on 04/17/2024, missing last two treatments. At his last f/u he continued to have low back pain and stiffness with limited ambulation requiring Dilaudid, uncontrolled at his current dosing, and was increased to 8mg TID. It was also discussed concern for potential of disease progression. Different options, including CAR-T and PSMA-CD3 by specific antibodies were also discussed. For now, plan is continue on D-RVd as scheduled. However, pt has been non-complaint with treatment, and has missed last 4 chemo appts, and has not been taking revlimid as prescribed. Pt had thoracentesis during last admit, and cytology was positive for metastatic disease Patient presented to the emergency room with complaints of confusion and urinary issues. Upon admit chest x-ray showing right lateral lung opacification and pos terior infiltrate on the lateral projection. With right pleural effusion. Patient has subsequently been started empiric antibiotics. CT brain without contrast showing no acute intracranial processes. Labs reviewed, WBC 2.1, hemoglobin 10.7, platelets 86,000. Creatinine 1.05, GFR 83, bun 27. Ammonia elevated at 118. LFTs bilirubin WNL. Lactulose has been started. UA and viral panel negative for infection. At today's visit patient is reporting he has been experiencing increased confusion over the last couple days as well as urinary incontinence and increased frequency. Reports persisting back pain/stiffness. Has been using walker/cane, denies recent falls. Upon speaking to his nurse today, she states she spoke to patient's mother who is concerned he is abusing his prescription narcotics an, "he has been crushing his pills and snorting them and has been out of it and urinating the couch." MRI thoracic/lumbar spine was unable to be completed due to intolerance despite pre-medications. Images of thoracic spine without contrast was very limited but showed possible new lobular mass measuring 1.1x1.0x2.2cm in right paracentral region posterior to T7. CT thoracic and lumbar spine showing stable mild pathological superior endplate compression fracture of L3 without retropulsion. Multiple stable mixed sclerotic/lucent lesions in the thoracic and lumbar vertebral segments and right iliac wing and sacrum. No new lesions are seen. No malalignment of the vertebral segments in the thoracic or lumbar region and no significant degenerative disc disease or spinal stenosis noted. Laminectomy defect in the lower thoracic spine. Pt represented for intractable back pain. States he thinks pain is r/t to cold weather. Denies any acute neuro deficits. Pain being controlled on current regimen. Review of Systems 10 point ROS is negative except as stated in the HPI Past Medical History Past Medical History: Cancer Additional Past Medical History / Comment(s): multiple myloma on chemo. History of prior laminectomy decompression at lower thoracic with Dr. Dominguez in January 2022. History of multiple soft tissue masses throughout his thoracic lumbar and sacral spine. history lower extremity weakness History of Any Multi-Drug Resistant Organisms: None Reported Past Surgical History: No Surgical Hx Reported Additional Past Surgical History / Comment(s): back surgery to remove tumor december of 2021. Bone biospy of right hip, spinal decompression Past Anesthesia/Blood Transfusion Reactions: No Reported Reaction Past Psychological History: No Psychological Hx Reported Smoking Status: Never smoker Past Alcohol Use History: None Reported Additional Past Alcohol Use History / Comment(s): has not had a drink in about a year Past Drug Use History: Marijuana Medications and Allergies Home Medications Medication Instructions Recorded Confirmed Type Lenalidomide [Revlimid] 20 mg PO DIRECTED 09/04/23 05/15/24 History HYDROmorphone HCL [Dilaudid] 8 mg PO TID 05/05/24 05/15/24 History dexAMETHasone [Decadron] 4 mg PO DAILY 05/05/24 05/15/24 History Allergies Allergy/AdvReac Type Severity Reaction Status Date / Time No Known Allergies Allergy Verified 05/15/24 09:48 Physical Exam Vitals: Vital Signs Temp Pulse Resp BP Pulse Ox 05/16/24 06:45 97.4 F L 70 17 109/64 98 05/16/24 01:16 97.7 F 71 17 110/67 98 05/15/24 19:17 97.5 F L 69 17 93/53 97 05/15/24 11:12 97.6 F 70 16 103/67 98 Intake and Output 05/15/24 05/16/24 05/16/24 22:59 06:59 14:59 Output Total 300 Balance -300 Output: Urine 300 Other: Voiding Method Urinal - Constitutional General appearance: average body habitus, no acute distress - EENT Eyes: anicteric sclerae, EOMI ENT: hearing grossly normal - Respiratory breathing is even and unlabored - Cardiovascular skin warm and dry - Integumentary Integumentary: no cyanotic, no jaundiced - Musculoskeletal BLE weakness, no acute changes - Psychiatric Psychiatric: A&O x's 3 Results CBC & Chem 7: 05/16/24 04:07 05/16/24 04:07 Labs: Abnormal Lab Results - Last 24 Hours (Table) 05/16/24 05/16/24 Range/Units 04:07 04:07 WBC 4.05 L (4.50-10.00) X 10*3/uL RBC 2.84 L (4.40-5.60) X 10*6/uL Hgb 10.1 L (13.0-17.0) g/dL Hct 29.6 L (39.6-50.0) % MCV 104.2 H (80.0-97.0) FL MCH 35.6 H (27.0-32.0) pg RDW 16.7 H (11.5-14.5) % Plt Count 82 L (140-440) X 10*3/uL Immature Gran # 0.09 H (0.00-0.04) X 10*3/uL Lymphocytes # 0.72 L (0.90-5.00) X 10*3/uL Eosinophils # 0.03 L (0.04-0.35) X 10*3/uL NRBC/100 WBC Diff 0.02 H (0.00-0.01) X 10*3/uL BUN/Creatinine Ratio 20.89 H (12.00-20.00) Ratio Calcium 8.3 L (8.7-10.3) mg/dL Assessment and Plan (1) Multiple myeloma Current Visit: Yes Status: Acute Priority: High Code(s): C90.00 - MULTIPLE MYELOMA NOT HAVING ACHIEVED REMISSION SNOMED Code(s): 786695313 (2) Intractable back pain Current Visit: Yes Status: Acute Priority: High Code(s): M54.9 - DORSALGIA, UNSPECIFIED SNOMED Code(s): 471003614 Plan: Intractable back pain, acute on chronic: Represented for persisting back pain. CUrrently on PO dilaudid 8mg TID. Recent admission for the last same. -History of cord compression and spinal surgeries. During last admit MRI thoracic/lumbar spine ordered to further evaluate. Pt was not able to tolerate MRI exam despite being premedicated. Images of thoracic spine w/o contrast were very limited but states possible new lobular mass measuring 1.1x1.0x2.2cm in right paracentral region posterior to T7. CT thoracic and lumbar spine showing stable mild pathological superior endplate compression fracture of L3 without retropulsion. Multiple stable mixed sclerotic/lucent lesions in the thoracic and lumbar vertebral segments and right iliac wing and sacrum. No new lesions are seen. No malalignment of the vertebral segments in the thoracic or lumbar region and no significant degenerative disc disease or spinal stenosis noted. Laminectomy defect in the lower thoracic spine. -Pain management consulted due to intractable pain despite pain med adjustments. Upon review of pain management note, pt declining fentanyl patch and morphine ER. They are recommending continuing IV pain meds and starting tramadol TID Multiple myeloma: -History as dictated in the HPI -Currently on treatment with RVD and darzalex. Missed last 4 chemo treatments and has not been compliant with Revlimid -During last admit, pt underwent thoracentesis, and cytology was positive for metastatic disease. Discussed with pt noted progression of disease. However, at this time difficult to ascertain if this is disease progression on current regimen vs his noncompliance with recommended treatment -Clinic f/u scheduled with Dr. James Douglas on 05/19. Will further discuss goals of cares and recommendations
[2024-05-17 09:46] LABS: ALT 15 U/L (10-49); AST 17 U/L (14-35); Albumin 3.7 g/dL (3.8-4.9); Albumin/Globulin Ratio 2.47 Ratio (1.60-3.17); Alkaline Phosphatase 40 U/L (41-126); BUN/Creat Ratio 14.67 Ratio (12.00-20.00); Blood Urea Nitrogen 13.2 mg/dL (9.0-27.0); Carbon Dioxide 21.3 mmol/L (21.6-31.8); Chloride 105 mmol/L (96-109); Globulin 1.5 g/dL (1.6-3.3); Glucose 74 mg/dL (70-110); HCT 32.4 % (39.6-50.0); HGB 10.9 g/dL (13.0-17.0); MCHC 33.6 g/dL (32.0-37.0); MCV 106.9 FL (80.0-97.0); NRBC Per 100 WBC 0 X 10*3/uL (0.00-0.01); Platelet Count 82 X 10*3/uL (140-440); Potassium 4.3 mmol/L (3.5-5.5); RBC 3.03 X 10*6/uL (4.40-5.60); RDW 17.1 % (11.5-14.5); Sodium 135 mmol/L (135-145); Total Bilirubin 0.5 mg/dL (0.3-1.2); Total Protein 5.2 g/dL (6.2-8.2); WBC 3.19 X 10*3/uL (4.50-10.00)
[2024-05-17 10:35] LABS: Basophils # (A) 0.02 X 10*3/uL (0.00-0.10); Basophils % (A) 0.6 %; Elliptocytes 2+ (None Seen); Eosinophils # (A) 0.03 X 10*3/uL (0.04-0.35); Eosinophils % (A) 0.9 %; Lymphocytes # (A) 0.77 X 10*3/uL (0.90-5.00); Lymphocytes % (A) 24.1 %; Monocytes % (A) 12.5 %; Neutrophils # (A) 1.91 X 10*3/uL (1.80-7.70); Tear Drop Cells 2+ (None Seen)
[2024-05-17 10:38] LABS: Glucose,Whole Blood 69 mg/dL (70-110)
[2024-05-17 11:05] LABS: Glucose,Whole Blood 78 mg/dL (70-110)
--- NOTE | 2024-05-17 14:22 | P.PN ---
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 Patient was in April, for pain management, had episode of confusion due to toxic encephalopathy secondary to pain medications, had MRI spine which showed T7 lobular mass in the right paracentral region, was discharged and was advised to follow-up with oncology as outpatient. Patient reported that he was taking pain medication at home, patient reported that he was taking Dilaudid 24 mg daily without much control of the pain. Patient denied any fever, chills, nausea, vomiting, diarrhea, constipation, abdominal pain, dysuria urgency frequency, weakness or numbness extremities, declined saddle anesthesia. Patient denied any sore throat, prod uctive cough, shortness of breath, chest pain, palpitations. Patient is afebrile, heart rate 70, respiratory rate 16, blood pressure 103/67, saturating 98% on room air. WBCs 5.9, hemoglobin 10.5, platelet 98. BMP was unremarkable, mildly low sodium 132. Viral panel negative. 05/16--patient was seen and examined today. Continue complain of low back pain. Remains afebrile, heart rate 80, respiratory rate 18, blood pressure 106/64, saturating 98% on room air. WBCs 4.05, hemoglobin 10.1, platelet 82. BMP unremarkable. Currently on Tylenol, Dilaudid, tramadol for pain control. On p.o. Ativan for anxiety. Continue IV fluids. Oncology consulted, pain management consulted. 05/17. Patient seen and examined. States back pain is improved. Blood work done this morning showed WBC 3.19, hemoglobin 9.9, platelet count 82, Sodium 135, potassium 4.3, BUN 13.2, creatinine 0.9 REVIEW OF SYSTEMS: CONSTITUTIONAL: No fever, no malaise,. CARDIOVASCULAR: No chest pain, no palpitations, no syncope. PULMONARY: No shortness of breath, no cough, GASTROINTESTINAL: No diarrhea, no nausea, no vomiting, no abdominal pain. NEUROLOGICAL: No headaches, no weakness, PHYSICAL EXAMINATION: GENERAL: The patient is alert and oriented x3, not in any acute distress. Well developed, well nourished. HEENT: Pupils are round and equally reacting to light. EOMI. No scleral icterus. No conjunctival pallor. Normocephalic, atraumatic. No pharyngeal erythema. No thyromegaly. CARDIOVASCULAR: S1 and S2 present. No murmurs, rubs, or gallops. PULMONARY: Chest is clear to auscultation, no wheezing or crackles. ABDOMEN: Soft, nontender, nondistended, normoactive bowel sounds. No palpable organomegaly. MUSCULOSKELETAL: No joint swelling or deformity. EXTREMITIES: No cyanosis, clubbing, or pedal edema. NEUROLOGICAL: Gross neurological examination did not reveal any focal deficits. SKIN: No rashes. Assessment and plan Multiple myeloma: Acute on chronic low back pain: Pancytopenia: History of T7 nodular mass in the right paracentral region: History of multiple spinal tumors with previous decompression surgery: Was recently admitted to the hospital for pneumonia, right pleural effusion status postthoracentesis, acute on chronic back pain, was found to have T7 lobular mass on MRI, and history of spinal mass requiring spinal surgery due to compression, history of chronic pancytopenia, substance use with constipation now presented with worsening lower back pain. Monitor vital signs Monitor CBC Monitor CMP Pain controlTylenol, Dilaudid as needed IV. Started on tramadol P.o. Ativan for anxiety Oncology consult. Pain management consult. Labs and medication were reviewed.. Continue same treatment. Continue with symptomatic treatment. Resume home medication. Monitor labs and vitals. DVT and GI prophylaxis. Further recommendations as per clinical course of the patient Dictation was produced using [employer] dictation software. please excuse any grammatical, word or spelling errors. Objective - Vital Signs Vital signs: Vital Signs Temp 97.7 F 05/17/24 07:37 Pulse 74 05/17/24 07:37 Resp 18 05/17/24 07:37 BP 102/66 05/17/24 07:37 Pulse Ox 98 05/17/24 07:37 FiO2 Intake & Output 05/16/24 05/17/24 05/17/24 18:59 06:59 18:59 Intake Total 590 590 Balance 590 590 Intake: Oral 590 590 Other: Voiding Method Urinal # Voids 2 3 - Labs CBC & Chem 7: 05/17/24 03:42 05/17/24 03:42 Labs: Abnormal Lab Results - Last 24 Hours (Table) 05/16/24 05/17/24 05/17/24 Range/Units 18:18 03:42 03:42 WBC 3.19 L (4.50-10.00) X 10*3/uL RBC 3.03 L (4.40-5.60) X 10*6/uL Hgb 10.9 L (13.0-17.0) g/dL Hct 32.4 L (39.6-50.0) % MCV 106.9 H (80.0-97.0) FL MCH 36.0 H (27.0-32.0) pg RDW 17.1 H (11.5-14.5) % Plt Count 82 L (140-440) X 10*3/uL Carbon Dioxide 21.3 L (21.6-31.8) mmol/L Calcium 8.0 L (8.7-10.3) mg/dL Alkaline Phosphatase 40 L (41-126) U/L Total Protein 5.2 L (6.2-8.2) g/dL Albumin 3.7 L (3.8-4.9) g/dL Globulin 1.5 L (1.6-3.3) g/dL Urine Protein 2+ H (Negative) Urine Mucus Rare H (None) /hpf
[2024-05-18] MEDS ORDERED: ONDANSETRON 4 MG/2 ML VIAL IVP PRN (06:26)
--- NOTE | 2024-05-18 13:31 | P.PN ---
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 Patient was in April, for pain management, had episode of confusion due to toxic encephalopathy secondary to pain medications, had MRI spine which showed T7 lobular mass in the right paracentral region, was discharged and was advised to follow-up with oncology as outpatient. Patient reported that he was taking pain medication at home, patient reported that he was taking Dilaudid 24 mg daily without much control of the pain. Patient denied any fever, chills, nausea, vomiting, diarrhea, constipation, abdominal pain, dysuria urgency frequency, weakness or numbness extremities, declined saddle anesthesia. Patient denied any sore throat, prod uctive cough, shortness of breath, chest pain, palpitations. Patient is afebrile, heart rate 70, respiratory rate 16, blood pressure 103/67, saturating 98% on room air. WBCs 5.9, hemoglobin 10.5, platelet 98. BMP was unremarkable, mildly low sodium 132. Viral panel negative. 05/16--patient was seen and examined today. Continue complain of low back pain. Remains afebrile, heart rate 80, respiratory rate 18, blood pressure 106/64, saturating 98% on room air. WBCs 4.05, hemoglobin 10.1, platelet 82. BMP unremarkable. Currently on Tylenol, Dilaudid, tramadol for pain control. On p.o. Ativan for anxiety. Continue IV fluids. Oncology consulted, pain management consulted. 05/17. Patient seen and examined. States back pain is improved. Blood work done this morning showed WBC 3.19, hemoglobin 9.9, platelet count 82, Sodium 135, potassium 4.3, BUN 13.2, creatinine 0.9 05/18. Patient seen and examined. Patient was very tearful this morning, was apprehensive about going home, wanted social work to see if they can arrange for some home care at home. Discussed about pain control, at this time will increase dose of tramadol to 50 mg 4 times daily REVIEW OF SYSTEMS: CONSTITUTIONAL: No fever, no malaise,. CARDIOVASCULAR: No chest pain, no palpitations, no syncope. PULMONARY: No shortness of breath, no cough, GASTROINTESTINAL: No diarrhea, no nausea, no vomiting, no abdominal pain. NEUROLOGICAL: No headaches, no weakness, PHYSICAL EXAMINATION: GENERAL: The patient is alert and oriented x3, not in any acute distress. Well developed, well nourished. HEENT: Pupils are round and equally reacting to light. EOMI. No scleral icterus. No conjunctival pallor. Normocephalic, atraumatic. No pharyngeal erythema. No thyromegaly. CARDIOVASCULAR: S1 and S2 present. No murmurs, rubs, or gallops. PULMONARY: Chest is clear to auscultation, no wheezing or crackles. ABDOMEN: Soft, nontender, nondistended, normoactive bowel sounds. No palpable organomegaly. MUSCULOSKELETAL: No joint swelling or deformity. EXTREMITIES: No cyanosis, clubbing, or pedal edema. NEUROLOGICAL: Gross neurological examination did not reveal any focal deficits. SKIN: No rashes. Assessment and plan Multiple myeloma: Acute on chronic low back pain: Pancytopenia: History of T7 nodular mass in the right paracentral region: History of multiple spinal tumors with previous decompression surgery: Was recently admitted to the hospital for pneumonia, right pleural effusion status postthoracentesis, acute on chronic back pain, was found to have T7 lobular mass on MRI, and history of spinal mass requiring spinal surgery due to compression, history of chronic pancytopenia, substance use with constipation now presented with worsening lower back pain. Monitor vital signs Monitor CBC Monitor CMP Pain controlTylenol, Dilaudid as needed IV. Continue tramadol, frequency increased to 4 times P.o. Ativan for anxiety Oncology consult. Pain management consult. Patient was apprehensive about going home, wanted social work to see if they can arrange for some home care at home. Discussed about pain control, at this time will increase dose of tramadol to 50 mg 4 times daily Labs and medication were reviewed.. Continue same treatment. Continue with symptomatic treatment. Resume home medication. Monitor labs and vitals. DVT and GI prophylaxis. Further recommendations as per clinical course of the patient Dictation was produced using [employer] dictation software. please excuse any grammatical, word or spelling errors. Objective - Vital Signs Vital signs: Vital Signs Temp 97.3 F L 05/18/24 11:47 Pulse 69 05/18/24 11:47 Resp 16 05/18/24 11:47 BP 108/67 05/18/24 11:47 Pulse Ox 97 05/18/24 11:47 FiO2 Intake & Output 05/17/24 05/18/24 05/18/24 17:59 06:59 18:59 Intake Total Output Total Balance Intake: Intake, IV Titration Amount Sodium Chloride 0.9% 1, 000 ml @ 75 mls/hr IV . [id number] [facility] Rx#:[id number] Oral Output: Urine Other: Voiding Method Urinal Diaper # Voids 1 # Bowel Movements - Labs CBC & Chem 7: 05/17/24 03:42 05/17/24 03:42
[2024-05-18] MEDS: traMADol 50 MG TAB PO SCH (17:31)
--- NOTE | 2024-05-19 14:15 | P.PN ---
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 Patient was in April, for pain management, had episode of confusion due to toxic encephalopathy secondary to pain medications, had MRI spine which showed T7 lobular mass in the right paracentral region, was discharged and was advised to follow-up with oncology as outpatient. Patient reported that he was taking pain medication at home, patient reported that he was taking Dilaudid 24 mg daily without much control of the pain. Patient denied any fever, chills, nausea, vomiting, diarrhea, constipation, abdominal pain, dysuria urgency frequency, weakness or numbness extremities, declined saddle anesthesia. Patient denied any sore throat, prod uctive cough, shortness of breath, chest pain, palpitations. Patient is afebrile, heart rate 70, respiratory rate 16, blood pressure 103/67, saturating 98% on room air. WBCs 5.9, hemoglobin 10.5, platelet 98. BMP was unremarkable, mildly low sodium 132. Viral panel negative. 05/16--patient was seen and examined today. Continue complain of low back pain. Remains afebrile, heart rate 80, respiratory rate 18, blood pressure 106/64, saturating 98% on room air. WBCs 4.05, hemoglobin 10.1, platelet 82. BMP unremarkable. Currently on Tylenol, Dilaudid, tramadol for pain control. On p.o. Ativan for anxiety. Continue IV fluids. Oncology consulted, pain management consulted. 05/17. Patient seen and examined. States back pain is improved. Blood work done this morning showed WBC 3.19, hemoglobin 9.9, platelet count 82, Sodium 135, potassium 4.3, BUN 13.2, creatinine 0.9 05/18. Patient seen and examined. Patient was very tearful this morning, was apprehensive about going home, wanted social work to see if they can arrange for some home care at home. Discussed about pain control, at this time will increase dose of tramadol to 50 mg 4 times daily 05/19. Patient seen and examined. Still very painful, patient is worried about taking too much pain medications and constipation. Discussed with him regarding the need for him to be on a good bowel regimen to prevent constipation. Patient wants to talk again with pain management team, patient also wants to get information about hospice but does not want to engage hospice at this time REVIEW OF SYSTEMS: CONSTITUTIONAL: No fever, no malaise,. CARDIOVASCULAR: No chest pain, no palpitations, no syncope. PULMONARY: No shortness of breath, no cough, GASTROINTESTINAL: No diarrhea, no nausea, no vomiting, no abdominal pain. NEUROLOGICAL: No headaches, no weakness, PHYSICAL EXAMINATION: GENERAL: The patient is alert and oriented x3, not in any acute distress. Well developed, well nourished. HEENT: Pupils are round and equally reacting to light. EOMI. No scleral icterus. No conjunctival pallor. Normocephalic, atraumatic. No pharyngeal erythema. No thyromegaly. CARDIOVASCULAR: S1 and S2 present. No murmurs, rubs, or gallops. PULMONARY: Chest is clear to auscultation, no wheezing or crackles. ABDOMEN: Soft, nontender, nondistended, normoactive bowel sounds. No palpable organomegaly. MUSCULOSKELETAL: No joint swelling or deformity. EXTREMITIES: No cyanosis, clubbing, or pedal edema. NEUROLOGICAL: Gross neurological examination did not reveal any focal deficits. SKIN: No rashes. Assessment and plan Multiple myeloma: Acute on chronic low back pain: Pancytopenia: History of T7 nodular mass in the right paracentral region: History of multiple spinal tumors with previous decompression surgery: Was recently admitted to the hospital for pneumonia, right pleural effusion status postthoracentesis, acute on chronic back pain, was found to have T7 lobular mass on MRI, and history of spinal mass requiring spinal surgery due to compression, history of chronic pancytopenia, substance use with constipation now presented with worsening lower back pain. Monitor vital signs Monitor CBC Monitor CMP Pain controlTylenol, Dilaudid as needed IV. Continue tramadol P.o. Ativan for anxiety Oncology following. Pain management following Aggressive bowel regimen Labs and medication were reviewed.. Continue same treatment. Continue with symptomatic treatment. Resume home medication. Monitor labs and vitals. DVT and GI prophylaxis. Further recommendations as per clinical course of the patient Dictation was produced using [employer] dictation software. please excuse any grammatical, word or spelling errors. Objective - Vital Signs Vital signs: Vital Signs Temp 97.7 F 05/19/24 12:50 Pulse 76 05/19/24 12:50 Resp 18 05/19/24 12:50 BP 96/61 05/19/24 12:50 Pulse Ox 98 05/19/24 12:50 FiO2 Intake & Output 05/18/24 05/19/24 05/19/24 18:59 06:59 18:59 Intake Total 590 Output Total 300 500 Balance 290 -500 Intake: Oral 590 Output: Urine 300 500 Other: Voiding Method Urinal Urinal Urinal Diaper Diaper Diaper # Voids 1 4 - Labs CBC & Chem 7: 05/17/24 03:42 05/17/24 03:42
--- NOTE | 2024-05-19 16:48 | P.PAINPG ---
Objective - Vital Signs Vital signs: Vital Signs Temp 97.7 F 05/19/24 12:50 Pulse 76 05/19/24 12:50 Resp 18 05/19/24 12:50 BP 96/61 05/19/24 12:50 Pulse Ox 98 05/19/24 12:50 FiO2 Intake & Output 05/18/24 05/19/24 05/19/24 18:59 06:59 18:59 Intake Total 590 Output Total 300 500 Balance 290 -500 Intake: Oral 590 Output: Urine 300 500 Other: Voiding Method Urinal Urinal Urinal Diaper Diaper Diaper # Voids 1 4 - Labs CBC & Chem 7: 05/17/24 03:42 05/17/24 03:42 PQRS Measure Charge Sheet Comment: A 48 yr old inpatient male with a history of multiple myeloma presents today for evaluation. Pain level is provoked at 8 /10 in intensity, constant, predominantly axial, localized in the lumbar spine, stabbing in character without shooting pain. Pain has no provocative factors. Pt believes that 1mg Dilaudid IVP q3h is not sufficient to treat his pain. He would like to increase the dosage to 2mg. Mother and father at side express concerns with manipulation and battling dependency and are receptive to combination therapy w methadone or suboxone with lower quantities of opiates. Family at side also expressed dependency issues with an uncle with heroin, then later with methadone. Pt is disinterested in this treatment plan and would like to stay with Dilaudid but increase dose to 1.5mg as he has stated that is what he was given in the past. In our records, it shows pt received 0.5mg IVP of Dilaudid. Patient is currently on Dilaudid 1mg IVP q3h prn pain Patient denies any side effects of the medication(s), denies excessive drowsine ss or sleepiness, denies suicidal ideation and reports that the current pain medication is helping to control the pain and improve activities of daily living. Patient denies any motor or sensory deficits. Patient denies any fever or night sweats, denies any change in the bowel movements or urination. Physical Examination: -Constitutional: Cooperative. Not in acute distress . - Neurologic: Cranial nerve II to XII intact. No focal neurological deficits. - Psychatric: Alert & oriented x 3. Matching mood & appropriate affect. Judgment and insight intact. - Musculoskeletal: Cervical spine: Muscle bulk/ tone/ strength in the bilateral upper extremities normal Vertebral body tenderness to palpation over Spurling test positive Distraction test positive Facet loading test positive TTP Thoracic spine Muscle bulk / tone/ strength in the bilateral paraspinal muscles normal Vertebral body tender to palpation over Facet loading test positive TTP Lumbar spine: Motor bulk/ tone/ strength lower extremities , thigh and legs : 5/5 Deep tendon reflexes : Normal Knee Jerk. Normal Ankle Jerk . Vertebral body tenderness to palpation over Mark Test positive Lumbar Facet Loading Test positive Straight Leg Raise: positive at 30 degrees right side/ left side Gaenslen's Test positive Sacral spine : Severe tenderness over the Sacroiliac joint: right side / left side Range of motion: Flexion of the lumbar spine <60 degrees Range of motion: Extension of the lumbar spine <20 degrees Gaenslen's Test positive right side / left side James test: positive right side / left side Thigh Thrust Test positive right side / left side Sacral Thrust Test positive right side / left side Assessment and plan: Chronic LBP secondary to lumbar radiculopathy, spondylosis with facet arthropathy without myelopathy Recommendation of medication management. Pt would like to keep his current medication regimen and does not want to integrate OUD medications. He would also like to maintain his narcotic agreement with Dr Douglas. All questions answered. I have spent less than 30 minutes on patient care today. Dr Barfield was available by phone for the evaluation of this patient. The time was used to review the medical records including relevant urine studies and Prescription history (MAPs), review of the available imaging, evaluation and examination of the patient, coordination of care with the medical staff and if applicable referring physicians, as well as creation of the medical record - Pain Location Generalized Non-Pharmacological Interventions: Distraction, Environmental Control Pharmacological Interventions: Discuss Pain Med Options, PRN Medication, Scheduled Medication Pain Comment: see MAR PQRS Narrative: Blood Pressure [Left Arm] 96/61 Blood Pressure 130/68 Pain Intensity [Generalized] 7 Pain Intensity 7 Pain Scale Used Numeric (1 - 10) Scale Used Numeric (1 - 10) Hx Alcohol Use (MH) No Home Medications: Ambulatory Orders Lenalidomide [Revlimid] 20 mg PO DIRECTED 09/04/23 HYDROmorphone HCL [Dilaudid] 8 mg PO TID 05/05/24 dexAMETHasone [Decadron] 4 mg PO DAILY 05/05/24 Controlled Substance Measures - Controlled Substance Measures Is patient prescribed a controlled substance at discharge?: No
[2024-05-19] MEDS: polyethylene glycoL 3350 17 GM POWD.PACK PO SCH (20:57)
[2024-05-19] MEDS: DOCUSATE 100 MG CAP PO SCH (20:57)
[2024-05-20] MEDS: HYDROmorphone 0.5 MG/0.5 ML SYRINGE IVP PRN (00:03)
[2024-05-20] MEDS: PANTOPRAZOLE 40 MG TABLET PO SCH (12:01)
[2024-05-20] MEDS: dexAMETHasone 4 MG TAB PO SCH (12:01)
--- NOTE | 2024-05-20 14:45 | P.PN ---
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 Patient was in April, for pain management, had episode of confusion due to toxic encephalopathy secondary to pain medications, had MRI spine which showed T7 lobular mass in the right paracentral region, was discharged and was advised to follow-up with oncology as outpatient. Patient reported that he was taking pain medication at home, patient reported that he was taking Dilaudid 24 mg daily without much control of the pain. Patient denied any fever, chills, nausea, vomiting, diarrhea, constipation, abdominal pain, dysuria urgency frequency, weakness or numbness extremities, declined saddle anesthesia. Patient denied any sore throat, prod uctive cough, shortness of breath, chest pain, palpitations. Patient is afebrile, heart rate 70, respiratory rate 16, blood pressure 103/67, saturating 98% on room air. WBCs 5.9, hemoglobin 10.5, platelet 98. BMP was unremarkable, mildly low sodium 132. Viral panel negative. 05/16--patient was seen and examined today. Continue complain of low back pain. Remains afebrile, heart rate 80, respiratory rate 18, blood pressure 106/64, saturating 98% on room air. WBCs 4.05, hemoglobin 10.1, platelet 82. BMP unremarkable. Currently on Tylenol, Dilaudid, tramadol for pain control. On p.o. Ativan for anxiety. Continue IV fluids. Oncology consulted, pain management consulted. 05/17. Patient seen and examined. States back pain is improved. Blood work done this morning showed WBC 3.19, hemoglobin 9.9, platelet count 82, Sodium 135, potassium 4.3, BUN 13.2, creatinine 0.9 05/18. Patient seen and examined. Patient was very tearful this morning, was apprehensive about going home, wanted social work to see if they can arrange for some home care at home. Discussed about pain control, at this time will increase dose of tramadol to 50 mg 4 times daily 05/19. Patient seen and examined. Still very painful, patient is worried about taking too much pain medications and constipation. Discussed with him regarding the need for him to be on a good bowel regimen to prevent constipation. Patient wants to talk again with pain management team, patient also wants to get information about hospice but does not want to engage hospice at this time 05/20. Patient seen and examined. Still in pain. Hematology oncology has adjusted patient's pain medications, had a long discussion with patient regarding his pain medications, answered all questions REVIEW OF SYSTEMS: CONSTITUTIONAL: No fever, no malaise,. CARDIOVASCULAR: No chest pain, no palpitations, no syncope. PULMONARY: No shortness of breath, no cough, GASTROINTESTINAL: No diarrhea, no nausea, no vomiting, no abdominal pain. NEUROLOGICAL: No headaches, no weakness, PHYSICAL EXAMINATION: GENERAL: The patient is alert and oriented x3, not in any acute distress. Well developed, well nourished. HEENT: Pupils are round and equally reacting to light. EOMI. No scleral icterus. No conjunctival pallor. Normocephalic, atraumatic. No pharyngeal erythema. No thyromegaly. CARDIOVASCULAR: S1 and S2 present. No murmurs, rubs, or gallops. PULMONARY: Chest is clear to auscultation, no wheezing or crackles. ABDOMEN: Soft, nontender, nondistended, normoactive bowel sounds. No palpable organomegaly. MUSCULOSKELETAL: No joint swelling or deformity. EXTREMITIES: No cyanosis, clubbing, or pedal edema. NEUROLOGICAL: Gross neurological examination did not reveal any focal deficits. SKIN: No rashes. Assessment and plan Multiple myeloma: Acute on chronic low back pain: Pancytopenia: History of T7 nodular mass in the right paracentral region: History of multiple spinal tumors with previous decompression surgery: Was recently admitted to the hospital for pneumonia, right pleural effusion status postthoracentesis, acute on chronic back pain, was found to have T7 lobular mass on MRI, and history of spinal mass requiring spinal surgery due to compression, history of chronic pancytopenia, substance use with constipation n ow presented with worsening lower back pain. Monitor vital signs Monitor CBC Monitor CMP Continue current pain management P.o. Ativan for anxiety Aggressive bowel regimen Oncology following. Pain management following Labs and medication were reviewed.. Continue same treatment. Continue with sym ptomatic treatment. Resume home medication. Monitor labs and vitals. DVT and GI prophylaxis. Further recommendations as per clinical course of the patient Dictation was produced using [employer] dictation software. please excuse any grammatical, word or spelling errors. Objective - Vital Signs Vital signs: Vital Signs Temp 98.2 F 05/20/24 13:42 Pulse 80 05/20/24 13:42 Resp 19 05/20/24 13:42 BP 111/68 05/20/24 13:42 Pulse Ox 98 05/20/24 13:42 FiO2 Intake & Output 05/19/24 05/20/24 05/20/24 18:59 06:59 18:59 Intake Total 1797 1090 Output Total 500 525 Balance 1297 565 Intake: Intake, IV Titration 550 Amount Sodium Chloride 0.9% 1, 550 000 ml @ 75 mls/hr IV . [id number] [facility] Rx#:[id number] Oral 1797 540 Output: Urine 500 525 Other: Voiding Method Urinal Urinal Urinal Diaper Diaper # Voids 3 1 - Labs CBC & Chem 7: 05/17/24 03:42 05/17/24 03:42
[2024-05-20] MEDS: HYDROmorphone 2 MG TAB PO PRN (14:53)
--- NOTE | 2024-05-20 21:16 | P.PN ---
Subjective Progress Note Date: 05/20/24 Principal diagnosis: Intractable back pain secondary to malignancy, multiple myeloma In follow-up today patient continues to complain of intractable back pain. He has been seen by pain management but, declined to their recommendations for pain management. Objective - Vital Signs Vital signs: Vital Signs Temp 98.6 F 05/20/24 20:00 Pulse 87 05/20/24 20:00 Resp 16 05/20/24 20:00 BP 105/68 05/20/24 20:00 Pulse Ox 98 05/20/24 20:00 FiO2 Intake & Output 05/20/24 05/20/24 05/21/24 06:59 18:59 06:59 Intake Total 1090 540 Output Total 525 Balance 565 540 Intake: Intake, IV Titration 550 Amount Sodium Chloride 0.9% 1, 550 000 ml @ 75 mls/hr IV . [id number] [facility] Rx#:[id number] Oral 540 540 Output: Urine 525 Other: Voiding Method Urinal Urinal Diaper # Voids 1 - Constitutional General appearance: Present: average body habitus, cooperative, no acute distress - EENT Eyes: Present: anicteric sclerae, EOMI ENT: Present: hearing grossly normal - Respiratory Details: Respirations unlabored at rest. Patient is seen ambulating in the hallway with standby assist and a walker, no respiratory distress noted - Cardiovascular Details: Skin warm and dry to the touch, well-perfused - Peripheral edema leg Peripheral Edema: bilateral: None - Integumentary Integumentary: Present: pale - Neurologic Neurologic: Present: CNII-XII intact - Musculoskeletal Musculoskeletal: Present: generalized weakness - Psychiatric Psychiatric: Present: A&O x's 3, appropriate affect, intact judgment & insight - Labs CBC & Chem 7: 05/17/24 03:42 05/17/24 03:42 Assessment and Plan (1) Intractable back pain Current Visit: Yes Status: Acute Priority: High Code(s): M54.9 - DORSALGIA, UNSPECIFIED SNOMED Code(s): 300550198 (2) Multiple myeloma Current Visit: Yes Status: Chronic Priority: High Code(s): C90.00 - MULTIPLE MYELOMA NOT HAVING ACHIEVED REMISSION SNOMED Code(s): 865614647 Plan: Intractable back pain, acute on chronic, secondary to multiple myeloma -Patient has a history of cord compression, spinal surgeries. Possible new lobular mass around T7. Compression fracture noted. Myeloma bone lesions, scattered. -Had a long discussion today with patient regarding pain management goals, pain medications being utilized, half-life of there was pain medications, reasonable expectations. Patient refused recommendations from pain management. It was explained to patient that if he is going to follow with medical oncology and expect medical oncology to manage his pain then he needs to try and work with us to find a reasonable pain management plan, and he needs to stick with that plan. Patient states that he was on 8 mg of Dilaudid 3 times a day. Dilaudid has a short half-life. It would be better to make the dose smaller and make it available more frequently. We will try 4 mg of Dilaudid every 3 hours. -Patient stated that he did get pain relief from steroids in the past. Dexamethasone 4 mg 3 times daily has been ordered. Will assess how patient does. PPI ordered for prevention of steroid induced gastritis. -Case was reviewed at length with pharmacist to determine appropriate conversions of IV pain medications to oral. -Patient is on medications for prevention of narcotic induced constipation Multiple myeloma -History as dictated in consult. -Currently he was recommended treatment with RVD and darzalex. Missed last 4 chemo treatments and has not been compliant with Revlimid dosing and frequency -During last admit, pt underwent thoracentesis, and cytology was positive for metastatic disease. Patient is aware of disease progression. Patient is aware that not taking the treatment as prescribed may have allowed the disease to progress and possibly he could have some disease regression if he was able to continue on treatment versus this being a true disease progression despite ce tment. -Had a discussion today with patient about continuing with treatment and see if he can manage or, if he does not want to do treatment that is fine but, the recommendation would be for hospice care so that he has some support to keep him comfortable. Patient stated that he would like information regarding hospice. When I inquired with the catalytic case operator about the same, hospice is already been to patient. When I went back to asked the patient what other information he desired because hospice had already been there to visit him, which he did ultimately remember, he stated he wants some written materials about what to expect and what care might look like. Requested written materials for the patient. -Will await patient's decisions or answer any other questions he may have. Hope pt will be able to be discharged tomorrow Time with Patient: Greater than 30 (>60 min counseling and coordinating care)
[2024-05-21] MEDS ORDERED: LORazepam 2 MG/ML INJ IV ONE (14:00)
--- NOTE | 2024-05-21 14:04 | P.PN ---
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 Patient was in April, for pain management, had episode of confusion due to toxic encephalopathy secondary to pain medications, had MRI spine which showed T7 lobular mass in the right paracentral region, was discharged and was advised to follow-up with oncology as outpatient. Patient reported that he was taking pain medication at home, patient reported that he was taking Dilaudid 24 mg daily without much control of the pain. Patient denied any fever, chills, nausea, vomiting, diarrhea, constipation, abdominal pain, dysuria urgency frequency, weakness or numbness extremities, declined saddle anesthesia. Patient denied any sore throat, prod uctive cough, shortness of breath, chest pain, palpitations. Patient is afebrile, heart rate 70, respiratory rate 16, blood pressure 103/67, saturating 98% on room air. WBCs 5.9, hemoglobin 10.5, platelet 98. BMP was unremarkable, mildly low sodium 132. Viral panel negative. 05/16--patient was seen and examined today. Continue complain of low back pain. Remains afebrile, heart rate 80, respiratory rate 18, blood pressure 106/64, saturating 98% on room air. WBCs 4.05, hemoglobin 10.1, platelet 82. BMP unremarkable. Currently on Tylenol, Dilaudid, tramadol for pain control. On p.o. Ativan for anxiety. Continue IV fluids. Oncology consulted, pain management consulted. 05/17. Patient seen and examined. States back pain is improved. Blood work done this morning showed WBC 3.19, hemoglobin 9.9, platelet count 82, Sodium 135, potassium 4.3, BUN 13.2, creatinine 0.9 05/18. Patient seen and examined. Patient was very tearful this morning, was apprehensive about going home, wanted social work to see if they can arrange for some home care at home. Discussed about pain control, at this time will increase dose of tramadol to 50 mg 4 times daily 05/19. Patient seen and examined. Still very painful, patient is worried about taking too much pain medications and constipation. Discussed with him regarding the need for him to be on a good bowel regimen to prevent constipation. Patient wants to talk again with pain management team, patient also wants to get information about hospice but does not want to engage hospice at this time 05/20. Patient seen and examined. Still in pain. Hematology oncology has adjusted patient's pain medications, had a long discussion with patient regarding his pain medications, answered all questions 05/21. Patient seen and examined. Patient is currently being seen by hematology oncology as well as by pain management for regarding his pain. Patient has been very hard to please regarding pain medications, patient keen to take only IV medications. Hematology oncology has talked with him multiple times, today patient was complaining of hip pain for which MRI hip and lumbar spine was ordered by hematology-oncology. Patient has been manipulative with multiple consultants and nursing staff about pain medications. REVIEW OF SYSTEMS: CONSTITUTIONAL: No fever, no malaise,. CARDIOVASCULAR: No chest pain, no palpitations, no syncope. PULMONARY: No shortness of breath, no cough, GASTROINTESTINAL: No diarrhea, no nausea, no vomiting, no abdominal pain. NEUROLOGICAL: No headaches, no weakness, PHYSICAL EXAMINATION: GENERAL: The patient is alert and oriented x3, not in any acute distress. Ill looking HEENT: Pupils are round and equally reacting to light. EOMI. No scleral icterus. No conjunctival pallor. Normocephalic, atraumatic. No pharyngeal erythema. No thyromegaly. CARDIOVASCULAR: S1 and S2 present. No murmurs, rubs, or gallops. PULMONARY: Chest is clear to auscultation, no wheezing or crackles. ABDOMEN: Soft, nontender, nondistended, normoactive bowel sounds. No palpable organomegaly. MUSCULOSKELETAL: No joint swelling or deformity. EXTREMITIES: No cyanosis, clubbing, or pedal edema. NEUROLOGICAL: Gross neurological examination did not reveal any focal deficits. SKIN: No rashes. Assessment and plan Multiple myeloma: Acute on chronic low back pain: Pancytopenia: History of T7 nodular mass in the right paracentral region: History of multiple spinal tumors with previous decompression surgery: Was recently admitted to the hospital for pneumonia, right pleural effusion status postthoracentesis, acute on chronic back pain, was found to have T7 lobular mass on MRI, and history of spinal mass requiring spinal surgery due to compression, history of chronic pancytopenia, substance use with constipation now presented with worsening lower back pain. Monitor vital signs Monitor CBC Monitor CMP Continue current pain management P.o. Ativan for anxiety Aggressive bowel regimen Oncology following, ordered MRI hip & lumbar spine Pain management following Labs and medication were reviewed.. Continue same treatment. Continue with symptomatic treatment. Resume home medication. Monitor labs and vitals. DVT and GI prophylaxis. Further recommendations as per clinical course of the patient Dictation was produced using [employer] dictation software. please excuse any grammatical, word or spelling errors. Objective - Vital Signs Vital signs: Vital Signs Temp 97.9 F 05/21/24 12:16 Pulse 78 05/21/24 12:16 Resp 16 05/21/24 12:16 BP 113/69 05/21/24 12:16 Pulse Ox 96 05/21/24 12:16 FiO2 Intake & Output 05/20/24 05/21/24 05/21/24 18:59 06:59 18:59 Intake Total 540 Balance 540 Intake: Oral 540 Other: Voiding Method Urinal Urinal # Voids 3 - Labs CBC & Chem 7: 05/17/24 03:42 05/17/24 03:42
--- NOTE | 2024-05-21 21:57 | P.PN ---
Subjective Progress Note Date: 05/21/24 Principal diagnosis: Intractable back pain secondary to malignancy, multiple myeloma In follow-up today patient initially stated that he felt that the oral pain medication regimen that was ordered was working well. Once we started to discuss discharge, patient presented additional complaints of incontinence of urine, which is not new but he feels he cannot go home with this problem, left hip pain when he sits up at the side of the bed. He also stated by the end of the conversation that while he is inpatient he prefers the IV pain medication over the oral, despite being told the reason he was transition to oral pain medications was so that he knew they would adequately treat his pain so he can be discharged. Objective - Vital Signs Vital signs: Vital Signs Temp 98.3 F 05/21/24 19:48 Pulse 57 L 05/21/24 19:48 Resp 16 05/21/24 19:48 BP 101/63 05/21/24 19:48 Pulse Ox 99 05/21/24 19:48 FiO2 Intake & Output 05/21/24 05/21/24 05/22/24 06:59 18:59 06:59 Intake Total 1320 Output Total 600 400 Balance 720 -400 Intake: Oral 1320 Output: Urine 600 400 Other: Voiding Method Urinal # Voids 3 2 - Constitutional General appearance: Present: average body habitus, cooperative, no acute distress - EENT Eyes: Present: anicteric sclerae, EOMI ENT: Present: hearing grossly normal - Respiratory Details: Respirations unlabored at rest - Integumentary Integumentary: Present: pale - Neurologic Neurologic: Present: CNII-XII intact - Psychiatric Psychiatric: Present: A&O x's 3 - Labs CBC & Chem 7: 05/17/24 03:42 05/17/24 03:42 Assessment and Plan (1) Intractable back pain Current Visit: Yes Status: Acute Priority: High Code(s): M54.9 - DORSALGIA, UNSPECIFIED SNOMED Code(s): 483792081 (2) Multiple myeloma Current Visit: Yes Status: Chronic Priority: High Code(s): C90.00 - MULTIPLE MYELOMA NOT HAVING ACHIEVED REMISSION SNOMED Code(s): 900980618 Plan: Intractable back pain, acute on chronic, secondary to multiple myeloma -Patient has a history of cord compression, spinal surgeries. Possible new lobular mass around T7. Compression fracture noted. Myeloma bone lesions, scattered. When I first entered the patient's room today and he described that he did have some decent pain control with the regimen that he was placed on I started to discuss with him the medications that he would be sent home on. He asked me calculate how much Dilaudid he would be on with the dosing that he has been on because, he stated, he was previously on 24 mg a day and wanted to make sure that the dose he was being sent home with was at least that much. I reported to him that at the oral dose that was being prescribed it would be 32 mg a day. After reviewing all of the medications he would be sent home on it was explained to patient that he would be prescribed his medications for 7 days at a time. He would be required to come into the office and meet with the physician to get refills because, there have been problems with patient not taking his medications as prescribed. It was after this discussion that patient brought up his additional complaints-the leg pain, the urinary incontinence and he wants to know why this is happening. Patient's urinary incontinence is not entirely new. Explained to patient that likely it is because of lesions in the spine, causing compression on the nerves. Pt then stated that he wanted to to actually see images of what is going on in his body so that he can understand it better. MRI of the right hip and the lumbar spine ordered. Patient has previously refused MRIs because of difficulty with positioning and anxiety. A dose of Ativan was ordered for the patient for procedure. When he was told what he would be given to help him tolerate the procedure, patient then directed me as to what works best for him- 1 mg of Dilaudid IV push along with 1 mg of Ativan IV push. Patient request was granted. These medications were ordered for him to receive prior to the MRI. As for the incontinence I explained to the patient that the best that could be done would be first to check a urine to see if there is any infection. Other than that, if the incontinence was felt to be related to lack of nerve impulse his other best option would be for a brief or some type or catheterization. Patient then said he would not be able to wear jeans with a catheter. Unfortunately, I do not have any other options for the patient in this scenario. Then patient stated that if he was going to be in the hospital having more tests he would prefer to stay on the IV Dilaudid instead of being given the oral Dilaudid. I have been having long discussions with patient each day he is seen. With all the additional testing and information pt is wanting, I told pt that the previously discussed discharge medication plan was no longer in place. He will receive what he has received in that past from his Oncologist. Pt is clear from an Oncology standpoint for discharge once Internal Medicine clears him for the same Pt mother has contacted the office at least 3 times since pt admission asking for pt medications to be sent to pharmacy so she can pick them up. She was told today that the prescriptions have been sent, and they will NOT be released until pt is discharged from the hospital. 7 days of dilaudid, ativan, protonic and dexamathasone have been sent to the [facility] pharmacy with instructions not to release until pt is di scharged. Pt has an appt to see Dr. Douglas on Sunday Multiple myeloma -History as dictated in consult. -Currently he was recommended treatment with RVD and darzalex. Missed last 4 chemo treatments and has not been compliant with Revlimid dosing and frequency -During last admit, pt underwent thoracentesis, and cytology was positive for metastatic disease. Patient is aware of disease progression. Patient is aware that not taking the treatment as prescribed may have allowed the disease to progress and possibly he could have some disease regression if he was able to continue on treatment versus this being a true disease progression despite treatment. Reviewed this information again with pt today as he stated he did not recall any of it -Pt again asked about hospice-pharmaceutical representative has met with him. He was provided written materials. He declined wanting another meeting with hospice at this time. Case discussed with Nursing, Pt advocate, Attending and Attending ROTARY PLANER SET UP OPERATOR Time with Patient: Greater than 30 (>60 min spent counseling and coordinating care)
[2024-05-22] MEDS: LORazepam 1 MG/0.5 ML VIAL IV ONE ×2 (06:12→12:58)
[2024-05-22 09:59] LABS: Appearance,Urine Clear (Clear); Bilirubin,Urine Negative (Negative); Blood,Urine Negative (Negative); Color,Urine Colorless; Glucose,Urine (UA) Negative (Negative); Ketones,Urine Negative (Negative); Leukocyte Esterase,Urine Negative (Negative); Mucus,Urine Rare /hpf; Nitrite,Urine Negative (Negative); PH, Urine 6.5 (5.0-8.0); Protein,Urine 1+ (Negative); RBC,Urine <1 /hpf (0-5); Urobilinogen,Urine <2.0 mg/dL (<2.0); WBC,Urine <1 /hpf (0-5)
--- NOTE | 2024-05-22 14:30 | P.PN ---
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 Patient was in April, for pain management, had episode of confusion due to toxic encephalopathy secondary to pain medications, had MRI spine which showed T7 lobular mass in the right paracentral region, was discharged and was advised to follow-up with oncology as outpatient. Patient reported that he was taking pain medication at home, patient reported that he was taking Dilaudid 24 mg daily without much control of the pain. Patient denied any fever, chills, nausea, vomiting, diarrhea, constipation, abdominal pain, dysuria urgency frequency, weakness or numbness extremities, declined saddle anesthesia. Patient denied any sore throat, prod uctive cough, shortness of breath, chest pain, palpitations. Patient is afebrile, heart rate 70, respiratory rate 16, blood pressure 103/67, saturating 98% on room air. WBCs 5.9, hemoglobin 10.5, platelet 98. BMP was unremarkable, mildly low sodium 132. Viral panel negative. 05/16--patient was seen and examined today. Continue complain of low back pain. Remains afebrile, heart rate 80, respiratory rate 18, blood pressure 106/64, saturating 98% on room air. WBCs 4.05, hemoglobin 10.1, platelet 82. BMP unremarkable. Currently on Tylenol, Dilaudid, tramadol for pain control. On p.o. Ativan for anxiety. Continue IV fluids. Oncology consulted, pain management consulted. 05/17. Patient seen and examined. States back pain is improved. Blood work done this morning showed WBC 3.19, hemoglobin 9.9, platelet count 82, Sodium 135, potassium 4.3, BUN 13.2, creatinine 0.9 05/18. Patient seen and examined. Patient was very tearful this morning, was apprehensive about going home, wanted social work to see if they can arrange for some home care at home. Discussed about pain control, at this time will increase dose of tramadol to 50 mg 4 times daily 05/19. Patient seen and examined. Still very painful, patient is worried about taking too much pain medications and constipation. Discussed with him regarding the need for him to be on a good bowel regimen to prevent constipation. Patient wants to talk again with pain management team, patient also wants to get information about hospice but does not want to engage hospice at this time 05/20. Patient seen and examined. Still in pain. Hematology oncology has adjusted patient's pain medications, had a long discussion with patient regarding his pain medications, answered all questions 05/21. Patient seen and examined. Patient is currently being seen by hematology oncology as well as by pain management for regarding his pain. Patient has been very hard to please regarding pain medications, patient keen to take only IV medications. Hematology oncology has talked with him multiple times, today patient was complaining of hip pain for which MRI hip and lumbar spine was ordered by hematology-oncology. Patient has been manipulative with multiple consultants and nursing staff about pain medications. 05/22. Patient seen and examined. Currently waiting on MRI hip and lumbar spine. Possible discharge next 24 hours. REVIEW OF SYSTEMS: CONSTITUTIONAL: No fever, no malaise,. CARDIOVASCULAR: No chest pain, no palpitations, no syncope. PULMONARY: No shortness of breath, no cough, GASTROINTESTINAL: No diarrhea, no nausea, no vomiting, no abdominal pain. NEUROLOGICAL: No headaches, no weakness, PHYSICAL EXAMINATION: GENERAL: The patient is alert and oriented x3, not in any acute distress. Ill looking HEENT: Pupils are round and equally reacting to light. EOMI. No scleral icterus. No conjunctival pallor. Normocephalic, atraumatic. No pharyngeal erythema. No thyromegaly. CARDIOVASCULAR: S1 and S2 present. No murmurs, rubs, or gallops. PULMONARY: Chest is clear to auscultation, no wheezing or crackles. ABDOMEN: Soft, nontender, nondistended, normoactive bowel sounds. No palpable organomegaly. MUSCULOSKELETAL: No joint swelling or deformity. EXTREMITIES: No cyanosis, clubbing, or pedal edema. NEUROLOGICAL: Gross neurological examination did not reveal any focal deficits. SKIN: No rashes. Assessment and plan Multiple myeloma: Acute on chronic low back pain: Pancytopenia: History of T7 nodular mass in the right paracentral region: History of multiple spinal tumors with previous decompression surgery: Was recently admitted to the hospital for pneumonia, right pleural effusion status postthoracentesis, acute on chronic back pain, was found to have T7 lobular mass on MRI, and history of spinal mass requiring spinal surgery due to compression, history of chronic pancytopenia, substance use with constipation now presented with worsening lower back pain. Monitor vital signs Monitor CBC Monitor CMP Continue current pain management P.o. Ativan for anxiety Aggressive bowel regimen Oncology following, ordered MRI hip & lumbar spine Pain management following Labs and medication were reviewed.. Continue same treatment. Continue with symptomatic treatment. Resume home medication. Monitor labs and vitals. DVT and GI prophylaxis. Further recommendations as per clinical course of the patient Dictation was produced using [employer] dictation software. please excuse any grammatical, word or spelling errors. Objective - Vital Signs Vital signs: Vital Signs Temp 97.7 F 05/22/24 12:25 Pulse 82 05/22/24 12:25 Resp 17 05/22/24 12:25 BP 105/68 05/22/24 12:25 Pulse Ox 97 05/22/24 12:25 FiO2 Intake & Output 05/21/24 05/22/24 05/22/24 18:59 06:59 18:59 Intake Total 1320 240 Output Total 600 400 Balance 720 -400 240 Intake: Oral 1320 240 Output: Urine 600 400 Other: Voiding Method Urinal Urinal Urinal # Voids 2 3 - Labs CBC & Chem 7: 05/17/24 03:42 05/17/24 03:42 Labs: Abnormal Lab Results - Last 24 Hours (Table) 05/21/24 Range/Units 20:33 Urine Protein 1+ H (Negative) Urine Mucus Rare H (None) /hpf
--- NOTE | 2024-05-22 15:14 | MR ---
EXAMINATION TYPE: MR lumbar spine wo/w con DATE OF EXAM: 05/22/2024 2:50 PM COMPARISON: CT thoracolumbar spine 05/08/2024 and MRI 09/06/2023 CLINICAL INDICATION: Male, 48 years old with history of hip TIM, multiple myeloma, intractable pain IV Contrast: 8.5 cc Gadobutrol (None if empty) TECHNIQUE: Multiplanar, multisequence images of the lumbar spine were acquired without and with 8.5 mL intraveno us Gadobutrol gadolinium contrast. L1-L2: Bone marrow replacement by metastatic disease on T2-weighted data set. Similar to prior examin ation. Normal disc appearance without desiccation. No herniation, protrusion or disc bulging. No ca nal stenosis is present. Foramina are patent bilaterally. L2-L3: Bone marrow replacement by metastatic disease on T2-weighted data set. Similar to prior examin ation. Normal disc appearance without desiccation. No herniation, protrusion or disc bulging. No c anal stenosis is present. Foramina are patent bilaterally. L3-L4: Bone marrow replacement by metastatic disease on T2-weighted data set. Similar to prior examin ation. Normal disc appearance without desiccation. No herniation, protrusion or disc bulging. There is epidural soft tissue which enhances following the administration of contrast measuring 7.4 mm AP dimension with effacement of the ventral thecal sac and probable bilateral lateral recess stenosis. T here is also anterior paraspinal soft tissue to the right of midline. No definite central stenosis ap preciated or cord compression seen. L4-L5: Bone marrow replacement by metastatic disease on T2-weighted data set. Similar to prior examin ation. Mild degenerative disc desiccation. No herniation, protrusion or disc bulging. There is epidu ral soft tissue which enhances following the administration of contrast measuring 8mm AP dimension wi th effacement of the ventral thecal sac and probable bilateral lateral recess stenosis. There is also anterior paraspinal soft tissue to the right of midline. No definite central stenosis appreciated or cord compression seen. L5-S1: Bone marrow replacement by metastatic disease on T2-weighted data set. Similar to prior examin ation. Normal disc appearance without desiccation. No herniation, protrusion or disc bulging. There is epidural soft tissue which enhances following the administration of contrast measuring 8.2 mm AP dimension with effacement of the ventral thecal sac and probable bilateral lateral recess stenosis. T here is also anterior paraspinal soft tissue to the right of midline. No definite central stenosis ap preciated or cord compression seen. Lumbar segments are intact. Partially imaged enhancing paraspinal mass is noted within the right ilio psoas musculature measuring 4.4 cm posterior right paraspinal musculature measuring 1.4 cm and left i liacus musculature measuring at least 4.5 cm. No definite enhancing lesion of the conus medullaris. IMPRESSION: 1. New enhancing epidural soft tissue at L3, L4 and L5-S1 with effacement of the ventral thecal sac a s discussed and possible bilateral lateral recess stenosis and involvement of the nerve roots. There is paraspinal soft tissue noted as well in addition to several paraspinal soft tissue masses. There i s evidence of bony metastatic disease. [facility], , 05/22/2024 3:11 PM
[2024-05-22 17:19] VITALS: BMI 25.0
[2024-05-22] MEDS: LORazepam 0.5 MG TAB PO PRN (23:26)
[2024-05-23 04:49] VITALS: TEMP 97.7
[2024-05-23 07:33] VITALS: BP 113/71; PULSE 76; RESP 17
--- NOTE | 2024-05-23 14:19 | P.DS ---
Providers Date of admission: 05/15/24 09:25 Expected date of discharge: 05/23/24 Attending physician: Arleth Fried Consults: 05/15/24 09:24 Consult Physician Routine Consulting Provider: Corie Douglas Consult Reason/Comments: Multiple myeloma, acute on chronic pain Do you want consulting provider notified?: Yes 05/22/24 10:47 Consult Physician Routine Consulting Provider: Oneil Shine Consult Reason/Comments: paranoid behavior Do you want consulting provider notified?: Yes Primary care physician: [facility] Course: Discharge diagnoses; Multiple myeloma: Soft tissue mass at L3, L4 and L5-S1 Acute on chronic low back pain: Pancytopenia: History of T7 nodular mass in the right paracentral region: History of multiple spinal tumors with previous decompression surgery: Was recently admitted to the hospital for pneumonia, right pleural effusion status postthoracentesis, acute on chronic back pain, was found to have T7 lobular mass on MRI, and history of spinal mass requiring spinal surgery due to compression, history of chronic pancytopenia, substance use with constipation now presented with worsening lower back pain. 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 Patient was in April, for pain management, had episode of confusion due to toxic encephalopathy secondary to pain medications, had MRI spine which showed T7 lobular mass in the right paracentral region, was discharged and was advised to follow-up with oncology as outpatient. Patient reported that he was taking pain medication at home, patient reported that he was taking Dilaudid 24 mg daily without much control of the pain. Patient denied any fever, chills, nausea, vomiting, diarrhea, constipation, abdominal pain, dysuria urgency frequency, weakness or numbness extremities, declined saddle anesthesia. Patient denied any sore throat, productive cough, shortness of breath, chest pain, palpitations. Patient is afebrile, heart rate 70, respiratory rate 16, blood pressure 103/67, saturating 98% on room air. WBCs 5.9, hemoglobin 10.5, platelet 98. BMP was unremarkable, mildly low sodium 132. Viral panel negative. 05/16--patient was seen and examined today. Continue complain of low back pain. Remains afebrile, heart rate 80, respiratory rate 18, blood pressure 106/64, saturating 98% on room air. WBCs 4.05, hemoglobin 10.1, platelet 82. BMP unremarkable. Currently on Tylenol, Dilaudid, tramadol for pain control. On p.o. Ativan for anxiety. Continue IV fluids. Oncology consulted, pain management consulted. 05/17. Patient seen and examined. States back pain is improved. Blood work done this morning showed WBC 3.19, hemoglobin 9.9, platelet count 82, Sodium 135, potassium 4.3, BUN 13.2, creatinine 0.9 05/18. Patient seen and examined. Patient was very tearful this morning, was apprehensive about going home, wanted social work to see if they can arrange for some home care at home. Discussed about pain control, at this time will increase dose of tramadol to 50 mg 4 times daily 05/19. Patient seen and examined. Still very painful, patient is worried about taking too much pain medications and constipation. Discussed with him regarding the need for him to be on a good bowel regimen to prevent constipation. Patient wants to talk again with pain management team, patient also wants to get information about hospice but does not want to engage hospice at this time 05/20. Patient seen and examined. Still in pain. Hematology oncology has adjusted patient's pain medications, had a long discussion with patient regarding his pain medications, answered all questions 05/21. Patient seen and examined. Patient is currently being seen by hematology oncology as well as by pain management for regarding his pain. Patient has been very hard to please regarding pain medications, patient keen to take only IV medications. Hematology oncology has talked with him multiple times, today patient was complaining of hip pain for which MRI hip and lumbar spine was ordered by hematology-oncology. Patient has been manipulative with multiple consultants and nursing staff about pain medications. 05/22. Patient seen and examined. Currently waiting on MRI hip and lumbar spine. Possible discharge next 24 hours. 05/23. Patient seen and examined. Patient had MRI lumbar spine done that showed new enhancing epidural soft tissue at L3, L4 and L5-S1 with effacement of the ventral thecal sac, imaging was reviewed by oncology, they recommend outpatient follow-up, patient will follow-up with radiation oncology out patient.being discharged to follow-up outpatient with his primary oncologist. pain prescription given by oncology PHYSICAL EXAMINATION: GENERAL: The patient is alert and oriented x3, not in any acute distress. Ill looking HEENT: Pupils are round and equally reacting to light. EOMI. No scleral icterus. No conjunctival pallor. Normocephalic, atraumatic. No pharyngeal erythema. No thyromegaly. CARDIOVASCULAR: S1 and S2 present. No murmurs, rubs, or gallops. PULMONARY: Chest is clear to auscultation, no wheezing or crackles. ABDOMEN: Soft, nontender, nondistended, normoactive bowel sounds. No palpable organomegaly. MUSCULOSKELETAL: No joint swelling or deformity. EXTREMITIES: No cyanosis, clubbing, or pedal edema. NEUROLOGICAL: Gross neurological examination did not reveal any focal deficits. SKIN: No rashes. Dictation was produced using [employer] dictation software. please excuse any grammatical, word or spelling errors. Patient Condition at Discharge: Stable Plan - Discharge Summary New Discharge Prescriptions: Continue Lenalidomide [Revlimid] 20 mg PO DIRECTED HYDROmorphone HCL [Dilaudid] 8 mg PO TID dexAMETHasone [Decadron] 4 mg PO DAILY Discharge Medication List Lenalidomide [Revlimid] 20 mg PO DIRECTED 09/04/23 [History] HYDROmorphone HCL [Dilaudid] 8 mg PO TID 05/05/24 [History] dexAMETHasone [Decadron] 4 mg PO DAILY 05/05/24 [History] Follow up Appointment(s)/Referral(s): Corie Douglas MD [STAFF PHYSICIAN] - 05/28/24 2:15 pm Kehinde Gama DO [Primary Care Provider] - 05/28/24 10:45 am () Patient Instructions/Handouts: Lorazepam (By mouth), Hydromorphone (By mouth), Dexamethasone (By mouth), Pantoprazole (By mouth) Activity/Diet/Wound Care/Special Instructions: Prescriptions sent from Dr. Douglas's office to Hardeep Stewart on 05/21/24.(7 days worth) Dilaudid PO Protonix Dexamethasone Ativan Discharge Disposition: HOME SELF-CARE
== END 2024-05-23 13:53 | disposition home or self-care (01) | DRG 948 ==
LOC: EC 06:33 → 5NMEDONC 09:25
PROVIDERS: ADMIT Hospitalist; ATTEND Hospitalist
DX: G89.3 Neoplasm related pain (acute) (chronic) (principal); C90.30 Solitary plasmacytoma not having achieved remission; D61.818 Other pancytopenia; M48.56XA Collapsed vertebra, not elsewhere classified, lumbar region, initial encounter for fracture; D69.59 Other secondary thrombocytopenia; M54.9 Dorsalgia, unspecified; F41.9 Anxiety disorder, unspecified; K59.00 Constipation, unspecified; R32 Unspecified urinary incontinence; T45.1X6A Underdosing of antineoplastic and immunosuppressive drugs, initial encounter; Z91.148 Patient's other noncompliance with medication regimen for other reason; M47.26 Other spondylosis with radiculopathy, lumbar region; Z79.891 Long term (current) use of opiate analgesic; Z79.899 Other long term (current) drug therapy; Z79.52 Long term (current) use of systemic steroids; Z92.3 Personal history of irradiation
CPT/HCPCS: 36415; 72158; 80048; 80053; 81001; 83735; 85025; 87636; 96361; 96374; 96376; 99285

== ENCOUNTER 2024-06-01 22:35 | Inpatient (IN) | payer BC ==
[2024-06-01] MEDS: HYDROmorphone 1 MG/ML 1 ML SYRINGE IVP STA ×2 (22:58→23:02)
[2024-06-01] MEDS: SODIUM CHLORIDE 0.9% 1,000 ML IV ONE (22:58)
--- NOTE | 2024-06-01 23:01 | ED ---
Recheck HPI - General Chief Complaint: Recheck/Abnormal Lab/Rx Stated Complaint: Pain all over Time Seen by Provider: 06/01/24 22:37 Source: patient, EMS, RN notes reviewed, old records reviewed Mode of arrival: EMS Limitations: no limitations - History of Present Illness Initial Comments: This is a 48 male to the ER for evaluation today. Patient presents today for evaluation regards to severe and chronic pain. At this point patient has persistent pain nausea weakness not feeling well. Pain is chronic cancer pain MD Complaint: medication refill request Returns Today for: persistent/worsening pain related to initial visit Context: ran out of medication Treatments Prior to Arrival: Given Pain Meds on - Related Data Home Medications Medication Instructions Recorded Confirmed Lenalidomide [Revlimid] 20 mg PO DIRECTED 09/04/23 06/02/24 HYDROmorphone HCL [Dilaudid] 8 mg PO TID 05/05/24 06/02/24 dexAMETHasone [Decadron] 4 mg PO DAILY 05/05/24 06/02/24 LORazepam 0.5 mg PO BID 06/02/24 06/02/24 Lactulose 10 gm PO DAILY PRN 06/02/24 06/02/24 polyethylene glycoL 3350 [Miralax] 17 gm PO DAILY PRN 06/02/24 06/02/24 Allergies Allergy/AdvReac Type Severity Reaction Status Date / Time No Known Allergies Allergy Verified 06/02/24 11:37 Review of Systems ROS Statement: Those systems with pertinent positive or pertinent negative responses have been documented in the HPI. ROS Other: All systems not noted in ROS Statement are negative. 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 History of prior laminectomy decompression at lower thoracic with Dr. Dominguez in January 2022. History of multiple soft tissue masses throughout his thoracic lumbar and sacral spine. history lower extremity weakness History of Any Multi-Drug Resistant Organisms: None Reported Past Surgical History: No Surgical Hx Reported Additional Past Surgical History / Comment(s): back surgery to remove tumor december of 2021. Bone biospy of right hip, spinal decompression Past Anesthesia/Blood Transfusion Reactions: No Reported Reaction Past Psychological History: No Psychological Hx Reported Smoking Status: Never smoker Past Alcohol Use History: None Reported Past Drug Use History: Marijuana General Exam Limitations: no limitations General appearance: alert, in no apparent distress Head exam: Present: atraumatic, normocephalic, normal inspection Eye exam: Present: normal appearance, PERRL, EOMI. Absent: scleral icterus, conjunctival injection, periorbital swelling ENT exam: Present: normal exam, mucous membranes moist Neck exam: Present: normal inspection. Absent: tenderness, meningismus, lymphadenopathy Respiratory exam: Present: normal lung sounds bilaterally. Absent: respiratory distress, wheezes, rales, rhonchi, stridor Cardiovascular Exam: Present: regular rate, normal rhythm, normal heart sounds. Absent: systolic murmur, diastolic murmur, rubs, gallop, clicks GI/Abdominal exam: Present: soft, normal bowel sounds. Absent: distended, tenderness, guarding, rebound, rigid Extremities exam: Present: normal inspection, full ROM, normal capillary refill. Absent: tenderness, pedal edema, joint swelling, calf tenderness Back exam: Present: normal inspection Neurological exam: Present: alert, oriented X3, CN II-XII intact Psychiatric exam: Present: normal affect, normal mood Skin exam: Present: warm, dry, intact, normal color. Absent: rash Course Vital Signs 06/01/24 06/02/24 22:36 00:00 Temperature 98.4 F Pulse Rate 85 91 Respiratory 18 18 Rate Blood Pressure 135/84 127/80 O2 Sat by Pulse 97 97 Oximetry - Reevaluation(s) Reevaluation #1: 06/01/24 23:01 Medical records reviewed Reevaluation #2: 06/01/24 23:01 Patient symptoms improved Reevaluation #3: 06/01/24 23:45 Patient's pain is difficult to control here in the ER Reevaluation #4: Was pt. sent in by a medical professional or institution (, PA, DECK BUILDER, urgent care, hospital, or [place] [facility] care facility...) When possible be specific @ -no Did you speak to anyone other than the patient for history (EMS, parent, family, police, friend...)? What history was obtained from this source @ -no Did you review nursing and triage notes (agree or disagree)? Why? @ -agree Are old charts reviewed (outside hosp., previous admission, EMS record, old EKG, old radiological studies, urgent care reports/EKG's, [place] [facility] care facility records)? Report findings @ -yes Differential Diagnosis (chest pain, altered mental status, abdominal pain women, abdominal pain men, vaginal bleeding, weakness, fever, dyspnea, syncope, headache, dizziness, GI bleed, back pain, seizure, CVA, palpatations, mental health, musculoskeletal)? @ -prior EKG interpreted by me (3pts min.). @ -yes X-rays interpreted by me (1pt min.). @ -yes negative for acute disease CT interpreted by me (1pt min.). @ -no U/S interpreted by me (1pt. min.). @ -no What testing was considered but not performed or refused? (CT, X-rays, U/S, labs)? Why? @ -none What meds were considered but not given or refused? Why? @ -none Did you discuss the management of the patient with other professionals (professionals i.e. , PA, DECK BUILDER, lab, RT, psych nurse, social work program coordinator, manual plate filler, teacher, court collections officer, case operator)? Give summary @ -no Was smoking cessation discussed for >3mins.? @ -no Was critical care preformed (if so, how long)? @ -no Were there social determinants of health that impacted care today? How? (Homelessness, low income, unemployed, alcoholism, drug addiction, trans portation, low edu. Level, literacy, decrease access to med. care, alf, rehab)? @ -none Was there de-escalation of care discussed even if they declined (Discuss DNR or withdrawal of care, Hospice)? DNR status @ -no What co-morbidities impacted this encounter? (DM, HTN, Smoking, COPD, CAD, Cancer, CVA, ARF, Chemo, Hep., AIDS, mental health diagnosis, sleep apnea, morbid obesity)? @ -none Was patient admitted / discharged? Hospital course, mention meds given and route, prescriptions, significant lab abnormalities, going to OR and other pertinent info. @ - 48 male be admitted for chronic pain control history of pain cancer pain and uncontrolled pain Admitted Undiagnosed new problem with uncertain prognosis? @ -no Drug Therapy requiring intensive monitoring for toxicity (Heparin, Nitro, Insulin, Cardizem)? @ -no Were any procedures done? @ -no Diagnosis/symptom? @ -Chronic pain cancer pain Acute, or Chronic, or Acute on Chronic? @ -Acute Uncomplicated (without systemic symptoms) or Complicated (systemic symptoms)? @ -Complicated Side effects of treatment? @ -no Exacerbation, Progression, or Severe Exacerbation? @ -exacerbation Poses a threat to life or bodily function? How? (Chest pain, USA, MT, pneumonia, PE, COPD, DKA, ARF, appy, cholecystitis, CVA, Diverticulitis, Homicidal, Suicidal, threat to staff... and all critical care pts) @ -yes significant cancer burden Reevaluation #5: Differential Weakness: Hypoglycemia, shock, sepsis, hyponatremia, anemia, infection, MT, ETOH, adverse medicine reaction, overdose, stroke, this is not meant to be an all-inclusive list. - Consultations Consultation #1: Spoke with [facility] who agrees to admit this patient Medical Decision Making - Medical Decision Making 48 male be admitted for chronic pain control history of pain cancer pain and uncontrolled pain - Lab Data Result diagrams: 06/06/24 06:32 06/06/24 06:32 Lab Results 06/01/24 06/01/24 06/01/24 Range/Units 22:57 22:57 22:57 WBC 4.3 (3.8-10.6) k/uL RBC 2.60 L (4.30-5.90) m/uL Hgb 9.5 L (13.0-17.5) gm/dL Hct 26.6 L (39.0-53.0) % MCV 102.5 H (80.0-100.0) fL MCH 36.7 H (25.0-35.0) pg MCHC 35.8 (31.0-37.0) g/dL RDW 15.9 H (11.5-15.5) % Plt Count 81 L (150-450) k/uL MPV 7.9 Neutrophils % (Manual) 76 % Band Neuts % (Manual) 1 % Lymphocytes % (Manual) 15 % Monocytes % (Manual) 3 % Metamyelocytes % 1 % Blast Cells % 2 H* % Neutrophils # (Manual) 3.30 (1.3-7.7) k/uL Lymphocytes # (Manual) 0.65 L (1.0-4.8) k/uL Monocytes # (Manual) 0.13 (0-1.0) k/uL Metamyelocytes # (Man) 0.04 H (0) k/uL Blast Cells # (Man) 0.09 H (0) k/uL Plasma Cell # (Manual) 0.17 H (0) k/uL Nucleated RBCs 2 H (0-0) /100 WBC Manual Slide Review Performed Plasma Cells % 4 % Poikilocytosis Slight Macrocytosis Slight Tear Drop Cells Present PT 11.2 (10.0-12.5) sec INR 1.0 (<1.2) APTT 19.8 L (22.0-30.0) sec Sodium 134 L (137-145) mmol/L Potassium 3.8 (3.5-5.1) mmol/L Chloride 100 (98-107) mmol/L Carbon Dioxide 24 (22-30) mmol/L Anion Gap 10 mmol/L BUN 22 H (9-20) mg/dL Creatinine 0.86 (0.66-1.25) mg/dL Est GFR (CKD-EPI)AfAm >90 (>60 ml/min/1.73 sqM) Est GFR (CKD-EPI)NonAf >90 (>60 ml/min/1.73 sqM) Glucose 83 (74-99) mg/dL Plasma Lactic Acid Bentley (0.7-2.0) mmol/L Calcium 8.4 (8.4-10.2) mg/dL Phosphorus 3.0 (2.5-4.5) mg/dL Magnesium 2.1 (1.6-2.3) mg/dL Total Bilirubin 1.2 (0.2-1.3) mg/dL AST 19 (17-59) U/L ALT 18 (4-49) U/L Alkaline Phosphatase 41 (38-126) U/L Troponin I (0.000-0.034) ng/mL Total Protein 5.9 L (6.3-8.2) g/dL Albumin 3.9 (3.5-5.0) g/dL 06/01/24 06/01/24 Range/Units 22:57 22:57 WBC (3.8-10.6) k/uL RBC (4.30-5.90) m/uL Hgb (13.0-17.5) gm/dL Hct (39.0-53.0) % MCV (80.0-100.0) fL MCH (25.0-35.0) pg MCHC (31.0-37.0) g/dL RDW (11.5-15.5) % Plt Count (150-450) k/uL MPV Neutrophils % (Manual) % Band Neuts % (Manual) % Lymphocytes % (Manual) % Monocytes % (Manual) % Metamyelocytes % % Blast Cells % % Neutrophils # (Manual) (1.3-7.7) k/uL Lymphocytes # (Manual) (1.0-4.8) k/uL Monocytes # (Manual) (0-1.0) k/uL Metamyelocytes # (Man) (0) k/uL Blast Cells # (Man) (0) k/uL Plasma Cell # (Manual) (0) k/uL Nucleated RBCs (0-0) /100 WBC Manual Slide Review Plasma Cells % % Poikilocytosis Macrocytosis Tear Drop Cells PT (10.0-12.5) sec INR (<1.2) APTT (22.0-30.0) sec Sodium (137-145) mmol/L Potassium (3.5-5.1) mmol/L Chloride (98-107) mmol/L Carbon Dioxide (22-30) mmol/L Anion Gap mmol/L BUN (9-20) mg/dL Creatinine (0.66-1.25) mg/dL Est GFR (CKD-EPI)AfAm (>60 ml/min/1.73 sqM) Est GFR (CKD-EPI)NonAf (>60 ml/min/1.73 sqM) Glucose (74-99) mg/dL Plasma Lactic Acid Bentley 0.7 (0.7-2.0) mmol/L Calcium (8.4-10.2) mg/dL Phosphorus (2.5-4.5) mg/dL Magnesium (1.6-2.3) mg/dL Total Bilirubin (0.2-1.3) mg/dL AST (17-59) U/L ALT (4-49) U/L Alkaline Phosphatase (38-126) U/L Troponin I <0.012 (0.000-0.034) ng/mL Total Protein (6.3-8.2) g/dL Albumin (3.5-5.0) g/dL - EKG Data -: EKG Interpreted by Me (EKG is sinus 89 NJ 165 QRS 101 QTc 435) - Radiology Data Radiology results: report reviewed (Chest x-ray is negative for acute disease), image reviewed Disposition Clinical Impression: Mid back pain, Weakness, Multiple myeloma, Intractable back pain Disposition: ADMITTED IP TO THIS [facility] Condition: Fair Is patient prescribed a controlled substance at d/c from ED?: No Time of Disposition: 23:45
[2024-06-01] MEDS: KETOROLAC 15 MG/ML 1 ML VIAL IVP STA (23:07)
[2024-06-01] MEDS: diphenhydrAMINE 50 MG/ML 1 ML VIAL IVP STA (23:07)
[2024-06-01] MEDS: ACETAMINOPHEN IV (For NPO) 1,000 MG in EMPTY BAG 1 BAG IVPB STA (23:08)
[2024-06-01 23:34] LABS: ALT 18 U/L (4-49); AST 19 U/L (17-59); African American GFR (CKD) >90 (>60 ml/min/1.73 sqM); Albumin 3.9 g/dL (3.5-5.0); Alkaline Phosphatase 41 U/L (38-126); Anion Gap 10 mmol/L; Blood Urea Nitrogen 22 mg/dL (9-20); Calcium 8.4 mg/dL (8.4-10.2); Carbon Dioxide 24 mmol/L (22-30); Chloride 100 mmol/L (98-107); Glucose 83 mg/dL (74-99); Magnesium 2.1 mg/dL (1.6-2.3); Non-African American GFR(CKD) >90 (>60 ml/min/1.73 sqM); Potassium 3.8 mmol/L (3.5-5.1); Sodium 134 mmol/L (137-145); Total Bilirubin 1.2 mg/dL (0.2-1.3); Total Protein 5.9 g/dL (6.3-8.2)
[2024-06-01 23:35] LABS: Prothrombin Time 11.2 sec (10.0-12.5)
[2024-06-01 23:43] LABS: HCT 26.6 % (39.0-53.0); HGB 9.5 gm/dL (13.0-17.5); MCH 36.7 pg (25.0-35.0); MCHC 35.8 g/dL (31.0-37.0); MCV 102.5 fL (80.0-100.0); Macrocytosis Slight; Mean Platelet Volume 7.9; Poikilocytosis Slight; RDW 15.9 % (11.5-15.5)
[2024-06-01] MEDS ORDERED: NALOXONE 0.4 MG/ML 1 ML VIAL IV PRN (23:43)
[2024-06-01 23:53] LABS: Partial Thromboplastin Time 19.8 sec (22.0-30.0)
[2024-06-01 23:54] LABS: Platelet Count 81 k/uL (150-450)
[2024-06-02] MEDS: SODIUM CHLORIDE 0.9% 1,000 ML IV SCH (00:10)
[2024-06-02] MEDS: HYDROmorphone 1 MG/ML 1 ML SYRINGE IVP STA (00:11)
--- NOTE | 2024-06-02 02:14 | XR ---
EXAM: XR Chest, 1 View CLINICAL HISTORY: ITS.REASON XR Reason: pain TECHNIQUE: Frontal view of the chest. COMPARISON: 05/08/2024 IMPRESSION: Bilateral pleural effusions. Nodular pleural thickening again seen bilaterally.
[2024-06-02 02:16] LABS: Band Neutrophils % 1 %; Metamyelocytes # (M) 0.04 k/uL (0); Metamyelocytes % 1 %; Monocytes # (M) 0.13 k/uL (0-1.0); Neutrophils % (M) 76 %
[2024-06-02 02:17] LABS: Blast Cells # (M) 0.09 k/uL (0); Nucleated Red Blood Cells 2 /100 WBC (0-0); Plasma Cells % 4 %; Total Cells Counted 200
[2024-06-02 02:18] LABS: Lymphocytes # (M) 0.65 k/uL (1.0-4.8); Plasma Cells # (M) 0.17 k/uL (0); Tear Drop Cells Present; WBC 4.3 k/uL (3.8-10.6)
[2024-06-02] MEDS: LORazepam 0.5 MG TAB PO PRN (03:13)
[2024-06-02] MEDS: HYDROmorphone 1 MG/ML 1 ML SYRINGE IVP PRN (03:17)
[2024-06-02 03:49] LABS: Influenza A Detected (Not Detectd); Influenza B Not Detected (Not Detectd); RSV Not Detected (Not Detectd)
[2024-06-02] MEDS: OSELTAMIVIR 75 MG CAP PO SCH ×2 (05:18→17:28)
[2024-06-02 05:22] LABS: HCT 27.9 % (39.0-53.0); HGB 9.4 gm/dL (13.0-17.5); MCH 35.3 pg (25.0-35.0); MCHC 33.8 g/dL (31.0-37.0); MCV 104.5 fL (80.0-100.0); Macrocytosis Moderate; Mean Platelet Volume 8.6; Poikilocytosis Slight; RBC 2.67 m/uL (4.30-5.90); RDW 15.9 % (11.5-15.5); WBC 4.1 k/uL (3.8-10.6)
[2024-06-02 05:26] LABS: Platelet Count 88 k/uL (150-450)
[2024-06-02 05:41] LABS: ALT 16 U/L (4-49); AST 17 U/L (17-59); African American GFR (CKD) >90 (>60 ml/min/1.73 sqM); Albumin 3.6 g/dL (3.5-5.0); Alkaline Phosphatase 42 U/L (38-126); Anion Gap 8 mmol/L; Blood Urea Nitrogen 21 mg/dL (9-20); Calcium 8.2 mg/dL (8.4-10.2); Carbon Dioxide 25 mmol/L (22-30); Chloride 102 mmol/L (98-107); Glucose 84 mg/dL (74-99); Non-African American GFR(CKD) 87 (>60 ml/min/1.73 sqM); Phosphorus 2.6 mg/dL (2.5-4.5); Potassium 3.4 mmol/L (3.5-5.1); Sodium 135 mmol/L (137-145); Total Bilirubin 0.8 mg/dL (0.2-1.3); Total Protein 5.7 g/dL (6.3-8.2)
[2024-06-02] MEDS ORDERED: LACTULOSE 20 GM/30 ML CUP PO PRN (14:49)
[2024-06-02] MEDS: HYDROmorphone 0.5 MG/0.5 ML SYRINGE IVP PRN (16:26)
--- NOTE | 2024-06-02 17:55 | P.HPIM ---
History of Present Illness This is a pleasant 48 years old male with past medical history of multiple myeloma with bone metastasis as well as bilateral pulmonary nodule and liver lesions suspicious for metastasis. He was recently in this facility, he is know n to our service from last admission. He was discharged home in stable condition at that time. He presents this time because of increasing pain all over his body, patient could not specify for how long, probably for few days mainly in the back. Patient is a known case of chronic back pain taking oral Dilaudid. Also last time there was suspicion using Dilaudid powder for sniffing, Patient denies any other complaint, no chest pain shortness of breath or coughing. No abdominal pain or vomiting or diarrhea. No urinary complaint. No headache dizziness weakness or numbness. Patient denies smoking alcohol or illicit drugs. Patient hemodynamically stable and afebrile Labs showing chronic anemia currently hemoglobin 9.5 and 9.4, platelet count is always low currently stable 81 and 88. Blast cells are 2%. Well BMP LFT and INR were unremarkable COVID test is negative but influenza test came back positive Chest x-ray showing bilateral pleural effusion bilateral nodularity of the pleural thickening, I reviewed the chest x-ray by myself and agree with these findings EKG is showing sinus rhythm at [address]-T changes Review of Systems Review of systems CONSTITUTIONAL: No fever, no malaise, no fatigue. HEENT: No recent visual problems or hearing problems. Denied any sore throat. CARDIOVASCULAR: No orthopnea, PND, no palpitations, no syncope. PULMONARY: No shortness of breath, no cough, no hemoptysis. GASTROINTESTINAL: No diarrhea, no nausea, no vomiting, no abdominal pain. Normoactive bowel sounds. NEUROLOGICAL: No headaches, no weakness, no numbness. HEMATOLOGICAL: Denies any bleeding or petechiae. GENITOURINARY: Denies any burning micturition, frequency, or urgency. MUSCULOSKELETAL/RHEUMATOLOGICAL: Denies any joint pain, swelling, or any muscle pain. ENDOCRINE: Denies any polyuria or polydipsia. 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 History of prior laminectomy decompression at lower thoracic with Dr. Dominguez in January 2022. History of multiple soft tissue masses throughout his thoracic lumbar and sacral spine. history lower extremity weakness History of Any Multi-Drug Resistant Organisms: None Reported Past Surgical History: No Surgical Hx Reported Additional Past Surgical History / Comment(s): back surgery to remove tumor december of 2021. Bone biospy of right hip, spinal decompression Past Anesthesia/Blood Transfusion Reactions: No Reported Reaction Past Psychological History: No Psychological Hx Reported Smoking Status: Never smoker Past Alcohol Use History: None Reported Additional Past Alcohol Use History / Comment(s): has not had a drink in about a year Past Drug Use History: Marijuana Medications and Allergies Home Medications Medication Instructions Recorded Confirmed Type Lenalidomide [Revlimid] 20 mg PO DIRECTED 09/04/23 06/02/24 History HYDROmorphone HCL [Dilaudid] 8 mg PO TID 05/05/24 06/02/24 History dexAMETHasone [Decadron] 4 mg PO DAILY 05/05/24 06/02/24 History LORazepam 0.5 mg PO BID 06/02/24 06/02/24 History Lactulose 10 gm PO DAILY PRN 06/02/24 06/02/24 History polyethylene glycoL 3350 [Miralax] 17 gm PO DAILY PRN 06/02/24 06/02/24 History Allergies Allergy/AdvReac Type Severity Reaction Status Date / Time No Known Allergies Allergy Verified 06/02/24 11:37 Physical Exam Vitals: Vital Signs Temp Pulse Pulse Resp BP BP Pulse Ox 06/02/24 08:20 97.9 F 84 18 112/71 94 L 06/02/24 01:52 97.8 F 96 20 125/81 94 L 06/02/24 01:30 96 20 06/02/24 01:21 97.3 F L 92 18 124/80 96 06/02/24 00:00 91 18 127/80 97 06/01/24 22:36 98.4 F 85 18 135/84 97 Intake and Output 06/01/24 06/02/24 06/02/24 22:59 06:59 14:59 Output Total 200 Balance -200 Output: Urine 200 Other: Voiding Method Toilet Toilet Urinal Urinal Weight 81.647 kg 81.647 kg GENERAL: The patient is alert and oriented x3, not in any acute distress. Well developed, well nourished. HEENT: Pupils are round and equally reacting to light. EOMI. No scleral icterus. No conjunctival pallor. Normocephalic, atraumatic. No pharyngeal erythema. No thyromegaly. CARDIOVASCULAR: S1 and S2 present. No murmurs, rubs, or gallops. PULMONARY: Chest is clear to auscultation, no wheezing , no crackles. ABDOMEN: Soft, nontender, nondistended, normoactive bowel sounds. No palpable organomegaly. MUSCULOSKELETAL: No joint swelling or deformity. -EXTREMITIES: No cyanosis, clubbing, mild to moderate bilateral leg edema, pitting NEUROLOGICAL: Gross neurological examination did not reveal any focal deficits. SKIN: No rashes. no petechiae. Results CBC & Chem 7: 06/02/24 04:24 06/02/24 04:24 Labs: Abnormal Lab Results - Last 24 Hours (Table) 06/01/24 06/01/24 06/01/24 Range/Units 22:57 22:57 22:57 RBC 2.60 L (4.30-5.90) m/uL Hgb 9.5 L (13.0-17.5) gm/dL Hct 26.6 L (39.0-53.0) % MCV 102.5 H (80.0-100.0) fL MCH 36.7 H (25.0-35.0) pg RDW 15.9 H (11.5-15.5) % Plt Count 81 L (150-450) k/uL Blast Cells % 2 H* % Lymphocytes # (Manual) 0.65 L (1.0-4.8) k/uL Metamyelocytes # (Man) 0.04 H (0) k/uL Blast Cells # (Man) 0.09 H (0) k/uL Plasma Cell # (Manual) 0.17 H (0) k/uL Nucleated RBCs 2 H (0-0) /100 WBC APTT 19.8 L (22.0-30.0) sec Sodium 134 L (137-145) mmol/L Potassium (3.5-5.1) mmol/L BUN 22 H (9-20) mg/dL Calcium (8.4-10.2) mg/dL Total Protein 5.9 L (6.3-8.2) g/dL Influenza Type A (PCR) (Not Detectd) 06/02/24 06/02/24 06/02/24 Range/Units 02:50 04:24 04:24 RBC 2.67 L (4.30-5.90) m/uL Hgb 9.4 L (13.0-17.5) gm/dL Hct 27.9 L (39.0-53.0) % MCV 104.5 H (80.0-100.0) fL MCH 35.3 H (25.0-35.0) pg RDW 15.9 H (11.5-15.5) % Plt Count 88 L (150-450) k/uL Blast Cells % % Lymphocytes # (Manual) (1.0-4.8) k/uL Metamyelocytes # (Man) (0) k/uL Blast Cells # (Man) (0) k/uL Plasma Cell # (Manual) (0) k/uL Nucleated RBCs (0-0) /100 WBC APTT (22.0-30.0) sec Sodium 135 L (137-145) mmol/L Potassium 3.4 L (3.5-5.1) mmol/L BUN 21 H (9-20) mg/dL Calcium 8.2 L (8.4-10.2) mg/dL Total Protein 5.7 L (6.3-8.2) g/dL Influenza Type A (PCR) Detected A (Not Detectd) Thrombosis Risk Factor Assmnt - Choose All That Apply Any of the Below Risk Factors Present?: Yes Each Factor Represents 1 point: Age 41-60 years Other Risk Factors: No Other congenital or acquired thrombophilia - If yes, enter type in comment: No Thrombosis Risk Factor Assessment Total Risk Factor Score: 1 Thrombosis Risk Factor Assessment Level: Low Risk Assessment and Plan Assessment: Influenza infection without pneumonia or hypoxia Generalized body ache chronic back pain secondary to above, currently improving Multiple myeloma with metastasis suspicious for liver and the lung, the spine Bilateral pleural effusion with nodular pleural thickening, chronic without hypoxia. Associated with mild fluid overload and leg edema Chronic anemia and thrombocytopenia Plan: Will start Tamiflu DC IV fluid Continue with IV Dilaudid, patient was fixed on ordering IV Dilaudid and IV Ativan, risk of this medication are explained to the patient in details and emphasized danger of respiratory depression and/or he verbalized understanding and acceptance to lowered the dose from 1 mg down to 0.5 mg Will give one-time dose of IV Lasix Check labs in the morning Replace low potassium, mild Further recommendation based on the clinical course Overall patient is doing well so far Will keep monitoring him for another 24 hours and if stable may be considered for discharge tomorrow GI and DVT prophylaxis
[2024-06-02] MEDS: FUROSEMIDE 10 MG/ML 10 ML VIAL IV STA (18:05)
[2024-06-02] MEDS: POTASSIUM CHLORIDE ER 20 MEQ TAB.ER PO STA (18:05)
[2024-06-03] MEDS ORDERED: HYDROmorphone 0.5 MG/0.5 ML SYRINGE IVP PRN (00:03)
[2024-06-03] MEDS: HYDROmorphone 0.5 MG/0.5 ML SYRINGE IVP PRN (01:50)
[2024-06-03 07:43] LABS: Glucose,Whole Blood 126 mg/dL (70-110)
[2024-06-03] MEDS: dexAMETHasone 4 MG TAB PO SCH (08:04)
[2024-06-03] MEDS: LENALIDOMIDE 20 MG PO SCH (08:05)
[2024-06-03] MEDS ORDERED: ONDANSETRON 4 MG/2 ML VIAL IVP PRN (08:19)
[2024-06-03 08:46] LABS: Blood Urea Nitrogen 20.4 mg/dL (9.0-27.0); Calcium 8.6 mg/dL (8.7-10.3); Carbon Dioxide 23.5 mmol/L (21.6-31.8); Chloride 100 mmol/L (96-109); Glucose 98 mg/dL (70-110); Potassium 3.5 mmol/L (3.5-5.5); Sodium 136 mmol/L (135-145)
[2024-06-03] MEDS: ONDANSETRON 4 MG/2 ML VIAL IVP STA (08:58)
[2024-06-03] MEDS ORDERED: IPRATROPIUM-ALBUTEROL 3 ML NEB INHALATION PRN (10:15)
--- NOTE | 2024-06-03 10:28 | P.PN ---
Subjective This is a pleasant 48 years old male with past medical history of multiple myeloma with bone metastasis as well as bilateral pulmonary nodule and liver lesions suspicious for metastasis. He was recently in this facility, he is known to our service from last admission. He was discharged home in stable condition at that time. He presents this time because of increasing pain all over his body, patient could not specify for how long, probably for few days mainly in the back. Patient is a known case of chronic back pain taking oral Dilaudid. Also last time there was suspicion using Dilaudid powder for sniffing, Patient denies any other complaint, no chest pain shortness of breath or coughing. No abdominal pain or vomiting or diarrhea. No urinary complaint. No headache dizziness weakness or numbness. Patient denies smoking alcohol or illicit drugs. Patient hemodynamically stable and afebrile Labs showing chronic anemia currently hemoglobin 9.5 and 9.4, platelet count is always low currently stable 81 and 88. Blast cells are 2%. Well BMP LFT and INR were unremarkable COVID test is negative but influenza test came back positive Chest x-ray showing bilateral pleural effusion bilateral nodularity of the pleural thickening, I reviewed the chest x-ray by myself and agree with these findings EKG is showing sinus rhythm at [address]-T changes 06/03 Patient awake alert with no chest pain Vital stable with no fever However patient has shivering and chills and he vomited once, Zofran provided for him He complains from some breathing difficulty. Breathing treatments provided for him and will going to recheck his chest x-ray Will check labs today including procalcitonin Discontinue IV pain medication and IV Ativan for high risk of side effects. Will give him some Benadryl IV which will help with nausea vomiting and allergic reaction and itching as needed Continue on Tamiflu. Continue with dexamethasone Continue with home dose of oral Dilaudid Discussed in length with the plan with the patient and he is agreeable Review of systems CONSTITUTIONAL: No fever, no malaise, no fatigue. NEUROLOGICAL: No headaches, no weakness, no numbness. HEMATOLOGICAL: Denies any bleeding or petechiae. GENITOURINARY: Denies any burning micturition, frequency, or urgency. MUSCULOSKELETAL/RHEUMATOLOGICAL: Denies any joint pain, swelling, or any muscle pain. ENDOCRINE: Denies any polyuria or polydipsia. Active Medications Generic Name Dose Route Start Last Admin Trade Name Freq PRN Reason Stop Dose Admin Albuterol/Ipratropium 3 ml 06/03/24 10:15 Ipratropium-Albuterol 3 Ml Neb INHALATION RT-QID PRN Shortness Of Breath Or Wheezing Dexamethasone 4 mg 06/03/24 09:00 06/03/24 08:04 Dexamethasone 4 Mg Tab PO 4 mg DAILY JIMENA Administration Hydromorphone HCl 8 mg 06/03/24 08:19 Hydromorphone 2 Mg Tab PO TID PRN Pain Lactulose 10 gm 06/02/24 14:49 Lactulose 20 Gm/30 Ml Cup PO DAILY PRN Constipation Naloxone HCl 0.2 mg 06/01/24 23:43 Naloxone 0.4 Mg/Ml 1 Ml Vial IV Q2M PRN Opioid Reversal Lenalidomide [ 20 mg 06/03/24 09:00 06/03/24 08:05 Revlimid] 20 Mg PO Not Given Capsule DAILY JIMENA Ondansetron HCl 4 mg 06/03/24 08:19 Ondansetron 4 Mg/2 Ml Vial IVP Q6HR PRN Nausea And Vomiting Oseltamivir Phosphate 75 mg 06/02/24 18:00 06/03/24 05:58 Oseltamivir 75 Mg Cap PO 06/06/24 18:01 75 mg Q12H JIMENA Administration Protocol Polyethylene Glycol 17 gm 06/02/24 14:49 Polyethylene Glycol 3350 17 Gm Powd.Pack PO DAILY PRN Constipation Objective - Vital Signs Vital signs: Vital Signs Temp 98.9 F 06/03/24 07:20 Pulse 101 H 06/03/24 07:20 Resp 17 06/03/24 07:20 BP 128/77 06/03/24 07:20 Pulse Ox 93 L 06/03/24 07:20 FiO2 Intake & Output 06/02/24 06/03/24 06/03/24 18:59 06:59 18:59 Other: Voiding Method Toilet Toilet Urinal Urinal # Voids 1 2 - Exam GENERAL: The patient is alert and oriented x3, not in any acute distress. Well developed, well nourished. HEENT: Pupils are round and equally reacting to light. EOMI. No scleral icterus. No conjunctival pallor. Normocephalic, atraumatic. No pharyngeal erythema. No thyromegaly. CARDIOVASCULAR: S1 and S2 present. No murmurs, rubs, or gallops. PULMONARY: Chest is clear to auscultation, no wheezing , no crackles. ABDOMEN: Soft, nontender, nondistended, normoactive bowel sounds. No palpable organomegaly. MUSCULOSKELETAL: No joint swelling or deformity. EXTREMITIES: No cyanosis, clubbing, or pedal edema. NEUROLOGICAL: Gross neurological examination did not reveal any focal deficits. SKIN: No rashes. no petechiae. - Labs CBC & Chem 7: 06/02/24 04:24 06/03/24 03:38 Labs: Abnormal Lab Results - Last 24 Hours (Table) 06/02/24 06/03/24 06/03/24 Range/Units 04:24 03:38 07:42 Plt Count 88 L (150-450) k/uL Anion Gap 12.50 H (4.00-12.00) mmol/L BUN/Creatinine Ratio 20.40 H (12.00-20.00) Ratio POC Glucose (mg/dL) 126 H (70-110) mg/dL Calcium 8.6 L (8.7-10.3) mg/dL Assessment and Plan Assessment: Influenza infection without pneumonia or hypoxia Generalized body ache chronic back pain secondary to above, currently improving Multiple myeloma with metastasis suspicious for liver and the lung, the spine Bilateral pleural effusion with nodular pleural thickening, chronic without hypoxia. Associated with mild fluid overload and leg edema Chronic anemia and thrombocytopenia Plan: Will start Tamiflu Benadryl as needed Discontinue IV Dilaudid and Ativan Continue with home dose of oral Dilaudid Check chest x-ray and labs Breathing treatment Further recommendation based on the clinical course Overall patient is doing well so far Will keep monitoring him for another 24 hours and if stable may be considered for discharge tomorrow GI and DVT prophylaxis
--- NOTE | 2024-06-03 10:52 | XR ---
EXAMINATION TYPE: XR chest 1V DATE OF EXAM: 06/03/2024 CLINICAL INDICATION: Male, 48 years old with history of sob, progress study. TECHNIQUE: Single AP portable upright view of the chest is obtained. COMPARISON: Chest x-ray from 2 days earlier and older studies FINDINGS: Persistent small to moderate-sized bilateral pleural effusions with pleural based nodules or nodular thickening redemonstrated bilaterally. More prominent central vascular congestion. Cardiac silhouette size is stable and within normal limits. Osseous structures are intact. IMPRESSION: Increasing central vascular congestion suggests fluid overload state. [facility], , 06/03/2024 10:49 AM
[2024-06-03] MEDS ORDERED: diphenhydrAMINE 25 MG CAP PO PRN (10:57)
[2024-06-03] MEDS: diphenhydrAMINE 50 MG/ML 1 ML VIAL IVP PRN (11:18)
[2024-06-03] MEDS ORDERED: FUROSEMIDE 10 MG/ML 4 ML VIAL IV SCH (12:00)
[2024-06-03] MEDS: HYDROmorphone 2 MG TAB PO PRN (12:27)
[2024-06-03] MEDS: FUROSEMIDE 10 MG/ML 10 ML VIAL IV SCH (12:28)
[2024-06-03] MEDS: POTASSIUM CHLORIDE ER 20 MEQ TAB.ER PO STA (12:28)
[2024-06-03] MEDS: IPRATROPIUM-ALBUTEROL 3 ML NEB INHALATION STA (12:59)
[2024-06-03] MEDS ORDERED: hydrOXYzine HCL 25 MG TAB PO PRN (14:19)
[2024-06-03] MEDS ORDERED: KETOROLAC 15 MG/ML 1 ML VIAL IVP PRN (14:33)
[2024-06-03] MEDS: LIDOCAINE 4% CREAM 5 GM TUBE TOPICAL ONE (17:27)
[2024-06-03] MEDS: DEXAMETHASONE SOD PHOSPHATE 4 MG/ML 1 ML VIAL IVP SCH (17:27)
[2024-06-03] MEDS: ACETAMINOPHEN TAB 325 MG TAB PO SCH (17:28)
[2024-06-03 17:31] LABS: HCT 29.5 % (39.0-53.0); HGB 10.3 gm/dL (13.0-17.5); MCHC 34.9 g/dL (31.0-37.0); MCV 103.2 fL (80.0-100.0); Macrocytosis Moderate; Mean Platelet Volume 8.8; Poikilocytosis Slight; RBC 2.86 m/uL (4.30-5.90); RDW 15.9 % (11.5-15.5); WBC 6.8 k/uL (3.8-10.6)
[2024-06-03 17:32] LABS: African American GFR (CKD) >90 (>60 ml/min/1.73 sqM); Anion Gap 12 mmol/L; Blood Urea Nitrogen 27 mg/dL (9-20); Calcium 8.2 mg/dL (8.4-10.2); Carbon Dioxide 25 mmol/L (22-30); Chloride 93 mmol/L (98-107); Glucose 113 mg/dL (74-99); Non-African American GFR(CKD) 84 (>60 ml/min/1.73 sqM); Potassium 3.7 mmol/L (3.5-5.1); Sodium 130 mmol/L (137-145)
[2024-06-03 17:38] LABS: Platelet Count 80 k/uL (150-450)
[2024-06-03] MEDS: HYDROmorphone 2 MG TAB PO STA (17:46)
[2024-06-04] MEDS: DOXYCYCLINE 100 MG TABLET PO SCH (08:47)
[2024-06-04] MEDS: polyethylene glycoL 3350 17 GM POWD.PACK PO PRN (08:51)
[2024-06-04 10:50] LABS: BUN/Creat Ratio 31.22 Ratio (12.00-20.00); Blood Urea Nitrogen 28.1 mg/dL (9.0-27.0); Calcium 7.9 mg/dL (8.7-10.3); Chloride 97 mmol/L (96-109); Glucose 134 mg/dL (70-110); Potassium 3.7 mmol/L (3.5-5.5); Sodium 136 mmol/L (135-145)
[2024-06-04 11:18] LABS: Basophils # (A) 0.01 X 10*3/uL (0.00-0.10); Basophils % (A) 0.2 %; Eosinophils # (A) 0 X 10*3/uL (0.04-0.35); Eosinophils % (A) 0 %; HCT 28.1 % (39.6-50.0); HGB 9.6 g/dL (13.0-17.0); Immature Platelet Fraction 4.3 % (1.1-6.1); Lymphocytes # (A) 0.55 X 10*3/uL (0.90-5.00); Lymphocytes % (A) 10.4 %; MCHC 34.2 g/dL (32.0-37.0); MCV 105.2 FL (80.0-97.0); Macrocytosis (M) 2+ (None Seen); Mean Platelet Volume 10.9 FL (9.5-12.2); Monocytes # (A) 0.39 X 10*3/uL (0.20-1.00); Monocytes % (A) 7.3 %; NRBC Per 100 WBC 0.02 X 10*3/uL (0.00-0.01); Neutrophils # (A) 4.26 X 10*3/uL (1.80-7.70); Neutrophils % (A) 80.2 %; Platelet Count 82 X 10*3/uL (140-440); RBC 2.67 X 10*6/uL (4.40-5.60); RDW 15.9 % (11.5-14.5); Tear Drop Cells 2+ (None Seen); WBC 5.31 X 10*3/uL (4.50-10.00)
--- NOTE | 2024-06-04 12:23 | P.PN ---
Subjective This is a pleasant 48 years old male with past medical history of multiple myeloma with bone metastasis as well as bilateral pulmonary nodule and liver lesions suspicious for metastasis. He was recently in this facility, he is known to our service from last admission. He was discharged home in stable condition at that time. He presents this time because of increasing pain all over his body, patient could not specify for how long, probably for few days mainly in the back. Patient is a known case of chronic back pain taking oral Dilaudid. Also last time there was suspicion using Dilaudid powder for sniffing, Patient denies any other complaint, no chest pain shortness of breath or coughing. No abdominal pain or vomiting or diarrhea. No urinary complaint. No headache dizziness weakness or numbness. Patient denies smoking alcohol or illicit drugs. Patient hemodynamically stable and afebrile Labs showing chronic anemia currently hemoglobin 9.5 and 9.4, platelet count is always low currently stable 81 and 88. Blast cells are 2%. Well BMP LFT and INR were unremarkable COVID test is negative but influenza test came back positive Chest x-ray showing bilateral pleural effusion bilateral nodularity of the pleural thickening, I reviewed the chest x-ray by myself and agree with these findings EKG is showing sinus rhythm at [address]-T changes 06/03 Patient awake alert with no chest pain Vital stable with no fever However patient has shivering and chills and he vomited once, Zofran provided for him He complains from some breathing difficulty. Breathing treatments provided for him and will going to recheck his chest x-ray Will check labs today including procalcitonin Discontinue IV pain medication and IV Ativan for high risk of side effects. Will give him some Benadryl IV which will help with nausea vomiting and allergic reaction and itching as needed Continue on Tamiflu. Continue with dexamethasone Continue with home dose of oral Dilaudid Discussed in length with the plan with the patient and he is agreeable 06/04 Patient yesterday was started on IV antibiotics ceftriaxone and Rocephin for suspected bacterial infection. Patient has no fever or leukocytosis but his procalcitonin was elevated 1.3 and 0.8 today. Patient himself is awake alert, he states that his breathing has improved. He was on IV Lasix 60 mg twice daily. I think we can switch him to oral dose today. He is refusing the IV antibiotic because he is upset because of his pain medication. Patient is already on his home regimen of Dilaudid 8 mg every 8 hours and given extra doses of Dilaudid orally. He is adamant to get it IV. We are going to give him one-time dose of IV Dilaudid. Also patient wants to consider hospice and he wants to talk to his oncologist about prognosis of his disease therefore oncology/hematology team are consulted. I have lengthy discussion with the patient regarding risk and benefits of medication and management plan. He is agreeable to this plan. He is not sure about the antibiotics. Review of systems CONSTITUTIONAL: No fever, no malaise, no fatigue. HEENT: No recent visual problems or hearing problems. Denied any sore throat. CARDIOVASCULAR: No orthopnea, PND, no palpitations, no syncope. HEMATOLOGICAL: Denies any bleeding or petechiae. GENITOURINARY: Denies any burning micturition, frequency, or urgency. ENDOCRINE: Denies any polyuria or polydipsia. Active Medications Generic Name Dose Route Start Last Admin Trade Name Freq PRN Reason Stop Dose Admin Albuterol/Ipratropium 3 ml 06/03/24 10:15 Ipratropium-Albuterol 3 Ml Neb INHALATION RT-QID PRN Shortness Of Breath Or Wheezing Dexamethasone Sodium Phosphate 4 mg 06/03/24 16:00 06/04/24 06:19 Dexamethasone Sod Phosphate 4 Mg/Ml 1 Ml Vial IVP 4 mg Q6HR JIMENA Administration Diphenhydramine HCl 25 mg 06/03/24 11:04 06/03/24 11:18 Diphenhydramine 50 Mg/Ml 1 Ml Vial IVP 25 mg Q8HR PRN Administration Allergy Symptoms Doxycycline Hyclate 100 mg 06/04/24 09:00 06/04/24 08:47 Doxycycline 100 Mg Tablet PO Not Given BID JIMENA Protocol Gabapentin 300 mg 06/03/24 15:46 Gabapentin 300 Mg Cap PO TID PRN Pain Hydromorphone HCl 8 mg 06/03/24 08:19 06/04/24 06:19 Hydromorphone 2 Mg Tab PO 8 mg TID PRN Administration Pain Hydroxyzine HCl 25 mg 06/03/24 14:19 Hydroxyzine Hcl 25 Mg Tab PO TID PRN Itching Ceftriaxone Sodium 1 gm/ 50 mls @ 100 mls/hr 06/04/24 09:00 06/04/24 08:47 Sodium Chloride IVPB Not Given Q24HR [facility] Protocol Lactulose 10 gm 06/02/24 14:49 Lactulose 20 Gm/30 Ml Cup PO DAILY PRN Constipation Naloxone HCl 0.2 mg 06/01/24 23:43 Naloxone 0.4 Mg/Ml 1 Ml Vial IV Q2M PRN Opioid Reversal Lenalidomide [ 20 mg 06/03/24 09:00 06/04/24 08:48 Revlimid] 20 Mg PO Not Given Capsule DAILY [facility] Ondansetron HCl 4 mg 06/03/24 08:19 Ondansetron 4 Mg/2 Ml Vial IVP Q6HR PRN Nausea And Vomiting Oseltamivir Phosphate 75 mg 06/02/24 18:00 06/04/24 06:19 Oseltamivir 75 Mg Cap PO 06/06/24 18:01 75 mg Q12H JIMENA Administration Protocol Polyethylene Glycol 17 gm 06/02/24 14:49 06/04/24 08:51 Polyethylene Glycol 3350 17 Gm Powd.Pack PO 17 gm DAILY PRN Administration Constipation Objective - Vital Signs Vital signs: Vital Signs Temp 97.5 F L 06/04/24 07:00 Pulse 83 06/04/24 07:00 Resp 18 06/04/24 07:00 BP 99/67 06/04/24 07:00 Pulse Ox 98 06/04/24 07:00 FiO2 Intake & Output 06/03/24 06/04/24 06/04/24 18:59 06:59 18:59 Output Total 1600 Balance -1600 Output: Urine 1600 Other: Voiding Method Toilet Toilet Toilet Urinal Urinal Urinal # Voids 1 # Bowel Movements 0 - Exam GENERAL: The patient is alert and oriented x3, not in any acute distress. Well developed, well nourished. HEENT: Pupils are round and equally reacting to light. EOMI. No scleral icterus. No conjunctival pallor. Normocephalic, atraumatic. No pharyngeal erythema. No thyromegaly. CARDIOVASCULAR: S1 and S2 present. No murmurs, rubs, or gallops. PULMONARY: Chest is clear to auscultation, no wheezing , no crackles. ABDOMEN: Soft, nontender, nondistended, normoactive bowel sounds. No palpable organomegaly. MUSCULOSKELETAL: No joint swelling or deformity. EXTREMITIES: No cyanosis, clubbing, or pedal edema. NEUROLOGICAL: Gross neurological examination did not reveal any focal deficits. SKIN: No rashes. no petechiae. - Labs CBC & Chem 7: 06/04/24 08:15 06/04/24 08:15 Labs: Abnormal Lab Results - Last 24 Hours (Table) 06/03/24 06/03/24 06/03/24 Range/Units 16:57 16:57 16:57 RBC 2.86 L (4.30-5.90) m/uL Hgb 10.3 L (13.0-17.5) gm/dL Hct 29.5 L (39.0-53.0) % MCV 103.2 H (80.0-100.0) fL MCH 36.0 H (25.0-35.0) pg RDW 15.9 H (11.5-15.5) % Plt Count 80 L (150-450) k/uL Immature Gran # (0.00-0.04) X 10*3/uL Lymphocytes # (0.90-5.00) X 10*3/uL Eosinophils # (0.04-0.35) X 10*3/uL NRBC/100 WBC Diff (0.00-0.01) X 10*3/uL Macrocytosis (manual) (None Seen) Tear Drop Cells (None Seen) Sodium 130 L (137-145) mmol/L Chloride 93 L (98-107) mmol/L Anion Gap (4.00-12.00) mmol/L BUN 27 H (9-20) mg/dL BUN/Creatinine Ratio (12.00-20.00) Ratio Glucose 113 H (74-99) mg/dL Calcium 8.2 L (8.4-10.2) mg/dL Procalcitonin 1.30 H (0.02-0.50) ng/mL 06/04/24 06/04/24 06/04/24 Range/Units 08:15 08:15 08:15 RBC 2.67 L (4.30-5.90) m/uL Hgb 9.6 L (13.0-17.5) gm/dL Hct 28.1 L (39.0-53.0) % MCV 105.2 H (80.0-100.0) fL MCH 36.0 H (25.0-35.0) pg RDW 15.9 H (11.5-15.5) % Plt Count 82 L (150-450) k/uL Immature Gran # 0.10 H (0.00-0.04) X 10*3/uL Lymphocytes # 0.55 L (0.90-5.00) X 10*3/uL Eosinophils # 0 L (0.04-0.35) X 10*3/uL NRBC/100 WBC Diff 0.02 H (0.00-0.01) X 10*3/uL Macrocytosis (manual) 2+ A (None Seen) Tear Drop Cells 2+ A (None Seen) Sodium (137-145) mmol/L Chloride (98-107) mmol/L Anion Gap 15.00 H (4.00-12.00) mmol/L BUN 28.1 H (9-20) mg/dL BUN/Creatinine Ratio 31.22 H (12.00-20.00) Ratio Glucose 134 H (74-99) mg/dL Calcium 7.9 L (8.4-10.2) mg/dL Procalcitonin 0.85 H (0.02-0.50) ng/mL Assessment and Plan Assessment: Influenza infection Without hypoxia bilateral infiltrate Suspicious for pneumonia or fluid overload Generalized body ache chronic back pain secondary to above, most likely related to his multiple myeloma Multiple myeloma with metastasis suspicious for liver and the lung, the spine Bilateral pleural effusion with nodular pleural thickening, chronic without hypoxia. Associated with mild fluid overload and leg edema Chronic anemia and thrombocytopenia Plan: Continue with Tamiflu Patient was started on ceftriaxone and Zithromax but patient declined taking this medication despite risks and benefits explained for him Benadryl as needed Discontinue IV Dilaudid and Ativan. Continue with oral Dilaudid. Will give him only one-time dose of of IV Dilaudid 0.5 mg and then will continue with oral dose. Patient informed of this and he agrees C will consult hematology/oncology team as patient wants to know about his prognosis and may consider hospice infectious disease consult Breathing treatment Further recommendation based on the clinical course Overall patient is doing well so far Will keep monitoring him for another 24 hours and if stable may be considered for discharge tomorrow GI and DVT prophylaxis
[2024-06-04] MEDS: HYDROmorphone 0.5 MG/0.5 ML SYRINGE IVP STA (12:25)
--- NOTE | 2024-06-04 15:31 | P.CN ---
Psychiatric Consult - . Consult date: 06/04/24 Consult:: 06/04/24 15:27 IDENTIFYING DATA: This patient is a 48-year-old male, on disability and living with parents REASON FOR REFERRAL: Psychiatry was consulted for depression HISTORY OF PRESENT ILLNESS: The patient presented to the hospital with worsening pain. Patient has multiple myeloma with chronic pain. He tested positive for influenza. Patient reports having extreme pain related to his cancer and is disappointed with how he has been treated during this hospitalization. He denied any depression or depressive symptoms and states he just expressed frustrations with his current provider. He states he is anglican and relies strongly on [facility]. At this time patient denies any suicidal or homicidal ideations, intent or plan. Patient denies any auditory, visual hallucinations and denies any paranoia or delusions. Patients admits to using no substances. PAST PSYCHIATRIC HISTORY: Patient has no past psych history. Patient denies being on any psychiatric medications. Patient denies any previous psychiatric hospitalizations. Patient denies any psychiatric outpatient follow-up. Patient denies any history of suicide attempts in the past. PAST MEDICAL HISTORY: Multiple myeloma. ALLERGIES: as per EMR. CHEMICAL DEPENDENCY HISTORY: as per HPI. FAMILY PSYCHIATRIC/SUBSTANCE USE HISTORY: Denies SOCIAL HISTORY: Patient moved in with his parents from [place] to [place] after diagnosis and has been staying with them since. He is on disability, is single and has no children. MENTAL STATUS EXAM: General Appearance: Patient appears to be stated age is alert, pleasant, and cooperative. Patient appears to have fair hygiene and grooming wearing hospital gown with fair eye contact. Behavior: Patient is calmly lying in bed without any agitated behavior. Speech: Patient's speech is fluent and nonpressured. Mood/Affect: Patient reports their mood is "okay", affect is congruent Suicidality/Homicidality: Patient denies having any suicidal or homicidal ideation intent or plan. Perceptions: Patient denies any visual hallucinations and denies any auditory hallucinations Though content/process: There is no evidence of any delusional thought content and thought process is linear and goal-directed. Memory and concentration: AOX3, grossly intact for the purposes of this session. Can spell "WORLD" backwards Judgment and insight: Poor IMPRESSIONS: Multiple myeloma PLAN: -At this time patient DOES NOT meet criteria for inpatient psychiatric admission. -Would recommend the following medication changes/additions: No medications at this time. Patient has already been provided with resources for counseling in the area and was encouraged to look into this -[facility] care worker to provide patient with outpatient mental health/psychiatry resources for appropriate follow up upon discharge -Communicated plan to patient's nurse -Psychiatry will sign off at this time -Please contact with any questions.
--- NOTE | 2024-06-04 23:33 | P.CONS ---
History of Present Illness - Reason for Consult Consult date: 06/04/24 Influenza, possible pneumonia Requesting physician: Parmjit E Sheet - Chief Complaint Generalized body aches and pain x days - History of Present Illness Patient is a 48-year-old male with a past medical history significant for multiple myeloma on chemo did have a chronic back pain because of laminectomy compression at the lower thoracic spine presenting to the hospital 3 days ago increasing pain all over his body that has been progressively getting worse to be almost 10 out of 10 patient denies having any focal weakness and denies any high-grade fever on presentation to the hospital patient was afebrile no fever have been ordered subsequently patient denies having any chest pain did have some episode of shortness of breath especially with extreme pain but denies any cough or sputum production some nausea but no vomiting no abdominal pain only diarrhea patient on presentation to the hospital was afebrile no fever have recorded subsequently patient was not tachycardic hypotensive or hypoxic patient did have normal white count creatinine has been 1.0 electrolytes are normal liver enzymes are normal patient did have elevated procalcitonin of 1.30 patient did tested positive for influenza A RSV and COVID testing was negative he did have a chest x-ray bilateral effusion noted left pleural thickening seen bilaterally infectious he was consulted concerning for influenza and possible pneumonia Review of Systems Positive point and negatives has been mentioned in the HPI, complete review of systems was performed and all other systems are negative Past Medical History Past Medical History: Cancer Additional Past Medical History / Comment(s): multiple myloma on chemo. History of prior laminectomy decompression at lower thoracic with Dr. Dominguez in January 2022. History of multiple soft tissue masses throughout his thoracic lumbar and sacral spine. history lower extremity weakness History of Any Multi-Drug Resistant Organisms: None Reported Past Surgical History: No Surgical Hx Reported Additional Past Surgical History / Comment(s): back surgery to remove tumor december of 2021. Bone biospy of right hip, spinal decompression Past Anesthesia/Blood Transfusion Reactions: No Reported Reaction Past Psychological History: No Psychological Hx Reported Smoking Status: Never smoker Past Alcohol Use History: None Reported Additional Past Alcohol Use History / Comment(s): has not had a drink in about a year Past Drug Use History: Marijuana Medications and Allergies Home Medications Medication Instructions Recorded Confirmed Type Lenalidomide [Revlimid] 20 mg PO DIRECTED 09/04/23 06/02/24 History HYDROmorphone HCL [Dilaudid] 8 mg PO TID 05/05/24 06/02/24 History dexAMETHasone [Decadron] 4 mg PO DAILY 05/05/24 06/02/24 History LORazepam 0.5 mg PO BID 06/02/24 06/02/24 History Lactulose 10 gm PO DAILY PRN 06/02/24 06/02/24 History polyethylene glycoL 3350 [Miralax] 17 gm PO DAILY PRN 06/02/24 06/02/24 History Allergies Allergy/AdvReac Type Severity Reaction Status Date / Time No Known Allergies Allergy Verified 06/02/24 11:37 Physical Exam Vitals: Vital Signs Temp Pulse Pulse Resp BP Pulse Ox 06/04/24 07:00 97.5 F L 83 18 99/67 98 06/04/24 02:14 98.4 F 74 16 109/67 97 06/03/24 19:27 98.2 F 89 18 111/75 96 06/03/24 15:10 98.4 F 118 H 18 119/84 95 06/03/24 13:09 100 06/03/24 12:59 100 Intake and Output 06/03/24 06/04/24 06/04/24 22:59 06:59 14:59 Output Total 600 1000 Balance -600 -1000 Output: Urine 600 1000 Other: Voiding Method Toilet Urinal # Voids 1 # Bowel Movements 0 GENERAL DESCRIPTION: Middle-age male lying in bed, no distress. No tachypnea or accessory muscle of respiration use. HEENT: Shows Pallor , no scleral icterus. Oral mucous membrane is dry. No pharyngeal erythema or thrush NECK: Trachea central, no thyromegaly. LUNGS: Unlabored breathing. Decreased breath sound at the base. HEART: S1, S2, regular rate and rhythm. No loud murmur ABDOMEN: Soft, no tenderness , guarding or rigidity, no organomegaly EXTREMITIES: No edema of feet. SKIN: No rash, no masses palpable. NEUROLOGICAL: The patient is awake, alert, oriented x3, mood and affect normal. Results CBC & Chem 7: 06/04/24 08:15 06/04/24 08:15 Labs: Abnormal Lab Results - Last 24 Hours (Table) 06/03/24 06/03/24 06/03/24 Range/Units 16:57 16:57 16:57 RBC 2.86 L (4.30-5.90) m/uL Hgb 10.3 L (13.0-17.5) gm/dL Hct 29.5 L (39.0-53.0) % MCV 103.2 H (80.0-100.0) fL MCH 36.0 H (25.0-35.0) pg RDW 15.9 H (11.5-15.5) % Plt Count 80 L (150-450) k/uL Sodium 130 L (137-145) mmol/L Chloride 93 L (98-107) mmol/L Anion Gap (4.00-12.00) mmol/L BUN 27 H (9-20) mg/dL BUN/Creatinine Ratio (12.00-20.00) Ratio Glucose 113 H (74-99) mg/dL Calcium 8.2 L (8.4-10.2) mg/dL Procalcitonin 1.30 H (0.02-0.50) ng/mL 06/04/24 06/04/24 Range/Units 08:15 08:15 RBC (4.30-5.90) m/uL Hgb (13.0-17.5) gm/dL Hct (39.0-53.0) % MCV (80.0-100.0) fL MCH (25.0-35.0) pg RDW (11.5-15.5) % Plt Count (150-450) k/uL Sodium (137-145) mmol/L Chloride (98-107) mmol/L Anion Gap 15.00 H (4.00-12.00) mmol/L BUN 28.1 H (9-20) mg/dL BUN/Creatinine Ratio 31.22 H (12.00-20.00) Ratio Glucose 134 H (74-99) mg/dL Calcium 7.9 L (8.4-10.2) mg/dL Procalcitonin 0.85 H (0.02-0.50) ng/mL Assessment and Plan (1) Influenza A Current Visit: Yes Status: Acute Code(s): J10.1 - FLU DUE TO OTH IDENT INFLUENZA VIRUS W OTH RESP MANIFEST SNOMED Code(s): 736860212 (2) Pneumonia Current Visit: Yes Status: Acute Code(s): J18.9 - PNEUMONIA, UNSPECIFIED ORGANISM SNOMED Code(s): 699839866 Plan: 1patient presented hospital with generalized body aches and pains and this patient has been diagnosed with influenza A however also have elevated procalcitonin that would be suspicious for possible component of bacterial pneumonia however symptom clarke no significant cough chest x-ray has been mostly congestion but no consolidation 2-patient to continue with Tamiflu to finish a 5-day course of therapy 3-continue with Rocephin and doxycycline for possible component of bacterial pneumonia Multiple question concern answered We will follow on clinical condition and cultures to further adjust medication if needed Thank you for this consultation we will follow the patient along with you Dictation was produced using [employer] dictation software. please excuse any grammatical, word or spelling errors. Time with Patient: Greater than 30
[2024-06-05] MEDS: GABAPENTIN 300 MG CAP PO PRN (06:31)
--- NOTE | 2024-06-05 11:07 | P.PN ---
Subjective This is a pleasant 48 years old male with past medical history of multiple myeloma with bone metastasis as well as bilateral pulmonary nodule and liver lesions suspicious for metastasis. He was recently in this facility, he is known to our service from last admission. He was discharged home in stable condition at that time. He presents this time because of increasing pain all over his body, patient could not specify for how long, probably for few days mainly in the back. Patient is a known case of chronic back pain taking oral Dilaudid. Also last time there was suspicion using Dilaudid powder for sniffing, Patient denies any other complaint, no chest pain shortness of breath or coughing. No abdominal pain or vomiting or diarrhea. No urinary complaint. No headache dizziness weakness or numbness. Patient denies smoking alcohol or illicit drugs. Patient hemodynamically stable and afebrile Labs showing chronic anemia currently hemoglobin 9.5 and 9.4, platelet count is always low currently stable 81 and 88. Blast cells are 2%. Well BMP LFT and INR were unremarkable COVID test is negative but influenza test came back positive Chest x-ray showing bilateral pleural effusion bilateral nodularity of the pleural thickening, I reviewed the chest x-ray by myself and agree with these findings EKG is showing sinus rhythm at [address]-T changes 06/03 Patient awake alert with no chest pain Vital stable with no fever However patient has shivering and chills and he vomited once, Zofran provided for him He complains from some breathing difficulty. Breathing treatments provided for him and will going to recheck his chest x-ray Will check labs today including procalcitonin Discontinue IV pain medication and IV Ativan for high risk of side effects. Will give him some Benadryl IV which will help with nausea vomiting and allergic reaction and itching as needed Continue on Tamiflu. Continue with dexamethasone Continue with home dose of oral Dilaudid Discussed in length with the plan with the patient and he is agreeable 06/04 Patient yesterday was started on IV antibiotics ceftriaxone and Rocephin for suspected bacterial infection. Patient has no fever or leukocytosis but his procalcitonin was elevated 1.3 and 0.8 today. Patient himself is awake alert, he states that his breathing has improved. He was on IV Lasix 60 mg twice daily. I think we can switch him to oral dose today. He is refusing the IV antibiotic because he is upset because of his pain medication. Patient is already on his home regimen of Dilaudid 8 mg every 8 hours and given extra doses of Dilaudid orally. He is adamant to get it IV. We are going to give him one-time dose of IV Dilaudid. Also patient wants to consider hospice and he wants to talk to his oncologist about prognosis of his disease therefore oncology/hematology team are consulted. I have lengthy discussion with the patient regarding risk and benefits of medication and management plan. He is agreeable to this plan. He is not sure about the antibiotics. 06/05 Patient today feels better, he states his breathing is easier although he still mildly tachypneic His breathing on examination also looks improved. Patient is still on Tamiflu for his influenza infection. He was placed on IV antibiotics ceftriaxone and doxycycline for elevated procalcitonin however procalcitonin start improving on its own. Infectious disease input is appreciated still do recommend to continue with IV antibiotics for now. Patient refusing the IV antibiotics. He does not think he needed. I offered to switch her to oral antibiotic and he is going to think about it and consider it but for now he refuses any antibacterial antibiotic. Hematology/oncology team consult evaluated the patient this morning and they recommended hospice consult. Hospice team there were talking to the patient, both the patient and the staff told me is for informational consult for now. Patient looks a pleasant and pain control this morning. Last night when I checked on the patient he was sleeping. Active Medications Generic Name Dose Route Start Last Admin Trade Name Freq PRN Reason Stop Dose Admin Albuterol/Ipratropium 3 ml 06/03/24 10:15 Ipratropium-Albuterol 3 Ml Neb INHALATION RT-QID PRN Shortness Of Breath Or Wheezing Dexamethasone Sodium Phosphate 4 mg 06/03/24 16:00 06/05/24 06:31 Dexamethasone Sod Phosphate 4 Mg/Ml 1 Ml Vial IVP 4 mg Q6HR JIMENA Administration Diphenhydramine HCl 25 mg 06/03/24 11:04 06/03/24 11:18 Diphenhydramine 50 Mg/Ml 1 Ml Vial IVP 25 mg Q8HR PRN Administration Allergy Symptoms Doxycycline Hyclate 100 mg 06/04/24 09:00 06/05/24 10:04 Doxycycline 100 Mg Tablet PO Not Given BID JIMENA Protocol Furosemide 40 mg 06/06/24 09:00 Furosemide 40 Mg Tab PO DAILY [facility] Gabapentin 300 mg 06/03/24 15:46 06/05/24 06:31 Gabapentin 300 Mg Cap PO 300 mg TID PRN Administration Pain Hydromorphone HCl 8 mg 06/03/24 08:19 06/05/24 07:32 Hydromorphone 2 Mg Tab PO 8 mg TID PRN Administration Pain Hydroxyzine HCl 25 mg 06/03/24 14:19 Hydroxyzine Hcl 25 Mg Tab PO TID PRN Itching Ceftriaxone Sodium 1 gm/ 50 mls @ 100 mls/hr 06/04/24 09:00 06/05/24 10:04 Sodium Chloride IVPB Not Given Q24HR [facility] Protocol Lactulose 10 gm 06/02/24 14:49 Lactulose 20 Gm/30 Ml Cup PO DAILY PRN Constipation Naloxone HCl 0.2 mg 06/01/24 23:43 Naloxone 0.4 Mg/Ml 1 Ml Vial IV Q2M PRN Opioid Reversal Lenalidomide [ 20 mg 06/03/24 09:00 06/05/24 10:04 Revlimid] 20 Mg PO Not Given Capsule DAILY [facility] Ondansetron HCl 4 mg 06/03/24 08:19 Ondansetron 4 Mg/2 Ml Vial IVP Q6HR PRN Nausea And Vomiting Oseltamivir Phosphate 75 mg 06/02/24 18:00 06/05/24 06:31 Oseltamivir 75 Mg Cap PO 06/06/24 18:01 75 mg Q12H [facility] Administration Protocol Polyethylene Glycol 17 gm 06/02/24 14:49 06/04/24 08:51 Polyethylene Glycol 3350 17 Gm Powd.Pack PO 17 gm DAILY PRN Administration Constipation Objective - Vital Signs Vital signs: Vital Signs Temp 97.6 F 06/05/24 07:40 Pulse 84 06/05/24 07:40 Resp 20 06/05/24 07:40 BP 104/65 06/05/24 07:40 Pulse Ox 95 06/05/24 07:40 FiO2 21 06/04/24 12:25 Intake & Output 06/04/24 06/05/24 06/05/24 18:59 06:59 18:59 Intake Total 0 Output Total 200 400 Balance -200 -400 Intake: Intake, IV Titration 0 Amount cefTRIAXone 1 gm In 0 Sodium Chloride 0.9% 50 ml @ 100 mls/hr IVPB Q24HR [facility] Rx#:[id number] Output: Urine 200 400 Other: Voiding Method Toilet Toilet Toilet Urinal Urinal Urinal # Voids 2 2 # Bowel Movements 0 - Exam GENERAL: The patient is alert and oriented x3, not in any acute distress. Well developed, well nourished. HEENT: Pupils are round and equally reacting to light. EOMI. No scleral icterus. No conjunctival pallor. Normocephalic, atraumatic. No pharyngeal erythema. No thyromegaly. CARDIOVASCULAR: S1 and S2 present. No murmurs, rubs, or gallops. PULMONARY: Chest is clear to auscultation, no wheezing , no crackles. ABDOMEN: Soft, nontender, nondistended, normoactive bowel sounds. No palpable organomegaly. MUSCULOSKELETAL: No joint swelling or deformity. EXTREMITIES: No cyanosis, clubbing, or pedal edema. NEUROLOGICAL: Gross neurological examination did not reveal any focal deficits. SKIN: No rashes. no petechiae. - Labs CBC & Chem 7: 06/04/24 08:15 06/04/24 08:15 Labs: Abnormal Lab Results - Last 24 Hours (Table) 06/04/24 Range/Units 08:15 RBC 2.67 L (4.40-5.60) X 10*6/uL Hgb 9.6 L (13.0-17.0) g/dL Hct 28.1 L (39.6-50.0) % MCV 105.2 H (80.0-97.0) FL MCH 36.0 H (27.0-32.0) pg RDW 15.9 H (11.5-14.5) % Plt Count 82 L (140-440) X 10*3/uL Immature Gran # 0.10 H (0.00-0.04) X 10*3/uL Lymphocytes # 0.55 L (0.90-5.00) X 10*3/uL Eosinophils # 0 L (0.04-0.35) X 10*3/uL NRBC/100 WBC Diff 0.02 H (0.00-0.01) X 10*3/uL Macrocytosis (manual) 2+ A (None Seen) Tear Drop Cells 2+ A (None Seen) Assessment and Plan Assessment: Influenza infection Without hypoxia bilateral infiltrate Suspicious for pneumonia or fluid overload Generalized body ache chronic back pain secondary to above, most likely related to his multiple myeloma Multiple myeloma with metastasis suspicious for liver and the lung, the spine Bilateral pleural effusion with nodular pleural thickening, chronic without hypoxia. Associated with mild fluid overload and leg edema Chronic anemia and thrombocytopenia Plan: Continue with Tamiflu Patient was started on ceftriaxone and Zithromax but patient declined taking this medication despite risks and benefits explained for him. Patient refuses IV or oral antibiotic. Risk and benefit explained. Benadryl as needed Discontinue IV Dilaudid and Ativan. Continue with oral Dilaudid. Will give him only one-time dose of of IV Dilaudid 0.5 mg and then will continue with oral dose. Patient informed of this and he agrees will consult hematology/oncology team as patient wants to know about his prognosis and may consider hospice. Hematology/oncology already evaluated the patient. We will defer the need for hospice care due to their service. infectious disease consult Breathing treatment Further recommendation based on the clinical course Overall patient is doing well so far Will keep monitoring him for another 24 hours and if stable may be considered for discharge tomorrow GI and DVT prophylaxis
[2024-06-05] MEDS: dexAMETHasone 4 MG TAB PO SCH (12:04)
[2024-06-05] MEDS: PANTOPRAZOLE 40 MG TABLET PO SCH (12:04)
--- NOTE | 2024-06-05 14:19 | P.PN ---
Subjective Progress Note Date: 06/05/24 Principal diagnosis: Reason for follow-up is influenza A pneumonia Patient is a 48-year-old male with a past medical history significant for multiple myeloma on chemo did have a chronic back pain because of laminectomy compression at the lower thoracic spine presenting to the hospital for evaluation generalized bodyaches also have some cough patient be diagnosed with influenza A with elevated procalcitonin concerning for secondary pneumonia. On today's evaluation that is 06/05/2024,the patient remains to be afebrile, patient is on room air not requiring supplemental oxygen and denies any shortness of breath no chest pain did have some cough with occasional sputum that he swallows no abdominal pain or diarrhea. Patient white count is 5.31, creatinine 0.9 Pro-Dwayne's is trending down as of yesterday no cultures Objective - Vital Signs Vital signs: Vital Signs Temp 97.6 F 06/05/24 07:40 Pulse 84 06/05/24 07:40 Resp 20 06/05/24 07:40 BP 104/65 06/05/24 07:40 Pulse Ox 95 06/05/24 07:40 FiO2 21 06/04/24 12:25 Intake & Output 06/04/24 06/05/24 06/05/24 18:59 06:59 18:59 Intake Total 0 Output Total 200 400 Balance -200 -400 Intake: Intake, IV Titration 0 Amount cefTRIAXone 1 gm In 0 Sodium Chloride 0.9% 50 ml @ 100 mls/hr IVPB Q24HR [facility] Rx#:[id number] Output: Urine 200 400 Other: Voiding Method Toilet Toilet Toilet Urinal Urinal Urinal # Voids 2 2 # Bowel Movements 0 - Exam GENERAL DESCRIPTION: Middle-age male up in the bed in no distress RESPIRATORY SYSTEM: Unlabored breathing , decreased breath sounds at bases HEART: S1 S2 regular rate and rhythm , ABDOMEN: Soft , no tenderness EXTREMITIES: No edema feet - Labs CBC & Chem 7: 06/04/24 08:15 06/04/24 08:15 Assessment and Plan (1) Influenza A Current Visit: Yes Status: Acute Code(s): J10.1 - FLU DUE TO OTH IDENT INFLU CARI VIRUS W OTH RESP MANIFEST SNOMED Code(s): 562969920 (2) Pneumonia Current Visit: Yes Status: Acute Code(s): J18.9 - PNEUMONIA, UNSPECIFIED ORGANISM SNOMED Code(s): 062851570 Plan: 1patient presented hospital with generalized body aches and pains and this patient has been diagnosed with influenza A however also have elevated procalcitonin that would be suspicious for possible component of bacterial pneumonia however symptom clarke no significant cough chest x-ray has been mostly congestion but no consolidation 2-patient to continue with Tamiflu to finish a 5-day course of therapy 3-patient to continue with Rocephin and doxycycline for possible component of bacterial pneumonia and monitor clinical course closely Dictation was produced using [employer] dictation software. please excuse any grammatical, word or spelling errors. Time with Patient: Less than 30
--- NOTE | 2024-06-05 17:30 | P.CONS ---
History of Present Illness - Reason for Consult Consult date: 06/05/24 MM Requesting physician: Parmjit Tinsley - Chief Complaint pain - History of Present Illness Mr. Harper is a 48-year-old male pt f Dr. James Douglas, on treatment for high risk IgG kappa light chain multiple myeloma, complicated by cord compression in December 2021 with plasmacytoma who received 3 cycles of DRvd treatment from June to August 2022 before moving to [place] where he was lost to follow-up. Subsequently he developed spinal cord compression in April 2023. Treated with radiation therapy with 1 cycle of CyBorD inpatient and 1 cycle of D-Krd at [facility] 07/03/23 before moving back to [place] to resume treatment. Myeloma labs in July 2023 kappa light chain of 80.85 with suppressed lambda light chain of less than 0.2 with kappa/lambda ratio of at least 400. He received day 1 of Kyprolis and daratumumab on 09/03/2023 that was complicated by episode of significant muscle stiffness with shaking of unclear etiology. It was not clear if this was a reaction to carfilzomib or daratumumab. He was hospitalized at [facility] from 09/04/2023 to 09/07/2023. MRI of the lumbar spine performed inpatient revealed no evidence of acute cord compression. Treatment with D-RVd was started back up on 09/18/2023 and received cycle 1 of treatment with cycle 2 initiated on 10/09/2023. Subsequently, he was admitted for pathologic fracture of the right hip requiring ORIF on 10/13/2023. Treatment has been held since then due to thrombocytopenia, likely due to inflammation from the surgery. Repeat myeloma labs from 10/26/2023 reveals stable disease with IgG of 152. He did resume treatment on 11/21/2023 and most recently received Darzalex and Velcade on 04/17/2024, missing last two treatments. At his last f/u he continued to have low back pain and stiffness with limited ambulation requiring Dilaudid, uncontrolled at his current dosing, and was increased to 8mg TID. It was also discussed concern for potential of disease progression. Different options, including CAR-T and PSMA-CD3 by specific antibodies were also discussed. For now, plan is continue on D-RVd as scheduled. However, pt has been non-complaint with treatment, and has missed last 4 chemo appts, and has not been taking revlimid as prescribed. Pt had thoracentesis during previous admit on 05/07/24, and cytology was positive for metastatic disease. He represented to the hospital for intractable back pain earlier this month. There were concerns from family patient was abusing his narcotics. CT brain without contrast showing no acute intracranial processes. MRI thoracic/lumbar spine was unable to be completed due to intolerance despite pre-medications. Images of thoracic spine without contrast was very limited but showed possible new lobular mass measuring 1.1x1.0x2.2cm in right paracentral region posterior to T7. CT thoracic and lumbar spine showing stable mild pathological superior endplate compression fracture of L3 without retropulsion. Multiple stable mixed sclerotic/lucent lesions in the thoracic and lumbar vertebral segments and right iliac wing and sacrum. No new lesions are seen. No malalignment of the vertebral segments in the thoracic or lumbar region and no significant degenerative disc disease or spinal stenosis noted. Laminectomy defect in the lower thoracic spine. Pt was seen on f/u with Dr. James Douglas on 05/29/24, and was c/o persistent pain. He is taking Dilaudid 8 mg every 8 hours as prescribed. When asked, he notes not taking his Revlimid consistently over the past couple months and has not been filled since January 2024. He had been receiving Velcade and and Darzalex monthly with his last treatment on 04/17/2024. He has missed multiple scheduled treatment since. During his last office f/u there was an extensive discussion regarding goals of cares, treatment options, and prognosis. He had stated he was not interested in pursuing active systemic treatment at this time, and wanted to focus on comfort care measures/pain control. A hospice referral was placed at that time. Per hospice, they had met with pt last weekend, and pt had started to request that he would only be interested in hospice if he was able to get specific dosing of dilaudid and ativan. Subsequently, hospice was not set up at that time. Pt then represented to the ER for intractable pain. Of note this is his 3rd admission for the same over the last 1 month. Pt was also found to have influenza A upon admit. He is requesting to see oncology for prognosis. Review of Systems 10 point ROS is negative except as stated in the HPI Past Medical History Past Medical History: Cancer Additional Past Medical History / Comment(s): multiple myloma on chemo. History of prior laminectomy decompression at lower thoracic with Dr. Dominguez in January 2022. History of multiple soft tissue masses throughout his thoracic lumbar and sacral spine. history lower extremity weakness History of Any Multi-Drug Resistant Organisms: None Reported Past Surgical History: No Surgical Hx Reported Additional Past Surgical History / Comment(s): back surgery to remove tumor december of 2021. Bone biospy of right hip, spinal decompression Past Anesthesia/Blood Transfusion Reactions: No Reported Reaction Past Psychological History: No Psychological Hx Reported Smoking Status: Never smoker Past Alcohol Use History: None Reported Additional Past Alcohol Use History / Comment(s): has not had a drink in about a year Past Drug Use History: Marijuana Medications and Allergies Home Medications Medication Instructions Recorded Confirmed Type Lenalidomide [Revlimid] 20 mg PO DIRECTED 09/04/23 06/02/24 History HYDROmorphone HCL [Dilaudid] 8 mg PO TID 05/05/24 06/02/24 History dexAMETHasone [Decadron] 4 mg PO DAILY 05/05/24 06/02/24 History LORazepam 0.5 mg PO BID 06/02/24 06/02/24 History Lactulose 10 gm PO DAILY PRN 06/02/24 06/02/24 History polyethylene glycoL 3350 [Miralax] 17 gm PO DAILY PRN 06/02/24 06/02/24 History Allergies Allergy/AdvReac Type Severity Reaction Status Date / Time No Known Allergies Allergy Verified 06/02/24 11:37 Physical Exam Vitals: Vital Signs Temp Pulse Resp BP Pulse Ox FiO2 06/05/24 07:40 97.6 F 84 20 104/65 95 06/05/24 07:30 84 20 06/05/24 01:13 98.4 F 93 17 105/63 93 L 06/04/24 18:55 98.0 F 81 19 106/70 94 L 06/04/24 14:00 98.3 F 93 18 101/58 93 L 06/04/24 12:25 98 21 Intake and Output 06/04/24 06/05/24 06/05/24 22:59 06:59 14:59 Intake Total 0 Output Total 600 Balance -600 Intake: Intake, IV Titration 0 Amount cefTRIAXone 1 gm In 0 Sodium Chloride 0.9% 50 ml @ 100 mls/hr IVPB Q24HR [facility] Rx#:[id number] Output: Urine 600 Other: Voiding Method Toilet Toilet Urinal Urinal # Voids 2 2 # Bowel Movements 0 - Constitutional General appearance: average body habitus, no acute distress - EENT Eyes: anicteric sclerae, EOMI ENT: hearing grossly normal - Respiratory breathing is even and unlabored - Cardiovascular skin warm and dry - Integumentary Integumentary: no cyanotic, no jaundiced - Musculoskeletal BLE weakness - Psychiatric Psychiatric: A&O x's 3 Results CBC & Chem 7: 06/04/24 08:15 06/04/24 08:15 Assessment and Plan (1) Influenza A Current Visit: Yes Status: Acute Priority: Medium Code(s): J10.1 - FLU DUE TO OTH IDENT INFLUENZA VIRUS W OTH RESP MANIFEST SNOMED Code(s): 956258252 (2) Multiple myeloma Current Visit: Yes Status: Chronic Priority: High Code(s): C90.00 - MULTIPLE MYELOMA NOT HAVING ACHIEVED REMISSION SNOMED Code(s): 801611421 (3) Intractable back pain Current Visit: Yes Status: Acute Priority: High Code(s): M54.9 - DORSALGIA, UNSPECIFIED SNOMED Code(s): 394509177 Plan: Influenza A -Started on tamiflu -Defer management to admitting team Intractable back pain, acute on chronic, secondary to multiple myeloma -Patient has a history of cord compression, spinal surgeries. Possible new lobular mass around T7. Compression fracture noted. Myeloma bone lesions, scattered. -Continue PO dilaudid 8mg TID. Start decadron 8mg BID Multiple myeloma -History as dictated in consult. -Currently he was recommended treatment with RVD and darzalex. Missed last 4 chemo treatments and has not been compliant with Revlimid dosing and frequency -During last admits, pt underwent thoracentesis, and cytology was positive for metastatic disease. Patient is aware of disease progression. Patient is aware that not taking the treatment as prescribed may have allowed the disease to progress and possibly he could have some disease regression if he was able to continue on treatment versus this being a true disease progression despite ce tment. -Pt was seen on f/u with Dr. James Douglas on 05/29/24,. When asked, he notes not taking his Revlimid consistently over the past couple months and has not been filled since January 2024. He had been receiving Velcade and and Darzalex monthly with his last treatment on 04/17/2024. He has missed multiple scheduled treatment since. During this last f/u appt there was an extensive discussion regarding goals of care, treatment options, and prognosis. He had stated he was not interested in pursuing active systemic treatment at this time, and wanted to focus on comfort care measures/pain control. A hospice referral was placed at that time. Per hospice, they had met with pt last weekend, and pt had stated that he would only be interested in hospice if he was able to get specific dosing of dilaudid and ativan. Subsequently, hospice was not set up at that time. -Pain management, treatment options, and prognosis was again discussed in detail at todays visit. Prognosis without treatment would be less than 6 months. Pt again stated he is focused on pain control and does not want systemic treatment at this time. Hospice was further discussed and pt was agreeable to the same. Hospice consult has been placed If patient desires to pursue further treatment in the future he is aware to call our clinic so we can set up f/u and further discuss treatment options attests: I have seen and examined pt, performed H&P, developed impression and plan of care. Discussed with dictator. Agree with documentation, dictated as a scribe.
[2024-06-06 02:41] VITALS: PULSE 69
[2024-06-06 07:02] LABS: HCT 28.4 % (39.0-53.0); HGB 9.9 gm/dL (13.0-17.5); MCH 36.5 pg (25.0-35.0); MCHC 34.9 g/dL (31.0-37.0); MCV 104.8 fL (80.0-100.0); Macrocytosis Moderate; Mean Platelet Volume 7.8; Poikilocytosis Slight; RBC 2.71 m/uL (4.30-5.90); RDW 15.5 % (11.5-15.5); WBC 7.3 k/uL (3.8-10.6)
[2024-06-06 07:14] LABS: African American GFR (CKD) >90 (>60 ml/min/1.73 sqM); Anion Gap 5 mmol/L; Blood Urea Nitrogen 22 mg/dL (9-20); Carbon Dioxide 25 mmol/L (22-30); Chloride 100 mmol/L (98-107); Glucose 94 mg/dL (74-99); Non-African American GFR(CKD) >90 (>60 ml/min/1.73 sqM); Potassium 4.3 mmol/L (3.5-5.1); Sodium 130 mmol/L (137-145)
[2024-06-06 07:18] LABS: Platelet Count 68 k/uL (150-450)
[2024-06-06 08:14] VITALS: BP 106/69; RESP 18; TEMP 99
[2024-06-06 08:16] LABS: Band Neutrophils % 3 %; Metamyelocytes # (M) 0.07 k/uL (0); Metamyelocytes % 1 %; Monocytes # (M) 0.51 k/uL (0-1.0); Neutrophils % (M) 80 %; Nucleated Red Blood Cells 0 /100 WBC (0-0); Total Cells Counted 200
[2024-06-06 08:17] LABS: Anisocytosis (M) Present; Poikilocytosis (M) Present; Tear Drop Cells Present
[2024-06-06] MEDS: FUROSEMIDE 40 MG TAB PO SCH (08:24)
--- NOTE | 2024-06-06 22:21 | P.DS ---
Providers Date of admission: 06/01/24 23:45 Attending physician: Arleth Fried Consults: 06/03/24 18:14 Consult Physician Routine Consulting Provider: Oneil Shine Consult Reason/Comments: depression Do you want consulting provider notified?: Yes 06/04/24 08:42 Consult Physician Urgent Consulting Provider: Sarita Verde Consult Reason/Comments: influenza, possible Pneumonia Do you want consulting provider notified?: Yes 06/04/24 12:17 Consult Physician Routine Consulting Provider: Corie Douglas Consult Reason/Comments: Pt wants to know his prognosis Do you want consulting provider notified?: Yes Primary care physician: [facility] Hospital Course: Please note patient was not discharged but left AGAINST MEDICAL ADVICE Diagnoses: Influenza infection Without hypoxia bilateral infiltrate Suspicious for pneumonia or fluid overload Generalized body ache chronic back pain secondary to above, most likely related to his multiple myeloma Multiple myeloma with metastasis suspicious for liver and the lung, the spine Bilateral pleural effusion with nodular pleural thickening, chronic without hypoxia. Associated with mild fluid overload and leg edema Chronic anemia and thrombocytopenia Hospital course: This is a pleasant 48 years old male with past medical history of multiple myeloma with possible metastasis to the liver bone and spine. Was found to have acute influenza A infection. And he was treated with Tamiflu. Also so his chest x-ray was showing possible fluid overload and he received IV Lasix with contributed to his improvement. Procalcitonin was elevated significantly and oral and IV antibiotics was prescribed and infectious disease consult was obtained. Patient agreed to take the oral antibiotic but he was declined for IV antibiotic. Although he was improving, procalcitonin was trending down but not normalized. He will still have some tachypnea. He examination was showing coarse crepitation with scattered minor crepitation on both sides. He was on room air. He was complaining from back pain and pain all over his body at times and asking for more pain medication, he was asked on getting IV Dilaudid. And also on IV Ativan. Patient talked to the hospice team yesterday, patient wants to go to hospice house, today I talked to the correctional case manager at the bedside nurse to be discharged and the patient wants to be discharged to hospice house. However patient did not sign the hospice papers. I informed the staff the patient is not medically ready for discharge. Have abnormal chest exam and hyponatremia worse 136 than 130. Repeat procalcitonin is pending and he still needs IV antibiotics. Patient declined to take ceftriaxone but he agrees to doxycycline. Patient still requesting IV Dilaudid 0.5 mg every 3 hours. i told him we were giving the patient higher dose of oral Dilaudid 8 mg 3 times daily but he is claims that it does not work. He says it takes 1 hour to work. I Explained to the patient if he takes for 4-5 dose pills one after the other it will h achieve steady level in his blood. Patient still fixed on getting IV Dilaudid. He declined all other options for pain medications which could be safer and that non narcotic even if were intravenous. Risk and benefits were explained for him over several times. Of note I was giving him IV Dilaudid 0.5 mg for breakthrough pain sporadically however he wanted to take it [id number] every 3 hours. Yesterday also and today was planning to increase the oral dose of oral Dilaudid, however he did not ask for more pain medication and even over the last 72 hours he was looking comfortable relaxed not in distress although he still has some pain but does not look causing much distress for him. Yesterday I went to the room and he was talking to the hospice nurse, he was pleasant and relaxed and smiling and thankful to the care. today when I was talking to him although he was complaining from pain he was still relax and looks not in distress sit ting up in chair comfortable. It was thought that IV Dilaudid [id number] carry more risk than benefit. Patient eventually decided to leave AMA. Risk and benefit of leaving AMA explained for him in details including but not limited to the risk of worsening respiratory infection, respiratory failure and/or . He verbalized understanding but still adamant to leave AMA. I told the patient if there is anything I can do or say that prevents him from leaving AMA he denies that. Patient also denies depression hallucination or suicidal ideation. Based upon my evaluation patient has a capacity to make medical decision. Patient informed if he changes his mind or if he develop any symptoms to call 911,and come to emergency room. I advised the patient to follow-up with his doctor as soon as possible and within 1 day if possible. Physical exam Gen: patient is a AAOx3, no distress CVS: S1-S2, RRR, no murmur Lungs: B/L CTA, no wheezing. Bilateral coarse and fine crepitation and some de creased breath sounds in the bases Abdomen: soft, no distention, no tenderness, positive bowel sounds Extremity: no leg edema or induration Time spent more than 35 minutes Patient Condition at Discharge: Fair Plan - Discharge Summary Discharge Rx Participant: Yes New Discharge Prescriptions: No Action Lenalidomide [Revlimid] 20 mg PO DIRECTED HYDROmorphone HCL [Dilaudid] 8 mg PO TID dexAMETHasone [Decadron] 4 mg PO DAILY Lactulose 10 gm PO DAILY PRN PRN Reason: Constipation LORazepam 0.5 mg PO BID polyethylene glycoL 3350 [Miralax] 17 gm PO DAILY PRN PRN Reason: Constipation Discharge Medication List Lenalidomide [Revlimid] 20 mg PO DIRECTED 09/04/23 [History] HYDROmorphone HCL [Dilaudid] 8 mg PO TID 05/05/24 [History] dexAMETHasone [Decadron] 4 mg PO DAILY 05/05/24 [History] LORazepam 0.5 mg PO BID 06/02/24 [History] Lactulose 10 gm PO DAILY PRN 06/02/24 [History] polyethylene glycoL 3350 [Miralax] 17 gm PO DAILY PRN 06/02/24 [History] Follow up Appointment(s)/Referral(s): [facility] [REFERRING] - 1 Week Kehinde Gama DO [Primary Care Provider] - 1-2 days Discharge Disposition: LEFT AGAINST MEDICAL ADVICE
== END 2024-06-06 11:14 | disposition left against medical advice (07) | DRG 153 ==
LOC: EC 22:35 → 5NMEDONC 23:44 → OBSVTOIN 23:45 → 5NMEDONC 06-02 00:53 → 4SSUR 06-02 10:56
PROVIDERS: ADMIT Hospitalist; ATTEND Hospitalist
DX: J11.1 Influenza due to unidentified influenza virus with other respiratory manifestations (principal); C78.7 Secondary malignant neoplasm of liver and intrahepatic bile duct; C79.51 Secondary malignant neoplasm of bone; E87.1 Hypo-osmolality and hyponatremia; D69.6 Thrombocytopenia, unspecified; C90.00 Multiple myeloma not having achieved remission; J90 Pleural effusion, not elsewhere classified; F32.A Depression, unspecified; D64.9 Anemia, unspecified; Z11.52 Encounter for screening for COVID-19; Z53.29 Procedure and treatment not carried out because of patient's decision for other reasons; J18.9 Pneumonia, unspecified organism; D69.59 Other secondary thrombocytopenia; G89.3 Neoplasm related pain (acute) (chronic); M54.6 Pain in thoracic spine; E87.70 Fluid overload, unspecified; R60.0 Localized edema; K59.00 Constipation, unspecified; Z79.899 Other long term (current) drug therapy; Z92.3 Personal history of irradiation
CPT/HCPCS: 36415; 71045; 80048; 80053; 83605; 83735; 84100; 84145; 84484; 85025; 85027; 85610; 85730; 87636; 93005; 94640; 94760; 96361; 96374; 96376; 99285

== ENCOUNTER 2024-06-13 07:23 | Emergency (ER) | payer BC ==
[2024-06-13 07:29] VITALS: RESP 18; TEMP 98.6
--- NOTE | 2024-06-13 08:56 | ED ---
General Adult HPI - General Chief complaint: Recheck/Abnormal Lab/Rx Stated complaint: Pain Time Seen by Provider: 06/13/24 07:27 Source: patient, EMS, RN notes reviewed Mode of arrival: EMS Limitations: no limitations - History of Present Illness Initial comments: Patient is a 48-year-old male present to the emergency department with concerns for chronic pain. Patient request Dilaudid. Patient does have history of multiple myeloma and spinal lesions. Patient has had some incontinence and leg weakness. Patient has refused hospice. Patient has refused treatment. Patient is focused on pain medication. Patient states he does have Dilaudid oral at home. Patient requests IV Dilaudid. Pain is diffuse. - Related Data Home Medications Medication Instructions Recorded Confirmed Lenalidomide [Revlimid] 20 mg PO DIRECTED 09/04/23 06/02/24 HYDROmorphone HCL [Dilaudid] 8 mg PO TID 05/05/24 06/02/24 dexAMETHasone [Decadron] 4 mg PO DAILY 05/05/24 06/02/24 LORazepam 0.5 mg PO BID 06/02/24 06/02/24 Lactulose 10 gm PO DAILY PRN 06/02/24 06/02/24 polyethylene glycoL 3350 [Miralax] 17 gm PO DAILY PRN 06/02/24 06/02/24 Allergies Allergy/AdvReac Type Severity Reaction Status Date / Time No Known Allergies Allergy Verified 06/02/24 11:37 Review of Systems ROS Statement: Those systems with pertinent positive or pertinent negative responses have been documented in the HPI. ROS Other: All systems not noted in ROS Statement are negative. Constitutional: Denies: fever Eyes: Denies: eye pain ENT: Denies: ear pain Respiratory: Denies: dyspnea Cardiovascular: Denies: chest pain Endocrine: Reports: fatigue Musculoskeletal: Reports: as per HPI Past Medical History Past Medical History: Cancer Additional Past Medical History / Comment(s): multiple myloma on chemo. History of prior laminectomy decompression at lower thoracic with Dr. Dominguez in January 2022. History of multiple soft tissue masses throughout his thoracic lumbar and sacral spine. history lower extremity weakness History of Any Multi-Drug Resistant Organisms: None Reported Past Surgical History: No Surgical Hx Reported Additional Past Surgical History / Comment(s): back surgery to remove tumor december of 2021. Bone biospy of right hip, spinal decompression Past Anesthesia/Blood Transfusion Reactions: No Reported Reaction Past Psychological History: No Psychological Hx Reported Smoking Status: Never smoker Past Alcohol Use History: None Reported Past Drug Use History: Marijuana General Exam Limitations: no limitations General appearance: alert, in no apparent distress Head exam: Present: normocephalic Eye exam: Present: normal appearance Neck exam: Present: normal inspection Respiratory exam: Present: normal lung sounds bilaterally Cardiovascular Exam: Present: regular rate, normal rhythm GI/Abdominal exam: Present: soft. Absent: tenderness Extremities exam: Present: pedal edema Neurological exam: Present: alert Psychiatric exam: Present: normal affect, normal mood Skin exam: Present: normal color Course Vital Signs 06/13/24 07:26 Temperature 98.6 F Pulse Rate 87 Respiratory 18 Rate Blood Pressure 122/80 O2 Sat by Pulse 99 Oximetry Medical Decision Making - Medical Decision Making Was pt. sent in by a medical professional or institution (, PA, EMPLOYEE WELLNESS/FITNESS COORDINATOR, urgent care, hospital, or custodial...) When possible be specific @ -No Did you speak to anyone other than the patient for history (EMS, parent, family, police, friend...)? What history was obtained from this source @ -No Did you review nursing and triage notes (agree or disagree)? Why? @ -I reviewed and agree with nursing and triage notes Were old charts reviewed (outside hosp., previous admission, EMS record, old EKG, old radiological studies, urgent care reports/EKG's, custodial records)? Report findings @ -Previous admissions reviewed including MRI and multiple consultations. Patient has refused treatment. Patient also has refused hospice. Differential Diagnosis (chest pain, altered mental status, abdominal pain women, abdominal pain men, vaginal bleeding, weakness, fever, dyspnea, syncope, headache, dizziness, GI bleed, back pain, seizure, CVA, palpatations, mental health, musculoskeletal)? @ -Differential Weakness: Hypoglycemia, shock, sepsis, hyponatremia, anemia, infection, ND, ETOH, adverse medicine reaction, overdose, stroke, this is not meant to be an all-inclusive list. EKG interpreted by me (3pts min.). @ -As above X-rays interpreted by me (1pt min.). @ -None done CT interpreted by me (1pt min.). @ -None done U/S interpreted by me (1pt. min.). @ -None done What testing was considered but not performed or refused? (CT, X-rays, U/S, labs)? Why? @ -Considered imaging however patient has had this done recently What meds were considered but not given or refused? Why? @ -None Did you discuss the management of the patient with other professionals (professionals i.e. , PA, EMPLOYEE WELLNESS/FITNESS COORDINATOR, lab, RT, psych nurse, social staff worker, lawyers, teacher, information officer, heel caser)? Give summary @ -No Was smoking cessation discussed for >3mins.? @ -No Was critical care preformed (if so, how long)? @ -No Were there social determinants of health that impacted care today? How? (Homelessness, low income, unemployed, alcoholism, drug addiction, transportation, low edu. Level, literacy, decrease access to med. care, shelter, rehab)? @ -No Was there de-escalation of care discussed even if they declined (Discuss DNR or withdrawal of care, Hospice)? DNR status @ -No What co-morbidities impacted this encounter? (DM, HTN, Smoking, COPD, CAD, Cancer, CVA, ARF, Chemo, Hep., AIDS, mental health diagnosis, sleep apnea, morbid obesity)? @ -History of multiple myeloma Was patient admitted / discharged? Hospital course, mention meds given and route, prescriptions, significant lab abnormalities, going to OR and other pertinent info. @ -Patient presents with advanced multiple myeloma, discontinued treatment recently. Patient does not want to restart treatment. Discussion with patient regarding hospice. Long discussion with patient multiple times regarding pain medication. Patient will be provided a dose of pain medication and recommended close follow-up with hospice. I will have correctional case records supervisor follow-up with this as well. Patient is explained of this. Patient will be discharged with follow-up recommended. Undiagnosed new problem with uncertain prognosis? @ -No Drug Therapy requiring intensive monitoring for toxicity (Heparin, Nitro, Insulin, Cardizem)? @ -No Were any procedures done? @ -No Diagnosis/symptom? @ -Pain Acute, or Chronic, or Acute on Chronic? @ -Acute on chronic Uncomplicated (without systemic symptoms) or Complicated (systemic symptoms)? @ -Default Side effects of treatment? @ -No Exacerbation, Progression, or Severe Exacerbation? @ -No Poses a threat to life or bodily function? How? (Chest pain, [place], [place], pneumonia, PE, COPD, DKA, ARF, appy, cholecystitis, CVA, Diverticulitis, Homicidal, Suicidal, threat to staff... and all critical care pts) @ -No Disposition Clinical Impression: Multiple myeloma, Intractable back pain Disposition: HOME SELF-CARE Instructions (If sedation given, give patient instructions): Chronic Pain (ED) Additional Instructions: Please follow-up with your primary care physician and your oncologist beginning of the week. Please consider hospice care if you do not want further treatment. Return for fever, need for placement, worsening symptoms or other concerns. Is patient prescribed a controlled substance at d/c from ED?: No Referrals: Kehinde Gama DO [Primary Care Provider] - 1-2 days [facility]osp[facility] [NON-STAFF] - 1-2 days Hospice,[facility] [NON-STAFF] - 1-2 days Hospice,[facility] [NON-STAFF] - 1-2 days Hospice,[facility] [NON-STAFF] - 1-2 days Hospice,[facility] [REFERRING] - 1-2 days Hospice,[facility] [NON-STAFF] - 1-2 days Jaciel Douglas MD [STAFF PHYSICIAN] - 1-2 days Time of Disposition: 08:56
[2024-06-13] MEDS: HYDROmorphone 1 MG/ML 1 ML SYRINGE IM STA (09:10)
[2024-06-13 09:14] VITALS: BP 121/75; PULSE 86
== END 2024-06-13 12:13 | disposition home or self-care (01) ==
LOC: EC 07:23
DX: M54.59 Other low back pain (principal); C90.00 Multiple myeloma not having achieved remission
CPT/HCPCS: 99284; 96372; J1171

== ENCOUNTER 2024-07-01 05:56 | Emergency (ER) | payer BC ==
--- NOTE | 2024-07-01 06:16 | ED ---
General Adult HPI - General Chief complaint: Shortness of Breath Stated complaint: SOB Time Seen by Provider: 07/01/24 05:56 Source: patient, EMS Mode of arrival: EMS Limitations: no limitations - History of Present Illness Initial comments: 48-year-old male presents emergency department with chief complaint of shortness of breath. Patient was currently at [facility] for rehab states that he entered hospice care. Patient has underlying multiple myeloma. Patient states that he is having difficulty repositioning himself because of weakness and he states he cannot move his lower extremities which has been going on. Patient states after they repositioned him he could breathe better but still want to come to emergency department. Patient denies any fevers or chills no cough no other complaints. - Related Data Home Medications Medication Instructions Recorded Confirmed Lenalidomide [Revlimid] 20 mg PO DIRECTED 09/04/23 06/02/24 HYDROmorphone HCL [Dilaudid] 8 mg PO TID 05/05/24 06/02/24 dexAMETHasone [Decadron] 4 mg PO DAILY 05/05/24 06/02/24 LORazepam 0.5 mg PO BID 06/02/24 06/02/24 Lactulose 10 gm PO DAILY PRN 06/02/24 06/02/24 polyethylene glycoL 3350 [Miralax] 17 gm PO DAILY PRN 06/02/24 06/02/24 Allergies Allergy/AdvReac Type Severity Reaction Status Date / Time No Known Allergies Allergy Verified 07/01/24 06:02 Review of Systems ROS Statement: Those systems with pertinent positive or pertinent negative responses have been documented in the HPI. ROS Other: All systems not noted in ROS Statement are negative. 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 History of prior laminectomy decompression at lower thoracic with Dr. Dominguez in January 2022. History of multiple soft tissue masses throughout his thoracic lumbar and sacral spine. history lower extremity weakness History of Any Multi-Drug Resistant Organisms: None Reported Past Surgical History: No Surgical Hx Reported Additional Past Surgical History / Comment(s): back surgery to remove tumor oc tober of 2021. Bone biospy of right hip, spinal decompression Past Anesthesia/Blood Transfusion Reactions: No Reported Reaction Past Psychological History: No Psychological Hx Reported Smoking Status: Never smoker Past Alcohol Use History: None Reported Past Drug Use History: Marijuana General Exam Limitations: no limitations General appearance: alert, in no apparent distress Head exam: Present: atraumatic, normocephalic, normal inspection Eye exam: Present: normal appearance, PERRL, EOMI. Absent: scleral icterus, conjunctival injection, periorbital swelling ENT exam: Present: normal exam, mucous membranes moist Neck exam: Present: normal inspection, full ROM. Absent: tenderness, meningismus, lymphadenopathy Respiratory exam: Present: normal lung sounds bilaterally. Absent: respiratory distress, wheezes, rales, rhonchi, stridor Cardiovascular Exam: Present: regular rate, normal rhythm, normal heart sounds. Absent: systolic murmur, diastolic murmur, rubs, gallop, clicks GI/Abdominal exam: Present: soft, normal bowel sounds. Absent: distended, tenderness, guarding, rebound, rigid Extremities exam: Present: other (Lower extremity weakness) Course Vital Signs 07/01/24 07/01/24 07/01/24 05:56 06:03 08:41 Temperature 98.5 F 97.8 F Pulse Rate 80 78 Respiratory 18 16 20 Rate Blood Pressure 106/70 107/71 O2 Sat by Pulse 96 100 Oximetry Medical Decision Making - Medical Decision Making Was pt. sent in by a medical professional or institution (, PA, FIRST AID NURSE, urgent c are, hospital, or correction...) When possible be specific @ -Thien Did you speak to anyone other than the patient for history (EMS, parent, family, police, friend...)? What history was obtained from this source @ -No Did you review nursing and triage notes (agree or disagree)? Why? @ -I reviewed and agree with nursing and triage notes Were old charts reviewed (outside hosp., previous admission, EMS record, old EKG, old radiological studies, urgent care reports/EKG's, correction records)? Report findings @ -No old charts were reviewed Differential Diagnosis (chest pain, altered mental status, abdominal pain women, abdominal pain men, vaginal bleeding, weakness, fever, dyspnea, syncope, headache, dizziness, GI bleed, back pain, seizure, CVA, palpatations, mental health, musculoskeletal)? @ -Differential Dyspnea: Coronary syndrome, arrhythmia, tamponade, asthma, COPD, pulmonary embolism, pneumonia, pneumothorax, pulmonary effusion, anaphylaxis, diabetic ketoacidosis, flailed chest, pulmonary contusion, diaphragmatic rupture, anemia, neuromuscular, this is not meant to be an all-inclusive list. EKG interpreted by me (3pts min.). @ -None X-rays interpreted by me (1pt min.). @ -Chest x-ray shows possible atelectasis versus pulmonary congestion similar to prior chest x-ray CT interpreted by me (1pt min.). @ -None done U/S interpreted by me (1pt. min.). @ -None done What testing was considered but not performed or refused? (CT, X-rays, U/S, labs)? Why? @ -None What meds were considered but not given or refused? Why? @ -None Did you discuss the management of the patient with other professionals (professionals i.e. , PA, FIRST AID NURSE, lab, RT, psych nurse, sexual assault social worker, trial lawyer, teacher, investment officer, case monitor)? Give summary @ -No Was smoking cessation discussed for >3mins.? @ -No Was critical care preformed (if so, how long)? @ -No Were there social determinants of health that impacted care today? How? (Homelessness, low income, unemployed, alcoholism, drug addiction, transportation, low edu. Level, literacy, decrease access to med. care, intermediate, rehab)? @ -No Was there de-escalation of care discussed even if they declined (Discuss DNR or withdrawal of care, Hospice)? DNR status @ -No What co-morbidities impacted this encounter? (DM, HTN, Smoking, COPD, CAD, Cancer, CVA, ARF, Chemo, Hep., AIDS, mental health diagnosis, sleep apnea, morbid obesity)? @ -Multiple myeloma Was patient admitted / discharged? Hospital course, mention meds given and route, prescriptions, significant lab abnormalities, going to OR and other pertinent info. @ -Discharged patient presented for dyspnea patient had no hypoxic events patient has no signs distress. Patient is requesting pain meds but he is on chronic pain meds currently. Patient chest x-ray question pulm edema with old low BNP no signs stress no hypoxia and chest x-ray showing this in the past without any treatment. Patient is otherwise stable to go back to [facility] as he has lower extremity weakness and needs further treatment. Undiagnosed new problem with uncertain prognosis? @ -No Drug Therapy requiring intensive monitoring for toxicity (Heparin, Nitro, Insulin, Cardizem)? @ -No Were any procedures done? @ -No Diagnosis/symptom? @ -Multi myeloma, chronic pain anxiety Acute, or Chronic, or Acute on Chronic? @ -Acute Uncomplicated (without systemic symptoms) or Complicated (systemic symptoms)? @ -Uncomplicated Side effects of treatment? @ -No Exacerbation, Progression, or Severe Exacerbation? @ -No Poses a threat to life or bodily function? How? (Chest pain, [place], [place], pneumonia, PE, COPD, DKA, ARF, appy, cholecystitis, CVA, Diverticulitis, Homicidal, Suicidal, threat to staff... and all critical care pts) @ -No - Lab Data Result diagrams: 07/01/24 07:43 07/01/24 07:43 Lab Results 07/01/24 07/01/24 Range/Units 07:43 07:43 WBC 9.89 (4.50-10.00) 10*3/uL RBC 2.60 L (4.40-5.60) 10*6/uL Hgb 10.3 L (13.0-17.0) g/dL Hct 28.5 L (39.6-50.0) % MCV 109.6 H (80.0-97.0) fL MCH 39.6 H (27.0-32.0) pg MCHC 36.1 (32.0-37.0) g/dL Plt Count 104 L (140-440) 10*3/uL MPV 9.7 (9.5-12.2) fL Immature Gran % (Auto) 2.2 % Neutrophils % (Manual) 88 % Lymphocytes % (Manual) 8 % Monocytes % (Manual) 4 % Immature Gran # 0.22 H (0.00-0.04) 10*3/uL Neutrophils # (Manual) 8.70 H (1.3-7.7) k/uL Lymphocytes # (Manual) 0.79 L (1.0-4.8) k/uL Monocytes # (Manual) 0.40 (0-1.0) k/uL Nucleated RBCs 0 (0-0) /100 WBC Manual Slide Review Performed Reactive Lymphocytes Present Immature Plt Fraction 1.9 (1.1-6.1) % Anisocytosis (manual) Present Tear Drop Cells Present Sodium 132 L (137-145) mmol/L Potassium 5.4 H (3.5-5.1) mmol/L Chloride 101 (98-107) mmol/L Carbon Dioxide 22 (22-30) mmol/L Anion Gap 9 mmol/L BUN 29 H (9-20) mg/dL Creatinine 0.66 (0.66-1.25) mg/dL Est GFR (CKD-EPI)AfAm >90 (>60 ml/min/1.73 sqM) Est GFR (CKD-EPI)NonAf >90 (>60 ml/min/1.73 sqM) Glucose 89 (74-99) mg/dL Calcium 7.4 L (8.4-10.2) mg/dL Total Bilirubin 1.0 (0.2-1.3) mg/dL AST 39 (17-59) U/L ALT 31 (4-49) U/L Alkaline Phosphatase 26 L (38-126) U/L NT-Pro-B Natriuret Pep 284 pg/mL Total Protein 5.4 L (6.3-8.2) g/dL Albumin 3.3 L (3.5-5.0) g/dL Disposition Clinical Impression: Multiple myeloma, Anxiety, Chronic pain Disposition: HOME SELF-CARE Condition: Good Is patient prescribed a controlled substance at d/c from ED?: No Referrals: Kehinde Gama DO [Primary Care Provider] - 1-2 days Time of Disposition: 09:37
--- NOTE | 2024-07-01 06:52 | XR ---
EXAMINATION TYPE: XR chest 2V DATE OF EXAM: 07/01/2024 6:40 AM COMPARISON: Chest radiographs from 06/03/2024, CT chest 05/08/2024 TECHNIQUE: XR chest 2V Frontal and lateral views of the chest. CLINICAL INDICATION:Male, 48 years old with history of sob; history of multiple myeloma. FINDINGS: Lungs/Pleura: Small bilateral pleural effusions with right greater than left. Bibasilar patchy airspa ce opacities. No pneumothorax. Bilateral pleural based masses are better appreciated on prior CT. Pulmonary vascularity: Pulmonary vascular congestion. Heart/mediastinum: Cardiomediastinal silhouette is unremarkable. Musculoskeletal: No acute osseous pathology. IMPRESSION: 1. Small bilateral pleural effusions with right greater than left. 2. Bilateral pleural-based masses are better appreciated on prior CT and related to multiple myeloma . 3. Bibasilar patchy opacities favored to represent atelectasis versus infiltrate. 4. Pulmonary vascular congestion. [facility], , 07/01/2024 6:49 AM
[2024-07-01 07:51] LABS: HCT 28.5 % (39.6-50.0); HGB 10.3 g/dL (13.0-17.0); Immature Platelet Fraction 1.9 % (1.1-6.1); MCH 39.6 pg (27.0-32.0); MCHC 36.1 g/dL (32.0-37.0); MCV 109.6 fL (80.0-97.0); Mean Platelet Volume 9.7 fL (9.5-12.2); Platelet Count 104 10*3/uL (140-440); RDW 16.1 % (11.5-14.5); WBC 9.89 10*3/uL (4.50-10.00)
[2024-07-01 08:00] LABS: ALT 31 U/L (4-49); African American GFR (CKD) >90 (>60 ml/min/1.73 sqM); Albumin 3.3 g/dL (3.5-5.0); Anion Gap 9 mmol/L; Blood Urea Nitrogen 29 mg/dL (9-20); Calcium 7.4 mg/dL (8.4-10.2); Carbon Dioxide 22 mmol/L (22-30); Chloride 101 mmol/L (98-107); Glucose 89 mg/dL (74-99); Non-African American GFR(CKD) >90 (>60 ml/min/1.73 sqM); Sodium 132 mmol/L (137-145); Total Protein 5.4 g/dL (6.3-8.2)
[2024-07-01 08:01] LABS: AST 39 U/L (17-59); Alkaline Phosphatase 26 U/L (38-126); Potassium 5.4 mmol/L (3.5-5.1)
[2024-07-01 08:07] LABS: NT-Pro-B-Type Natriuretic Pept 284 pg/mL
[2024-07-01 08:42] VITALS: RESP 20
[2024-07-01] MEDS: FUROSEMIDE 10 MG/ML 4 ML VIAL IV STA (08:43)
[2024-07-01] MEDS: guaiFENesin SYRUP 100MG/5ML 200 MG/10 ML CUP PO STA (08:44)
[2024-07-01 09:25] LABS: Lymphocytes # (M) 0.79 k/uL (1.0-4.8); Neutrophils % (M) 88 %; Nucleated Red Blood Cells 0 /100 WBC (0-0); Reactive Lymphocytes Present; Total Cells Counted 100
[2024-07-01 09:27] LABS: Anisocytosis (M) Present; Tear Drop Cells Present
[2024-07-01] MEDS: oxyCODONE-APAP 10-325MG 1 EACH TAB PO STA (09:58)
[2024-07-01 11:46] VITALS: BP 108/79; PULSE 93; TEMP 98.9
== END 2024-07-01 11:46 | disposition home or self-care (01) ==
LOC: EC 05:56
DX: G89.29 Other chronic pain (principal); C90.00 Multiple myeloma not having achieved remission; F41.9 Anxiety disorder, unspecified
CPT/HCPCS: 36415; 83880; 80053; 85025; 71046; 99285; 96374; J1938